=== PATIENT | female | born 1955 | race American Indian/Alaskan Native ===

== ENCOUNTER 2017-03-02 10:14 | Inpatient (IN) | payer BC ==
[2017-03-02] MEDS ORDERED: Ondansetron 4 MG/2 ML SDV IVPUSH ONE (10:35)
[2017-03-02] MEDS ORDERED: Sodium Chloride 0.9% 10 ML Syringe FLUSH PRN (10:36)
[2017-03-02] MEDS ORDERED: Sodium Chloride 0.9% 1,000 ML IV SCH (10:45)
--- NOTE | 2017-03-02 11:10 | EDM.PDOC ---
ED HPI GENERAL MEDICAL PROBLEM - General Chief Complaint: Back Pain or Injury Stated Complaint: [facility] Time Seen by Provider: 03/02/17 10:18 Source of Information: Reports: Patient, RN Notes Reviewed - History of Present Illness INITIAL COMMENTS - FREE TEXT/NARRATIVE: 61-year-old lady comes in with generalized weakness, dizziness, upper mid and lower back discomfort. She has been having a lot of difficulty with back discomfort for about a month or more. the pain comes and goes. She states yesterday she was extremely weak, dizzy, very difficult to stand or walk. Symptoms continued today and therefore presents by ambulance at this time. She is not aware of any recent fall or injury. She has drank alcohol heavily in the past but has not been drinking any time recently. She continues to smoke. Has not been coughing any more than usual. No fever or chills. No unusual bladder symptoms. At times the pain will radiate down into her legs but not having radicular pain at this time. No major abdominal or pelvic discomfort at this time. 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 [No Known Home Meds] 03/02/17 [History] Past Medical History HEENT History: Reports: Impaired Vision Musculoskeletal History: Reports: Neck Pain, Chronic Psychiatric History: Reports: Addiction Social & Family History - Tobacco Use Smoking Status *Q: Unknown Ever Smoked Years of Tobacco use: 30 - Alcohol Use Days Per Week of Alcohol Use: 1 Number of Drinks Per Day: 6 Total Drinks Per Week: 6 - Recreational Drug Use Recreational Drug Use: No ED ROS GENERAL - Review of Systems Review Of Systems: See Below Constitutional: Denies: Fever, Chills, Diaphoresis HEENT: Denies: Sinus Problem, Throat Pain Respiratory: Reports: Shortness of Breath, Wheezing (Exertional chronic), Cough (, mild). Denies: Sputum ( occasional, not worse than usual ), Hemoptysis Cardiovascular: Reports: Chest Pain (Occasional anterior chest tightness, not worse than usual), Dyspnea on Exertion, Lightheadedness (Yesterday and today), Palpitations (Mild) GI/Abdominal: Denies: Abdominal Pain, Diarrhea, Nausea, Vomiting : Reports: No Symptoms Musculoskeletal: Reports: Neck Pain (Chronic), Back Pain (Upper mid and lower back, chronic), Muscle Pain (Generalized achiness) Skin: Reports: Bruising (Scattered). Denies: Rash Neurological: Reports: Dizziness, Difficulty Walking (Generalized yesterday and today), Weakness. Denies: Numbness, Tingling ED EXAM, DIZZINESS - Physical Exam Exam: See Below General Appearance: Alert, Mild Distress Eye Exam: Bilateral Eye: PERRL Nose: Normal Inspection Throat/Mouth: Normal Inspection, Normal Oropharynx, Other (Oral mucosa very dry) Head Exam: Atraumatic. No: Facial Swelling Neck: Normal Inspection, Supple, Other (Mild bilateral soft tissue tenderness, no abnormal masses swelling) Respiratory/Chest: Wheezing (Mild bilateral). No: Rhonchi Cardiovascular: Tachycardia GI/Abdominal: Soft, Tender (Very mild upper mid abdominal tenderness). No: Guarding, Rebound Neurological: Alert, No Motor/Sensory Deficits, Oriented x 3 Back Exam: No: CVA Tenderness (L), CVA Tenderness (R) Extremities: Normal Inspection. No: Pedal Edema, Leg Pain Skin Exam: Warm, Dry, Normal Color EKG INTERPRETATION EKG Date: 03/02/17 Rate (Beats/Min): 138 P-Wave: Present QRS: Normal ST-T: Depressed (Anterior inferior and lateral lead depression) Course - Vital Signs Last Recorded V/S: Last Vital Signs Temp 98.2 F 03/02/17 10:16 Pulse 136 H 03/02/17 10:16 Resp 18 03/02/17 10:16 BP 97/81 03/02/17 10:16 Pulse Ox 97 03/02/17 10:16 - Orders/Labs/Meds Orders: Active Orders 24 hr Category Date Time Status Admission Status [Patient Status] [ADT] Routine ADT 03/02/17 13:15 Active EKG 12 Lead [EKG Documentation Completion] [RC] STAT Care 03/02/17 10:35 Active EKG 12 Lead [EKG Documentation Completion] [RC] STAT Care 03/02/17 11:13 Active Peripheral IV Care [RC] . DIRECTED Care 03/02/17 10:36 Active Potassium Chloride [KCl 10 MEQ in Water 100 ML] 10 meq Med 03/02/17 11:27 Active Premix Bag 1 bag IV ASDIRECTED Potassium Chloride [KCl 10 MEQ in Water 100 ML] 10 meq Med 03/02/17 13:17 Active Premix Bag 1 bag IV ASDIRECTED Sodium Chloride 0.9% [Normal Saline] 1,000 ml Med 03/02/17 11:52 Active IV NOW Sodium Chloride 0.9% [Normal Saline] 1,000 ml Med 03/02/17 10:45 Active IV ONETIME Sodium Chloride 0.9% [Saline Flush] Med 03/02/17 10:36 Active 10 ml FLUSH ASDIRECTED PRN Peripheral IV Insertion Adult [OM.PC] Stat Oth 03/02/17 10:35 Ordered Medication Orders Sodium Chloride (Normal Saline) 1,000 mls @ 999 mls/hr IV ONETIME RAAD Last Admin: 03/02/17 10:43 Dose: 999 mls/hr Potassium Chloride 10 meq/ (Premix) 100 mls @ 50 mls/hr IV ASDIRECTED ONE Stop: 03/02/17 13:26 Last Admin: 03/02/17 11:32 Dose: 50 mls/hr Sodium Chloride (Normal Saline) 1,000 mls @ 150 mls/hr IV NOW STA Stop: 03/02/17 18:31 Last Admin: 03/02/17 11:53 Dose: 150 mls/hr Potassium Chloride 10 meq/ (Premix) 100 mls @ 50 mls/hr IV ASDIRECTED ONE Stop: 03/02/17 15:16 Sodium Chloride (Saline Flush) 10 ml FLUSH ASDIRECTED PRN PRN Reason: Keep Vein Open Last Admin: 03/02/17 10:44 Dose: 10 ml Labs: Laboratory Tests 03/02/17 03/02/17 03/02/17 Range/Units 10:38 10:38 11:09 WBC 13.28 H (3.98-10.04) K/mm3 RBC 4.22 (3.98-5.22) M/mm3 Hgb 14.5 (11.2-15.7) gm/L Hct 41.6 (34.1-44.9) % MCV 98.6 H (79.4-94.8) fl MCH 34.4 H (25.6-32.2) pg MCHC 34.9 (32.2-35.5) g/dl RDW Std Deviation 54.5 H (36.4-46.3) fL Plt Count 313 (182-369) K/mm3 MPV 10.3 (9.4-12.3) fl Neut % (Auto) 86.0 H (34.0-71.1) % Lymph % (Auto) 8.7 L (19.3-51.7) % Harmon % (Auto) 4.8 (4.7-12.5) % Eos % (Auto) 0.1 L (0.7-5.8) Baso % (Auto) 0.2 (0.1-1.2) % Neut # (Auto) 11.43 H (1.56-6.13) K/mm3 Lymph # (Auto) 1.15 L (1.18-3.74) K/mm3 Harmon # (Auto) 0.64 H (0.24-0.36) K/mm3 Eos # (Auto) 0.01 L (0.04-0.36) K/mm3 Baso # (Auto) 0.02 (0.01-0.08) K/mm3 Manual Slide Review Abnormal smear Sodium 143 (136-145) mEq/L Potassium 1.3 L* (3.5-5.1) mEq/L Chloride 109 H (98-107) mEq/L Carbon Dioxide 22 (21-32) mEq/L Anion Gap 13.3 (5-15) BUN 12 (7-18) mg/dL Creatinine 1.1 H (0.55-1.02) mg/dL Est Cr Clr Drug Dosing 47.55 mL/min Estimated GFR (MDRD) 51 (>60) mL/min BUN/Creatinine Ratio 10.9 L (14-18) Glucose 175 H (74-106) mg/dL Calcium 7.8 L (8.5-10.1) mg/dL Total Bilirubin 1.4 H (0.2-1.0) mg/dL AST 58 H (15-37) U/L ALT 29 (14-59) U/L Alkaline Phosphatase 189 H (46-116) U/L Troponin I 0.141 H* (0.00-0.056) ng/mL C-Reactive Protein 1.4 H* (<1.0) mg/dL Total Protein 6.5 (6.4-8.2) g/dl Albumin 2.5 L (3.4-5.0) g/dl Globulin 4.0 gm/dL Albumin/Globulin Ratio 0.6 L (1-2) TSH 3rd Generation 7.263 H (0.358-3.74) uIU/mL Urine Color Yellow (Yellow) Urine Appearance Slt cloudy H (Clear) Urine pH 7.0 (5.0-8.0) Ur Specific [place] 1.020 (1.005-1.030) Urine Protein 2+ H (Negative) Urine Glucose (UA) Negative (Negative) Urine Ketones Negative (Negative) Urine Occult Blood 2+ H (Negative) Urine Nitrite Negative (Negative) Urine Bilirubin 1+ H (Negative) Urine Urobilinogen 0.2 (0.2-1.0) Ur Leukocyte Esterase Negative (Negative) Urine RBC 5-10 H (0-5) /hpf Urine WBC 0-5 (0-5) /hpf Ur Epithelial Cells 0-5 (0-5) /hpf Urine Bacteria Few (FEW) /hpf Urine Mucus Few (FEW) /hpf Meds: Medications Generic Name Dose Route Start Last Admin Trade Name Freq PRN Reason Stop Dose Admin Sodium Chloride 1,000 mls @ 999 mls/hr 03/02/17 10:45 03/02/17 10:43 Normal Saline IV 999 mls/hr ONETIME RAAD Administration Potassium Chloride 10 meq/ 100 mls @ 50 mls/hr 03/02/17 11:27 03/02/17 11:32 Premix IV 03/02/17 13:26 50 mls/hr ASDIRECTED ONE Administration Sodium Chloride 1,000 mls @ 150 mls/hr 03/02/17 11:52 03/02/17 11:53 Normal Saline IV 03/02/17 18:31 150 mls/hr NOW STA Administration Potassium Chloride 10 meq/ 100 mls @ 50 mls/hr 03/02/17 13:17 Premix IV 03/02/17 15:16 ASDIRECTED ONE Sodium Chloride 10 ml 03/02/17 10:36 03/02/17 10:44 Saline Flush FLUSH 10 ml ASDIRECTED PRN Administration Keep Vein Open Discontinued Medications Generic Name Dose Route Start Last Admin Trade Name Freq PRN Reason Stop Dose Admin Hydromorphone HCl 0.5 mg 03/02/17 13:17 Dilaudid IVPUSH 03/02/17 13:18 ONETIME ONE Sodium Chloride Confirm 03/02/17 11:53 Normal Saline Administered 03/02/17 11:54 Dose 1,000 mls @ as directed .ROUTE .STK-MED ONE Ondansetron HCl 4 mg 03/02/17 10:35 03/02/17 10:43 Zofran IVPUSH 03/02/17 10:36 4 mg ONETIME ONE Administration Potassium Chloride 40 meq 03/02/17 11:27 03/02/17 11:36 Klor-Con M20 PO 03/02/17 11:28 40 meq ONETIME ONE Administration - Re-Assessments/Exams Free Text/Narrative Re-Assessment/Exam: 03/02/17 11:28 Lab was just called. Her potassium is resulting at 1.3. However her the blood draw was from her IV site so we are going to have lab redraw that. Her EKG shows changes compatible with hypokalemia and therefore we are going to give 40 mEq by mouth now and also 10 mEq IV now. Interest her heart rate has slowed from 140s to 150s on arrival down to 89. Repeat EKG also has been ordered. Repeat EKG much improved. She still does have some ST depression but not near as much. Rate is at 59. We are continuing to infuse IV potassium slowly. The plan is that patient will be admitted MedSurg telemetry. Departure - Departure Time of Disposition: 13:12 Disposition: Admitted As Inpatient 68 Condition: Serious Clinical Impression: Hypokalemia, Generalized weakness, Difficulty walking - Discharge Information Referrals: PCP,None [Primary Care Provider] - Forms: ED Department Discharge ED Communication - Discussed Case With (1) Discussed Case With (1): Admitting Provider (Dr Null) - My Orders Last 24 Hours: My Active Orders 03/02/17 10:35 EKG 12 Lead [EKG Documentation Completion] [RC] STAT Peripheral IV Insertion Adult [OM.PC] Stat 03/02/17 10:36 Peripheral IV Care [RC] . DIRECTED Sodium Chloride 0.9% [Saline Flush] 10 ml FLUSH ASDIRECTED PRN 03/02/17 10:45 Sodium Chloride 0.9% [Normal Saline] 1,000 ml IV ONETIME 03/02/17 11:13 EKG 12 Lead [EKG Documentation Completion] [RC] STAT 03/02/17 11:27 Potassium Chloride [KCl 10 MEQ in Water 100 ML] 10 meq Premix Bag 1 bag IV ASDIRECTED 03/02/17 11:52 Sodium Chloride 0.9% [Normal Saline] 1,000 ml IV NOW 03/02/17 13:15 Admission Status [Patient Status] [ADT] Routine 03/02/17 13:17 Potassium Chloride [KCl 10 MEQ in Water 100 ML] 10 meq Premix Bag 1 bag IV ASDIRECTED - Assessment/Plan Last 24 Hours: My Active Orders 03/02/17 10:35 EKG 12 Lead [EKG Documentation Completion] [RC] STAT Peripheral IV Insertion Adult [OM.PC] Stat 03/02/17 10:36 Peripheral IV Care [RC] . DIRECTED Sodium Chloride 0.9% [Saline Flush] 10 ml FLUSH ASDIRECTED PRN 03/02/17 10:45 Sodium Chloride 0.9% [Normal Saline] 1,000 ml IV ONETIME 03/02/17 11:13 EKG 12 Lead [EKG Documentation Completion] [RC] STAT 03/02/17 11:27 Potassium Chloride [KCl 10 MEQ in Water 100 ML] 10 meq Premix Bag 1 bag IV ASDIRECTED 03/02/17 11:52 Sodium Chloride 0.9% [Normal Saline] 1,000 ml IV NOW 03/02/17 13:15 Admission Status [Patient Status] [ADT] Routine 03/02/17 13:17 Potassium Chloride [KCl 10 MEQ in Water 100 ML] 10 meq Premix Bag 1 bag IV ASDIRECTED
--- NOTE | 2017-03-02 11:10 | CR ---
Chest: Portable view of the chest was obtained. Comparison: Previous chest x-ray of 05/18/14. Heart size and mediastinum are within normal limits for portable technique. Lungs are clear. Bony structures are grossly intact. Impression: 1. Nothing acute is identified on portable chest x-ray. Diagnostic code #1
[2017-03-02] MEDS ORDERED: Potassium Chloride 10 MEQ in Premix Bag 1 BAG IV ONE ×2 (11:27→13:17)
[2017-03-02] MEDS ORDERED: Potassium Chloride 20 MEQ Tab.ER PO ONE (11:27)
[2017-03-02] MEDS ORDERED: Sodium Chloride 0.9% 1,000 ML IV STA (11:52)
[2017-03-02] MEDS ORDERED: Sodium Chloride 0.9% 1,000 ML ONE (11:53)
[2017-03-02] MEDS ORDERED: HYDROmorphone 0.5 MG/0.5 ML Syringe IVPUSH ONE (13:17)
[2017-03-02] MEDS ORDERED: Acetaminophen 325 MG Tab PO ONE (14:40)
[2017-03-02] MEDS ORDERED: Sodium Chloride 0.9% with KCl 1,000 ML IV ONE (15:45)
--- NOTE | 2017-03-02 16:09 | PCM.HP ---
H&P History of Present Illness - General Date of Service: 03/02/17 Admit Problem/Dx: Admission Diagnosis/Problem Admission Diagnosis/Problem Hypokalemia Source of Information: Patient, Provider History Limitations: Reports: No Limitations - History of Present Illness Initial Comments - Free Text/Narative: 61 year old female who complained of back discomfort on presentation to the ED, is being admitted with profoundly low potassium, 1.6. A repeat potassium will be obtained, the potassium was drawn from the IV site. A UDS/EAC will also be checked; she reports no medication use. She reported trying to lose weight until the spring, and mentions that she has had a loss of over 60 pounds. At this time she reported a poor appetite and muscle weakness. Apparently she had back pain in the ED and received Dilaudid 0.5 mg IV once. She reported early satiety and states that she prefers drink her meals especially Ensure. Onset of Symptoms: Reports: Unknown/Unsure Duration of Symptoms: Reports: Week(s):, Getting Worse Location: Reports: Generalized Severity: Moderate Improves with: Reports: Medication Worsens with: Reports: Movement Associated Symptoms: Reports: Loss of Appetite, Weakness Neck Pain Score (Numeric/FACES): 8 Back Pain Score (Numeric/FACES): 8 - Related Data Allergies/Adverse Reactions: Allergies Allergy/AdvReac Type Severity Reaction Status Date / Time carisoprodol [From Soma] Allergy Cannot Verified 02/07/14 09:08 Remember Home Medications: Home Meds . 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) Other OB/BYN History: tumor on uterus Musculoskeletal History: Reports: Back Pain, Chronic, Neck Pain, Chronic Psychiatric History: Reports: Addiction, Depression Oncologic (Cancer) History: 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 (See Below) Other Oncologic History: precancerous uterine tumour removed with hysterectomy - Infectious Disease History Infectious Disease History: Reports: Chicken Pox - Past Surgical History HEENT Surgical History: 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 (See Below) Other HEENT Surgeries/Procedures: rhinoplasty Respiratory Surgical History: Reports: None Female Surgical History: Reports: Hysterectomy Other Female Surgeries/Procedures: partial hysterectomy Musculoskeletal Surgical History: Reports: None Oncologic Surgical History: 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 (See Below) Other Oncologic Surgeries/Procedures: hysterectomy Social & Family History - Family History Family Medical History: Noncontributory Other HEENT Family History: pt. adopted and unsure of family medical history. states her children do not have medical concerns. - Tobacco Use Smoking Status *Q: Current Every Day Smoker Years of Tobacco use: 42 Packs/Tins Daily: 0.5 Second Hand Smoke Exposure: Yes - Caffeine Use Caffeine Use: Reports: Coffee, Soda, Tea - Alcohol Use Days Per Week of Alcohol Use: 1 Number of Drinks Per Day: 6 Total Drinks Per Week: 6 - Recreational Drug Use Recreational Drug Use: No H&P Review of Systems - Review of Systems: Review Of Systems: See Below General: Reports: Weakness, Fatigue, Decreased Appetite, Weight Loss HEENT: Reports: No Symptoms Pulmonary: Reports: No Symptoms Cardiovascular: Reports: Lightheadedness. Denies: No Symptoms Gastrointestinal: Reports: No Symptoms Genitourinary: Reports: No Symptoms Musculoskeletal: Reports: No Symptoms Skin: Reports: No Symptoms Psychiatric: Reports: No Symptoms Neurological: Reports: No Symptoms Hematologic/Lymphatic: Reports: No Symptoms Immunologic: Reports: No Symptoms Exam - Exam Exam: See Below - Vital Signs Vital Signs: Last Vital Signs Temp 36.4 C 03/02/17 15:29 Pulse 87 03/02/17 15:29 Resp 12 03/02/17 15:31 BP 115/92 H 03/02/17 15:31 Pulse Ox 97 03/02/17 15:29 Weight: 57.969 kg - Exam Quality Assessment: DVT Prophylaxis General: Alert, Oriented, Cooperative, Other (dishelved) HEENT: EACs Clear, EOMI, Nares Patent, Normal Nasal Septum, Posterior Pharynx Clear, Pupils Equal, Pupils Reactive, TMs Clear Neck: Supple, Trachea Midline Lungs: Normal Respiratory Effort Cardiovascular: Regular Rate, Tachycardia GI/Abdominal Exam: Normal Bowel Sounds, Soft, Non-Tender, No Organomegaly, No Distention (Female) Exam: Deferred Rectal (Female) Exam: Deferred Back Exam: Normal Inspection Extremities: Normal Inspection Skin: Warm Neurological: Cranial Nerves Intact Neuro Extensive - Mental Status: Alert, Oriented x3 Neuro Extensive - Motor, Sensory, Reflexes: CN II-XII Intact Psychiatric: Alert - Patient Data Result Diagrams: 03/02/17 10:38 03/02/17 10:38 *Q Meaningful Use (ADM) - VTE *Q VTE Criteria *Q: - Stroke *Q Stroke Criteria *Q: - AMI *Q AMI Criteria *Q: - Problem List (1) Difficulty walking SNOMED Code(s): 774209894 ICD Code: R26.2 - DIFFICULTY IN WALKING, NOT ELSEWHERE CLASSIFIED Status: Acute Current Visit: Yes (2) Generalized weakness SNOMED Code(s): 69350231 ICD Code: R53.1 - WEAKNESS Status: Acute Current Visit: Yes (3) Hypokalemia SNOMED Code(s): 54807522 ICD Code: E87.6 - HYPOKALEMIA Status: Acute Current Visit: Yes Problem List Initiated/Reviewed/Updated: Yes Orders Last 24hrs: Active Orders 24 hr Category Date Time Status Nicotine [Habitrol] Med 03/02/17 15:45 Active 21 mg TRDERM DAILY Remove Patch Med 03/03/17 09:00 Active 1 ea TRDERM DAILY Sodium Chloride 0.9% with KCl [Normal Saline with 40 Med 03/02/17 15:45 Active mEq KCl] 1,000 ml IV ONETIME Code Status [Resuscitation Status] Routine Resus Stat 03/02/17 14:43 Ordered Medication Orders Sodium Chloride (Normal Saline) 1,000 mls @ 150 mls/hr IV NOW STA Stop: 03/02/17 18:31 Last Admin: 03/02/17 11:53 Dose: 150 mls/hr Potassium Chloride/Sodium Chloride (Normal Saline With 40 Meq Kcl) 1,000 mls @ 100 mls/hr IV ONETIME ONE Stop: 03/03/17 01:44 Miscellaneous Information (Remove Patch) 1 ea TRDERM DAILY RAAD Nicotine (Habitrol) 21 mg TRDERM DAILY RAAD Sodium Chloride (Saline Flush) 10 ml FLUSH ASDIRECTED PRN PRN Reason: Keep Vein Open Last Admin: 03/02/17 10:44 Dose: 10 ml Assessment/Plan Comment:: Impression: Hypokalemia, unspecified Query hypomagnesemia Hypothyroidism Hyperglycemia Elevated WBCs, no infectious site Query CKD, likely dehydration Hypocalcemia Elevated Tn I, can not exclude ACS type I Plan: IV/oral K MS tele Serial ECG/Tns Repeat K, Ca; replace as needed; check Mg Uk, UCr; UDS Start Synthroid Query ACS 2D echo, etc as needed SW/PT/OT DVT/GI prophylaxis
[2017-03-02] MEDS ORDERED: diphenhydrAMINE 50 MG/ML SDV IVPUSH ONE (16:12)
[2017-03-02] MEDS ORDERED: Ibuprofen 600 MG Tab PO PRN (16:16)
[2017-03-02] MEDS: Nicotine 21 MG/24 Hr Patch TRDERM SCH (16:29)
[2017-03-02] MEDS: chlordiazePOXIDE 25 MG Cap PO SCH ×2 (19:53→23:53)
[2017-03-02] MEDS: Potassium Chloride 10 MEQ in Premix Bag 1 BAG IV SCH ×3 (19:54→22:10)
[2017-03-02] MEDS ORDERED: Magnesium Sulfate/Water 2 GM in Premix Bag 1 BAG IV ONE (20:00)
[2017-03-02] MEDS: Potassium Chloride 20 MEQ Tab.ER PO SCH (20:04)
[2017-03-02] MEDS: LORazepam 2 MG/ML MDV IVPUSH PRN (20:05)
[2017-03-03] MEDS ORDERED: Levothyroxine 50 MCG Tab PO SCH (06:00)
[2017-03-03] MEDS: Potassium Chloride 20 MEQ Tab.ER PO SCH ×3 (09:19→22:17)
[2017-03-03] MEDS: Enoxaparin 40 MG/0.4 ML Syringe SUBCUT SCH (09:19)
[2017-03-03] MEDS: Nicotine 21 MG/24 Hr Patch TRDERM SCH (09:19)
[2017-03-03] MEDS: chlordiazePOXIDE 25 MG Cap PO SCH ×2 (09:20→22:17)
[2017-03-03] MEDS ORDERED: Potassium Chloride 20 MEQ Tab.ER PO ONE (10:00)
--- NOTE | 2017-03-03 13:16 | PCM.PN ---
- General Info Date of Service: 03/03/17 Functional Status: Reports: Tolerating Diet (clear liquids), Ambulating, Urinating - Review of Systems General: Reports: Weakness HEENT: Reports: No Symptoms Pulmonary: Reports: No Symptoms Cardiovascular: Reports: No Symptoms Gastrointestinal: Reports: No Symptoms Genitourinary: Reports: No Symptoms Musculoskeletal: Reports: No Symptoms Skin: Reports: No Symptoms Neurological: Reports: No Symptoms Psychiatric: Reports: No Symptoms - Patient Data Vitals - Most Recent: Last Vital Signs Temp 36.6 C 03/03/17 12:21 Pulse 80 03/03/17 12:21 Resp 12 03/03/17 12:21 BP 102/86 03/03/17 12:21 Pulse Ox 99 03/03/17 12:21 Weight - Most Recent: 60.146 kg I&O - Last 24 Hours: Intake & Output 03/02/17 03/03/17 03/03/17 22:59 06:59 14:59 Intake Total 640 600 Output Total 525 Balance 640 75 Lab Results Last 24 Hours: Laboratory Results - last 24 hr 03/02/17 03/03/17 03/03/17 Range/Units 18:12 05:45 05:45 WBC 9.24 (3.98-10.04) K/mm3 RBC 3.23 L (3.98-5.22) M/mm3 Hgb 11.0 L (11.2-15.7) gm/L Hct 32.5 L (34.1-44.9) % MCV 100.6 H (79.4-94.8) fl MCH 34.1 H (25.6-32.2) pg MCHC 33.8 (32.2-35.5) g/dl RDW Std Deviation 54.5 H (36.4-46.3) fL Plt Count 271 (182-369) K/mm3 MPV 10.6 (9.4-12.3) fl Neut % (Auto) 68.7 (34.0-71.1) % Lymph % (Auto) 22.1 (19.3-51.7) % [place] % (Auto) 6.4 (4.7-12.5) % Eos % (Auto) 2.4 (0.7-5.8) Baso % (Auto) 0.3 (0.1-1.2) % Neut # (Auto) 6.35 H (1.56-6.13) K/mm3 Lymph # (Auto) 2.04 (1.18-3.74) K/mm3 [place] # (Auto) 0.59 H (0.24-0.36) K/mm3 Eos # (Auto) 0.22 (0.04-0.36) K/mm3 Baso # (Auto) 0.03 (0.01-0.08) K/mm3 Sodium 141 144 (136-145) mEq/L Potassium 1.5 L* 1.8 L* (3.5-5.1) mEq/L Chloride 106 111 H (98-107) mEq/L Carbon Dioxide 21 19 L (21-32) mEq/L Anion Gap 15.5 H 15.8 H (5-15) BUN 13 13 (7-18) mg/dL Creatinine 1.4 H 1.1 H (0.55-1.02) mg/dL Est Cr Clr Drug Dosing 37.36 47.55 mL/min Estimated GFR (MDRD) 38 51 (>60) mL/min BUN/Creatinine Ratio 9.3 L 11.8 L (14-18) Glucose 173 H 121 H (74-106) mg/dL Hemoglobin A1c (4.50-6.20) % Calcium 7.6 L 7.3 L (8.5-10.1) mg/dL Magnesium 1.5 L 2.3 (1.8-2.4) mg/dl Troponin I 0.125 H* (0.00-0.056) ng/mL C-Reactive Protein 1.5 H* (<1.0) mg/dL 03/03/17 03/03/17 03/03/17 Range/Units 05:45 08:35 08:35 WBC 9.24 (3.98-10.04) K/mm3 RBC 3.28 L (3.98-5.22) M/mm3 Hgb 11.3 (11.2-15.7) gm/L Hct 32.9 L (34.1-44.9) % MCV 100.3 H (79.4-94.8) fl MCH 34.5 H (25.6-32.2) pg MCHC 34.3 (32.2-35.5) g/dl RDW Std Deviation 55.4 H (36.4-46.3) fL Plt Count 277 (182-369) K/mm3 MPV 10.2 (9.4-12.3) fl Neut % (Auto) 76.9 H (34.0-71.1) % Lymph % (Auto) 16.0 L (19.3-51.7) % [place] % (Auto) 5.0 (4.7-12.5) % Eos % (Auto) 1.6 (0.7-5.8) Baso % (Auto) 0.4 (0.1-1.2) % Neut # (Auto) 7.10 H (1.56-6.13) K/mm3 Lymph # (Auto) 1.48 (1.18-3.74) K/mm3 [place] # (Auto) 0.46 H (0.24-0.36) K/mm3 Eos # (Auto) 0.15 (0.04-0.36) K/mm3 Baso # (Auto) 0.04 (0.01-0.08) K/mm3 Sodium 144 (136-145) mEq/L Potassium 2.0 L* (3.5-5.1) mEq/L Chloride 109 H (98-107) mEq/L Carbon Dioxide 20 L (21-32) mEq/L Anion Gap 17.0 H (5-15) BUN 13 (7-18) mg/dL Creatinine 1.1 H (0.55-1.02) mg/dL Est Cr Clr Drug Dosing 47.55 mL/min Estimated GFR (MDRD) 51 (>60) mL/min BUN/Creatinine Ratio 11.8 L (14-18) Glucose 147 H (74-106) mg/dL Hemoglobin A1c 6.60 H (4.50-6.20) % Calcium 7.4 L (8.5-10.1) mg/dL Magnesium (1.8-2.4) mg/dl Troponin I (0.00-0.056) ng/mL C-Reactive Protein (<1.0) mg/dL Med Orders - Current: Current Medications Acetaminophen (Tylenol Solution) 650 mg PO Q8H PRN PRN Reason: Pain (moderate 4-6) Chlordiazepoxide HCl (Librium) 25 mg PO BID RAAD Last Admin: 03/03/17 09:20 Dose: 25 mg Enoxaparin Sodium (Lovenox) 40 mg SUBCUT DAILY [facility] Last Admin: 03/03/17 09:19 Dose: 40 mg Levothyroxine Sodium (Levothyroxine) 75 mcg PO ACBREAKFAST [facility] Lorazepam (Ativan) 0 mg IVPUSH Q4HR PRN; Protocol PRN Reason: Withdrawal Symptoms Last Admin: 03/02/17 20:05 Dose: 1 mg Miscellaneous Information (Remove Patch) 1 ea TRDERM DAILY [facility] Last Admin: 03/03/17 09:25 Dose: 1 ea Nicotine (Habitrol) 21 mg TRDERM DAILY [facility] Last Admin: 03/03/17 09:19 Dose: 21 mg Potassium Chloride (Klor-Con M20) 60 meq PO TID [facility] Sodium Chloride (Saline Flush) 10 ml FLUSH ASDIRECTED PRN PRN Reason: Keep Vein Open Last Admin: 03/02/17 10:44 Dose: 10 ml Temazepam (Restoril) 7.5 mg PO BEDTIME PRN PRN Reason: Insomnia Discontinued Medications Acetaminophen (Tylenol) 650 mg PO NOW ONE Stop: 03/02/17 14:41 Last Admin: 03/02/17 14:53 Dose: 650 mg Diphenhydramine HCl (Benadryl) 50 mg IVPUSH ONETIME ONE Stop: 03/02/17 16:13 Last Admin: 03/02/17 16:31 Dose: 50 mg Hydromorphone HCl (Dilaudid) 0.5 mg IVPUSH ONETIME ONE Stop: 03/02/17 13:18 Last Admin: 03/02/17 13:25 Dose: 0.5 mg Sodium Chloride (Normal Saline) 1,000 mls @ 999 mls/hr IV ONETIME RAAD Last Admin: 03/02/17 10:43 Dose: 999 mls/hr Potassium Chloride 10 meq/ (Premix) 100 mls @ 50 mls/hr IV ASDIRECTED ONE Stop: 03/02/17 13:26 Last Admin: 03/02/17 11:32 Dose: 50 mls/hr Sodium Chloride (Normal Saline) Confirm Administered Dose 1,000 mls @ as directed .ROUTE .STK-MED ONE Stop: 03/02/17 11:54 Last Admin: 03/02/17 15:20 Dose: Not Given Sodium Chloride (Normal Saline) 1,000 mls @ 150 mls/hr IV NOW STA Stop: 03/02/17 18:31 Last Admin: 03/02/17 11:53 Dose: 150 mls/hr Potassium Chloride 10 meq/ (Premix) 100 mls @ 50 mls/hr IV ASDIRECTED ONE Stop: 03/02/17 15:16 Last Admin: 03/02/17 13:25 Dose: 50 mls/hr Potassium Chloride/Sodium Chloride (Normal Saline With 40 Meq Kcl) 1,000 mls @ 100 mls/hr IV ONETIME ONE Stop: 03/03/17 01:44 Last Admin: 03/02/17 16:10 Dose: 100 mls/hr Magnesium Sulfate 2 gm/ Premix 50 mls @ 25 mls/hr IV ONETIME ONE Stop: 03/02/17 21:59 Last Admin: 03/02/17 20:01 Dose: 25 mls/hr Potassium Chloride 10 meq/ (Premix) 100 mls @ 100 mls/hr IV Q1H [facility]AD Stop: 03/02/17 21:59 Last Admin: 03/02/17 22:10 Dose: 100 mls/hr Ibuprofen (Motrin) 600 mg PO Q6H PRN PRN Reason: Pain (moderate 4-6) Last Admin: 03/02/17 16:30 Dose: 600 mg Levothyroxine Sodium (Synthroid) 50 mcg PO ACBREAKFAST [facility] Last Admin: 03/03/17 06:08 Dose: 50 mcg Ondansetron HCl (Zofran) 4 mg IVPUSH ONETIME ONE Stop: 03/02/17 10:36 Last Admin: 03/02/17 10:43 Dose: 4 mg Potassium Chloride (Klor-Con M20) 40 meq PO ONETIME ONE Stop: 03/02/17 11:28 Last Admin: 03/02/17 11:36 Dose: 40 meq Potassium Chloride (Klor-Con M20) 40 meq PO TID [facility] Last Admin: 03/03/17 09:19 Dose: 40 meq Potassium Chloride (Klor-Con M20) 20 meq PO ONETIME ONE Stop: 03/03/17 10:01 Last Admin: 03/03/17 12:16 Dose: 20 meq - Exam Quality Assessment: Supplemental Oxygen, DVT Prophylaxis General: Alert, Oriented, Cooperative, No Acute Distress HEENT: Pupils Equal, Pupils Reactive, EOMI, Mucous Membr. Moist/[place], Other ( poor dentition) Neck: Supple, Trachea Midline Lungs: Normal Respiratory Effort Cardiovascular: Regular Rate GI/Abdominal Exam: Normal Bowel Sounds, Soft, Non-Tender, No Organomegaly, Distended (Female) Exam: Deferred Back Exam: Normal Inspection Extremities: Normal Inspection Skin: Warm Neurological: No New Focal Deficit Psy/Mental Status: Alert, Anxious - Problem List & Annotations (1) Difficulty walking SNOMED Code(s): 192818986 Code(s): R26.2 - DIFFICULTY IN WALKING, NOT ELSEWHERE CLASSIFIED Status: Acute Current Visit: Yes (2) Generalized weakness SNOMED Code(s): 91707392 Code(s): R53.1 - WEAKNESS Status: Acute Current Visit: Yes (3) Hypokalemia SNOMED Code(s): 54066795 Code(s): E87.6 - HYPOKALEMIA Status: Acute Current Visit: Yes (4) Positive urine drug screen SNOMED Code(s): 698439241, 180116471 Code(s): R82.5 - ELEVATED URINE LEVELS OF DRUG/MEDS/BIOL SUBST Status: Acute Current Visit: Yes - Problem List Review Problem List Initiated/Reviewed/Updated: Yes - My Orders Last 24 Hours: My Active Orders 03/02/17 14:43 Code Status [Resuscitation Status] Routine 03/02/17 15:45 Nicotine [Habitrol] 21 mg TRDERM DAILY 03/02/17 16:17 Acetaminophen [Tylenol Solution] 650 mg PO Q8H PRN 03/02/17 16:25 Activity as Tolerated [RC] QSHIFT Vital Signs [RC] 09,15,21,03 03/02/17 16:26 Consult to Television Repairman [CONS] Routine 03/02/17 16:27 Consult to Occupational Therapy [OT Evaluation and Treatment] [CONS] Routine Consult to Physical Therapy [PT Evaluation and Treatment] [CONS] Routine 03/02/17 16:30 Temazepam [Restoril] 7.5 mg PO BEDTIME PRN 03/02/17 17:20 BUPRENORPHINE, CONFIRM Routine 03/02/17 17:22 Antiembolic Devices [RC] 09,21 JENNIFER Hose [Antiembolic Hose] [OM.PC] Routine 03/02/17 18:41 Consult for Substance Abuse [CONS] Routine 03/02/17 18:52 CIWAA Assessment [RC] Q4HR 03/02/17 19:00 chlordiazePOXIDE [Librium] 25 mg PO BID [facility] Therapy [OM.PC] Routine 03/02/17 19:02 LORazepam [Ativan] See Protocol IVPUSH Q4HR PRN 03/03/17 05:45 BASIC METABOLIC PANEL,BMP [CHEM] DAILY ETHANOL BLOOD MEDICAL [CHEM] Routine MAGNESIUM [CHEM] DAILY 03/03/17 09:00 Enoxaparin [Lovenox] 40 mg SUBCUT DAILY Remove Patch 1 ea TRDERM DAILY 03/03/17 15:00 Potassium Chloride [Klor-Con M20] 60 meq PO TID 03/03/17 18:00 BASIC METABOLIC PANEL,BMP [CHEM] Routine 03/03/17 Lunch Full Liquid Diet [DIET] 03/04/17 05:00 BASIC METABOLIC PANEL,BMP [CHEM] DAILY CBC WITH AUTO DIFF [HEME] DAILY MAGNESIUM [CHEM] DAILY 03/05/17 05:00 BASIC METABOLIC PANEL,BMP [CHEM] DAILY CBC WITH AUTO DIFF [HEME] DAILY MAGNESIUM [CHEM] DAILY 03/06/17 05:00 BASIC METABOLIC PANEL,BMP [CHEM] DAILY CBC WITH AUTO DIFF [HEME] DAILY MAGNESIUM [CHEM] DAILY - Plan Plan:: Impression: Hypokalemia, unspecified Query hypomagnesemia Hypothyroidism-profound Hyperglycemia Elevated WBCs, no infectious site Query CKD, likely dehydration Hypocalcemia Elevated Tn I, can not exclude ACS type I Plan: IV/oral K MS tele Serial ECG/Tns Repeat K, Ca; replace as needed; check Mg Uk, UCr; UDS Start Synthroid Query ACS Continue electrolyte replacement SW/PT/OT DVT/GI prophylaxis
[2017-03-03] MEDS ORDERED: Pneumococcal Polyvalent-23 Vaccine 0.5 ML SDV IM ONE (14:00)
[2017-03-03] MEDS ORDERED: Diphtheria,Pertussis(Acell),Tetanus Vaccine 0.5 ML SDV IM ONE (14:00)
[2017-03-03] MEDS: Acetaminophen Susp 325 MG/10.15 ML UD Cup PO PRN ×2 (14:51→22:19)
[2017-03-03] MEDS: LORazepam 2 MG/ML MDV IVPUSH PRN (14:53)
[2017-03-03] MEDS: Potassium Chloride 10 MEQ in Premix Bag 1 BAG IV SCH ×3 (18:33→22:17)
[2017-03-03] MEDS: Sodium Chloride 0.9% 1,000 ML IV SCH (18:52)
[2017-03-03] MEDS: Temazepam 7.5 MG Cap PO PRN (22:17)
[2017-03-04] MEDS: LORazepam 2 MG/ML MDV IVPUSH PRN ×2 (01:21→13:17)
[2017-03-04] MEDS: Potassium Chloride 10 MEQ in Premix Bag 1 BAG IV SCH (01:23)
[2017-03-04] MEDS: Levothyroxine 75 MCG Tab PO SCH (06:27)
[2017-03-04] MEDS: Acetaminophen Susp 325 MG/10.15 ML UD Cup PO PRN (08:13)
[2017-03-04] MEDS: Enoxaparin 40 MG/0.4 ML Syringe SUBCUT SCH (08:13)
[2017-03-04] MEDS: Nicotine 21 MG/24 Hr Patch TRDERM SCH (08:14)
[2017-03-04] MEDS: Potassium Chloride 20 MEQ Tab.ER PO SCH ×4 (08:14→20:41)
[2017-03-04] MEDS: chlordiazePOXIDE 25 MG Cap PO SCH ×2 (08:15→20:41)
[2017-03-04] MEDS ORDERED: Magnesium Sulfate/Water 2 GM in Premix Bag 1 BAG IV ONE (09:11)
[2017-03-04] MEDS: Sodium Chloride 0.9% 1,000 ML IV SCH ×3 (10:53→23:35)
--- NOTE | 2017-03-04 12:58 | PCM.PN ---
- General Info Date of Service: 03/04/17 Functional Status: Reports: Tolerating Diet (wants more than clear liquids; complains of early satiety) - Review of Systems General: Reports: Weakness HEENT: Reports: No Symptoms Pulmonary: Reports: No Symptoms Cardiovascular: Reports: No Symptoms Gastrointestinal: Reports: No Symptoms Genitourinary: Reports: No Symptoms Musculoskeletal: Reports: No Symptoms Skin: Reports: No Symptoms Neurological: Reports: No Symptoms Psychiatric: Reports: No Symptoms - Patient Data Vitals - Most Recent: Last Vital Signs Temp 36.3 C 03/04/17 08:22 Pulse 93 03/04/17 08:09 Resp 16 03/04/17 08:09 BP 95/61 03/04/17 08:07 Pulse Ox 99 03/04/17 08:09 Weight - Most Recent: 61.961 kg I&O - Last 24 Hours: Intake & Output 03/03/17 03/04/17 03/04/17 22:59 06:59 14:59 Intake Total 880 800 25 Output Total 750 500 Balance 130 300 25 Lab Results Last 24 Hours: Laboratory Results - last 24 hr 03/03/17 03/03/17 03/04/17 Range/Units 05:45 18:10 05:50 WBC 6.14 (3.98-10.04) K/mm3 RBC 3.03 L (3.98-5.22) M/mm3 Hgb 10.3 L (11.2-15.7) gm/L Hct 30.6 L (34.1-44.9) % MCV 101.0 H (79.4-94.8) fl MCH 34.0 H (25.6-32.2) pg MCHC 33.7 (32.2-35.5) g/dl RDW Std Deviation 56.6 H (36.4-46.3) fL Plt Count 259 (182-369) K/mm3 MPV 10.4 (9.4-12.3) fl Neut % (Auto) 63.7 (34.0-71.1) % Lymph % (Auto) 27.5 (19.3-51.7) % [place] % (Auto) 5.7 (4.7-12.5) % Eos % (Auto) 2.1 (0.7-5.8) Baso % (Auto) 0.5 (0.1-1.2) % Neut # (Auto) 3.91 (1.56-6.13) K/mm3 Lymph # (Auto) 1.69 (1.18-3.74) K/mm3 [place] # (Auto) 0.35 (0.24-0.36) K/mm3 Eos # (Auto) 0.13 (0.04-0.36) K/mm3 Baso # (Auto) 0.03 (0.01-0.08) K/mm3 Manual Slide Review Abnormal smear Sodium 144 142 (136-145) mEq/L Potassium 1.8 L* 2.1 L* (3.5-5.1) mEq/L Chloride 111 H 110 H (98-107) mEq/L Carbon Dioxide 19 L 20 L (21-32) mEq/L Anion Gap 15.8 H 14.1 (5-15) BUN 13 11 (7-18) mg/dL Creatinine 1.1 H 1.2 H (0.55-1.02) mg/dL Est Cr Clr Drug Dosing 47.55 43.59 mL/min Estimated GFR (MDRD) 51 46 (>60) mL/min BUN/Creatinine Ratio 11.8 L 9.2 L (14-18) Glucose 121 H 152 H (74-106) mg/dL Calcium 7.3 L 7.6 L (8.5-10.1) mg/dL Magnesium 2.3 (1.8-2.4) mg/dl Troponin I 0.047 (0.00-0.056) ng/mL Ethyl Alcohol 0.00 (0.00) gm% 03/04/17 Range/Units 05:50 WBC (3.98-10.04) K/mm3 RBC (3.98-5.22) M/mm3 Hgb (11.2-15.7) gm/L Hct (34.1-44.9) % MCV (79.4-94.8) fl MCH (25.6-32.2) pg MCHC (32.2-35.5) g/dl RDW Std Deviation (36.4-46.3) fL Plt Count (182-369) K/mm3 MPV (9.4-12.3) fl Neut % (Auto) (34.0-71.1) % Lymph % (Auto) (19.3-51.7) % [place] % (Auto) (4.7-12.5) % Eos % (Auto) (0.7-5.8) Baso % (Auto) (0.1-1.2) % Neut # (Auto) (1.56-6.13) K/mm3 Lymph # (Auto) (1.18-3.74) K/mm3 [place] # (Auto) (0.24-0.36) K/mm3 Eos # (Auto) (0.04-0.36) K/mm3 Baso # (Auto) (0.01-0.08) K/mm3 Manual Slide Review Sodium 142 (136-145) mEq/L Potassium 3.0 L (3.5-5.1) mEq/L Chloride 113 H (98-107) mEq/L Carbon Dioxide 19 L (21-32) mEq/L Anion Gap 13.0 (5-15) BUN 9 (7-18) mg/dL Creatinine 1.0 (0.55-1.02) mg/dL Est Cr Clr Drug Dosing 52.31 mL/min Estimated GFR (MDRD) 57 (>60) mL/min BUN/Creatinine Ratio 9.0 L (14-18) Glucose 104 (74-106) mg/dL Calcium 7.4 L (8.5-10.1) mg/dL Magnesium 1.9 (1.8-2.4) mg/dl Troponin I (0.00-0.056) ng/mL Ethyl Alcohol (0.00) gm% Med Orders - Current: Current Medications Acetaminophen (Tylenol Solution) 650 mg PO Q8H PRN PRN Reason: Pain (moderate 4-6) Last Admin: 03/04/17 08:13 Dose: 650 mg Chlordiazepoxide HCl (Librium) 25 mg PO BID [facility] Last Admin: 03/04/17 08:15 Dose: 25 mg Enoxaparin Sodium (Lovenox) 40 mg SUBCUT DAILY [facility] Last Admin: 03/04/17 08:13 Dose: 40 mg Sodium Chloride (Normal Saline) 1,000 mls @ 75 mls/hr IV ASDIRECTED [facility] Last Admin: 03/04/17 10:53 Dose: 75 mls/hr Levothyroxine Sodium (Levothyroxine) 75 mcg PO ACBREAKFAST [facility] Last Admin: 03/04/17 06:27 Dose: 75 mcg Lorazepam (Ativan) 0 mg IVPUSH Q4HR PRN; Protocol PRN Reason: Withdrawal Symptoms Last Admin: 03/04/17 01:21 Dose: 1 mg Miscellaneous Information (Remove Patch) 1 ea TRDERM DAILY [facility] Last Admin: 03/04/17 08:15 Dose: 1 ea Nicotine (Habitrol) 21 mg TRDERM DAILY [facility] Last Admin: 03/04/17 08:14 Dose: 21 mg Potassium Chloride (Klor-Con M20) 60 meq PO QID [facility] Sodium Chloride (Saline Flush) 10 ml FLUSH ASDIRECTED PRN PRN Reason: Keep Vein Open Last Admin: 03/02/17 10:44 Dose: 10 ml Temazepam (Restoril) 7.5 mg PO BEDTIME PRN PRN Reason: Insomnia Last Admin: 03/03/17 22:17 Dose: 7.5 mg Discontinued Medications Acetaminophen (Tylenol) 650 mg PO NOW ONE Stop: 03/02/17 14:41 Last Admin: 03/02/17 14:53 Dose: 650 mg Diphenhydramine HCl (Benadryl) 50 mg IVPUSH ONETIME ONE Stop: 03/02/17 16:13 Last Admin: 03/02/17 16:31 Dose: 50 mg Diphtheria/Tetanus/Acell Pertussis (Adacel) 0.5 ml IM .ONCE ONE Stop: 03/03/17 14:01 Hydromorphone HCl (Dilaudid) 0.5 mg IVPUSH ONETIME ONE Stop: 03/02/17 13:18 Last Admin: 03/02/17 13:25 Dose: 0.5 mg Sodium Chloride (Normal Saline) 1,000 mls @ 999 mls/hr IV ONETIME [facility] Last Admin: 03/02/17 10:43 Dose: 999 mls/hr Potassium Chloride 10 meq/ (Premix) 100 mls @ 50 mls/hr IV ASDIRECTED ONE Stop: 03/02/17 13:26 Last Admin: 03/02/17 11:32 Dose: 50 mls/hr Sodium Chloride (Normal Saline) Confirm Administered Dose 1,000 mls @ as directed .ROUTE .STK-MED ONE Stop: 03/02/17 11:54 Last Admin: 03/02/17 15:20 Dose: Not Given Sodium Chloride (Normal Saline) 1,000 mls @ 150 mls/hr IV NOW STA Stop: 03/02/17 18:31 Last Admin: 03/02/17 11:53 Dose: 150 mls/hr Potassium Chloride 10 meq/ (Premix) 100 mls @ 50 mls/hr IV ASDIRECTED ONE Stop: 03/02/17 15:16 Last Admin: 03/02/17 13:25 Dose: 50 mls/hr Potassium Chloride/Sodium Chloride (Normal Saline With 40 Meq Kcl) 1,000 mls @ 100 mls/hr IV ONETIME ONE Stop: 03/03/17 01:44 Last Admin: 03/02/17 16:10 Dose: 100 mls/hr Magnesium Sulfate 2 gm/ Premix 50 mls @ 25 mls/hr IV ONETIME ONE Stop: 03/02/17 21:59 Last Admin: 03/02/17 20:01 Dose: 25 mls/hr Potassium Chloride 10 meq/ (Premix) 100 mls @ 100 mls/hr IV Q1H [facility] Stop: 03/02/17 21:59 Last Admin: 03/02/17 22:10 Dose: 100 mls/hr Potassium Chloride 10 meq/ (Premix) 100 mls @ 100 mls/hr IV Q1H [facility] Stop: 03/03/17 22:14 Last Admin: 03/04/17 01:23 Dose: 100 mls/hr Magnesium Sulfate 2 gm/ Premix 50 mls @ 25 mls/hr IV ONETIME ONE Stop: 03/04/17 11:10 Last Admin: 03/04/17 10:54 Dose: 25 mls/hr Ibuprofen (Motrin) 600 mg PO Q6H PRN PRN Reason: Pain (moderate 4-6) Last Admin: 03/02/17 16:30 Dose: 600 mg Levothyroxine Sodium (Synthroid) 50 mcg PO ACBREAKFAST [facility] Last Admin: 03/03/17 06:08 Dose: 50 mcg Ondansetron HCl (Zofran) 4 mg IVPUSH ONETIME ONE Stop: 03/02/17 10:36 Last Admin: 03/02/17 10:43 Dose: 4 mg Pneumococcal Polyvalent Vaccine (Pneumovax 23) 0.5 ml IM .ONCE ONE Stop: 03/03/17 14:01 Potassium Chloride (Klor-Con M20) 40 meq PO ONETIME ONE Stop: 03/02/17 11:28 Last Admin: 03/02/17 11:36 Dose: 40 meq Potassium Chloride (Klor-Con M20) 40 meq PO TID [facility] Last Admin: 03/03/17 09:19 Dose: 40 meq Potassium Chloride (Klor-Con M20) 60 meq PO TID [facility] Last Admin: 03/04/17 08:14 Dose: 60 meq Potassium Chloride (Klor-Con M20) 20 meq PO ONETIME ONE Stop: 03/03/17 10:01 Last Admin: 03/03/17 12:16 Dose: 20 meq - Exam Quality Assessment: DVT Prophylaxis General: Alert, Oriented, No Acute Distress HEENT: Pupils Equal, Pupils Reactive, EOMI, Mucous Membr. Moist/[place], Other Neck: Supple, Trachea Midline, No JVD Lungs: Normal Respiratory Effort Cardiovascular: Regular Rate, Regular Rhythm GI/Abdominal Exam: Normal Bowel Sounds, Soft, Non-Tender, No Organomegaly, Distended (Female) Exam: Deferred Back Exam: Normal Inspection Extremities: Normal Inspection Skin: Warm Neurological: No New Focal Deficit Psy/Mental Status: Alert - Problem List & Annotations (1) Difficulty walking SNOMED Code(s): 072144443 Code(s): R26.2 - DIFFICULTY IN WALKING, NOT ELSEWHERE CLASSIFIED Status: Acute Current Visit: Yes (2) Generalized weakness SNOMED Code(s): 81346256 Code(s): R53.1 - WEAKNESS Status: Acute Current Visit: Yes (3) Hypokalemia SNOMED Code(s): 10197247 Code(s): E87.6 - HYPOKALEMIA Status: Acute Current Visit: Yes (4) Positive urine drug screen SNOMED Code(s): 149795146, 398234712 Code(s): R82.5 - ELEVATED URINE LEVELS OF DRUG/MEDS/BIOL SUBST Status: Acute Current Visit: Yes - Problem List Review Problem List Initiated/Reviewed/Updated: Yes - My Orders Last 24 Hours: My Active Orders 03/03/17 13:34 Vaccines to be Administered [RC] PER UNIT ROUTINE 03/03/17 18:45 Sodium Chloride 0.9% [Normal Saline] 1,000 ml IV ASDIRECTED 03/04/17 13:00 Potassium Chloride [Klor-Con M20] 60 meq PO QID 03/05/17 05:00 BASIC METABOLIC PANEL,BMP [CHEM] DAILY CBC WITH AUTO DIFF [HEME] DAILY GLYCOSYLATED HEMOGLOBIN,HGBA1C [CHEM] Routine LIPID PANEL [CHEM] Routine MAGNESIUM [CHEM] DAILY 03/06/17 05:00 BASIC METABOLIC PANEL,BMP [CHEM] DAILY CBC WITH AUTO DIFF [HEME] DAILY MAGNESIUM [CHEM] DAILY - Plan Plan:: Impression: Hypokalemia, unspecified Query hypomagnesemia Hypothyroidism-profound Hyperglycemia Elevated WBCs, no infectious site Query CKD, likely dehydration Hypocalcemia Elevated Tn I, can not exclude ACS type I Plan: IV/oral K MS tele Serial ECG/Tns Repeat K, Ca; replace as needed; check Mg Uk, UCr; UDS Start Synthroid Query ACS Continue electrolyte replacement SW/PT/OT DVT/GI prophylaxis
[2017-03-05] MEDS: Levothyroxine 75 MCG Tab PO SCH (06:22)
[2017-03-05] MEDS ORDERED: Ibuprofen 600 MG Tab PO PRN (09:41)
[2017-03-05] MEDS: Nicotine 21 MG/24 Hr Patch TRDERM SCH (09:46)
[2017-03-05] MEDS: chlordiazePOXIDE 25 MG Cap PO SCH ×2 (09:48→20:11)
[2017-03-05] MEDS: Potassium Chloride 20 MEQ Tab.ER PO SCH (09:48)
[2017-03-05] MEDS: Enoxaparin 40 MG/0.4 ML Syringe SUBCUT SCH (09:49)
--- NOTE | 2017-03-05 11:57 | PCM.PN ---
- General Info Date of Service: 03/05/17 Subjective Update: States that she has been labeled a drug addict; believes that her complaints are being ignored. Is a new diabetic, requires thyroid replacement therapy; will see Faye today. Functional Status: Reports: Tolerating Diet (eating outside food) - Review of Systems General: Reports: Weakness (improved) HEENT: Reports: No Symptoms Pulmonary: Reports: No Symptoms Cardiovascular: Reports: No Symptoms Gastrointestinal: Reports: No Symptoms Genitourinary: Reports: No Symptoms Musculoskeletal: Reports: No Symptoms Skin: Reports: No Symptoms Neurological: Reports: No Symptoms Psychiatric: Reports: No Symptoms - Patient Data Vitals - Most Recent: Last Vital Signs Temp 36.7 C 03/05/17 07:58 Pulse 94 03/05/17 07:58 Resp 14 03/05/17 07:58 BP 105/63 03/05/17 07:58 Pulse Ox 100 03/05/17 07:58 Weight - Most Recent: 63.866 kg I&O - Last 24 Hours: Intake & Output 03/04/17 03/05/17 03/05/17 22:59 06:59 14:59 Intake Total 1666 1373 210 Output Total 500 650 Balance 1166 723 210 Lab Results Last 24 Hours: Laboratory Results - last 24 hr 03/05/17 03/05/17 03/05/17 Range/Units 06:10 06:10 06:10 WBC 5.15 (3.98-10.04) K/mm3 RBC 2.94 L (3.98-5.22) M/mm3 Hgb 10.0 L (11.2-15.7) gm/L Hct 30.2 L (34.1-44.9) % MCV 102.7 H (79.4-94.8) fl MCH 34.0 H (25.6-32.2) pg MCHC 33.1 (32.2-35.5) g/dl RDW Std Deviation 59.7 H (36.4-46.3) fL Plt Count 261 (182-369) K/mm3 MPV 10.0 (9.4-12.3) fl Neut % (Auto) 58.4 (34.0-71.1) % Lymph % (Auto) 30.7 (19.3-51.7) % Ada % (Auto) 7.8 (4.7-12.5) % Eos % (Auto) 2.5 (0.7-5.8) Baso % (Auto) 0.4 (0.1-1.2) % Neut # (Auto) 3.01 (1.56-6.13) K/mm3 Lymph # (Auto) 1.58 (1.18-3.74) K/mm3 Ada # (Auto) 0.40 H (0.24-0.36) K/mm3 Eos # (Auto) 0.13 (0.04-0.36) K/mm3 Baso # (Auto) 0.02 (0.01-0.08) K/mm3 Sodium 142 (136-145) mEq/L Potassium 4.6 (3.5-5.1) mEq/L Chloride 117 H (98-107) mEq/L Carbon Dioxide 16 L (21-32) mEq/L Anion Gap 13.6 (5-15) BUN 7 (7-18) mg/dL Creatinine 0.8 (0.55-1.02) mg/dL Est Cr Clr Drug Dosing 65.38 mL/min Estimated GFR (MDRD) > 60 (>60) mL/min BUN/Creatinine Ratio 8.8 L (14-18) Glucose 117 H (74-106) mg/dL Hemoglobin A1c 6.40 H (4.50-6.20) % Calcium 7.2 L (8.5-10.1) mg/dL Magnesium 1.8 (1.8-2.4) mg/dl Triglycerides 118 (<150) mg/dL Cholesterol 112 (<200) mg/dL LDL Cholesterol Direct 71 (<100) mg/dL HDL Cholesterol 18.0 L (40-59) mg/dL Med Orders - Current: Current Medications Acetaminophen (Tylenol Solution) 650 mg PO Q8H PRN PRN Reason: Pain (moderate 4-6) Last Admin: 03/04/17 08:13 Dose: 650 mg Chlordiazepoxide HCl (Librium) 25 mg PO BID [facility] Last Admin: 03/05/17 09:48 Dose: 25 mg Enoxaparin Sodium (Lovenox) 40 mg SUBCUT DAILY [facility] Last Admin: 03/05/17 09:49 Dose: 40 mg Magnesium Sulfate 2 gm/ Premix 50 mls @ 25 mls/hr IV ONETIME ONE Stop: 03/05/17 13:59 Ibuprofen (Motrin) 600 mg PO TID PRN PRN Reason: Pain Last Admin: 03/05/17 09:51 Dose: 600 mg Levothyroxine Sodium (Levothyroxine) 75 mcg PO ACBREAKFAST [facility] Last Admin: 03/05/17 06:22 Dose: 75 mcg Lorazepam (Ativan) 0 mg IVPUSH Q4HR PRN; Protocol PRN Reason: Withdrawal Symptoms Last Admin: 03/04/17 13:17 Dose: 2 mg Miscellaneous Information (Remove Patch) 1 ea TRDERM DAILY [facility] Last Admin: 03/04/17 08:15 Dose: 1 ea Nicotine (Habitrol) 21 mg TRDERM DAILY [facility] Last Admin: 03/05/17 09:46 Dose: 21 mg Sodium Chloride (Saline Flush) 10 ml FLUSH ASDIRECTED PRN PRN Reason: Keep Vein Open Last Admin: 03/02/17 10:44 Dose: 10 ml Temazepam (Restoril) 7.5 mg PO BEDTIME PRN PRN Reason: Insomnia Last Admin: 03/03/17 22:17 Dose: 7.5 mg Discontinued Medications Acetaminophen (Tylenol) 650 mg PO NOW ONE Stop: 03/02/17 14:41 Last Admin: 03/02/17 14:53 Dose: 650 mg Diphenhydramine HCl (Benadryl) 50 mg IVPUSH ONETIME ONE Stop: 03/02/17 16:13 Last Admin: 03/02/17 16:31 Dose: 50 mg Diphtheria/Tetanus/Acell Pertussis (Adacel) 0.5 ml IM .ONCE ONE Stop: 03/03/17 14:01 Hydromorphone HCl (Dilaudid) 0.5 mg IVPUSH ONETIME ONE Stop: 03/02/17 13:18 Last Admin: 03/02/17 13:25 Dose: 0.5 mg Sodium Chloride (Normal Saline) 1,000 mls @ 999 mls/hr IV ONETIME RAAD Last Admin: 03/02/17 10:43 Dose: 999 mls/hr Potassium Chloride 10 meq/ (Premix) 100 mls @ 50 mls/hr IV ASDIRECTED ONE Stop: 03/02/17 13:26 Last Admin: 03/02/17 11:32 Dose: 50 mls/hr Sodium Chloride (Normal Saline) Confirm Administered Dose 1,000 mls @ as directed .ROUTE .STK-MED ONE Stop: 03/02/17 11:54 Last Admin: 03/02/17 15:20 Dose: Not Given Sodium Chloride (Normal Saline) 1,000 mls @ 150 mls/hr IV NOW STA Stop: 03/02/17 18:31 Last Admin: 03/02/17 11:53 Dose: 150 mls/hr Potassium Chloride 10 meq/ (Premix) 100 mls @ 50 mls/hr IV ASDIRECTED ONE Stop: 03/02/17 15:16 Last Admin: 03/02/17 13:25 Dose: 50 mls/hr Potassium Chloride/Sodium Chloride (Normal Saline With 40 Meq Kcl) 1,000 mls @ 100 mls/hr IV ONETIME ONE Stop: 03/03/17 01:44 Last Admin: 03/02/17 16:10 Dose: 100 mls/hr Magnesium Sulfate 2 gm/ Premix 50 mls @ 25 mls/hr IV ONETIME ONE Stop: 03/02/17 21:59 Last Admin: 03/02/17 20:01 Dose: 25 mls/hr Potassium Chloride 10 meq/ (Premix) 100 mls @ 100 mls/hr IV Q1H RAAD Stop: 03/02/17 21:59 Last Admin: 03/02/17 22:10 Dose: 100 mls/hr Potassium Chloride 10 meq/ (Premix) 100 mls @ 100 mls/hr IV Q1H RAAD Stop: 03/03/17 22:14 Last Admin: 03/04/17 01:23 Dose: 100 mls/hr Sodium Chloride (Normal Saline) 1,000 mls @ 75 mls/hr IV ASDIRECTED [facility] Last Admin: 03/04/17 10:53 Dose: 75 mls/hr Magnesium Sulfate 2 gm/ Premix 50 mls @ 25 mls/hr IV ONETIME ONE Stop: 03/04/17 11:10 Last Admin: 03/04/17 10:54 Dose: 25 mls/hr Sodium Chloride (Normal Saline) 1,000 mls @ 75 mls/hr IV ASDIRECTED [facility] Last Admin: 03/04/17 23:35 Dose: 75 mls/hr Ibuprofen (Motrin) 600 mg PO Q6H PRN PRN Reason: Pain (moderate 4-6) Last Admin: 03/02/17 16:30 Dose: 600 mg Levothyroxine Sodium (Synthroid) 50 mcg PO ACBREAKFAST [facility] Last Admin: 03/03/17 06:08 Dose: 50 mcg Ondansetron HCl (Zofran) 4 mg IVPUSH ONETIME ONE Stop: 03/02/17 10:36 Last Admin: 03/02/17 10:43 Dose: 4 mg Pneumococcal Polyvalent Vaccine (Pneumovax 23) 0.5 ml IM .ONCE ONE Stop: 03/03/17 14:01 Potassium Chloride (Klor-Con M20) 40 meq PO ONETIME ONE Stop: 03/02/17 11:28 Last Admin: 03/02/17 11:36 Dose: 40 meq Potassium Chloride (Klor-Con M20) 40 meq PO TID [facility] Last Admin: 03/03/17 09:19 Dose: 40 meq Potassium Chloride (Klor-Con M20) 60 meq PO TID [facility] Last Admin: 03/04/17 08:14 Dose: 60 meq Potassium Chloride (Klor-Con M20) 20 meq PO ONETIME ONE Stop: 03/03/17 10:01 Last Admin: 03/03/17 12:16 Dose: 20 meq Potassium Chloride (Klor-Con M20) 60 meq PO QID [facility] Last Admin: 03/05/17 09:48 Dose: 60 meq - Exam Quality Assessment: Supplemental Oxygen, DVT Prophylaxis General: Alert, Oriented, Cooperative HEENT: Pupils Equal, Pupils Reactive, EOMI Neck: Supple, Trachea Midline Lungs: Normal Respiratory Effort Cardiovascular: Regular Rate GI/Abdominal Exam: Normal Bowel Sounds, Soft, Non-Tender, No Organomegaly, No Distention (Female) Exam: Deferred Back Exam: Normal Inspection Extremities: Normal Inspection Skin: Warm Neurological: No New Focal Deficit, Normal Gait, Normal Speech Psy/Mental Status: Alert, Anxious, Depressed - Problem List & Annotations (1) Difficulty walking SNOMED Code(s): 523051818 Code(s): R26.2 - DIFFICULTY IN WALKING, NOT ELSEWHERE CLASSIFIED Status: Acute Current Visit: Yes (2) Generalized weakness SNOMED Code(s): 93393543 Code(s): R53.1 - WEAKNESS Status: Acute Current Visit: Yes (3) Hypokalemia SNOMED Code(s): 15402184 Code(s): E87.6 - HYPOKALEMIA Status: Acute Current Visit: Yes (4) Positive urine drug screen SNOMED Code(s): 519167538, 343743554 Code(s): R82.5 - ELEVATED URINE LEVELS OF DRUG/MEDS/BIOL SUBST Status: Acute Current Visit: Yes - Problem List Review Problem List Initiated/Reviewed/Updated: Yes - My Orders Last 24 Hours: My Active Orders 03/04/17 13:18 Consult to Physician [CONS] Routine 03/04/17 13:19 Notify Provider Consults [RC] ASDIRECTED 03/04/17 Dinner Soft Diet [DIET] 03/05/17 11:51 Accu Check [Blood Glucose Check, Bedside] [RC] QIDACANDBED 03/05/17 11:53 Magnesium Sulfate/Water [Magnesium Sulfate 2 GM in Water 50 ML] 2 gm Premix Bag 1 bag IV ONETIME 03/06/17 05:00 BASIC METABOLIC PANEL,BMP [CHEM] DAILY CBC WITH AUTO DIFF [HEME] DAILY MAGNESIUM [CHEM] DAILY - Plan Plan:: Impression: Hypokalemia, unspecified Query hypomagnesemia Hypothyroidism-profound Hyperglycemia, new DM type 2 Elevated WBCs, no infectious site Query CKD, likely dehydration Hypocalcemia Elevated Tn I, can not exclude ACS type I Plan: Check ionized Ca IV/oral K-->stopped Repeat K, Ca; replace as needed; check Mg Uk, UCr Start Synthroid Query ACS Continue electrolyte replacement SW/PT/OT DVT/GI prophylaxis
[2017-03-05] MEDS ORDERED: Magnesium Sulfate/Water 2 GM in Premix Bag 1 BAG IV ONE (12:00)
[2017-03-05] MEDS ORDERED: traMADol 50 MG Tab PO ONE (15:13)
[2017-03-05] MEDS ORDERED: Benzocaine/Cetylpyridinium/Menthol Lozenge MUCMEM PRN (15:17)
--- NOTE | 2017-03-05 17:45 | CONS ---
CONSULTING PHYSICIAN: Ck Aly MD DATE OF CONSULTATION: 03/05/2017 This is a 60-minute inpatient clinical event. IDENTIFICATION: The patient is a 61-year-old female, who is admitted to the inpatient medical unit at [facility] in [place], [place], on 03/02/2017. She is seen for psychiatric evaluation. CHIEF COMPLAINT: "We went boating and next day I could not move." HISTORY OF PRESENT ILLNESS: The patient is a 61-year-old female reports that she had been doing quite well and "could not be happier" lately and over the weekend [place] had [place] in [facility]. She states "I went to bed in the cabin that night and next morning, I just could not move, my legs were so weak." The patient states that her helped her to the car after they were shore and they drove back to their home in [place], [place], and she tried to rest more, but the next day "I still could not move. It was the same thing." She was brought to the hospital emergency room for evaluation and subsequently admitted with potassium abnormalities. At the present time, the patient denies that she is depressed again noting "I have been really happy" lately as she and her of 42 years are approaching fpc with their [employer] business and they are building a new house and they have been vacationing together. She also states that she "sleeps like a baby" in terms of her sleep pattern. She notes that she has been a little anxious because of the new home that is being built, but otherwise denies any excessive anxiety and besides she states "if I was depressed or anxious I would know where to get help, I am not against psychiatrists." She denies any illicit substance use or excessive alcohol use complicating her clinical picture. She denies that she is suicidal or homicidal. She denies any psychotic, delusional, or paranoid symptoms. MEDICATIONS: At the time of presentation none. Prior to admission since being on the unit. 1. Librium b.i.d. p.r.n. 2. Ativan per [facility] protocol. ALLERGIES: The patient is allergic to Soma. PAST MEDICAL HISTORY: Significant for potassium abnormalities. REVIEW OF SYSTEMS: Aside from endocrine, all other major organ systems are negative at this point in time for acute difficulties or complications. FAMILY PSYCHIATRIC AND CD HISTORY: The patient states this is unknown as she was adopted at . PAST PSYCHIATRIC AND CD HISTORY: The patient reports one psychiatric hospitalization in her early 20s, also chemical dependency treatment in early 20s. She reports 1 suicide attempt at 14 years of age "to get attention." Denies any self-injurious behavior history, a half pack per day smoker for the past 42 years. Again, she is denying any illicit substance use or excessive alcohol use complicating the clinical picture, presently or in the recent or even remote past. SOCIAL HISTORY: The patient was born in [place], [place]; raised in [place], [place] She was adopted at . She is the second of 5 siblings, have 3 brothers and 1 sister. The patient's adoptive parents when the patient was 8 years of age. She stayed with her father, who was a cattle lumber buyer. The patient's highest level of education is 11th grade. She at about [age] years of age. She is x1 for 42 years. She has 3 children from that union. 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 She lives in [place] with her . Denies any prior service or current legal difficulties. She is Jainism in terms of her casimiro formation. She enjoys boating and yard work. MENTAL STATUS EXAM: The patient is a 61-year-old female, in no apparent distress. Speech is of regular rate and rhythm. The patient is cognitively oriented. Psychomotor activities within normal limits. There are no abnormal motor movements or tics observed. Gait and station are not observed. The patient is bed bound during the consult. There is no behavioral or stated evidence of acute suicidal or homicidal ideation. No acute psychotic, delusional, or paranoid symptoms. Thought processes are organized. There are no acute manic symptoms or loose associations evident. Judgment and insight appear unimpaired at this point in time. Motivation for help is good. Vital signs are stable at the time of presentation. IMPRESSION: [place] I: 1. Depression, not otherwise specifies, F32.9. 2. Anxiety disorder, not otherwise specifies, F41.9. [place] II: None. [place] III: Potassium abnormalities. [place] IV: Severe-physical. [place] V: 65. PLAN: 1. Continue current treatment plan as ordered by patient's inpatient primary medical treatment team. 2. It does not appear that the patient needs psychiatric medications at this point in time. She does not appear to be an acute danger to herself or others, so no psychiatric medications will be recommended at this juncture. 3. We will follow up with the patient and going forward she remains on the unit on an as needed basis. 4. We will follow up with the patient or sooner if there are any complications in the interim from a psychiatric standpoint. 5. Crisis plan is in place. DUANE /[id number]
[2017-03-05] MEDS: Temazepam 7.5 MG Cap PO PRN (20:11)
[2017-03-05] MEDS ORDERED: Calcium Carbonate 500 MG Tab.Chew PO ONE (21:10)
[2017-03-06] MEDS ORDERED: Aluminum Hydroxide/Magnesium Hydroxide/Simethicone Susp 30 ML Cup PO PRN (01:13)
[2017-03-06] MEDS: Levothyroxine 75 MCG Tab PO SCH (06:16)
[2017-03-06 08:37] VITALS: BP 126/89
[2017-03-06] MEDS: Nicotine 21 MG/24 Hr Patch TRDERM SCH (09:19)
[2017-03-06] MEDS: chlordiazePOXIDE 25 MG Cap PO SCH (09:20)
[2017-03-06] MEDS: Enoxaparin 40 MG/0.4 ML Syringe SUBCUT SCH (09:20)
--- NOTE | 2017-03-06 09:39 | US ---
Abdominal ultrasound: Multiple real-time images of the abdomen were obtained. Technologist's note: Technically difficult scan Comparison: Previous abdominal ultrasound of 04/24/11. Liver is diffusely echogenic presumably due to fatty infiltration. Gallbladder wall is mildly thickened which is similar to previous exam. No shadowing gallstones are seen. No biliary duct dilatation is seen. Spleen size is normal. Kidneys show no hydronephrosis or mass. Right kidney measures 10.3 cm in length. Left kidney measures 10.1 cm in length. Pancreas is obscured from bowel gas. Inferior vena cava is also not well seen. Aorta is seen proximally and distally. No aneurysm is seen. Impression: 1. Echogenic liver which is an interval change from prior exam compatible with fatty infiltration. 2. Mildly prominent gallbladder wall which is stable from previous exam. No shadowing gallstones or gallbladder wall thickening is seen. 3. No additional abnormality is seen. Note is made that study is slightly limited as described above. Diagnostic code #3
[2017-03-06] MEDS ORDERED: Potassium Chloride 10% 20 MEQ/15 ML Soln 30 ML UD Cup PO ONE (10:15)
[2017-03-06] MEDS ORDERED: Magnesium Sulfate/Water 4 GM in Premix Bag 1 BAG IV ONE (10:15)
[2017-03-06] MEDS ORDERED: Sodium Chloride 0.9% 250 ML ONE (11:08)
[2017-03-06] MEDS ORDERED: Sodium Chloride 0.9% 250 ML IV SCH (11:30)
--- NOTE | 2017-03-06 13:24 | PCM.DCSUM1 ---
<Lydia Hummel - Last Filed: 03/06/17 13:24> Discharge Summary - Hospital Course Free Text/Narrative:: 61 year old female who complained of back discomfort on presentation to the ED, is being admitted with profoundly low potassium, 1.6. A repeat potassium will be obtained, the potassium was drawn from the IV site. A UDS/EAC will also be checked; she reports no medication use. She reported trying to lose weight until the spring, and mentions that she has had a loss of over 60 pounds. At this time she reported a poor appetite and muscle weakness. Apparently she had back pain in the ED and received Dilaudid 0.5 mg IV once. She reported early satiety and states that she prefers drink her meals especially Ensure. Hospitalist service is consulted for admission for severe hypokalemia. Course of hospital stay: potassium was supplemented along with magnesium with stabilization to normal levels. UDS was positive for suboxone and opiate. Pasha LOPEZ was consulted but patient refused to speak to her. Dr. Aly, Psychiatrist was consulted also. Trading Manager worked with her on potassium rich foods, appetite slowly improved, she no longer had complaints of early satiety, was eating and tolerating meals. She was demanding pain medications during most of her stay for back pain and various other pains that seemed to be migratory. She seemed to be malingering, and would change information depending on the listener or the audience. She had loose stools x 1-2 days with negative c-diff , negative H.pylori, negative. A1C was elevated at 6.4. CDE was consulted, she will be started on metformin 500mg BID with follow up with PCP and CDE for newly dx type 2 DM. TSH was also elevated, a new finding. She is started on levothyroxine. She is discharged home today with potassium and magnesium supplementation, follow up with PCP within 3-5 days with BMP and mag at that time. Also recommend follow up with CDE, recheck A1C and TSH in 3 months. - Discharge Data Discharge Date: 03/06/17 (admit date 03/02/17) Discharge Disposition: Home, Self-Care 01 Condition: Good - Discharge Diagnosis/Problem(s) (1) Hypokalemia SNOMED Code(s): 92196430 ICD Code: E87.6 - HYPOKALEMIA Status: Acute Priority: High (2) Hypomagnesemia SNOMED Code(s): 668725389 ICD Code: E83.42 - HYPOMAGNESEMIA Status: Acute Priority: High (3) Generalized weakness SNOMED Code(s): 02988304 ICD Code: R53.1 - WEAKNESS Status: Acute Priority: High (4) Hypothyroidism SNOMED Code(s): 73432679 ICD Code: E03.9 - HYPOTHYROIDISM, UNSPECIFIED Status: Acute Priority: High (5) Type 2 diabetes mellitus SNOMED Code(s): 23390041 ICD Code: E11.9 - TYPE 2 DIABETES MELLITUS WITHOUT COMPLICATIONS Status: Acute Priority: High Qualifiers: Diabetes mellitus complication status: without complication 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: without buttermilk drier operator use Qualified Code(s): E11.9 - Type 2 diabetes mellitus without complications (6) Positive urine drug screen SNOMED Code(s): 702979142, 233281901 ICD Code: R82.5 - ELEVATED URINE LEVELS OF DRUG/MEDS/BIOL SUBST Status: Acute - Patient Summary/Data Operative Procedure(s) Performed: None Complications: None Consults: Consultations 03/02/17 16:26 Consult to Environmental Protection Economist [CONS] Routine 03/02/17 16:27 Consult to Occupational Therapy [OT Evaluation and Treatment] [CONS] Routine Consult to Physical Therapy [PT Evaluation and Treatment] [CONS] Routine 03/02/17 18:41 Consult for Substance Abuse [CONS] Routine 03/03/17 08:31 Consult to Trading Manager [CONS] Routine 03/04/17 13:18 Consult to Physician [CONS] Routine Labs Pending at D/C: None Recommended Follow-up Testing/Procedures: Follow up with PCP, Dr. Cartwright within 3-5 days of discharge with labs prior - potassium and magnesium Follow up with Diabetic Education Rx written for glucometer- recommend to check sugars twice per day and as needed - record and take record with to follow up with diabetic ed and to all follow up DrSamreen martínez Recommend recheck of TSH for thyroid disease and A1C for Diabetes in 3 months Planned Operative Procedure(s) after DC: None Hospital Course: As above - Patient Instructions Diet: Diabetic Diet Activity: As Tolerated (Exercise 150 minutes per week-- will help your blood sugars) Showering/Bathing: May Shower Notify Provider of: Fever, Increased Pain, Nausea and/or Vomiting - Discharge Plan Prescriptions/Med Rec: Levothyroxine 75 mcg PO ACBREAKFAST #30 tablet Magnesium Oxide 400 mg PO BID #60 tablet Nicotine [Habitrol] 21 mg TRDERM DAILY #30 patch Potassium Chloride 20 meq PO DAILY #30 tablet.er metFORMIN [Glucophage] 500 mg PO BIDMEALS #60 tablet Home Medications: Home Meds Levothyroxine 75 mcg PO ACBREAKFAST #30 tablet 03/06/17 [Rx] Magnesium Oxide 400 mg PO BID #60 tablet 03/06/17 [Rx] Nicotine [Habitrol] 21 mg TRDERM DAILY #30 patch 03/06/17 [Rx] Potassium Chloride 20 meq PO DAILY #30 tablet.er 03/06/17 [Rx] metFORMIN [Glucophage] 500 mg PO BIDMEALS #60 tablet 03/06/17 [Rx] Patient Handouts: Smoking Cessation, Tips for Success, [place], Type 2 Diabetes Mellitus, Adult, Smoking Hazards, Hypomagnesemia, Hypokalemia, Hypothyroidism, Potassium Content of Foods Forms: ED Department Discharge Referrals: Otoniel Dodd MD [Physician] - - Discharge Summary/Plan Comment DC Time >30 min.: Yes (40 min) - General Info Date of Service: 03/06/17 Admission Dx/Problem (Free Text: Admission Diagnosis/Problem Admission Diagnosis/Problem Hypokalemia Functional Status: Reports: Pain Controlled, Tolerating Diet, Ambulating, Urinating, New Symptoms - Review of Systems General: Reports: Weakness HEENT: Reports: No Symptoms Pulmonary: Reports: No Symptoms Cardiovascular: Reports: No Symptoms Gastrointestinal: Reports: No Symptoms Genitourinary: Reports: No Symptoms Musculoskeletal: Reports: Back Pain (chronic) Skin: Reports: No Symptoms Neurological: Reports: No Symptoms Psychiatric: Reports: No Symptoms - Patient Data Vitals - Most Recent: Last Vital Signs Temp 97.9 F 03/06/17 08:33 Pulse 81 03/06/17 08:33 Resp 16 03/06/17 08:33 BP 126/89 03/06/17 08:33 Pulse Ox 99 03/06/17 08:33 Weight - Most Recent: 63.911 kg I&O - Last 24 hours: Intake & Output 03/05/17 03/06/17 03/06/17 22:59 06:59 14:59 Intake Total 669 300 Output Total 750 1000 Balance -81 -700 Lab Results - Last 24 hrs: Laboratory Results - last 24 hr 03/05/17 03/05/17 03/05/17 Range/Units 17:04 18:23 20:16 WBC (3.98-10.04) K/mm3 RBC (3.98-5.22) M/mm3 Hgb (11.2-15.7) gm/L Hct (34.1-44.9) % MCV (79.4-94.8) fl MCH (25.6-32.2) pg MCHC (32.2-35.5) g/dl RDW Std Deviation (36.4-46.3) fL Plt Count (182-369) K/mm3 MPV (9.4-12.3) fl Neut % (Auto) (34.0-71.1) % Lymph % (Auto) (19.3-51.7) % [place] % (Auto) (4.7-12.5) % Eos % (Auto) (0.7-5.8) Baso % (Auto) (0.1-1.2) % Neut # (Auto) (1.56-6.13) K/mm3 Lymph # (Auto) (1.18-3.74) K/mm3 [place] # (Auto) (0.24-0.36) K/mm3 Eos # (Auto) (0.04-0.36) K/mm3 Baso # (Auto) (0.01-0.08) K/mm3 Sodium (136-145) mEq/L Potassium (3.5-5.1) mEq/L Chloride (98-107) mEq/L Carbon Dioxide (21-32) mEq/L Anion Gap (5-15) BUN (7-18) mg/dL Creatinine (0.55-1.02) mg/dL Est Cr Clr Drug Dosing mL/min Estimated GFR (MDRD) (>60) mL/min BUN/Creatinine Ratio (14-18) Glucose (74-106) mg/dL POC Glucose 122 H 143 H (70-105) mg/dL Calcium (8.5-10.1) mg/dL Magnesium (1.8-2.4) mg/dl C-Reactive Protein (<1.0) mg/dL C.difficile 027-NAP1-B1 Presumptive negative C. difficile Tox (PCR) Negative 03/06/17 03/06/17 03/06/17 Range/Units 05:36 05:36 06:17 WBC 7.48 (3.98-10.04) K/mm3 RBC 3.27 L (3.98-5.22) M/mm3 Hgb 11.2 (11.2-15.7) gm/L Hct 33.9 L (34.1-44.9) % MCV 103.7 H (79.4-94.8) fl MCH 34.3 H (25.6-32.2) pg MCHC 33.0 (32.2-35.5) g/dl RDW Std Deviation 62.7 H (36.4-46.3) fL Plt Count 265 (182-369) K/mm3 MPV 10.0 (9.4-12.3) fl Neut % (Auto) 72.8 H (34.0-71.1) % Lymph % (Auto) 18.2 L (19.3-51.7) % [place] % (Auto) 7.1 (4.7-12.5) % Eos % (Auto) 1.3 (0.7-5.8) Baso % (Auto) 0.3 (0.1-1.2) % Neut # (Auto) 5.45 (1.56-6.13) K/mm3 Lymph # (Auto) 1.36 (1.18-3.74) K/mm3 [place] # (Auto) 0.53 H (0.24-0.36) K/mm3 Eos # (Auto) 0.10 (0.04-0.36) K/mm3 Baso # (Auto) 0.02 (0.01-0.08) K/mm3 Sodium 144 (136-145) mEq/L Potassium 4.1 (3.5-5.1) mEq/L Chloride 115 H (98-107) mEq/L Carbon Dioxide 18 L (21-32) mEq/L Anion Gap 15.1 H (5-15) BUN 7 (7-18) mg/dL Creatinine 1.0 (0.55-1.02) mg/dL Est Cr Clr Drug Dosing 52.31 mL/min Estimated GFR (MDRD) 57 (>60) mL/min BUN/Creatinine Ratio 7.0 L (14-18) Glucose 130 H (74-106) mg/dL POC Glucose 131 H (70-105) mg/dL Calcium 8.8 (8.5-10.1) mg/dL Magnesium 2.0 (1.8-2.4) mg/dl C-Reactive Protein 1.9 H* (<1.0) mg/dL C.difficile 027-NAP1-B1 C. difficile Tox (PCR) 03/06/17 Range/Units 10:40 WBC (3.98-10.04) K/mm3 RBC (3.98-5.22) M/mm3 Hgb (11.2-15.7) gm/L Hct (34.1-44.9) % MCV (79.4-94.8) fl MCH (25.6-32.2) pg MCHC (32.2-35.5) g/dl RDW Std Deviation (36.4-46.3) fL Plt Count (182-369) K/mm3 MPV (9.4-12.3) fl Neut % (Auto) (34.0-71.1) % Lymph % (Auto) (19.3-51.7) % [place] % (Auto) (4.7-12.5) % Eos % (Auto) (0.7-5.8) Baso % (Auto) (0.1-1.2) % Neut # (Auto) (1.56-6.13) K/mm3 Lymph # (Auto) (1.18-3.74) K/mm3 [place] # (Auto) (0.24-0.36) K/mm3 Eos # (Auto) (0.04-0.36) K/mm3 Baso # (Auto) (0.01-0.08) K/mm3 Sodium (136-145) mEq/L Potassium (3.5-5.1) mEq/L Chloride (98-107) mEq/L Carbon Dioxide (21-32) mEq/L Anion Gap (5-15) BUN (7-18) mg/dL Creatinine (0.55-1.02) mg/dL Est Cr Clr Drug Dosing mL/min Estimated GFR (MDRD) (>60) mL/min BUN/Creatinine Ratio (14-18) Glucose (74-106) mg/dL POC Glucose 150 H (70-105) mg/dL Calcium (8.5-10.1) mg/dL Magnesium (1.8-2.4) mg/dl C-Reactive Protein (<1.0) mg/dL C.difficile 027-NAP1-B1 C. difficile Tox (PCR) [place] Results - Last 24 hrs: Microbiology 03/05/17 18:23 Stool for WBCs - Final Stool / Feces Helicobacter pylori Antigen - Final NEGATIVE H. PYLORI AG Med Orders - Current: Current Medications Acetaminophen (Tylenol Solution) 650 mg PO Q8H PRN PRN Reason: Pain (moderate 4-6) Last Admin: 03/04/17 08:13 Dose: 650 mg Al Hydroxide/Mg Hydroxide (Mag-Al Plus) 30 ml PO Q4H PRN PRN Reason: Heartburn Last Admin: 03/06/17 01:26 Dose: 30 ml Benzocaine/Menthol (Cepacol Sore Throat) 1 lozenge MUCMEM Q2H PRN PRN Reason: Sore Throat Last Admin: 03/05/17 15:26 Dose: 1 lozenge Chlordiazepoxide HCl (Librium) 25 mg PO BID [facility] Last Admin: 03/06/17 09:20 Dose: 25 mg Enoxaparin Sodium (Lovenox) 40 mg SUBCUT DAILY [facility] Last Admin: 03/06/17 09:20 Dose: 40 mg Sodium Chloride (Normal Saline) 250 mls @ 100 mls/hr IV ASDIRECTED [facility] Last Admin: 03/06/17 11:24 Dose: 100 mls/hr Ibuprofen (Motrin) 600 mg PO TID PRN PRN Reason: Pain Last Admin: 03/05/17 09:51 Dose: 600 mg Levothyroxine Sodium (Levothyroxine) 75 mcg PO ACBREAKFAST [facility] Last Admin: 03/06/17 06:16 Dose: 75 mcg Lorazepam (Ativan) 0 mg IVPUSH Q4HR PRN; Protocol PRN Reason: Withdrawal Symptoms Last Admin: 03/04/17 13:17 Dose: 2 mg Miscellaneous Information (Remove Patch) 1 ea TRDERM DAILY [facility] Last Admin: 03/06/17 09:20 Dose: 1 ea Nicotine (Habitrol) 21 mg TRDERM DAILY [facility] Last Admin: 03/06/17 09:19 Dose: 21 mg Sodium Chloride (Saline Flush) 10 ml FLUSH ASDIRECTED PRN PRN Reason: Keep Vein Open Last Admin: 03/02/17 10:44 Dose: 10 ml Temazepam (Restoril) 7.5 mg PO BEDTIME PRN PRN Reason: Insomnia Last Admin: 03/05/17 20:11 Dose: 7.5 mg Discontinued Medications Acetaminophen (Tylenol) 650 mg PO NOW ONE Stop: 03/02/17 14:41 Last Admin: 03/02/17 14:53 Dose: 650 mg Calcium Carbonate/Glycine (Tums) 1,000 mg PO ONETIME ONE Stop: 03/05/17 21:11 Last Admin: 03/05/17 21:25 Dose: 1,000 mg Diphenhydramine HCl (Benadryl) 50 mg IVPUSH ONETIME ONE Stop: 03/02/17 16:13 Last Admin: 03/02/17 16:31 Dose: 50 mg Diphtheria/Tetanus/Acell Pertussis (Adacel) 0.5 ml IM .ONCE ONE Stop: 03/03/17 14:01 Hydromorphone HCl (Dilaudid) 0.5 mg IVPUSH ONETIME ONE Stop: 03/02/17 13:18 Last Admin: 03/02/17 13:25 Dose: 0.5 mg Sodium Chloride (Normal Saline) 1,000 mls @ 999 mls/hr IV ONETIME RAAD Last Admin: 03/02/17 10:43 Dose: 999 mls/hr Potassium Chloride 10 meq/ (Premix) 100 mls @ 50 mls/hr IV ASDIRECTED ONE Stop: 03/02/17 13:26 Last Admin: 03/02/17 11:32 Dose: 50 mls/hr Sodium Chloride (Normal Saline) Confirm Administered Dose 1,000 mls @ as directed .ROUTE .STK-MED ONE Stop: 03/02/17 11:54 Last Admin: 03/02/17 15:20 Dose: Not Given Sodium Chloride (Normal Saline) 1,000 mls @ 150 mls/hr IV NOW STA Stop: 03/02/17 18:31 Last Admin: 03/02/17 11:53 Dose: 150 mls/hr Potassium Chloride 10 meq/ (Premix) 100 mls @ 50 mls/hr IV ASDIRECTED ONE Stop: 03/02/17 15:16 Last Admin: 03/02/17 13:25 Dose: 50 mls/hr Potassium Chloride/Sodium Chloride (Normal Saline With 40 Meq Kcl) 1,000 mls @ 100 mls/hr IV ONETIME ONE Stop: 03/03/17 01:44 Last Admin: 03/02/17 16:10 Dose: 100 mls/hr Magnesium Sulfate 2 gm/ Premix 50 mls @ 25 mls/hr IV ONETIME ONE Stop: 03/02/17 21:59 Last Admin: 03/02/17 20:01 Dose: 25 mls/hr Potassium Chloride 10 meq/ (Premix) 100 mls @ 100 mls/hr IV Q1H RAAD Stop: 03/02/17 21:59 Last Admin: 03/02/17 22:10 Dose: 100 mls/hr Potassium Chloride 10 meq/ (Premix) 100 mls @ 100 mls/hr IV Q1H RAAD Stop: 03/03/17 22:14 Last Admin: 03/04/17 01:23 Dose: 100 mls/hr Sodium Chloride (Normal Saline) 1,000 mls @ 75 mls/hr IV ASDIRECTED [facility] Last Admin: 03/04/17 10:53 Dose: 75 mls/hr Magnesium Sulfate 2 gm/ Premix 50 mls @ 25 mls/hr IV ONETIME ONE Stop: 03/04/17 11:10 Last Admin: 03/04/17 10:54 Dose: 25 mls/hr Sodium Chloride (Normal Saline) 1,000 mls @ 75 mls/hr IV ASDIRECTED [facility] Last Admin: 03/04/17 23:35 Dose: 75 mls/hr Magnesium Sulfate 2 gm/ Premix 50 mls @ 25 mls/hr IV ONETIME ONE Stop: 03/05/17 13:59 Last Admin: 03/05/17 12:36 Dose: 25 mls/hr Magnesium Sulfate 4 gm/ Premix 100 mls @ 50 mls/hr IV ONETIME ONE Stop: 03/06/17 12:14 Last Admin: 03/06/17 10:33 Dose: 50 mls/hr Sodium Chloride (Normal Saline) Confirm Administered Dose 250 mls @ as directed .ROUTE .STK-MED ONE Stop: 03/06/17 11:09 Ibuprofen (Motrin) 600 mg PO Q6H PRN PRN Reason: Pain (moderate 4-6) Last Admin: 03/02/17 16:30 Dose: 600 mg Levothyroxine Sodium (Synthroid) 50 mcg PO ACBREAKFAST [facility] Last Admin: 03/03/17 06:08 Dose: 50 mcg Ondansetron HCl (Zofran) 4 mg IVPUSH ONETIME ONE Stop: 03/02/17 10:36 Last Admin: 03/02/17 10:43 Dose: 4 mg Pneumococcal Polyvalent Vaccine (Pneumovax 23) 0.5 ml IM .ONCE ONE Stop: 03/03/17 14:01 Potassium Chloride (Klor-Con M20) 40 meq PO ONETIME ONE Stop: 03/02/17 11:28 Last Admin: 03/02/17 11:36 Dose: 40 meq Potassium Chloride (Klor-Con M20) 40 meq PO TID [facility] Last Admin: 03/03/17 09:19 Dose: 40 meq Potassium Chloride (Klor-Con M20) 60 meq PO TID [facility] Last Admin: 03/04/17 08:14 Dose: 60 meq Potassium Chloride (Klor-Con M20) 20 meq PO ONETIME ONE Stop: 03/03/17 10:01 Last Admin: 03/03/17 12:16 Dose: 20 meq Potassium Chloride (Klor-Con M20) 60 meq PO QID [facility] Last Admin: 03/05/17 09:48 Dose: 60 meq Potassium Chloride (Potassium Chloride) 40 meq PO ONETIME ONE Stop: 03/06/17 10:16 Last Admin: 03/06/17 10:33 Dose: 40 meq Tramadol HCl (Ultram) 50 mg PO ONETIME ONE Stop: 03/05/17 15:14 Last Admin: 03/05/17 15:26 Dose: 50 mg - Exam Quality Assessment: Reports: DVT Prophylaxis General: Reports: Alert, Oriented, Cooperative, No Acute Distress HEENT: Reports: Pupils Equal, Pupils Reactive, EOMI, Mucous Membr. Moist/[place] Neck: Reports: Supple Lungs: Reports: Clear to Auscultation, Normal Respiratory Effort, Decreased Breath Sounds (bases) Cardiovascular: Reports: Regular Rate, Regular Rhythm (Female) Exam: Deferred Rectal (Female) Exam: Deferred Extremities: Normal Inspection Neurological: Reports: No New Focal Deficit Psy/Mental Status: Reports: Alert, Normal Affect, Normal Mood *Q Meaningful Use (DIS) - VTE *Q VTE Criteria *Q: - Stroke *Q Stroke Criteria *Q: - AMI *Q AMI Criteria *Q: <Katina Null Parish - Last Filed: 03/06/17 19:23> Discharge Summary - Hospital Course Free Text/Narrative:: Agree with above - Discharge Diagnosis/Problem(s) (1) Difficulty walking SNOMED Code(s): 055167243 ICD Code: R26.2 - DIFFICULTY IN WALKING, NOT ELSEWHERE CLASSIFIED Status: Acute (2) Generalized weakness SNOMED Code(s): 56829816 ICD Code: R53.1 - WEAKNESS Status: Acute Priority: High (3) Hypokalemia SNOMED Code(s): 19161199 ICD Code: E87.6 - HYPOKALEMIA Status: Acute Priority: High (4) Positive urine drug screen SNOMED Code(s): 019886500, 800071492 ICD Code: R82.5 - ELEVATED URINE LEVELS OF DRUG/MEDS/BIOL SUBST Status: Acute - Patient Summary/Data Consults: Consultations 03/02/17 16:26 Consult to Environmental Protection Economist [CONS] Routine 03/02/17 16:27 Consult to Occupational Therapy [OT Evaluation and Treatment] [CONS] Routine Consult to Physical Therapy [PT Evaluation and Treatment] [CONS] Routine 03/02/17 18:41 Consult for Substance Abuse [CONS] Routine 03/03/17 08:31 Consult to Trading Manager [CONS] Routine 03/04/17 13:18 Consult to Physician [CONS] Routine - Patient Data Vitals - Most Recent: Last Vital Signs Temp 36.6 C 03/06/17 08:33 Pulse 81 03/06/17 08:33 Resp 16 03/06/17 08:33 BP 126/89 03/06/17 08:33 Pulse Ox 99 03/06/17 08:33 I&O - Last 24 hours: Intake & Output 03/06/17 03/06/17 03/06/17 06:59 14:59 22:59 Intake Total 300 850 Output Total 1000 950 Balance -700 -100 Lab Results - Last 24 hrs: Laboratory Results - last 24 hr 03/05/17 03/05/17 03/06/17 Range/Units 18:23 20:16 05:36 WBC 7.48 (3.98-10.04) K/mm3 RBC 3.27 L (3.98-5.22) M/mm3 Hgb 11.2 (11.2-15.7) gm/L Hct 33.9 L (34.1-44.9) % MCV 103.7 H (79.4-94.8) fl MCH 34.3 H (25.6-32.2) pg MCHC 33.0 (32.2-35.5) g/dl RDW Std Deviation 62.7 H (36.4-46.3) fL Plt Count 265 (182-369) K/mm3 MPV 10.0 (9.4-12.3) fl Neut % (Auto) 72.8 H (34.0-71.1) % Lymph % (Auto) 18.2 L (19.3-51.7) % [place] % (Auto) 7.1 (4.7-12.5) % Eos % (Auto) 1.3 (0.7-5.8) Baso % (Auto) 0.3 (0.1-1.2) % Neut # (Auto) 5.45 (1.56-6.13) K/mm3 Lymph # (Auto) 1.36 (1.18-3.74) K/mm3 [place] # (Auto) 0.53 H (0.24-0.36) K/mm3 Eos # (Auto) 0.10 (0.04-0.36) K/mm3 Baso # (Auto) 0.02 (0.01-0.08) K/mm3 Sodium (136-145) mEq/L Potassium (3.5-5.1) mEq/L Chloride (98-107) mEq/L Carbon Dioxide (21-32) mEq/L Anion Gap (5-15) BUN (7-18) mg/dL Creatinine (0.55-1.02) mg/dL Est Cr Clr Drug Dosing mL/min Estimated GFR (MDRD) (>60) mL/min BUN/Creatinine Ratio (14-18) Glucose (74-106) mg/dL POC Glucose 143 H (70-105) mg/dL Calcium (8.5-10.1) mg/dL Magnesium (1.8-2.4) mg/dl C-Reactive Protein (<1.0) mg/dL C.difficile 027-NAP1-B1 Presumptive negative C. difficile Tox (PCR) Negative 03/06/17 03/06/17 03/06/17 Range/Units 05:36 06:17 10:40 WBC (3.98-10.04) K/mm3 RBC (3.98-5.22) M/mm3 Hgb (11.2-15.7) gm/L Hct (34.1-44.9) % MCV (79.4-94.8) fl MCH (25.6-32.2) pg MCHC (32.2-35.5) g/dl RDW Std Deviation (36.4-46.3) fL Plt Count (182-369) K/mm3 MPV (9.4-12.3) fl Neut % (Auto) (34.0-71.1) % Lymph % (Auto) (19.3-51.7) % [place] % (Auto) (4.7-12.5) % Eos % (Auto) (0.7-5.8) Baso % (Auto) (0.1-1.2) % Neut # (Auto) (1.56-6.13) K/mm3 Lymph # (Auto) (1.18-3.74) K/mm3 [place] # (Auto) (0.24-0.36) K/mm3 Eos # (Auto) (0.04-0.36) K/mm3 Baso # (Auto) (0.01-0.08) K/mm3 Sodium 144 (136-145) mEq/L Potassium 4.1 (3.5-5.1) mEq/L Chloride 115 H (98-107) mEq/L Carbon Dioxide 18 L (21-32) mEq/L Anion Gap 15.1 H (5-15) BUN 7 (7-18) mg/dL Creatinine 1.0 (0.55-1.02) mg/dL Est Cr Clr Drug Dosing 52.31 mL/min Estimated GFR (MDRD) 57 (>60) mL/min BUN/Creatinine Ratio 7.0 L (14-18) Glucose 130 H (74-106) mg/dL POC Glucose 131 H 150 H (70-105) mg/dL Calcium 8.8 (8.5-10.1) mg/dL Magnesium 2.0 (1.8-2.4) mg/dl C-Reactive Protein 1.9 H* (<1.0) mg/dL C.difficile 027-NAP1-B1 C. difficile Tox (PCR) [place] Results - Last 24 hrs: Microbiology 03/05/17 18:23 - Final Stool / Feces NEGATIVE FOR SHIGA TOXIN 1 - Final NEGATIVE FOR SHIGA TOXIN 2 03/05/17 18:23 Stool for WBCs - Final Stool / Feces Helicobacter pylori Antigen - Final NEGATIVE H. PYLORI AG Med Orders - Current: Current Medications Discontinued Medications Acetaminophen (Tylenol) 650 mg PO NOW ONE Stop: 03/02/17 14:41 Last Admin: 03/02/17 14:53 Dose: 650 mg Acetaminophen (Tylenol Solution) 650 mg PO Q8H PRN PRN Reason: Pain (moderate 4-6) Last Admin: 03/04/17 08:13 Dose: 650 mg Al Hydroxide/Mg Hydroxide (Mag-Al Plus) 30 ml PO Q4H PRN PRN Reason: Heartburn Last Admin: 03/06/17 01:26 Dose: 30 ml Benzocaine/Menthol (Cepacol Sore Throat) 1 lozenge MUCMEM Q2H PRN PRN Reason: Sore Throat Last Admin: 03/05/17 15:26 Dose: 1 lozenge Calcium Carbonate/Glycine (Tums) 1,000 mg PO ONETIME ONE Stop: 03/05/17 21:11 Last Admin: 03/05/17 21:25 Dose: 1,000 mg Chlordiazepoxide HCl (Librium) 25 mg PO BID [facility] Last Admin: 03/06/17 09:20 Dose: 25 mg Diphenhydramine HCl (Benadryl) 50 mg IVPUSH ONETIME ONE Stop: 03/02/17 16:13 Last Admin: 03/02/17 16:31 Dose: 50 mg Diphtheria/Tetanus/Acell Pertussis (Adacel) 0.5 ml IM .ONCE ONE Stop: 03/06/17 14:01 Last Admin: 03/06/17 13:50 Dose: 0.5 ml Enoxaparin Sodium (Lovenox) 40 mg SUBCUT DAILY [facility] Last Admin: 03/06/17 09:20 Dose: 40 mg Hydromorphone HCl (Dilaudid) 0.5 mg IVPUSH ONETIME ONE Stop: 03/02/17 13:18 Last Admin: 03/02/17 13:25 Dose: 0.5 mg Sodium Chloride (Normal Saline) 1,000 mls @ 999 mls/hr IV ONETIME RAAD Last Admin: 03/02/17 10:43 Dose: 999 mls/hr Potassium Chloride 10 meq/ (Premix) 100 mls @ 50 mls/hr IV ASDIRECTED ONE Stop: 03/02/17 13:26 Last Admin: 03/02/17 11:32 Dose: 50 mls/hr Sodium Chloride (Normal Saline) Confirm Administered Dose 1,000 mls @ as directed .ROUTE .STK-MED ONE Stop: 03/02/17 11:54 Last Admin: 03/02/17 15:20 Dose: Not Given Sodium Chloride (Normal Saline) 1,000 mls @ 150 mls/hr IV NOW STA Stop: 03/02/17 18:31 Last Admin: 03/02/17 11:53 Dose: 150 mls/hr Potassium Chloride 10 meq/ (Premix) 100 mls @ 50 mls/hr IV ASDIRECTED ONE Stop: 03/02/17 15:16 Last Admin: 03/02/17 13:25 Dose: 50 mls/hr Potassium Chloride/Sodium Chloride (Normal Saline With 40 Meq Kcl) 1,000 mls @ 100 mls/hr IV ONETIME ONE Stop: 03/03/17 01:44 Last Admin: 03/02/17 16:10 Dose: 100 mls/hr Magnesium Sulfate 2 gm/ Premix 50 mls @ 25 mls/hr IV ONETIME ONE Stop: 03/02/17 21:59 Last Admin: 03/02/17 20:01 Dose: 25 mls/hr Potassium Chloride 10 meq/ (Premix) 100 mls @ 100 mls/hr IV Q1H RAAD Stop: 03/02/17 21:59 Last Admin: 03/02/17 22:10 Dose: 100 mls/hr Potassium Chloride 10 meq/ (Premix) 100 mls @ 100 mls/hr IV Q1H RAAD Stop: 03/03/17 22:14 Last Admin: 03/04/17 01:23 Dose: 100 mls/hr Sodium Chloride (Normal Saline) 1,000 mls @ 75 mls/hr IV ASDIRECTED RAAD Last Admin: 03/04/17 10:53 Dose: 75 mls/hr Magnesium Sulfate 2 gm/ Premix 50 mls @ 25 mls/hr IV ONETIME ONE Stop: 03/04/17 11:10 Last Admin: 03/04/17 10:54 Dose: 25 mls/hr Sodium Chloride (Normal Saline) 1,000 mls @ 75 mls/hr IV ASDIRECTED [facility] Last Admin: 03/04/17 23:35 Dose: 75 mls/hr Magnesium Sulfate 2 gm/ Premix 50 mls @ 25 mls/hr IV ONETIME ONE Stop: 03/05/17 13:59 Last Admin: 03/05/17 12:36 Dose: 25 mls/hr Magnesium Sulfate 4 gm/ Premix 100 mls @ 50 mls/hr IV ONETIME ONE Stop: 03/06/17 12:14 Last Admin: 03/06/17 10:33 Dose: 50 mls/hr Sodium Chloride (Normal Saline) Confirm Administered Dose 250 mls @ as directed .ROUTE .STK-MED ONE Stop: 03/06/17 11:09 Last Admin: 03/06/17 14:20 Dose: Not Given Sodium Chloride (Normal Saline) 250 mls @ 100 mls/hr IV ASDIRECTED [facility] Last Admin: 03/06/17 11:24 Dose: 100 mls/hr Ibuprofen (Motrin) 600 mg PO Q6H PRN PRN Reason: Pain (moderate 4-6) Last Admin: 03/02/17 16:30 Dose: 600 mg Ibuprofen (Motrin) 600 mg PO TID PRN PRN Reason: Pain Last Admin: 03/05/17 09:51 Dose: 600 mg Levothyroxine Sodium (Synthroid) 50 mcg PO ACBREAKFAST RAAD Last Admin: 03/03/17 06:08 Dose: 50 mcg Levothyroxine Sodium (Levothyroxine) 75 mcg PO ACBREAKFAST RAAD Last Admin: 03/06/17 06:16 Dose: 75 mcg Lorazepam (Ativan) 0 mg IVPUSH Q4HR PRN; Protocol PRN Reason: Withdrawal Symptoms Last Admin: 03/04/17 13:17 Dose: 2 mg Miscellaneous Information (Remove Patch) 1 ea TRDERM DAILY [facility] Last Admin: 03/06/17 09:20 Dose: 1 ea Nicotine (Habitrol) 21 mg TRDERM DAILY [facility] Last Admin: 03/06/17 09:19 Dose: 21 mg Ondansetron HCl (Zofran) 4 mg IVPUSH ONETIME ONE Stop: 03/02/17 10:36 Last Admin: 03/02/17 10:43 Dose: 4 mg Pneumococcal Polyvalent Vaccine (Pneumovax 23) 0.5 ml IM .ONCE ONE Stop: 03/06/17 14:01 Last Admin: 03/06/17 13:52 Dose: 0.5 ml Potassium Chloride (Klor-Con M20) 40 meq PO ONETIME ONE Stop: 03/02/17 11:28 Last Admin: 03/02/17 11:36 Dose: 40 meq Potassium Chloride (Klor-Con M20) 40 meq PO TID [facility] Last Admin: 03/03/17 09:19 Dose: 40 meq Potassium Chloride (Klor-Con M20) 60 meq PO TID [facility] Last Admin: 03/04/17 08:14 Dose: 60 meq Potassium Chloride (Klor-Con M20) 20 meq PO ONETIME ONE Stop: 03/03/17 10:01 Last Admin: 03/03/17 12:16 Dose: 20 meq Potassium Chloride (Klor-Con M20) 60 meq PO QID [facility] Last Admin: 03/05/17 09:48 Dose: 60 meq Potassium Chloride (Potassium Chloride) 40 meq PO ONETIME ONE Stop: 03/06/17 10:16 Last Admin: 03/06/17 10:33 Dose: 40 meq Sodium Chloride (Saline Flush) 10 ml FLUSH ASDIRECTED PRN PRN Reason: Keep Vein Open Last Admin: 03/02/17 10:44 Dose: 10 ml Temazepam (Restoril) 7.5 mg PO BEDTIME PRN PRN Reason: Insomnia Last Admin: 03/05/17 20:11 Dose: 7.5 mg Tramadol HCl (Ultram) 50 mg PO ONETIME ONE Stop: 03/05/17 15:14 Last Admin: 03/05/17 15:26 Dose: 50 mg *Q Meaningful Use (DIS) - VTE *Q VTE Criteria *Q: - Stroke *Q Stroke Criteria *Q: - AMI *Q AMI Criteria *Q:
[2017-03-06] MEDS ORDERED: Pneumococcal Polyvalent-23 Vaccine 0.5 ML SDV IM ONE (14:00)
[2017-03-06] MEDS ORDERED: Diphtheria,Pertussis(Acell),Tetanus Vaccine 0.5 ML SDV IM ONE (14:00)
[2017-03-06] MEDS ORDERED: Pneumococcal 13-Valent Conjugate Vaccine 0.5 ML Syringe IM ONE (14:00)
== END 2017-03-06 14:00 | disposition home or self-care (01) | DRG 425 ==
LOC: JD.ED 10:14 → JD.MS 13:15
PROVIDERS: ADMIT Internal Medicine Cardiovascular Disease; ATTEND Internal Medicine Cardiovascular Disease
DX: E87.6 Hypokalemia (principal); R53.1 Weakness; R26.2 Difficulty in walking, not elsewhere classified; Z88.8 Allergy status to other drugs, medicaments and biological substances; Z87.891 Personal history of nicotine dependence; G89.29 Other chronic pain; E03.9 Hypothyroidism, unspecified; E11.9 Type 2 diabetes mellitus without complications; E83.51 Hypocalcemia; F32.9 Major depressive disorder, single episode, unspecified; F41.9 Anxiety disorder, unspecified; D72.829 Elevated white blood cell count, unspecified; R82.5 Elevated urine levels of drugs, medicaments and biological substances; E83.42 Hypomagnesemia; M54.9 Dorsalgia, unspecified
CPT/HCPCS: 36415; 71010; 71010-26; 76700; 76700-26; 80048; 80053; 80061; 80306; 81001; 82330; 82570; 82962; 83036; 83735; 84133; 84443; 84484; 85025; 86140; 87046; 87177; 87209; 87328; 87329; 87338; 87427; 87493; 89055; 90715; 90732; 93005; 96361; 96365; 96366; 96375; 97110-GO; 97110-GP; 97112-GP; 97116-GP; 97162-GP; 97166-GO; 97535-GO; 99284; 99285-25; A9270-GY; G0480; J1170; J1200; J1650; J2060; J2405; J3475; J3480; J7040; J7050

== ENCOUNTER 2017-04-04 07:47 | Inpatient (IN) | payer BC ==
--- NOTE | 2017-04-04 08:00 | EDM.PDOC ---
ED HPI GENERAL MEDICAL PROBLEM - General Chief Complaint: Drug or Alcohol Abuse Stated Complaint: [facility] Time Seen by Provider: 04/04/17 07:52 - History of Present Illness INITIAL COMMENTS - FREE TEXT/NARRATIVE: 61-year-old female brought in by EMS with altered mental status suspected alcohol withdrawal problems. The patient was somewhat delusional this morning apparently she was found on her front porch wearing her underwear yelling at someone riding a horse that really wasn't there. Patient has a distant history of significant drug and alcohol abuse however she did get cleaned up but recently has been using some alcohol. At this time the patient is cooperative, however, cannot answer questions reasonably well. She does not appear to be in any pain. 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 (See Below) Other OB/BYN History: tumor on uterus Musculoskeletal History: Reports: Back Pain, Chronic, Neck Pain, Chronic Psychiatric History: Reports: Addiction, Depression Oncologic (Cancer) History: 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 (See Below) Other Oncologic History: precancerous uterine tumour removed with hysterectomy - Infectious Disease History Infectious Disease History: Reports: Chicken Pox - Past Surgical History HEENT Surgical History: 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 (See Below) Other HEENT Surgeries/Procedures: rhinoplasty Respiratory Surgical History: Reports: None Female Surgical History: Reports: Hysterectomy Other Female Surgeries/Procedures: partial hysterectomy Musculoskeletal Surgical History: Reports: None Oncologic Surgical History: 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 (See Below) Other Oncologic Surgeries/Procedures: hysterectomy Social & Family History - Family History Family Medical History: Noncontributory Other HEENT Family History: pt. adopted and unsure of family medical history. states her children do not have medical concerns. - Tobacco Use Smoking Status *Q: Current Every Day Smoker Years of Tobacco use: 42 Packs/Tins Daily: 0.5 Second Hand Smoke Exposure: Yes - Caffeine Use Caffeine Use: Reports: Coffee, Soda, Tea - Alcohol Use Days Per Week of Alcohol Use: 1 Number of Drinks Per Day: 6 Total Drinks Per Week: 6 - Recreational Drug Use Recreational Drug Use: No ED ROS GENERAL - Review of Systems Review Of Systems: Unable To Obtain ED EXAM, GENERAL - Physical Exam Exam: See Below Exam Limited By: Altered Mental Status General Appearance: Alert, No Apparent Distress Eye Exam: Bilateral Eye: Normal Inspection, PERRL Ears: Normal External Exam, Normal Canal, Hearing Grossly Normal, Normal TMs Nose: Normal Inspection, Normal Mucosa, No Blood Throat/Mouth: Normal Inspection, Normal Oropharynx, Normal Voice, No Airway Compromise Head: Atraumatic, Normocephalic Neck: Normal Inspection, Supple, Non-Tender, Full Range of Motion. No: Lymphadenopathy (L), Lymphadenopathy (R) Respiratory/Chest: No Respiratory Distress, Lungs Clear, Normal Breath Sounds Cardiovascular: Regular Rate, Rhythm, No Edema, No Murmur GI/Abdominal: Normal Bowel Sounds, Soft, Non-Tender Back Exam: Normal Inspection. No: CVA Tenderness (L), CVA Tenderness (R) Extremities: Normal Inspection, No Pedal Edema Neurological: Disoriented. No: Unresponsive Psychiatric: No: Anxious Course - Vital Signs Last Recorded V/S: Last Vital Signs Temp 36.9 C 04/04/17 16:54 Pulse 89 04/04/17 16:54 Resp 20 04/04/17 16:54 BP 92/53 L 04/04/17 16:39 Pulse Ox 96 04/04/17 16:54 - Orders/Labs/Meds Orders: Active Orders 24 hr Category Date Time Status Antiembolic Devices [RC] QSHIFT Care 04/04/17 09:42 Active Height and Weight [RC] 04 Care 04/04/17 09:40 Active Oxygen Therapy [RC] PRN Care 04/04/17 09:40 Active RT Aerosol Therapy [RC] ASDIRECTED Care 04/04/17 09:42 Active Up With Assistance [RC] QSHIFT Care 04/04/17 09:40 Active Up ad Alejandrina [RC] QSKSFT Care 04/04/17 09:40 Active VTE/DVT Education [RC] 09,21 Care 04/04/17 09:40 Active Vital Signs [RC] Q4HR Care 04/04/17 09:40 Active Consult to Case Management [CONS] Routine Cons 04/04/17 09:43 Active Consult to Apparel Manager [CONS] Routine Cons 04/04/17 09:43 Active Consult to Spiritual Care [CONS] Routine Cons 04/04/17 09:43 Active OT Evaluation and Treatment [CONS] Routine Cons 04/04/17 09:43 Active PT Evaluation and Treatment [CONS] Routine Cons 04/04/17 09:43 Active Regular Diet [DIET] Diet 04/04/17 Breakfast Active Chest 1V Frontal [CR] Stat Exams 04/04/17 08:02 Taken C-REACTIVE PROTEIN [CHEM] AM Lab 04/05/17 05:11 Ordered C-REACTIVE PROTEIN [CHEM] AM Lab 04/06/17 05:11 Ordered C-REACTIVE PROTEIN [CHEM] AM Lab 04/07/17 05:11 Ordered CBC WITH AUTO DIFF [HEME] AM Lab 04/05/17 05:11 Ordered CBC WITH AUTO DIFF [HEME] AM Lab 04/06/17 05:11 Ordered CBC WITH AUTO DIFF [HEME] AM Lab 04/07/17 05:11 Ordered COMPREHENSIVE METABOLIC PN,CMP [CHEM] AM Lab 04/05/17 05:11 Ordered COMPREHENSIVE METABOLIC PN,CMP [CHEM] AM Lab 04/06/17 05:11 Ordered COMPREHENSIVE METABOLIC PN,CMP [CHEM] AM Lab 04/07/17 05:11 Ordered CULTURE BLOOD [BC] Stat Lab 04/04/17 09:54 Received CULTURE BLOOD [BC] Stat Lab 04/04/17 10:06 Received MAGNESIUM [CHEM] AM Lab 04/05/17 05:11 Ordered MAGNESIUM [CHEM] AM Lab 04/06/17 05:11 Ordered MAGNESIUM [CHEM] AM Lab 04/07/17 05:11 Ordered Acetaminophen [Tylenol] Med 04/04/17 09:40 Active 650 mg PO Q4H PRN Acetaminophen/HYDROcodone [Bigler 325-5 MG] Med 04/04/17 09:40 Active 1 tab PO Q4H PRN Albuterol/Ipratropium [DuoNeb 3.0-0.5 MG/3 ML] Med 04/04/17 09:40 Active 3 ml NEB Q4H PRN Bisacodyl [Dulcolax] Med 04/04/17 09:40 Active 5 mg PO DAILY PRN Dextrose 5%-Lact Ringers w/KCl [D5 LR with 20 mEq KCl] Med 04/04/17 08:00 Active 1,000 ml IV ASDIRECTED Docusate Sodium [Colace] Med 04/04/17 09:40 Active 100 mg PO BID PRN Docusate Sodium/Sennosides [Senna Plus] Med 04/04/17 09:40 Active 1 tab PO BID PRN HYDROmorphone [Dilaudid] Med 04/04/17 09:40 Active 0.25 mg IVPUSH Q2H PRN LORazepam [Ativan] Med 04/04/17 09:40 Active 1 mg IV Q6H PRN LORazepam [Ativan] Med 04/04/17 09:47 Active 2 mg IVPUSH Q4H PRN Levothyroxine Med 04/05/17 06:00 Active 75 mcg PO ACBREAKFAST Magnesium Rep Pharmacy to Dose [Pharmacy to Dose - Med 04/04/17 10:00 Active Magnesium Replacement] 1 dose .XX ASDIRECTED Metoprolol Tartrate [Lopressor] Med 04/04/17 09:47 Active 5 mg IVPUSH Q4H PRN Nicotine [Habitrol] Med 04/05/17 09:00 Active 21 mg TRDERM DAILY Ondansetron [Zofran] Med 04/04/17 09:40 Active 4 mg IV Q6H PRN Polyethylene Glycol 3350 [MiraLAX] Med 04/04/17 09:40 Active 17 gm PO DAILY PRN Potassium Rep Pharmacy to Dose [Pharmacy to Dose - Med 04/04/17 10:00 Active Potassium Replacement] 1 dose .XX ASDIRECTED Promethazine [Phenergan] 12.5 mg Med 04/04/17 09:40 Active Sodium Chloride 0.9% [Normal Saline] 50 ml IV Q6H Remove Patch Med 04/05/17 09:00 Active 1 ea TRDERM DAILY Temazepam [Restoril] Med 04/04/17 09:40 Active 15 mg PO BEDTIME PRN hydrALAZINE [Apresoline] Med 04/04/17 09:47 Active 20 mg IVPUSH Q4H PRN metFORMIN [Glucophage] Med 04/04/17 17:00 Active 500 mg PO BIDMEALS Blood Culture x2 Reflex Set [OM.PC] Stat Oth 04/04/17 09:32 Ordered Sequential Compression Device [OM.PC] Per Unit Routine Oth 04/04/17 09:41 Ordered Resuscitation Status Routine Resus Stat 04/04/17 09:40 Ordered Medication Orders Acetaminophen (Tylenol) 650 mg PO Q4H PRN PRN Reason: Pain (Mild 1-3)/fever Hydrocodone Bitart/Acetaminophen (Bigler 325-5 Mg) 1 tab PO Q4H PRN PRN Reason: Pain (moderate 4-6) Albuterol/Ipratropium (Duoneb 3.0-0.5 Mg/3 Ml) 3 ml NEB Q4H PRN PRN Reason: Shortness Of Breath/wheezing Bisacodyl (Dulcolax) 5 mg PO DAILY PRN PRN Reason: Constipation Docusate Sodium (Colace) 100 mg PO BID PRN PRN Reason: Constipation Hydralazine HCl (Apresoline) 20 mg IVPUSH Q4H PRN PRN Reason: Hypertension Hydromorphone HCl (Dilaudid) 0.25 mg IVPUSH Q2H PRN PRN Reason: Pain (severe 7-10) Potassium Cl/Dextrose/Lact Ringer's (D5 Lr With 20 Meq Kcl) 1,000 mls @ 125 mls /hr IV ASDIRECTED [facility] Last Admin: 04/04/17 19:04 Dose: 125 mls/hr Infusion: 04/04/17 16:16 Dose: 125 mls/hr Admin: 04/04/17 08:16 Dose: 125 mls/hr Promethazine HCl 12.5 mg/ (Sodium Chloride) 50.5 mls @ 100 mls/hr IV Q6H PRN PRN Reason: Nausea/Vomiting Levothyroxine Sodium (Levothyroxine) 75 mcg PO ACBREAKFAST [facility] Lorazepam (Ativan) 1 mg IV Q6H PRN PRN Reason: Anxiety Last Admin: 04/04/17 13:22 Dose: 1 mg Lorazepam (Ativan) 2 mg IVPUSH Q4H PRN PRN Reason: Seizures Magnesium Sulfate (Pharmacy To Dose - Magnesium Replacement) 1 dose .XX ASDIRECTED [facility] Metformin HCl (Glucophage) 500 mg PO BIDMEALS [facility] Last Admin: 04/04/17 17:48 Dose: Not Given Metoprolol Tartrate (Lopressor) 5 mg IVPUSH Q4H PRN PRN Reason: Tachycardia Miscellaneous Information (Remove Patch) 1 ea TRDERM DAILY [facility] Nicotine (Habitrol) 21 mg TRDERM DAILY [facility] Ondansetron HCl (Zofran) 4 mg IV Q6H PRN PRN Reason: Nausea/Vomiting Polyethylene Glycol (Miralax) 17 gm PO DAILY PRN PRN Reason: Constipation Potassium Chloride (Pharmacy To Dose - Potassium Replacement) 1 dose .XX ASDIRECTED [facility] Senna/Docusate Sodium (Senna Plus) 1 tab PO BID PRN PRN Reason: Constipation Temazepam (Restoril) 15 mg PO BEDTIME PRN PRN Reason: Sleep Labs: Laboratory Tests 04/04/17 04/04/17 04/04/17 Range/Units 07:58 08:15 08:23 WBC (3.98-10.04) K/mm3 RBC (3.98-5.22) M/mm3 Hgb (11.2-15.7) gm/L Hct (34.1-44.9) % MCV (79.4-94.8) fl MCH (25.6-32.2) pg MCHC (32.2-35.5) g/dl RDW Std Deviation (36.4-46.3) fL Plt Count (182-369) K/mm3 MPV (9.4-12.3) fl Neutrophils % (Manual) (40-60) % Band Neutrophils % (0-10) % Lymphocytes % (Manual) (20-40) % Atypical Lymphs % % Monocytes % (Manual) (2-10) % Eosinophils % (Manual) (0.7-5.8) % Basophils % (Manual) (0.1-1.2) Platelet Estimate Polychromasia Hypochromasia Anisocytosis Macrocytosis RBC Morph Comment PT (8.0-13.0) SECONDS INR APTT (22-36) SECONDS Puncture Site Rt radial ABG pH 7.19 L* (7.35-7.45) ABG pCO2 24.7 L (35.0-45.0) mmHg ABG pO2 72.0 L (80.0-100.0) mmHg ABG HCO3 8.9 L (22.0-26.0) meq/L ABG O2 Saturation 90.6 L (96.0-97.0) % ABG Base Excess -17.9 L (-2-2.0) Diogo Test Positive O2 Delivery Device Room air FiO2 0.00 L (21.00-100.00) % Sodium 135 L (136-145) mEq/L Potassium 3.3 L (3.5-5.1) mEq/L Chloride 96 L (98-107) mEq/L Carbon Dioxide 11 L (21-32) mEq/L Anion Gap 31.3 H (5-15) BUN 21 H (7-18) mg/dL Creatinine 1.6 H (0.55-1.02) mg/dL Est Cr Clr Drug Dosing 29.82 mL/min Estimated GFR (MDRD) 33 (>60) mL/min BUN/Creatinine Ratio 13.1 L (14-18) Glucose 64 L (74-106) mg/dL POC Glucose 63 L (70-105) mg/dL Hemoglobin A1c (4.50-6.20) % Lactic Acid (0.4-2.0) mmol/L Calcium 9.0 (8.5-10.1) mg/dL Total Bilirubin 2.0 H (0.2-1.0) mg/dL AST 138 H (15-37) U/L ALT 55 (14-59) U/L Alkaline Phosphatase 262 H (46-116) U/L Troponin I < 0.017 (0.00-0.056) ng/mL C-Reactive Protein (<1.0) mg/dL Total Protein 7.2 (6.4-8.2) g/dl Albumin 2.9 L (3.4-5.0) g/dl Globulin 4.3 gm/dL Albumin/Globulin Ratio 0.7 L (1-2) Free T4 (0.76-1.46) ng/dL TSH 3rd Generation (0.358-3.74) uIU/mL Urine Color (Yellow) Urine Appearance (Clear) Urine pH (5.0-8.0) Ur Specific [place] (1.005-1.030) Urine Protein (Negative) Urine Glucose (UA) (Negative) Urine Ketones (Negative) Urine Occult Blood (Negative) Urine Nitrite (Negative) Urine Bilirubin (Negative) Urine Urobilinogen (0.2-1.0) Ur Leukocyte Esterase (Negative) Urine RBC (0-5) /hpf Urine WBC (0-5) /hpf Ur Epithelial Cells (0-5) /hpf Urine Bacteria (FEW) /hpf Urine Mucus (FEW) /hpf Salicylates (2.8-20) mg/dL Urine Opiates Screen (NEGATIVE) Ur Buprenorphine Scrn (NEGATIVE) Ur Oxycodone Screen (NEGATIVE) Urine Methadone Screen (NEGATIVE) Ur Propoxyphene Screen (NEGATIVE) Acetaminophen (10-30) ug/mL Ur Barbiturates Screen (NEGATIVE) Ur Tricyclics Screen (NEGATIVE) Ur Phencyclidine Scrn (NEGATIVE) Ur Amphetamine Screen (NEGATIVE) U Methamphetamines Scrn (NEGATIVE) U Benzodiazepines Scrn (NEGATIVE) U Cocaine Metab Screen (NEGATIVE) U Marijuana (THC) Screen (NEGATIVE) Ethyl Alcohol 0.00 (0.00) gm% Ketones (0.0-0.3) mM 04/04/17 04/04/17 04/04/17 Range/Units 08:23 08:23 08:23 WBC 16.03 H (3.98-10.04) K/mm3 RBC 2.68 L (3.98-5.22) M/mm3 Hgb 9.5 L (11.2-15.7) gm/L Hct 28.9 L (34.1-44.9) % MCV 107.8 H (79.4-94.8) fl MCH 35.4 H (25.6-32.2) pg MCHC 32.9 (32.2-35.5) g/dl RDW Std Deviation 66.5 H (36.4-46.3) fL Plt Count 171 L (182-369) K/mm3 MPV 9.7 (9.4-12.3) fl Neutrophils % (Manual) 80 H (40-60) % Band Neutrophils % 0 (0-10) % Lymphocytes % (Manual) 10 L (20-40) % Atypical Lymphs % 0 % Monocytes % (Manual) 10 (2-10) % Eosinophils % (Manual) 0 L (0.7-5.8) % Basophils % (Manual) 0 L (0.1-1.2) Platelet Estimate Adequate Polychromasia 1+ slight Hypochromasia 2+ moderate Anisocytosis 1+ slight Macrocytosis 1+ slight RBC Morph Comment Abnormal PT 12.8 (8.0-13.0) SECONDS INR 1.16 APTT 31 (22-36) SECONDS Puncture Site ABG pH (7.35-7.45) ABG pCO2 (35.0-45.0) mmHg ABG pO2 (80.0-100.0) mmHg ABG HCO3 (22.0-26.0) meq/L ABG O2 Saturation (96.0-97.0) % ABG Base Excess (-2-2.0) Diogo Test O2 Delivery Device FiO2 (21.00-100.00) % Sodium (136-145) mEq/L Potassium (3.5-5.1) mEq/L Chloride (98-107) mEq/L Carbon Dioxide (21-32) mEq/L Anion Gap (5-15) BUN (7-18) mg/dL Creatinine (0.55-1.02) mg/dL Est Cr Clr Drug Dosing mL/min Estimated GFR (MDRD) (>60) mL/min BUN/Creatinine Ratio (14-18) Glucose (74-106) mg/dL POC Glucose (70-105) mg/dL Hemoglobin A1c (4.50-6.20) % Lactic Acid 0.6 (0.4-2.0) mmol/L Calcium (8.5-10.1) mg/dL Total Bilirubin (0.2-1.0) mg/dL AST (15-37) U/L ALT (14-59) U/L Alkaline Phosphatase (46-116) U/L Troponin I (0.00-0.056) ng/mL C-Reactive Protein (<1.0) mg/dL Total Protein (6.4-8.2) g/dl Albumin (3.4-5.0) g/dl Globulin gm/dL Albumin/Globulin Ratio (1-2) Free T4 (0.76-1.46) ng/dL TSH 3rd Generation (0.358-3.74) uIU/mL Urine Color (Yellow) Urine Appearance (Clear) Urine pH (5.0-8.0) Ur Specific [place] (1.005-1.030) Urine Protein (Negative) Urine Glucose (UA) (Negative) Urine Ketones (Negative) Urine Occult Blood (Negative) Urine Nitrite (Negative) Urine Bilirubin (Negative) Urine Urobilinogen (0.2-1.0) Ur Leukocyte Esterase (Negative) Urine RBC (0-5) /hpf Urine WBC (0-5) /hpf Ur Epithelial Cells (0-5) /hpf Urine Bacteria (FEW) /hpf Urine Mucus (FEW) /hpf Salicylates (2.8-20) mg/dL Urine Opiates Screen (NEGATIVE) Ur Buprenorphine Scrn (NEGATIVE) Ur Oxycodone Screen (NEGATIVE) Urine Methadone Screen (NEGATIVE) Ur Propoxyphene Screen (NEGATIVE) Acetaminophen (10-30) ug/mL Ur Barbiturates Screen (NEGATIVE) Ur Tricyclics Screen (NEGATIVE) Ur Phencyclidine Scrn (NEGATIVE) Ur Amphetamine Screen (NEGATIVE) U Methamphetamines Scrn (NEGATIVE) U Benzodiazepines Scrn (NEGATIVE) U Cocaine Metab Screen (NEGATIVE) U Marijuana (THC) Screen (NEGATIVE) Ethyl Alcohol (0.00) gm% Ketones (0.0-0.3) mM 04/04/17 04/04/17 04/04/17 Range/Units 08:23 08:23 08:23 WBC (3.98-10.04) K/mm3 RBC (3.98-5.22) M/mm3 Hgb (11.2-15.7) gm/L Hct (34.1-44.9) % MCV (79.4-94.8) fl MCH (25.6-32.2) pg MCHC (32.2-35.5) g/dl RDW Std Deviation (36.4-46.3) fL Plt Count (182-369) K/mm3 MPV (9.4-12.3) fl Neutrophils % (Manual) (40-60) % Band Neutrophils % (0-10) % Lymphocytes % (Manual) (20-40) % Atypical Lymphs % % Monocytes % (Manual) (2-10) % Eosinophils % (Manual) (0.7-5.8) % Basophils % (Manual) (0.1-1.2) Platelet Estimate Polychromasia Hypochromasia Anisocytosis Macrocytosis RBC Morph Comment PT (8.0-13.0) SECONDS INR APTT (22-36) SECONDS Puncture Site ABG pH (7.35-7.45) ABG pCO2 (35.0-45.0) mmHg ABG pO2 (80.0-100.0) mmHg ABG HCO3 (22.0-26.0) meq/L ABG O2 Saturation (96.0-97.0) % ABG Base Excess (-2-2.0) Diogo Test O2 Delivery Device FiO2 (21.00-100.00) % Sodium (136-145) mEq/L Potassium (3.5-5.1) mEq/L Chloride (98-107) mEq/L Carbon Dioxide (21-32) mEq/L Anion Gap (5-15) BUN (7-18) mg/dL Creatinine (0.55-1.02) mg/dL Est Cr Clr Drug Dosing mL/min Estimated GFR (MDRD) (>60) mL/min BUN/Creatinine Ratio (14-18) Glucose (74-106) mg/dL POC Glucose (70-105) mg/dL Hemoglobin A1c (4.50-6.20) % Lactic Acid (0.4-2.0) mmol/L Calcium (8.5-10.1) mg/dL Total Bilirubin (0.2-1.0) mg/dL AST (15-37) U/L ALT (14-59) U/L Alkaline Phosphatase (46-116) U/L Troponin I (0.00-0.056) ng/mL C-Reactive Protein (<1.0) mg/dL Total Protein (6.4-8.2) g/dl Albumin (3.4-5.0) g/dl Globulin gm/dL Albumin/Globulin Ratio (1-2) Free T4 (0.76-1.46) ng/dL TSH 3rd Generation (0.358-3.74) uIU/mL Urine Color (Yellow) Urine Appearance (Clear) Urine pH (5.0-8.0) Ur Specific [place] (1.005-1.030) Urine Protein (Negative) Urine Glucose (UA) (Negative) Urine Ketones (Negative) Urine Occult Blood (Negative) Urine Nitrite (Negative) Urine Bilirubin (Negative) Urine Urobilinogen (0.2-1.0) Ur Leukocyte Esterase (Negative) Urine RBC (0-5) /hpf Urine WBC (0-5) /hpf Ur Epithelial Cells (0-5) /hpf Urine Bacteria (FEW) /hpf Urine Mucus (FEW) /hpf Salicylates 7.0 (2.8-20) mg/dL Urine Opiates Screen (NEGATIVE) Ur Buprenorphine Scrn (NEGATIVE) Ur Oxycodone Screen (NEGATIVE) Urine Methadone Screen (NEGATIVE) Ur Propoxyphene Screen (NEGATIVE) Acetaminophen 0 L (10-30) ug/mL Ur Barbiturates Screen (NEGATIVE) Ur Tricyclics Screen (NEGATIVE) Ur Phencyclidine Scrn (NEGATIVE) Ur Amphetamine Screen (NEGATIVE) U Methamphetamines Scrn (NEGATIVE) U Benzodiazepines Scrn (NEGATIVE) U Cocaine Metab Screen (NEGATIVE) U Marijuana (THC) Screen (NEGATIVE) Ethyl Alcohol (0.00) gm% Ketones 12.07 (0.0-0.3) mM 04/04/17 04/04/17 04/04/17 Range/Units 08:23 08:23 08:25 WBC (3.98-10.04) K/mm3 RBC (3.98-5.22) M/mm3 Hgb (11.2-15.7) gm/L Hct (34.1-44.9) % MCV (79.4-94.8) fl MCH (25.6-32.2) pg MCHC (32.2-35.5) g/dl RDW Std Deviation (36.4-46.3) fL Plt Count (182-369) K/mm3 MPV (9.4-12.3) fl Neutrophils % (Manual) (40-60) % Band Neutrophils % (0-10) % Lymphocytes % (Manual) (20-40) % Atypical Lymphs % % Monocytes % (Manual) (2-10) % Eosinophils % (Manual) (0.7-5.8) % Basophils % (Manual) (0.1-1.2) Platelet Estimate Polychromasia Hypochromasia Anisocytosis Macrocytosis RBC Morph Comment PT (8.0-13.0) SECONDS INR APTT (22-36) SECONDS Puncture Site ABG pH (7.35-7.45) ABG pCO2 (35.0-45.0) mmHg ABG pO2 (80.0-100.0) mmHg ABG HCO3 (22.0-26.0) meq/L ABG O2 Saturation (96.0-97.0) % ABG Base Excess (-2-2.0) Diogo Test O2 Delivery Device FiO2 (21.00-100.00) % Sodium (136-145) mEq/L Potassium (3.5-5.1) mEq/L Chloride (98-107) mEq/L Carbon Dioxide (21-32) mEq/L Anion Gap (5-15) BUN (7-18) mg/dL Creatinine (0.55-1.02) mg/dL Est Cr Clr Drug Dosing mL/min Estimated GFR (MDRD) (>60) mL/min BUN/Creatinine Ratio (14-18) Glucose (74-106) mg/dL POC Glucose (70-105) mg/dL Hemoglobin A1c 6.40 H (4.50-6.20) % Lactic Acid (0.4-2.0) mmol/L Calcium (8.5-10.1) mg/dL Total Bilirubin (0.2-1.0) mg/dL AST (15-37) U/L ALT (14-59) U/L Alkaline Phosphatase (46-116) U/L Troponin I (0.00-0.056) ng/mL C-Reactive Protein 13.3 H* (<1.0) mg/dL Total Protein (6.4-8.2) g/dl Albumin (3.4-5.0) g/dl Globulin gm/dL Albumin/Globulin Ratio (1-2) Free T4 1.39 (0.76-1.46) ng/dL TSH 3rd Generation 3.600 (0.358-3.74) uIU/mL Urine Color Yellow (Yellow) Urine Appearance Clear (Clear) Urine pH 6.0 (5.0-8.0) Ur Specific [place] 1.020 (1.005-1.030) Urine Protein 2+ H (Negative) Urine Glucose (UA) Negative (Negative) Urine Ketones 3+ H (Negative) Urine Occult Blood 1+ H (Negative) Urine Nitrite Negative (Negative) Urine Bilirubin 3+ H (Negative) Urine Urobilinogen 1.0 (0.2-1.0) Ur Leukocyte Esterase Negative (Negative) Urine RBC 0-5 (0-5) /hpf Urine WBC 0-5 (0-5) /hpf Ur Epithelial Cells 0-5 (0-5) /hpf Urine Bacteria Few (FEW) /hpf Urine Mucus Not seen (FEW) /hpf Salicylates (2.8-20) mg/dL Urine Opiates Screen (NEGATIVE) Ur Buprenorphine Scrn (NEGATIVE) Ur Oxycodone Screen (NEGATIVE) Urine Methadone Screen (NEGATIVE) Ur Propoxyphene Screen (NEGATIVE) Acetaminophen (10-30) ug/mL Ur Barbiturates Screen (NEGATIVE) Ur Tricyclics Screen (NEGATIVE) Ur Phencyclidine Scrn (NEGATIVE) Ur Amphetamine Screen (NEGATIVE) U Methamphetamines Scrn (NEGATIVE) U Benzodiazepines Scrn (NEGATIVE) U Cocaine Metab Screen (NEGATIVE) U Marijuana (THC) Screen (NEGATIVE) Ethyl Alcohol (0.00) gm% Ketones (0.0-0.3) mM 04/04/17 Range/Units 08:25 WBC (3.98-10.04) K/mm3 RBC (3.98-5.22) M/mm3 Hgb (11.2-15.7) gm/L Hct (34.1-44.9) % MCV (79.4-94.8) fl MCH (25.6-32.2) pg MCHC (32.2-35.5) g/dl RDW Std Deviation (36.4-46.3) fL Plt Count (182-369) K/mm3 MPV (9.4-12.3) fl Neutrophils % (Manual) (40-60) % Band Neutrophils % (0-10) % Lymphocytes % (Manual) (20-40) % Atypical Lymphs % % Monocytes % (Manual) (2-10) % Eosinophils % (Manual) (0.7-5.8) % Basophils % (Manual) (0.1-1.2) Platelet Estimate Polychromasia Hypochromasia Anisocytosis Macrocytosis RBC Morph Comment PT (8.0-13.0) SECONDS INR APTT (22-36) SECONDS Puncture Site ABG pH (7.35-7.45) ABG pCO2 (35.0-45.0) mmHg ABG pO2 (80.0-100.0) mmHg ABG HCO3 (22.0-26.0) meq/L ABG O2 Saturation (96.0-97.0) % ABG Base Excess (-2-2.0) Diogo Test O2 Delivery Device FiO2 (21.00-100.00) % Sodium (136-145) mEq/L Potassium (3.5-5.1) mEq/L Chloride (98-107) mEq/L Carbon Dioxide (21-32) mEq/L Anion Gap (5-15) BUN (7-18) mg/dL Creatinine (0.55-1.02) mg/dL Est Cr Clr Drug Dosing mL/min Estimated GFR (MDRD) (>60) mL/min BUN/Creatinine Ratio (14-18) Glucose (74-106) mg/dL POC Glucose (70-105) mg/dL Hemoglobin A1c (4.50-6.20) % Lactic Acid (0.4-2.0) mmol/L Calcium (8.5-10.1) mg/dL Total Bilirubin (0.2-1.0) mg/dL AST (15-37) U/L ALT (14-59) U/L Alkaline Phosphatase (46-116) U/L Troponin I (0.00-0.056) ng/mL C-Reactive Protein (<1.0) mg/dL Total Protein (6.4-8.2) g/dl Albumin (3.4-5.0) g/dl Globulin gm/dL Albumin/Globulin Ratio (1-2) Free T4 (0.76-1.46) ng/dL TSH 3rd Generation (0.358-3.74) uIU/mL Urine Color (Yellow) Urine Appearance (Clear) Urine pH (5.0-8.0) Ur Specific [place] (1.005-1.030) Urine Protein (Negative) Urine Glucose (UA) (Negative) Urine Ketones (Negative) Urine Occult Blood (Negative) Urine Nitrite (Negative) Urine Bilirubin (Negative) Urine Urobilinogen (0.2-1.0) Ur Leukocyte Esterase (Negative) Urine RBC (0-5) /hpf Urine WBC (0-5) /hpf Ur Epithelial Cells (0-5) /hpf Urine Bacteria (FEW) /hpf Urine Mucus (FEW) /hpf Salicylates (2.8-20) mg/dL Urine Opiates Screen Negative (NEGATIVE) Ur Buprenorphine Scrn Presumptive positive H (NEGATIVE) Ur Oxycodone Screen Negative (NEGATIVE) Urine Methadone Screen Negative (NEGATIVE) Ur Propoxyphene Screen Negative (NEGATIVE) Acetaminophen (10-30) ug/mL Ur Barbiturates Screen Negative (NEGATIVE) Ur Tricyclics Screen Negative (NEGATIVE) Ur Phencyclidine Scrn Negative (NEGATIVE) Ur Amphetamine Screen Negative (NEGATIVE) U Methamphetamines Scrn Negative (NEGATIVE) U Benzodiazepines Scrn Presumptive positive H (NEGATIVE) U Cocaine Metab Screen Negative (NEGATIVE) U Marijuana (THC) Screen Negative (NEGATIVE) Ethyl Alcohol (0.00) gm% Ketones (0.0-0.3) mM Meds: Medications Generic Name Dose Route Start Last Admin Trade Name Freq PRN Reason Stop Dose Admin Acetaminophen 650 mg 04/04/17 09:40 Tylenol PO Q4H PRN Pain (Mild 1-3)/fever Hydrocodone Bitart/Acetaminophen 1 tab 04/04/17 09:40 [place] 325-5 Mg PO Q4H PRN Pain (moderate 4-6) Albuterol/Ipratropium 3 ml 04/04/17 09:40 Duoneb 3.0-0.5 Mg/3 Ml NEB Q4H PRN Shortness Of Breath/wheezing Bisacodyl 5 mg 04/04/17 09:40 Dulcolax PO DAILY PRN Constipation Docusate Sodium 100 mg 04/04/17 09:40 Colace PO BID PRN Constipation Hydralazine HCl 20 mg 04/04/17 09:47 Apresoline IVPUSH Q4H PRN Hypertension Hydromorphone HCl 0.25 mg 04/04/17 09:40 Dilaudid IVPUSH Q2H PRN Pain (severe 7-10) Potassium Cl/Dextrose/Lact Ringer's 1,000 mls @ 125 mls/hr 04/04/17 08:00 19:04 D5 Lr With 20 Meq Kcl IV 125 mls/hr ASDIRECTED RAAD Administration Promethazine HCl 12.5 mg/ 50.5 mls @ 100 mls/hr 04/04/17 09:40 Sodium Chloride IV Q6H PRN Nausea/Vomiting Levothyroxine Sodium 75 mcg 04/05/17 06:00 Levothyroxine PO ACBREAKFAST RAAD Lorazepam 1 mg 04/04/17 09:40 04/04/17 13:22 Ativan IV 1 mg Q6H PRN Administration Anxiety Lorazepam 2 mg 04/04/17 09:47 Ativan IVPUSH Q4H PRN Seizures Magnesium Sulfate 1 dose 04/04/17 10:00 Pharmacy To Dose - Magnesium Replacement .XX ASDIRECTED RAAD Metformin HCl 500 mg 04/04/17 17:00 04/04/17 17:48 Glucophage PO Not Given BIDMEALS [facility] Metoprolol Tartrate 5 mg 04/04/17 09:47 Lopressor IVPUSH Q4H PRN Tachycardia Miscellaneous Information 1 ea 04/05/17 09:00 Remove Patch TRDERM DAILY [facility] Nicotine 21 mg 04/05/17 09:00 Habitrol TRDERM DAILY [facility] Ondansetron HCl 4 mg 04/04/17 09:40 Zofran IV Q6H PRN Nausea/Vomiting Polyethylene Glycol 17 gm 04/04/17 09:40 Miralax PO DAILY PRN Constipation Potassium Chloride 1 dose 04/04/17 10:00 Pharmacy To Dose - Potassium Replacement .XX ASDIRECTED [facility] Senna/Docusate Sodium 1 tab 04/04/17 09:40 Senna Plus PO BID PRN Constipation Temazepam 15 mg 04/04/17 09:40 Restoril PO BEDTIME PRN Sleep Discontinued Medications Generic Name Dose Route Start Last Admin Trade Name Freq PRN Reason Stop Dose Admin Diphenhydramine HCl Confirm 04/04/17 12:37 04/04/17 13:37 Benadryl Administered 04/04/17 12:38 Not Given Dose 50 mg .ROUTE .STK-MED ONE Diphenhydramine HCl 50 mg 04/04/17 12:37 04/04/17 12:37 Benadryl IVPUSH 04/04/17 12:38 50 mg ONETIME ONE Administration Diphenhydramine HCl 50 mg 04/04/17 13:49 04/04/17 14:14 Benadryl IVPUSH 04/04/17 13:50 Not Given ONETIME ONE Haloperidol Lactate 3 mg 04/04/17 14:00 04/04/17 14:05 Haldol IVPUSH 04/04/17 14:01 3 mg ONETIME ONE Administration Haloperidol Lactate Confirm 04/04/17 14:01 04/04/17 14:12 Haldol Administered 04/04/17 14:02 Not Given Dose 5 mg .ROUTE .STK-MED ONE Haloperidol Lactate 2 mg 04/04/17 14:09 04/04/17 14:13 Haldol IVPUSH 04/04/17 14:10 2 mg ONETIME ONE Administration Sodium Chloride 1,000 mls @ 999 mls/hr 04/04/17 09:48 04/04/17 11:29 Normal Saline IV 04/04/17 10:48 999 mls/hr ONETIME ONE Administration Magnesium Sulfate 2 gm/ Premix 50 mls @ 25 mls/hr 04/04/17 15:53 04/04/17 16: 26 IV 04/04/17 17:52 25 mls/hr ONETIME ONE Administration Sodium Chloride 500 mls @ 999 mls/hr 04/04/17 17:19 04/04/17 17:28 Normal Saline IV 04/04/17 17:49 999 mls/hr .BOLUS ONE Administration Sodium Chloride Confirm 04/04/17 17:19 04/04/17 17:27 Normal Saline Administered 04/04/17 17:20 Not Given Dose 1,000 mls @ as directed .ROUTE .STK-MED ONE Sodium Chloride 500 mls @ 999 mls/hr 04/04/17 18:17 04/04/17 18:21 Normal Saline IV 04/04/17 18:47 999 mls/hr .BOLUS ONE Administration Lorazepam 1 mg 04/04/17 12:11 04/04/17 12:17 Ativan IVPUSH 04/04/17 12:12 1 mg ONETIME ONE Administration Lorazepam 2 mg 04/04/17 13:48 04/04/17 13:55 Ativan IVPUSH 04/04/17 13:49 2 mg ONETIME ONE Administration Potassium Chloride 20 meq 04/04/17 11:00 04/04/17 13:41 Klor-Con M20 PO 04/04/17 14:01 Not Given Q3H RAAD Quetiapine Fumarate 25 mg 04/04/17 12:10 04/04/17 12:18 Seroquel PO 04/04/17 12:11 25 mg ONETIME ONE Administration - Re-Assessments/Exams Free Text/Narrative Re-Assessment/Exam: 04/04/17 08:14 Patient presents emergency room delirious it is unknown the duration of this. Reviewing old records the patient was admitted here within the last month with severe hypokalemia. Patient's blood sugars a little on the low side at 63. She' ll be started on D5 LR with 20 of K 125 mL an hour labs head CT including toxicology pending 04/04/17 09:43 Because this patient's delirium is not well understood head CT shows no acute changes she has an old orbital fracture on the left side noted that a mild sinus tachycardia rate 102significant electrolyte abnormality however ketones are quite elevated blood gases concerning with the pH is 7.19 PCO2 of 24.7 bicarbonate 0.9 chest x-ray no acute changes case reviewed with Dr. Hobbs, our hospitalist who will accept the patient for admission Departure - Departure Time of Disposition: 09:41 Disposition: Admitted As Inpatient 68 Clinical Impression: Delirium, History of ETOH abuse, Ketosis, History of diabetes mellitus - Discharge Information - My Orders Last 24 Hours: My Active Orders 04/04/17 08:00 Dextrose 5%-Lact Ringers w/KCl [D5 LR with 20 mEq KCl] 1,000 ml IV ASDIRECTED 04/04/17 08:02 Chest 1V Frontal [CR] Stat 04/04/17 09:32 Blood Culture x2 Reflex Set [OM.PC] Stat 04/04/17 09:54 CULTURE BLOOD [BC] Stat 04/04/17 10:06 CULTURE BLOOD [BC] Stat 04/05/17 09:00 Remove Patch 1 ea TRDERM DAILY - Assessment/Plan Last 24 Hours: My Active Orders 04/04/17 08:00 Dextrose 5%-Lact Ringers w/KCl [D5 LR with 20 mEq KCl] 1,000 ml IV ASDIRECTED 04/04/17 08:02 Chest 1V Frontal [CR] Stat 04/04/17 09:32 Blood Culture x2 Reflex Set [OM.PC] Stat 04/04/17 09:54 CULTURE BLOOD [BC] Stat 04/04/17 10:06 CULTURE BLOOD [BC] Stat 04/05/17 09:00 Remove Patch 1 ea TRDERM DAILY
[2017-04-04] MEDS: Dextrose 5%-Lact Ringers w/KCl 1,000 ML IV SCH ×2 (08:16→19:04)
--- NOTE | 2017-04-04 08:51 | CT ---
Head CT Technique: Multiple axial sections through the brain were obtained. Intravenous contrast was not utilized. Comparison: Previous head CT exam of 03/06/10. Findings: Ventricles along with basal cisterns and sulci over the convexities are within normal limits for the patient's age. No abnormal parenchymal densities are identified. No evidence of intracranial hemorrhage. No midline shift or mass effect is seen. Bone window settings were reviewed which shows a defect within the medial left orbital wall containing orbital fat which is compatible with a small and old fracture. This is stable from previous exam. No acute calvarial abnormality is seen. Impression: 1. Old left orbital fracture as described above. 2. No acute intracranial abnormality is identified. No significant change is seen from prior head CT exam. Diagnostic code #2
[2017-04-04] MEDS ORDERED: Temazepam 15 MG Cap PO PRN (09:40)
[2017-04-04] MEDS ORDERED: Ondansetron 4 MG/2 ML SDV IV PRN (09:40)
[2017-04-04] MEDS ORDERED: Promethazine 12.5 MG in Sodium Chloride 0.9% 50 ML IV PRN (09:40)
[2017-04-04] MEDS ORDERED: Polyethylene Glycol 3350 Powder 17 GM Packet PO PRN (09:40)
[2017-04-04] MEDS ORDERED: Bisacodyl 5 MG Tab PO PRN (09:40)
[2017-04-04] MEDS ORDERED: HYDROmorphone 1 MG/ML Syringe IVPUSH PRN (09:40)
[2017-04-04] MEDS ORDERED: Docusate Sodium 100 MG Cap PO PRN (09:40)
[2017-04-04] MEDS ORDERED: LORazepam 2 MG/ML MDV IVPUSH PRN (09:47)
[2017-04-04] MEDS ORDERED: hydrALAZINE 20 MG/ML SDV IVPUSH PRN (09:47)
[2017-04-04] MEDS ORDERED: Metoprolol Tartrate 5 MG/5 ML SDV IVPUSH PRN (09:47)
[2017-04-04] MEDS ORDERED: Sodium Chloride 0.9% 1,000 ML IV ONE (09:48)
--- NOTE | 2017-04-04 10:13 | PCM.HP ---
H&P History of Present Illness - General Date of Service: 04/04/17 Admit Problem/Dx: AMS Source of Information: Patient, Old Records, Provider, RN Notes Reviewed History Limitations: Reports: Altered Mental Status - History of Present Illness Initial Comments - Free Text/Narative: This is a 61 year old white female with past medical history of impaired vision , asthma, chronic neck and back pain, depression, and substance abuse who presents to the emergency department with altered mental status and suspected alcohol withdrawal symptoms. Patient is delusional and unable to provide pertinent information. She carries a history of drug and alcohol abuse in the past. She is somewhat cooperative but again unable to provide meaningful answers to most questions. She is all over with her thoughts. She however is not in any acute distress but appears to be starting to get restless. Her initial workup in the emergency department shows a CBC remarkable for WBC of 16.03, RBC of 2.68, hemoglobin of 9.5, hematocrit 28.9, MCV of 107.8, MCH of 35.4, platelet of 171, neutrophils of 80% and without bands, and lymphocytes of 10%. her chemistries remarkable for sodium of 135, potassium of 3.3, chloride of 96, carbon dioxide of 11, anion gap of 31.3, BUN of 21 creatinine of 1.6, glucose of 64, hemoglobin A1c of 6.4, total bilirubin up to AST of 138, alkaline phosphatase of 262, CRP of 13.3, and albumin of 2.9. Troponin 1 is negative. UA is not suggestive of urinary tract infection. UDS is positive for buprenorphine and benzodiazepine. Blood alcohol level is 0 but ketones is 12.07. Her x-ray shows no acute abnormal findings. Head CT scan shows no acute intra-cranial abnormality is identified. Old left orbital fracture is noted. Patient is being admitted for altered mental status due to acute psychosis. She is full code. - Related Data Allergies/Adverse Reactions: Allergies Allergy/AdvReac Type Severity Reaction Status Date / Time carisoprodol [From [facility]oma] Allergy Cannot Verified 04/04/17 07:49 Remember Home Medications: Home Meds Levothyroxine 75 mcg PO ACBREAKFAST #30 tablet 03/06/17 [Rx] Magnesium Oxide 400 mg PO BID #60 tablet 03/06/17 [Rx] Nicotine [Habitrol] 21 mg TRDERM DAILY #30 patch 03/06/17 [Rx] Potassium Chloride 20 meq PO DAILY #30 tablet.er 03/06/17 [Rx] metFORMIN [Glucophage] 500 mg PO BIDMEALS #60 tablet 03/06/17 [Rx] Past Medical History HEENT History: Reports: Impaired Vision Respiratory History: Reports: Asthma 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: 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 (See Below) Other OB/BYN History: tumor on uterus Musculoskeletal History: Reports: Back Pain, Chronic, Neck Pain, Chronic Psychiatric History: Reports: Addiction, Depression Oncologic (Cancer) History: 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 (See Below) Other Oncologic History: precancerous uterine tumour removed with hysterectomy - Infectious Disease History Infectious Disease History: Reports: Chicken Pox - Past Surgical History HEENT Surgical History: 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 (See Below) Other HEENT Surgeries/Procedures: rhinoplasty Respiratory Surgical History: Reports: None Female Surgical History: Reports: Hysterectomy Other Female Surgeries/Procedures: partial hysterectomy Musculoskeletal Surgical History: Reports: None Oncologic Surgical History: 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 (See Below) Other Oncologic Surgeries/Procedures: hysterectomy Social & Family History - Family History Family Medical History: Noncontributory Other HEENT Family History: pt. adopted and unsure of family medical history. states her children do not have medical concerns. - Tobacco Use Smoking Status *Q: Current Every Day Smoker Years of Tobacco use: 42 Packs/Tins Daily: 0.5 Second Hand Smoke Exposure: Yes - Caffeine Use Caffeine Use: Reports: Coffee, Soda, Tea - Alcohol Use Days Per Week of Alcohol Use: 1 Number of Drinks Per Day: 6 Total Drinks Per Week: 6 - Recreational Drug Use Recreational Drug Use: No H&P Review of Systems - Review of Systems: Review Of Systems: Unable To Obtain Review of Systems Comment:: She has no complaints except for joint pain, back and shoulder pain. When asked why she came to ED, she states "I got bad breath-halitosis". Exam - Exam Exam: See Below - Vital Signs Vital Signs: Last Vital Signs Temp 37.5 C 04/04/17 07:49 Pulse 106 H 04/04/17 07:49 Resp 20 04/04/17 07:49 BP 103/79 04/04/17 07:49 Pulse Ox 96 04/04/17 07:49 Weight: 49.895 kg - Exam General: Alert, Cooperative (somewhat cooperative). No: Oriented, Mild Distress HEENT: Conjunctiva Clear, Mucosa Moist & [place], Nares Patent, Normal Nasal Septum , Posterior Pharynx Clear, Pupils Equal, Pupils Reactive. No: EOMI Neck: Supple, Trachea Midline Lungs: Clear to Auscultation, Normal Respiratory Effort Cardiovascular: Regular Rate, Regular Rhythm GI/Abdominal Exam: Normal Bowel Sounds, Non-Tender, No Organomegaly, No Distention, No Abnormal Bruit, No Mass (Female) Exam: Deferred Rectal (Female) Exam: Deferred Back Exam: Normal Inspection, Decreased Range of Motion Extremities: Normal Inspection, Normal Range of Motion, Non-Tender, No Pedal Edema, Normal Capillary Refill Peripheral Pulses: 2+: Posterior Tibial (L), Posterior Tibial (R), Dorsalis Pedis (L), Dorsalis Pedis (R) Skin: Warm, Dry, Intact, [place], Ecchymosis Neuro Extensive - Mental Status: No: Oriented x3, Normal Cognition, Memory Intact Neuro Extensive - Motor, Sensory, Reflexes: CN II-XII Intact (unable to perform) , Abnormal Gait Psychiatric: Alert, Agitated, Hallucinations. No: Normal Mood, Suicidal Ideation, Homicidal Ideation - Patient Data Result Diagrams: 04/04/17 14:55 04/04/17 14:55 *Q Meaningful Use (ADM) - VTE *Q VTE Criteria *Q: - Stroke *Q Stroke Criteria *Q: - AMI *Q AMI Criteria *Q: Problem List Initiated/Reviewed/Updated: Yes Orders Last 24hrs: Medication Orders Acetaminophen (Tylenol) 650 mg PO Q4H PRN PRN Reason: Pain (Mild 1-3)/fever Hydrocodone Bitart/Acetaminophen ([place] 325-5 Mg) 1 tab PO Q4H PRN PRN Reason: Pain (moderate 4-6) Albuterol/Ipratropium (Duoneb 3.0-0.5 Mg/3 Ml) 3 ml NEB Q4H PRN PRN Reason: Shortness Of Breath/wheezing Bisacodyl (Dulcolax) 5 mg PO DAILY PRN PRN Reason: Constipation Docusate Sodium (Colace) 100 mg PO BID PRN PRN Reason: Constipation Hydralazine HCl (Apresoline) 20 mg IVPUSH Q4H PRN PRN Reason: Hypertension Hydromorphone HCl (Dilaudid) 0.25 mg IVPUSH Q2H PRN PRN Reason: Pain (severe 7-10) Potassium Cl/Dextrose/Lact Ringer's (D5 Lr With 20 Meq Kcl) 1,000 mls @ 125 mls /hr IV ASDIRECTED [facility] Last Admin: 04/04/17 08:16 Dose: 125 mls/hr Promethazine HCl 12.5 mg/ (Sodium Chloride) 50.5 mls @ 100 mls/hr IV Q6H PRN PRN Reason: Nausea/Vomiting Sodium Chloride (Normal Saline) 1,000 mls @ 999 mls/hr IV ONETIME ONE Stop: 04/04/17 10:48 Levothyroxine Sodium (Levothyroxine) 75 mcg PO ACBREAKFAST [facility] Lorazepam (Ativan) 1 mg IV Q6H PRN PRN Reason: Anxiety Lorazepam (Ativan) 2 mg IVPUSH Q4H PRN PRN Reason: Seizures Magnesium Sulfate (Pharmacy To Dose - Magnesium Replacement) 1 dose .XX ASDIRECTED [facility] Metformin HCl (Glucophage) 500 mg PO BIDMEALS [facility] Metoprolol Tartrate (Lopressor) 5 mg IVPUSH Q4H PRN PRN Reason: Tachycardia Miscellaneous Information (Remove Patch) 1 ea TRDERM DAILY [facility] Nicotine (Habitrol) 21 mg TRDERM DAILY [facility] Ondansetron HCl (Zofran) 4 mg IV Q6H PRN PRN Reason: Nausea/Vomiting Polyethylene Glycol (Miralax) 17 gm PO DAILY PRN PRN Reason: Constipation Potassium Chloride (Pharmacy To Dose - Potassium Replacement) 1 dose .XX ASDIRECTED [facility] Senna/Docusate Sodium (Senna Plus) 1 tab PO BID PRN PRN Reason: Constipation Temazepam (Restoril) 15 mg PO BEDTIME PRN PRN Reason: Sleep Assessment/Plan Comment:: Assessment/Plan: Acute: Acute Psychosis - Delusional in etiology - She is seeing things and persons inside her room - She is also tangential, all over on her thoughts - CT scan shows: no acute intracranial abnormality is identified. Old left orbital fracture - Seroquel 25 mg po x 1 if not relieve Haldol - Psych consult Leukocytosis - WBC is 16.03 K and CRP is 13.3 - UA is negative for UTI - CXR shows no acute abnormal findings - Unclear where the source is but will consider empiric IV Antibiotic - IV Levaquin 500 mg Daily pharmacy to dose Mild Hypokalemia - 3.3 - Curently receiving IV Supplement - Pharmacy to replete and monitor on next level Renal Insufficiency - BUN 21/Cr 1.6 - GFR is 33, baseline is >60 - Likely 2/2 poor intake - She is currently hydrating - Will monitor output Mild Thrombocytopenia - Platelet of 171, platelet levels in the past were normal - She has multiple bruises - She is not on anti-platelet or anti-coags - She drinks ETOH but occasionally according to her - DDx: TTP - Monitor levels Mild Anemia - Hgb 9.5 - Baseline is 10-11 - Likely from poor nutritional status - Will monitor Substance Abuse - Acute on Chronic - UDS Pos: for Benzo (she did not get anything in ED) and Buprenorphine (we don't carry it here) Chronic: Impaired Vision/Cataract Asthma Back/Neck Pain Substance Abuse Depression Plan: Admit to Med-Surg 1:1 care patient is psychotic at this point Routine AM Labs Resume Home Meds Repeat labs this afternoon DVT PPx: SCDs PT/OT consult SW/CM for d/c planning Consult Psych Code status: 1
[2017-04-04] MEDS: Potassium Chloride 20 MEQ Tab.ER PO SCH ×2 (11:34→13:41)
[2017-04-04] MEDS ORDERED: QUEtiapine 25 MG Tab PO ONE (12:10)
[2017-04-04] MEDS ORDERED: LORazepam 2 MG/ML MDV IVPUSH ONE ×2 (12:11→13:48)
[2017-04-04] MEDS ORDERED: diphenhydrAMINE 50 MG/ML SDV IVPUSH ONE ×2 (12:37→13:49)
[2017-04-04] MEDS ORDERED: diphenhydrAMINE 50 MG/ML SDV ONE (12:37)
[2017-04-04] MEDS: LORazepam 2 MG/ML MDV IV PRN (13:22)
[2017-04-04] MEDS ORDERED: Haloperidol Lactate 5 MG/ML SDV IVPUSH ONE ×2 (14:00→14:09)
[2017-04-04] MEDS ORDERED: Haloperidol Lactate 5 MG/ML SDV ONE (14:01)
--- NOTE | 2017-04-04 14:22 | PCM.SN ---
- Free Text/Narrative Note: Patient is severely restless and agitated and could not stay still. She had gotten so far a total of 3 mg of IV Ativan, 50 mg IV Benadryl and 25 mg of oral Seroquel. Will try Haldol IV if she does not calm down, we may need to intubate and move her to ICU if no response.
[2017-04-04] MEDS ORDERED: Magnesium Sulfate/Water 2 GM in Premix Bag 1 BAG IV ONE (15:53)
[2017-04-04] MEDS ORDERED: Sodium Chloride 0.9% 500 ML IV ONE ×2 (17:19→18:17)
[2017-04-04] MEDS ORDERED: Sodium Chloride 0.9% 1,000 ML ONE (17:19)
[2017-04-04] MEDS: metFORMIN 500 MG Tab PO SCH (17:48)
[2017-04-05] MEDS: Dextrose 5%-Lact Ringers w/KCl 1,000 ML IV SCH ×3 (03:22→21:39)
[2017-04-05] MEDS: Albuterol/Ipratropium 3.0-0.5 MG/3 ML Neb Soln NEB PRN (04:43)
[2017-04-05] MEDS: Levothyroxine 75 MCG Tab PO SCH (06:33)
[2017-04-05] MEDS: metFORMIN 500 MG Tab PO SCH ×2 (06:34→17:08)
--- NOTE | 2017-04-05 07:17 | PCM.PN ---
- General Info Date of Service: 04/05/17 Admission Dx/Problem (Free Text): AMS Subjective Update: Follow up Functional Status: Reports: Pain Controlled, Tolerating Diet, Ambulating, Urinating. Denies: New Symptoms - Review of Systems General: Denies: Fever, Weakness, Fatigue, Malaise HEENT: Reports: No Symptoms Pulmonary: Denies: Shortness of Breath Cardiovascular: Denies: Chest Pain Gastrointestinal: Denies: Abdominal Pain, Nausea, Vomiting Genitourinary: Reports: No Symptoms Musculoskeletal: Reports: No Symptoms Skin: Reports: Bruising. Denies: Cyanosis, Jaundice, Pruritis, Rash Neurological: Reports: Confusion. Denies: Dizziness, Numbness, Difficulty Walking, Weakness, Gait Disturbance Psychiatric: Reports: Hallucinations. Denies: Depression, Anxiety Systems Review Comment:: She had an uneventful overnight. She slept really good. She has no new complaints. She is still somewhat delusional. Her BP dropped yesterday to borderline low noted at 92/53 mmH but has now improved with mild volume resuscitation. She has no new complaints. - Patient Data Vitals - Most Recent: Last Vital Signs Temp 36.7 C 04/05/17 04:29 Pulse 96 04/05/17 04:29 Resp 20 04/05/17 04:29 BP 109/83 04/05/17 04:29 Pulse Ox 93 L 04/05/17 04:43 Weight - Most Recent: 60.917 kg I&O - Last 24 Hours: Intake & Output 04/04/17 04/05/17 04/05/17 22:59 06:59 14:59 Intake Total 1604 1450 Output Total 800 Balance 1604 650 Lab Results Last 24 Hours: Laboratory Results - last 24 hr 04/04/17 04/04/17 04/04/17 Range/Units 14:55 14:55 17:47 WBC 10.45 H (3.98-10.04) K/mm3 RBC 2.30 L (3.98-5.22) M/mm3 Hgb 8.1 L (11.2-15.7) gm/L Hct 24.6 L (34.1-44.9) % MCV 107.0 H (79.4-94.8) fl MCH 35.2 H (25.6-32.2) pg MCHC 32.9 (32.2-35.5) g/dl RDW Std Deviation 66.3 H (36.4-46.3) fL Plt Count 160 L (182-369) K/mm3 MPV 9.6 (9.4-12.3) fl Neut % (Auto) 66.8 (34.0-71.1) % Lymph % (Auto) 20.6 (19.3-51.7) % [place] % (Auto) 12.0 (4.7-12.5) % Eos % (Auto) 0.4 L (0.7-5.8) Baso % (Auto) 0.1 (0.1-1.2) % Neut # (Auto) 6.99 H (1.56-6.13) K/mm3 Lymph # (Auto) 2.15 (1.18-3.74) K/mm3 Gibson # (Auto) 1.25 H (0.24-0.36) K/mm3 Eos # (Auto) 0.04 (0.04-0.36) K/mm3 Baso # (Auto) 0.01 (0.01-0.08) K/mm3 Manual Slide Review Abnormal smear Sodium 136 (136-145) mEq/L Potassium 3.1 L (3.5-5.1) mEq/L Chloride 101 (98-107) mEq/L Carbon Dioxide 14 L (21-32) mEq/L Anion Gap 24.1 H (5-15) BUN 20 H (7-18) mg/dL Creatinine 1.5 H (0.55-1.02) mg/dL Est Cr Clr Drug Dosing 31.81 mL/min Estimated GFR (MDRD) 36 (>60) mL/min BUN/Creatinine Ratio 13.3 L (14-18) Glucose 58 L (74-106) mg/dL POC Glucose 75 (70-105) mg/dL Calcium 8.0 L (8.5-10.1) mg/dL Magnesium 1.4 L (1.8-2.4) mg/dl 04/05/17 Range/Units 05:59 WBC 7.27 (3.98-10.04) K/mm3 RBC 2.32 L (3.98-5.22) M/mm3 Hgb 8.3 L (11.2-15.7) gm/L Hct 24.9 L (34.1-44.9) % MCV 107.3 H (79.4-94.8) fl MCH 35.8 H (25.6-32.2) pg MCHC 33.3 (32.2-35.5) g/dl RDW Std Deviation 68.3 H (36.4-46.3) fL Plt Count 176 L (182-369) K/mm3 MPV 9.5 (9.4-12.3) fl Neut % (Auto) 69.2 (34.0-71.1) % Lymph % (Auto) 16.8 L (19.3-51.7) % Gibson % (Auto) 12.4 (4.7-12.5) % Eos % (Auto) 1.2 (0.7-5.8) Baso % (Auto) 0.1 (0.1-1.2) % Neut # (Auto) 5.03 (1.56-6.13) K/mm3 Lymph # (Auto) 1.22 (1.18-3.74) K/mm3 Gibson # (Auto) 0.90 H (0.24-0.36) K/mm3 Eos # (Auto) 0.09 (0.04-0.36) K/mm3 Baso # (Auto) 0.01 (0.01-0.08) K/mm3 Manual Slide Review Sodium (136-145) mEq/L Potassium (3.5-5.1) mEq/L Chloride (98-107) mEq/L Carbon Dioxide (21-32) mEq/L Anion Gap (5-15) BUN (7-18) mg/dL Creatinine (0.55-1.02) mg/dL Est Cr Clr Drug Dosing mL/min Estimated GFR (MDRD) (>60) mL/min BUN/Creatinine Ratio (14-18) Glucose (74-106) mg/dL POC Glucose (70-105) mg/dL Calcium (8.5-10.1) mg/dL Magnesium (1.8-2.4) mg/dl Med Orders - Current: Current Medications Acetaminophen (Tylenol) 650 mg PO Q4H PRN PRN Reason: Pain (Mild 1-3)/fever Hydrocodone Bitart/Acetaminophen ([place] 325-5 Mg) 1 tab PO Q4H PRN PRN Reason: Pain (moderate 4-6) Albuterol/Ipratropium (Duoneb 3.0-0.5 Mg/3 Ml) 3 ml NEB Q4H PRN PRN Reason: Shortness Of Breath/wheezing Last Admin: 04/05/17 04:43 Dose: 3 ml Bisacodyl (Dulcolax) 5 mg PO DAILY PRN PRN Reason: Constipation Docusate Sodium (Colace) 100 mg PO BID PRN PRN Reason: Constipation Hydralazine HCl (Apresoline) 20 mg IVPUSH Q4H PRN PRN Reason: Hypertension Hydromorphone HCl (Dilaudid) 0.25 mg IVPUSH Q2H PRN PRN Reason: Pain (severe 7-10) Potassium Cl/Dextrose/Lact Ringer's (D5 Lr With 20 Meq Kcl) 1,000 mls @ 125 mls /hr IV ASDIRECTED [facility] Last Admin: 04/05/17 03:22 Dose: 125 mls/hr Promethazine HCl 12.5 mg/ (Sodium Chloride) 50.5 mls @ 100 mls/hr IV Q6H PRN PRN Reason: Nausea/Vomiting Levothyroxine Sodium (Levothyroxine) 75 mcg PO ACBREAKFAST [facility] Last Admin: 04/05/17 06:33 Dose: 75 mcg Lorazepam (Ativan) 1 mg IV Q6H PRN PRN Reason: Anxiety Last Admin: 04/04/17 13:22 Dose: 1 mg Lorazepam (Ativan) 2 mg IVPUSH Q4H PRN PRN Reason: Seizures Magnesium Sulfate (Pharmacy To Dose - Magnesium Replacement) 1 dose .XX ASDIRECTED [facility] Metformin HCl (Glucophage) 500 mg PO BIDMEALS [facility] Last Admin: 04/05/17 06:34 Dose: 500 mg Metoprolol Tartrate (Lopressor) 5 mg IVPUSH Q4H PRN PRN Reason: Tachycardia Miscellaneous Information (Remove Patch) 1 ea TRDERM DAILY [facility] Nicotine (Habitrol) 21 mg TRDERM DAILY [facility] Ondansetron HCl (Zofran) 4 mg IV Q6H PRN PRN Reason: Nausea/Vomiting Polyethylene Glycol (Miralax) 17 gm PO DAILY PRN PRN Reason: Constipation Potassium Chloride (Pharmacy To Dose - Potassium Replacement) 1 dose .XX ASDIRECTED RA[facility] Senna/Docusate Sodium (Senna Plus) 1 tab PO BID PRN PRN Reason: Constipation Temazepam (Restoril) 15 mg PO BEDTIME PRN PRN Reason: Sleep Discontinued Medications Diphenhydramine HCl (Benadryl) Confirm Administered Dose 50 mg .ROUTE .STK-MED ONE Stop: 04/04/17 12:38 Last Admin: 04/04/17 13:37 Dose: Not Given Diphenhydramine HCl (Benadryl) 50 mg IVPUSH ONETIME ONE Stop: 04/04/17 12:38 Last Admin: 04/04/17 12:37 Dose: 50 mg Diphenhydramine HCl (Benadryl) 50 mg IVPUSH ONETIME ONE Stop: 04/04/17 13:50 Last Admin: 04/04/17 14:14 Dose: Not Given Haloperidol Lactate (Haldol) 3 mg IVPUSH ONETIME ONE Stop: 04/04/17 14:01 Last Admin: 04/04/17 14:05 Dose: 3 mg Haloperidol Lactate (Haldol) Confirm Administered Dose 5 mg .ROUTE .STK-MED ONE Stop: 04/04/17 14:02 Last Admin: 04/04/17 14:12 Dose: Not Given Haloperidol Lactate (Haldol) 2 mg IVPUSH ONETIME ONE Stop: 04/04/17 14:10 Last Admin: 04/04/17 14:13 Dose: 2 mg Sodium Chloride (Normal Saline) 1,000 mls @ 999 mls/hr IV ONETIME ONE Stop: 04/04/17 10:48 Last Admin: 04/04/17 11:29 Dose: 999 mls/hr Magnesium Sulfate 2 gm/ Premix 50 mls @ 25 mls/hr IV ONETIME ONE Stop: 04/04/17 17:52 Last Admin: 04/04/17 16:26 Dose: 25 mls/hr Sodium Chloride (Normal Saline) 500 mls @ 999 mls/hr IV .BOLUS ONE Stop: 04/04/17 17:49 Last Admin: 04/04/17 17:28 Dose: 999 mls/hr Sodium Chloride (Normal Saline) Confirm Administered Dose 1,000 mls @ as directed .ROUTE .STK-MED ONE Stop: 04/04/17 17:20 Last Admin: 04/04/17 17:27 Dose: Not Given Sodium Chloride (Normal Saline) 500 mls @ 999 mls/hr IV .BOLUS ONE Stop: 04/04/17 18:47 Last Admin: 04/04/17 18:21 Dose: 999 mls/hr Lorazepam (Ativan) 1 mg IVPUSH ONETIME ONE Stop: 04/04/17 12:12 Last Admin: 04/04/17 12:17 Dose: 1 mg Lorazepam (Ativan) 2 mg IVPUSH ONETIME ONE Stop: 04/04/17 13:49 Last Admin: 04/04/17 13:55 Dose: 2 mg Potassium Chloride (Klor-Con M20) 20 meq PO Q3H RAAD Stop: 04/04/17 14:01 Last Admin: 04/04/17 13:41 Dose: Not Given Quetiapine Fumarate (Seroquel) 25 mg PO ONETIME ONE Stop: 04/04/17 12:11 Last Admin: 04/04/17 12:18 Dose: 25 mg - Exam General: Alert, Cooperative HEENT: Pupils Equal, Pupils Reactive, Mucous Membr. Moist/[place] Neck: Supple, Trachea Midline, No JVD Lungs: Normal Respiratory Effort, Decreased Breath Sounds Cardiovascular: Regular Rate, Regular Rhythm GI/Abdominal Exam: Normal Bowel Sounds, Soft, Non-Tender, No Organomegaly, No Distention, No Abnormal Bruit (Female) Exam: Deferred Back Exam: Normal Inspection, Decreased Range of Motion Extremities: Normal Inspection, Normal Range of Motion, Non-Tender, No Pedal Edema, Normal Capillary Refill Peripheral Pulses: 2+: Dorsalis Pedis (L), Dorsalis Pedis (R) Skin: Warm, Dry, Intact, Ecchymosis Neurological: No New Focal Deficit Psy/Mental Status: Alert, Normal Affect, Normal Mood, Other (delusional). No: Depressed, Agitated, Suicidal Ideation, Homicidal Ideation, Withdrawal Symptoms - Problem List Review Problem List Initiated/Reviewed/Updated: Yes - My Orders Last 24 Hours: My Active Orders 04/05/17 05:59 CPK [CREATINE KINASE,CK] [CHEM] AM - Plan Plan:: Assessment/Plan: Acute: Acute Psychosis - Delusional in etiology - She is seeing things and persons inside her room - She is also tangential, all over on her thoughts - CT scan shows: no acute intracranial abnormality is identified. Old left orbital fracture - Seroquel 25 mg po x 1 if not relieve Haldol - Awaiting Psych input, hopefully today Mild Hypokalemia - 3.3 --> 3.1 - 2/2 Inadequate intake - Curently receiving IV Supplement - Pharmacy to replete and monitor on next level Renal Insufficiency, Improved - BUN 21/Cr 1.6---> now BUN 14/Cr 1.3 - GFR is 33, baseline is >60 - Likely 2/2 poor intake - Continue IVF and monitor output Mild Thrombocytopenia - Platelet of 171---> 176, platelet levels in the past were normal - She has multiple bruises - She is not on anti-platelet or anti-coags - She drinks ETOH but occasionally according to her - DDx: TTP - Continue to monitor levels Mild Anemia - Hgb 9.5--> 8.3 (likely hemodilutional) - Baseline is 10-11 - Likely from poor nutritional status - Will monitor Substance Abuse - Acute on Chronic - UDS Pos: for Benzo (she did not get anything in ED) and Buprenorphine (we don't carry it here) Resolved: Leukocytosis - WBC is 16.03 K and CRP is 13.3 - UA is negative for UTI - CXR shows no acute abnormal findings - Unclear where the source is but will consider empiric IV Antibiotic - IV Levaquin 500 mg Daily pharmacy to dose Chronic: Impaired Vision/Cataract Asthma Back/Neck Pain Substance Abuse Depression Plan: She is clinically stable Continue 1:1 care patient is still delusional Routine AM Labs DVT PPx: SCDs PT/OT consult SW/CM for d/c planning Awaiting Psych input Code status: 1
--- NOTE | 2017-04-05 08:56 | CR ---
Chest: Frontal view of the chest was obtained. Comparison: Previous chest x-ray of 03/02/17. Heart size and mediastinum are within normal limits. Lungs are clear. Bony structures are grossly intact. Impression: 1. Nothing acute is identified on frontal chest x-ray. Diagnostic code #1
[2017-04-05] MEDS: Nicotine 21 MG/24 Hr Patch TRDERM SCH (09:15)
[2017-04-05] MEDS: Potassium Chloride 20 MEQ Tab.ER PO SCH ×2 (09:16→12:22)
[2017-04-05] MEDS ORDERED: Magnesium Sulfate/Water 2 GM in Premix Bag 1 BAG IV ONE (09:30)
[2017-04-05] MEDS ORDERED: Levofloxacin/Dextrose 5%-Water 500 MG in Premix Bag 1 BAG IV SCH (10:00)
[2017-04-05] MEDS ORDERED: LORazepam 1 MG Tab PO PRN (12:36)
[2017-04-05] MEDS ORDERED: LORazepam 2 MG/ML MDV IVPUSH PRN ×3 (12:39→13:44)
[2017-04-05] MEDS: Acetaminophen 325 MG Tab PO PRN (12:43)
[2017-04-05] MEDS: Thiamine 100 MG Tab PO SCH ×2 (12:43→21:35)
[2017-04-05] MEDS: FLUoxetine 20 MG Cap PO SCH (12:44)
[2017-04-05] MEDS ORDERED: chlordiazePOXIDE 25 MG Cap PO PRN (13:45)
[2017-04-05] MEDS ORDERED: cloNIDine 0.1 MG Tab PO PRN (13:45)
[2017-04-05] MEDS: Famotidine 20 MG Tab PO SCH ×2 (15:30→21:36)
[2017-04-05] MEDS: Acetaminophen/HYDROcodone 325-5 MG Tab PO PRN ×2 (17:06→21:45)
[2017-04-05] MEDS: QUEtiapine 25 MG Tab PO SCH (21:35)
[2017-04-05] MEDS: Folic Acid 1 MG Tab PO SCH (21:36)
[2017-04-06] MEDS: Levothyroxine 75 MCG Tab PO SCH (05:29)
[2017-04-06] MEDS: Dextrose 5%-Lact Ringers w/KCl 1,000 ML IV SCH (05:29)
[2017-04-06] MEDS: Acetaminophen/HYDROcodone 325-5 MG Tab PO PRN ×4 (05:38→20:51)
--- NOTE | 2017-04-06 07:30 | PCM.PN ---
- General Info Date of Service: 04/06/17 Admission Dx/Problem (Free Text): AMS Slept well, denies confusion or anxiety. States no hallucinations "yet" this morning and "I hope I don't have anymore of those, that was scary". Appetite is poor but is going to order breakfast. No other new concerns this morning. Functional Status: Reports: Pain Controlled, Tolerating Diet, Ambulating, Urinating - Review of Systems General: Reports: No Symptoms. Denies: Fever HEENT: Reports: No Symptoms Pulmonary: Reports: No Symptoms Cardiovascular: Reports: No Symptoms Gastrointestinal: Reports: No Symptoms Genitourinary: Reports: No Symptoms Musculoskeletal: Reports: No Symptoms Skin: Reports: No Symptoms Neurological: Reports: No Symptoms. Denies: Confusion Psychiatric: Reports: Mood Lability, Anxiety. Denies: Confusion, Agitation, Hallucinations - Patient Data Vitals - Most Recent: Last Vital Signs Temp 98.2 F 04/05/17 23:41 Pulse 87 04/05/17 23:41 Resp 14 04/05/17 23:41 BP 105/74 04/06/17 02:53 Pulse Ox 100 04/05/17 23:41 Weight - Most Recent: 140 lb 4.8 oz I&O - Last 24 Hours: Intake & Output 04/05/17 04/06/17 04/06/17 22:59 06:59 14:59 Intake Total 2482 1250 Output Total 600 350 Balance 1882 900 Lab Results Last 24 Hours: Laboratory Results - last 24 hr 04/05/17 04/05/17 Range/Units 05:59 05:59 Manual Slide Review Abnormal smear Sodium 140 (136-145) mEq/L Potassium 3.1 L (3.5-5.1) mEq/L Chloride 109 H (98-107) mEq/L Carbon Dioxide 19 L (21-32) mEq/L Anion Gap 15.1 H (5-15) BUN 14 (7-18) mg/dL Creatinine 1.3 H (0.55-1.02) mg/dL Est Cr Clr Drug Dosing 40.24 mL/min Estimated GFR (MDRD) 42 (>60) mL/min BUN/Creatinine Ratio 10.8 L (14-18) Glucose 126 H (74-106) mg/dL Calcium 8.0 L (8.5-10.1) mg/dL Magnesium 1.8 (1.8-2.4) mg/dl Total Bilirubin 1.1 H (0.2-1.0) mg/dL AST 108 H (15-37) U/L ALT 42 (14-59) U/L Alkaline Phosphatase 203 H (46-116) U/L Creatine Kinase 75 (26-192) U/L C-Reactive Protein 11.0 H* (<1.0) mg/dL Total Protein 5.8 L (6.4-8.2) g/dl Albumin 2.2 L (3.4-5.0) g/dl Globulin 3.6 gm/dL Albumin/Globulin Ratio 0.6 L (1-2) Med Orders - Current: Current Medications Acetaminophen (Tylenol) 650 mg PO Q4H PRN PRN Reason: Pain (Mild 1-3)/fever Last Admin: 04/05/17 12:43 Dose: 650 mg Hydrocodone Bitart/Acetaminophen ([place] 325-5 Mg) 1 tab PO Q4H PRN PRN Reason: Pain (moderate 4-6) Last Admin: 04/06/17 05:38 Dose: 1 tab Albuterol/Ipratropium (Duoneb 3.0-0.5 Mg/3 Ml) 3 ml NEB Q4H PRN PRN Reason: Shortness Of Breath/wheezing Last Admin: 04/05/17 04:43 Dose: 3 ml Bisacodyl (Dulcolax) 5 mg PO DAILY PRN PRN Reason: Constipation Chlordiazepoxide HCl (Librium) 25 mg PO Q8H PRN PRN Reason: Withdrawal Symptoms Clonidine HCl (Catapres) 0.1 mg PO Q4H PRN PRN Reason: Agitation Docusate Sodium (Colace) 100 mg PO BID PRN PRN Reason: Constipation Famotidine (Pepcid) 20 mg PO BID [facility] Last Admin: 04/05/17 21:36 Dose: 20 mg Fluoxetine HCl (Prozac) 20 mg PO DAILY [facility] Last Admin: 04/05/17 12:44 Dose: 20 mg Folic Acid (Folic Acid) 1 mg PO BEDTIME [facility] Last Admin: 04/05/17 21:36 Dose: 1 mg Hydralazine HCl (Apresoline) 20 mg IVPUSH Q4H PRN PRN Reason: Hypertension Hydromorphone HCl (Dilaudid) 0.25 mg IVPUSH Q2H PRN PRN Reason: Pain (severe 7-10) Potassium Cl/Dextrose/Lact Ringer's (D5 Lr With 20 Meq Kcl) 1,000 mls @ 125 mls /hr IV ASDIRECTED [facility] Last Admin: 04/06/17 05:29 Dose: 125 mls/hr Promethazine HCl 12.5 mg/ (Sodium Chloride) 50.5 mls @ 100 mls/hr IV Q6H PRN PRN Reason: Nausea/Vomiting Levofloxacin/Dextrose 250 mg/ (Premix) 50 mls @ 50 mls/hr IV Q24H [facility] Levothyroxine Sodium (Levothyroxine) 75 mcg PO ACBREAKFAST [facility] Last Admin: 04/06/17 05:29 Dose: 75 mcg Lorazepam (Ativan) 1 mg IV Q6H PRN PRN Reason: Anxiety Last Admin: 04/04/17 13:22 Dose: 1 mg Lorazepam (Ativan) 1 - 2 mg PO ASDIRECTED PRN; Protocol PRN Reason: ciwaa protocal Lorazepam (Ativan) 0 - 3 mg IVPUSH ASDIRECTED PRN; Protocol PRN Reason: ciwaa protocoal Lorazepam (Ativan) 2 mg IVPUSH Q4H PRN PRN Reason: Seizures Lorazepam (Ativan) 0 mg IVPUSH Q4H PRN; Protocol PRN Reason: Withdrawal Symptoms Magnesium Sulfate (Pharmacy To Dose - Magnesium Replacement) 1 dose .XX ASDIRECTED [facility] Metformin HCl (Glucophage) 500 mg PO BIDMEALS [facility] Last Admin: 04/05/17 17:08 Dose: 500 mg Metoprolol Tartrate (Lopressor) 5 mg IVPUSH Q4H PRN PRN Reason: Tachycardia Miscellaneous Information (Remove Patch) 1 ea TRDERM DAILY [facility] Last Admin: 04/05/17 10:07 Dose: Not Given Nicotine (Habitrol) 21 mg TRDERM DAILY [facility] Last Admin: 04/05/17 09:15 Dose: 21 mg Ondansetron HCl (Zofran) 4 mg IV Q6H PRN PRN Reason: Nausea/Vomiting Polyethylene Glycol (Miralax) 17 gm PO DAILY PRN PRN Reason: Constipation Potassium Chloride (Pharmacy To Dose - Potassium Replacement) 1 dose .XX ASDIRECTED [facility] Quetiapine Fumarate (Seroquel) 50 mg PO BEDTIME [facility] Last Admin: 04/05/17 21:35 Dose: 50 mg Senna/Docusate Sodium (Senna Plus) 1 tab PO BID PRN PRN Reason: Constipation Temazepam (Restoril) 15 mg PO BEDTIME PRN PRN Reason: Sleep Thiamine HCl (Vitamin B-1) 100 mg PO BEDTIME [facility] Last Admin: 04/05/17 21:35 Dose: 100 mg Discontinued Medications Diphenhydramine HCl (Benadryl) Confirm Administered Dose 50 mg .ROUTE .STK-MED ONE Stop: 04/04/17 12:38 Last Admin: 04/04/17 13:37 Dose: Not Given Diphenhydramine HCl (Benadryl) 50 mg IVPUSH ONETIME ONE Stop: 04/04/17 12:38 Last Admin: 04/04/17 12:37 Dose: 50 mg Diphenhydramine HCl (Benadryl) 50 mg IVPUSH ONETIME ONE Stop: 04/04/17 13:50 Last Admin: 04/04/17 14:14 Dose: Not Given Haloperidol Lactate (Haldol) 3 mg IVPUSH ONETIME ONE Stop: 04/04/17 14:01 Last Admin: 04/04/17 14:05 Dose: 3 mg Haloperidol Lactate (Haldol) Confirm Administered Dose 5 mg .ROUTE .STK-MED ONE Stop: 04/04/17 14:02 Last Admin: 04/04/17 14:12 Dose: Not Given Haloperidol Lactate (Haldol) 2 mg IVPUSH ONETIME ONE Stop: 04/04/17 14:10 Last Admin: 04/04/17 14:13 Dose: 2 mg Sodium Chloride (Normal Saline) 1,000 mls @ 999 mls/hr IV ONETIME ONE Stop: 04/04/17 10:48 Last Admin: 04/04/17 11:29 Dose: 999 mls/hr Magnesium Sulfate 2 gm/ Premix 50 mls @ 25 mls/hr IV ONETIME ONE Stop: 04/04/17 17:52 Last Admin: 04/04/17 16:26 Dose: 25 mls/hr Sodium Chloride (Normal Saline) 500 mls @ 999 mls/hr IV .BOLUS ONE Stop: 04/04/17 17:49 Last Admin: 04/04/17 17:28 Dose: 999 mls/hr Sodium Chloride (Normal Saline) Confirm Administered Dose 1,000 mls @ as directed .ROUTE .STK-MED ONE Stop: 04/04/17 17:20 Last Admin: 04/04/17 17:27 Dose: Not Given Sodium Chloride (Normal Saline) 500 mls @ 999 mls/hr IV .BOLUS ONE Stop: 04/04/17 18:47 Last Admin: 04/04/17 18:21 Dose: 999 mls/hr Magnesium Sulfate 2 gm/ Premix 50 mls @ 25 mls/hr IV ONETIME ONE Stop: 04/05/17 11:29 Last Admin: 04/05/17 09:21 Dose: 25 mls/hr Levofloxacin/Dextrose 500 mg/ (Premix) 100 mls @ 100 mls/hr IV Q24H [facility] Last Admin: 04/05/17 09:16 Dose: 100 mls/hr Lorazepam (Ativan) 2 mg IVPUSH Q4H PRN PRN Reason: Seizures Lorazepam (Ativan) 1 mg IVPUSH ONETIME ONE Stop: 04/04/17 12:12 Last Admin: 04/04/17 12:17 Dose: 1 mg Lorazepam (Ativan) 2 mg IVPUSH ONETIME ONE Stop: 04/04/17 13:49 Last Admin: 04/04/17 13:55 Dose: 2 mg Potassium Chloride (Klor-Con M20) 20 meq PO Q3H [facility] Stop: 04/04/17 14:01 Last Admin: 04/04/17 13:41 Dose: Not Given Potassium Chloride (Klor-Con M20) 20 meq PO Q3H [facility] Stop: 04/05/17 12:01 Last Admin: 04/05/17 12:22 Dose: 20 meq Quetiapine Fumarate (Seroquel) 25 mg PO ONETIME ONE Stop: 04/04/17 12:11 Last Admin: 04/04/17 12:18 Dose: 25 mg - Exam Quality Assessment: DVT Prophylaxis General: Alert, Cooperative, No Acute Distress HEENT: Pupils Equal, Pupils Reactive, Mucous Membr. Moist/[place] Neck: Supple Lungs: Normal Respiratory Effort, Decreased Breath Sounds (bases), Wheezing ( end expiration, scattered) Cardiovascular: Regular Rate, Regular Rhythm GI/Abdominal Exam: Normal Bowel Sounds, Soft, Non-Tender (Female) Exam: Deferred Extremities: Normal Inspection, No Pedal Edema Peripheral Pulses: 1+: Dorsalis Pedis (L), Dorsalis Pedis (R) Neurological: No New Focal Deficit Psy/Mental Status: Alert, Labile Mood - Problem List & Annotations (1) Delirium SNOMED Code(s): 3987995 Code(s): R41.0 - DISORIENTATION, UNSPECIFIED Status: Acute Priority: High Current Visit: Yes (2) Hypokalemia SNOMED Code(s): 03633639 Code(s): E87.6 - HYPOKALEMIA Status: Acute Priority: High Current Visit : Yes (3) Hypomagnesemia SNOMED Code(s): 677443740 Code(s): E83.42 - HYPOMAGNESEMIA Status: Acute Priority: High Current Visit: Yes (4) Generalized weakness SNOMED Code(s): 34450061 Code(s): R53.1 - WEAKNESS Status: Acute Priority: High Current Visit: Yes (5) Positive urine drug screen SNOMED Code(s): 437985380, 045771320 Code(s): R82.5 - ELEVATED URINE LEVELS OF DRUG/MEDS/BIOL SUBST Status: Acute Priority: High Current Visit: Yes (6) Type 2 diabetes mellitus SNOMED Code(s): 08715834 Code(s): E11.9 - TYPE 2 DIABETES MELLITUS WITHOUT COMPLICATIONS Status: Chronic Priority: High Current Visit: Yes Qualifiers: Diabetes mellitus complication status: without complication Diabetes mellitus intermediate insulin use: without ferry terminal agent use Qualified Code(s): E11.9 - Type 2 diabetes mellitus without complications (7) Hypothyroidism SNOMED Code(s): 65167704 Code(s): E03.9 - HYPOTHYROIDISM, UNSPECIFIED Status: Chronic Priority: Medium Current Visit: No (8) History of ETOH abuse SNOMED Code(s): 228511827 Code(s): Z87.898 - PERSONAL HISTORY OF OTHER SPECIFIED CONDITIONS Status: Chronic Priority: High Current Visit: Yes - Problem List Review Problem List Initiated/Reviewed/Updated: Yes - Plan Plan:: Assessment/Plan: Acute: Acute Psychosis--improved to resolved this morning - Delusional in etiology - She is seeing things and persons inside her room - She is also tangential, all over on her thoughts - CT scan shows: no acute intracranial abnormality is identified. Old left orbital fracture - Medication adjustments per Dr. Aly, Psychiatrist; see orders Mild Hypokalemia - 3.3 --> 3.1 - 2/2 Inadequate intake - Curently receiving IV Supplement - Pharmacy to replete and monitor on next level Renal Insufficiency, Improved - Likely 2/2 poor intake - Continue IVF and monitor output Mild Thrombocytopenia - Platelet of 171---> 176, platelet levels in the past were normal - She has multiple bruises - She is not on anti-platelet or anti-coags - She drinks ETOH but occasionally according to her - DDx: TTP - Continue to monitor levels Mild Anemia - Hgb 9.5--> 8.3---8.9 (likely hemodilutional) - Baseline is 10-11 - Likely from poor nutritional status - Will monitor Substance Abuse - Acute on Chronic - UDS Pos: for Benzo (she did not get anything in ED) and Buprenorphine (we don't carry it here); will do confirmatory testing - SW to visit with her re: substance abuse and Pasha Fonseca LAC consult Resolved: Leukocytosis - WBC is 16.03 K and CRP is 13.3 - UA is negative for UTI - CXR shows no acute abnormal findings - Unclear where the source is but will consider empiric IV Antibiotic - IV Levaquin 500 mg Daily pharmacy to dose Chronic: Impaired Vision/Cataract Asthma Back/Neck Pain- chronic pain Substance Abuse history Depression Plan: She is clinically stable Routine AM Labs DVT/GI prophylax PT/OT consult SW/CM for d/c planning--Psych and LAC consult She was supposed to have follow up with Dr. Cartwright from last hospital stay today , will have CM reschedule this f/up appt. Code status: 1
[2017-04-06] MEDS: metFORMIN 500 MG Tab PO SCH ×2 (07:33→17:24)
[2017-04-06] MEDS ORDERED: HYDROmorphone 0.5 MG/0.5 ML Syringe IVPUSH PRN (07:35)
[2017-04-06] MEDS: Nicotine 21 MG/24 Hr Patch TRDERM SCH (08:46)
[2017-04-06] MEDS: FLUoxetine 20 MG Cap PO SCH (08:47)
[2017-04-06] MEDS: Famotidine 20 MG Tab PO SCH ×2 (08:47→20:51)
[2017-04-06] MEDS ORDERED: Levofloxacin/Dextrose 5%-Water 250 MG in Premix Bag 1 BAG IV SCH (09:00)
[2017-04-06] MEDS: Magnesium Oxide 400 MG Tab PO ONE ×2 (09:51→12:47)
--- NOTE | 2017-04-06 11:45 | CONS ---
CONSULTING PHYSICIAN: Ck Aly MD DATE OF CONSULTATION: 04/05/2017 This is a 60-minute inpatient clinical event. IDENTIFICATION: The patient is a 61-year-old female, who is admitted to the Inpatient Medical Unit at [facility] on 04/04/2017. She is seen for psychiatric consultation. CHIEF COMPLAINT: "Nothing really healed up." HISTORY OF PRESENT ILLNESS: The patient is a 61-year-old female, who was admitted to the Inpatient Medical Unit at [facility] on 04/04/2017 with changes of behavior and possible psychosis. The patient was also admitted back at the end of February under similar circumstances. BAL was zero. The patient was opioid positive and was benzodiazepine positive, but staff notes that she was given benzodiazepines in the emergency room during the admission process. The patient is denying that she is suicidal or homicidal at this point in time. She does report some auditory and visual hallucinations. She states that she is depressed and anxious. States she has been sleeping poorly, but notes at home "I sleep better." She states that she has been drinking heavily, but "only a couple of times during the week," but also goes on to note "I smoked a little pot." She is alert and oriented x2, but not to the month. She states that she has been "drinking cinnamon whiskey" at home and states part of the reason is "I guess I am kind of down" secondary to some marital difficulties that are evidently occurring. She is open to trying something that help with her mood at this point in time as well as looking at resources to help with her drinking and illicit substance use as opposed to her last visit, when she was not feeling that she needed access to these resources. MEDICATIONS: At the time of presentation, potassium supplementation, magnesium supplementation, Glucophage, Synthroid, Ativan per CIWA protocol, and metformin. ALLERGIES: Soma. PAST MEDICAL HISTORY: 1. Asthma. 2. Status post rhinoplasty. 3. Hypokalemia. 4. Hypothyroidism. 5. Possible type 2 diabetes. 6. History of back issues. REVIEW OF SYSTEMS: Aside from pulmonary, musculoskeletal, and endocrine all other major organ systems are negative at this point in time for acute difficulties or complications. FAMILY PSYCHIATRIC AND CD HISTORY: Unknown as the patient was adopted at . PAST PSYCHIATRIC AND CD HISTORY: The patient reports one psychiatric hospitalization when she was in her 20s. She reports one chemical dependency treatment also when she was in her 20s. She reports one suicide attempt at 14 years of age. She is a half pack per day smoker for the past 42 years. She denies any history of self-injurious behaviors. She does not report any previous psychiatric medication history. SOCIAL HISTORY: The patient is born in [place], [place]; raised in [place], [place]. She is the second of 5 siblings, having 3 brothers and 1 sister. She was adopted at . Her adoptive parents when the patient was 8 years of age. She stayed with her father after the divorce. Father was a cattle buyers' agent. The patient's highest level of education is 11th grade. The patient has been x1 for 42 years. Her owns a [employer] shop. 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 She has 3 boys from that marriage. She lives in [place] with her . She denies any prior service. She denies any legal difficulties and was raised [place]. She enjoys boating and yard work. MENTAL STATUS EXAM: The patient is a 61-year-old tearful white female in no apparent distress. Speech is of regular rate and rhythm. The patient is cognitively oriented x2 to person and place, but not to month. Mood is depressed and anxious. Affect is cooperative overall for the purposes of the inpatient psychiatric consultation. There is no behavioral or stated evidence of acute suicidal or homicidal ideation, but the patient is reporting some auditory and visual hallucinations, non-command type auditory hallucinations. Thought processes are significant for racing thoughts and ruminations, however, there is no acute manic symptoms or loose associations evident. Judgment and insight appear somewhat impaired in severity of her possible alcohol and illicit substance use. The motivation for help appears good at the moment. VITAL SIGNS: 94/65, 97, 24, and 98.6 degrees. IMPRESSION: Johnston I: 1. Alcohol dependence, F10.20. 2. Marijuana abuse versus dependence. 3. Psychosis, not otherwise specified, F29. 4. Depression, not otherwise specified, F32.9. 5. Anxiety disorder, not otherwise specified, F41.9. 6. Rule out major depressive disorder. 7. Rule out bipolar affective disease. Johnston II: None. Johnston III: 1. History of asthma. 2. History of hypokalemia. 3. History of hypothyroidism. 4. Status post rhinoplasty. 5. Possible type 2 diabetes. PLAN: 1. Obtain chemical dependency consult to further assess the patient's possible chemical dependency issues for alcohol, marijuana, and present possible treatment resources to the patient going forward. 2. Begin Prozac 20 mg q.a.m. for mood. 3. Begin trial of Seroquel 50 mg at bedtime for clarity of thought and elimination of psychotic symptoms as well as for sleep initiation and maintenance anxiety reduction. 4. Thiamine supplementation. 5. Folic acid supplementation. 6. Ativan per CIWA protocol. 7. Sobriety. 8. AA rep to visit the patient while she is on the unit. 9. Pastoral guidance. 10.Recommend that patient followup with outpatient Psychiatry when medically stabilized. 11.Other medications and treatment planning as prescribed and outlined by the patient's primary medical treatment team. 12.We will continue to follow up with the patient on as needed basis while she remains on the Inpatient Medical Unit at [facility]. 13.We will follow up with the patient sooner if any complications in the interim. 14.Crisis plan is in place. DUANE /[id number]
[2017-04-06] MEDS: LORazepam 2 MG/ML MDV IV PRN ×2 (15:10→21:45)
[2017-04-06] MEDS: Folic Acid 1 MG Tab PO SCH (20:51)
[2017-04-06] MEDS: QUEtiapine 25 MG Tab PO SCH (20:51)
[2017-04-06] MEDS: Thiamine 100 MG Tab PO SCH (20:51)
[2017-04-07] MEDS: Acetaminophen/HYDROcodone 325-5 MG Tab PO PRN (05:45)
[2017-04-07] MEDS: Levothyroxine 75 MCG Tab PO SCH (05:45)
[2017-04-07] MEDS: metFORMIN 500 MG Tab PO SCH ×2 (05:45→06:04)
[2017-04-07] MEDS: Albuterol/Ipratropium 3.0-0.5 MG/3 ML Neb Soln NEB PRN ×2 (05:57→10:39)
[2017-04-07] MEDS: Nicotine 21 MG/24 Hr Patch TRDERM SCH (08:26)
[2017-04-07] MEDS: Famotidine 20 MG Tab PO SCH (08:29)
[2017-04-07] MEDS: FLUoxetine 20 MG Cap PO SCH (08:29)
[2017-04-07] MEDS ORDERED: Magnesium Sulfate/Water 2 GM in Premix Bag 1 BAG IV ONE (08:30)
[2017-04-07 08:31] VITALS: BP 120/90
--- NOTE | 2017-04-07 10:00 | PCM.PN ---
- General Info Date of Service: 04/07/17 Admission Dx/Problem (Free Text): AMS Slept well, denies confusion or anxiety. States no hallucinations "yet" this morning and "I hope I don't have anymore of those, that was scary". Appetite is poor but is going to order breakfast. No other new concerns this morning. Subjective Update: Follow up Functional Status: Reports: Pain Controlled, Tolerating Diet, Ambulating, Urinating, New Symptoms (Anxious) - Patient Data Vitals - Most Recent: Last Vital Signs Temp 36.7 C 04/07/17 07:24 Pulse 101 H 04/07/17 07:24 Resp 14 04/07/17 07:24 BP 120/90 04/07/17 07:24 Pulse Ox 93 L 04/07/17 07:24 Weight - Most Recent: 63.911 kg I&O - Last 24 Hours: Intake & Output 04/06/17 04/07/17 04/07/17 22:59 06:59 14:59 Intake Total 1505 600 Output Total 800 1400 Balance 705 -800 Lab Results Last 24 Hours: Laboratory Results - last 24 hr 04/07/17 04/07/17 Range/Units 05:55 05:55 WBC 4.66 (3.98-10.04) K/mm3 RBC 2.67 L (3.98-5.22) M/mm3 Hgb 9.4 L (11.2-15.7) gm/L Hct 29.0 L (34.1-44.9) % MCV 108.6 H (79.4-94.8) fl MCH 35.2 H (25.6-32.2) pg MCHC 32.4 (32.2-35.5) g/dl RDW Std Deviation 72.1 H (36.4-46.3) fL Plt Count 256 (182-369) K/mm3 MPV 9.6 (9.4-12.3) fl Neut % (Auto) 49.0 (34.0-71.1) % Lymph % (Auto) 32.6 (19.3-51.7) % Bracken % (Auto) 15.2 H (4.7-12.5) % Eos % (Auto) 1.9 (0.7-5.8) Baso % (Auto) 0.4 (0.1-1.2) % Neut # (Auto) 2.28 (1.56-6.13) K/mm3 Lymph # (Auto) 1.52 (1.18-3.74) K/mm3 Bracken # (Auto) 0.71 H (0.24-0.36) K/mm3 Eos # (Auto) 0.09 (0.04-0.36) K/mm3 Baso # (Auto) 0.02 (0.01-0.08) K/mm3 Manual Slide Review Abnormal smear Sodium 139 (136-145) mEq/L Potassium 3.8 (3.5-5.1) mEq/L Chloride 109 H (98-107) mEq/L Carbon Dioxide 23 (21-32) mEq/L Anion Gap 10.8 (5-15) BUN 5 L (7-18) mg/dL Creatinine 1.0 (0.55-1.02) mg/dL Est Cr Clr Drug Dosing 52.31 mL/min Estimated GFR (MDRD) 57 (>60) mL/min BUN/Creatinine Ratio 5.0 L (14-18) Glucose 104 (74-106) mg/dL Calcium 8.6 (8.5-10.1) mg/dL Magnesium 1.5 L (1.8-2.4) mg/dl Total Bilirubin 0.8 (0.2-1.0) mg/dL AST 156 H (15-37) U/L ALT 67 H (14-59) U/L Alkaline Phosphatase 230 H (46-116) U/L C-Reactive Protein 3.5 H* (<1.0) mg/dL Total Protein 6.2 L (6.4-8.2) g/dl Albumin 2.3 L (3.4-5.0) g/dl Globulin 3.9 gm/dL Albumin/Globulin Ratio 0.6 L (1-2) Med Orders - Current: Current Medications Acetaminophen (Tylenol) 650 mg PO Q4H PRN PRN Reason: Pain (Mild 1-3)/fever Last Admin: 04/05/17 12:43 Dose: 650 mg Hydrocodone Bitart/Acetaminophen ([place] 325-5 Mg) 1 tab PO Q4H PRN PRN Reason: Pain (moderate 4-6) Last Admin: 04/07/17 05:45 Dose: 1 tab Albuterol/Ipratropium (Duoneb 3.0-0.5 Mg/3 Ml) 3 ml NEB Q4H PRN PRN Reason: Shortness Of Breath/wheezing Last Admin: 04/07/17 05:57 Dose: 3 ml Bisacodyl (Dulcolax) 5 mg PO DAILY PRN PRN Reason: Constipation Chlordiazepoxide HCl (Librium) 25 mg PO Q8H PRN PRN Reason: Withdrawal Symptoms Clonidine HCl (Catapres) 0.1 mg PO Q4H PRN PRN Reason: Agitation Docusate Sodium (Colace) 100 mg PO BID PRN PRN Reason: Constipation Famotidine (Pepcid) 20 mg PO BID [facility] Last Admin: 04/07/17 08:29 Dose: 20 mg Fluoxetine HCl (Prozac) 20 mg PO DAILY [facility] Last Admin: 04/07/17 08:29 Dose: 20 mg Folic Acid (Folic Acid) 1 mg PO BEDTIME [facility] Last Admin: 04/06/17 20:51 Dose: 1 mg Hydralazine HCl (Apresoline) 20 mg IVPUSH Q4H PRN PRN Reason: Hypertension Promethazine HCl 12.5 mg/ (Sodium Chloride) 50.5 mls @ 100 mls/hr IV Q6H PRN PRN Reason: Nausea/Vomiting Magnesium Sulfate 2 gm/ Premix 50 mls @ 25 mls/hr IV ONETIME ONE Stop: 04/07/17 10:29 Last Admin: 04/07/17 08:30 Dose: 25 mls/hr Levothyroxine Sodium (Levothyroxine) 75 mcg PO ACBREAKFAST [facility] Last Admin: 04/07/17 05:45 Dose: 75 mcg Lorazepam (Ativan) 1 mg IV Q6H PRN PRN Reason: Anxiety Last Admin: 04/06/17 21:45 Dose: 1 mg Lorazepam (Ativan) 1 - 2 mg PO ASDIRECTED PRN; Protocol PRN Reason: ciwaa protocal Lorazepam (Ativan) 0 - 3 mg IVPUSH ASDIRECTED PRN; Protocol PRN Reason: ciwaa protocoal Lorazepam (Ativan) 0 mg IVPUSH Q4H PRN; Protocol PRN Reason: Withdrawal Symptoms Magnesium Sulfate (Pharmacy To Dose - Magnesium Replacement) 1 dose .XX ASDIRECTED [facility] Metformin HCl (Glucophage) 500 mg PO BIDMEALS [facility] Last Admin: 04/07/17 06:04 Dose: Not Given Metoprolol Tartrate (Lopressor) 5 mg IVPUSH Q4H PRN PRN Reason: Tachycardia Miscellaneous Information (Remove Patch) 0 ea TRDERM DAILY [facility] Last Admin: 04/06/17 08:47 Dose: 1 ea Nicotine (Habitrol) 21 mg TRDERM DAILY [facility] Last Admin: 04/07/17 08:26 Dose: 21 mg Ondansetron HCl (Zofran) 4 mg IV Q6H PRN PRN Reason: Nausea/Vomiting Polyethylene Glycol (Miralax) 17 gm PO DAILY PRN PRN Reason: Constipation Potassium Chloride (Pharmacy To Dose - Potassium Replacement) 1 dose .XX ASDIRECTED [facility] Quetiapine Fumarate (Seroquel) 50 mg PO BEDTIME [facility] Last Admin: 04/06/17 20:51 Dose: 50 mg Senna/Docusate Sodium (Senna Plus) 1 tab PO BID PRN PRN Reason: Constipation Temazepam (Restoril) 15 mg PO BEDTIME PRN PRN Reason: Sleep Thiamine HCl (Vitamin B-1) 100 mg PO BEDTIME [facility] Last Admin: 04/06/17 20:51 Dose: 100 mg Discontinued Medications Diphenhydramine HCl (Benadryl) Confirm Administered Dose 50 mg .ROUTE .STK-MED ONE Stop: 04/04/17 12:38 Last Admin: 04/04/17 13:37 Dose: Not Given Diphenhydramine HCl (Benadryl) 50 mg IVPUSH ONETIME ONE Stop: 04/04/17 12:38 Last Admin: 04/04/17 12:37 Dose: 50 mg Diphenhydramine HCl (Benadryl) 50 mg IVPUSH ONETIME ONE Stop: 04/04/17 13:50 Last Admin: 04/04/17 14:14 Dose: Not Given Haloperidol Lactate (Haldol) 3 mg IVPUSH ONETIME ONE Stop: 04/04/17 14:01 Last Admin: 04/04/17 14:05 Dose: 3 mg Haloperidol Lactate (Haldol) Confirm Administered Dose 5 mg .ROUTE .STK-MED ONE Stop: 04/04/17 14:02 Last Admin: 04/04/17 14:12 Dose: Not Given Haloperidol Lactate (Haldol) 2 mg IVPUSH ONETIME ONE Stop: 04/04/17 14:10 Last Admin: 04/04/17 14:13 Dose: 2 mg Hydromorphone HCl (Dilaudid) 0.25 mg IVPUSH Q2H PRN PRN Reason: Pain (severe 7-10) Hydromorphone HCl (Dilaudid) 0.25 mg IVPUSH Q2H PRN PRN Reason: Pain (severe 7-10) Potassium Cl/Dextrose/Lact Ringer's (D5 Lr With 20 Meq Kcl) 1,000 mls @ 125 mls /hr IV ASDIRECTED [facility] Last Admin: 04/06/17 05:29 Dose: 125 mls/hr Sodium Chloride (Normal Saline) 1,000 mls @ 999 mls/hr IV ONETIME ONE Stop: 04/04/17 10:48 Last Admin: 04/04/17 11:29 Dose: 999 mls/hr Magnesium Sulfate 2 gm/ Premix 50 mls @ 25 mls/hr IV ONETIME ONE Stop: 04/04/17 17:52 Last Admin: 04/04/17 16:26 Dose: 25 mls/hr Sodium Chloride (Normal Saline) 500 mls @ 999 mls/hr IV .BOLUS ONE Stop: 04/04/17 17:49 Last Admin: 04/04/17 17:28 Dose: 999 mls/hr Sodium Chloride (Normal Saline) Confirm Administered Dose 1,000 mls @ as directed .ROUTE .STK-MED ONE Stop: 04/04/17 17:20 Last Admin: 04/04/17 17:27 Dose: Not Given Sodium Chloride (Normal Saline) 500 mls @ 999 mls/hr IV .BOLUS ONE Stop: 04/04/17 18:47 Last Admin: 04/04/17 18:21 Dose: 999 mls/hr Magnesium Sulfate 2 gm/ Premix 50 mls @ 25 mls/hr IV ONETIME ONE Stop: 04/05/17 11:29 Last Admin: 04/05/17 09:21 Dose: 25 mls/hr Levofloxacin/Dextrose 500 mg/ (Premix) 100 mls @ 100 mls/hr IV Q24H [facility] Last Admin: 04/05/17 09:16 Dose: 100 mls/hr Levofloxacin/Dextrose 250 mg/ (Premix) 50 mls @ 50 mls/hr IV Q24H RAAD Last Admin: 04/06/17 10:41 Dose: 50 mls/hr Lorazepam (Ativan) 2 mg IVPUSH Q4H PRN PRN Reason: Seizures Lorazepam (Ativan) 1 mg IVPUSH ONETIME ONE Stop: 04/04/17 12:12 Last Admin: 04/04/17 12:17 Dose: 1 mg Lorazepam (Ativan) 2 mg IVPUSH ONETIME ONE Stop: 04/04/17 13:49 Last Admin: 04/04/17 13:55 Dose: 2 mg Lorazepam (Ativan) 2 mg IVPUSH Q4H PRN PRN Reason: Seizures Magnesium Oxide (Magnesium Oxide) 400 mg PO WITHLUNCH ONE Stop: 04/06/17 11:01 Last Admin: 04/06/17 12:47 Dose: Not Given Miscellaneous Information (Remove Patch) 1 ea TRDERM DAILY [facility] Last Admin: 04/05/17 10:07 Dose: Not Given Potassium Chloride (Klor-Con M20) 20 meq PO Q3H RAAD Stop: 04/04/17 14:01 Last Admin: 04/04/17 13:41 Dose: Not Given Potassium Chloride (Klor-Con M20) 20 meq PO Q3H RAAD Stop: 04/05/17 12:01 Last Admin: 04/05/17 12:22 Dose: 20 meq Quetiapine Fumarate (Seroquel) 25 mg PO ONETIME ONE Stop: 04/04/17 12:11 Last Admin: 04/04/17 12:18 Dose: 25 mg - My Orders Last 24 Hours: My Active Orders 04/06/17 18:57 Patient Status [ADT] Routine 04/07/17 08:30 Magnesium Sulfate/Water [Magnesium Sulfate 2 GM in Water 50 ML] 2 gm Premix Bag 1 bag IV ONETIME 04/07/17 08:57 Antiembolic Devices [RC] PER UNIT ROUTINE Antiembolic Hose [OM.PC] Routine - Plan Plan:: Assessment/Plan: Acute: Acute Psychosis--improved to resolved this morning - Delusional in etiology - She is seeing things and persons inside her room - She is also tangential, all over on her thoughts - CT scan shows: no acute intracranial abnormality is identified. Old left orbital fracture - Medication adjustments per Dr. Aly, Psychiatrist; see orders Mild Hypokalemia - 3.3 --> 3.1 - 2/2 Inadequate intake - Curently receiving IV Supplement - Pharmacy to replete and monitor on next level Renal Insufficiency, Improved - Likely 2/2 poor intake - Continue IVF and monitor output Mild Thrombocytopenia - Platelet of 171---> 176, platelet levels in the past were normal - She has multiple bruises - She is not on anti-platelet or anti-coags - She drinks ETOH but occasionally according to her - DDx: TTP - Continue to monitor levels Mild Anemia - Hgb 9.5--> 8.3---8.9 (likely hemodilutional) - Baseline is 10-11 - Likely from poor nutritional status - Will monitor Substance Abuse - Acute on Chronic - UDS Pos: for Benzo (she did not get anything in ED) and Buprenorphine (we don't carry it here); will do confirmatory testing - SW to visit with her re: substance abuse and Pasha Fonseca LAC consult Resolved: Leukocytosis - WBC is 16.03 K and CRP is 13.3 - UA is negative for UTI - CXR shows no acute abnormal findings - Unclear where the source is but will consider empiric IV Antibiotic - IV Levaquin 500 mg Daily pharmacy to dose Chronic: Impaired Vision/Cataract Asthma Back/Neck Pain- chronic pain Substance Abuse history Depression Plan: She is clinically stable Routine AM Labs DVT/GI prophylax PT/OT consult SW/CM for d/c planning--Psych and LAC consult She was supposed to have follow up with Dr. Cartwright from last hospital stay today , will have CM reschedule this f/up appt. Code status: 1
[2017-04-07] MEDS: LORazepam 2 MG/ML MDV IV PRN (10:17)
--- NOTE | 2017-04-07 11:52 | PCM.DCSUM1 ---
Discharge Summary - Hospital Course Brief History: This is a 61 year old white female with past medical history of impaired vision, asthma, chronic neck and back pain, depression, and substance abuse who presents to the emergency department with altered mental status and suspected alcohol withdrawal symptoms. - Discharge Data Discharge Date: 04/07/17 Discharge Disposition: DC/Tfer to Inpt Rehab Fac 62 Condition: Good - Discharge Diagnosis/Problem(s) (1) Acute psychosis SNOMED Code(s): 57401592 ICD Code: F23 - BRIEF PSYCHOTIC DISORDER Status: Resolved Current Visit: Yes (2) Leukocytosis SNOMED Code(s): 498935162, 387947421 ICD Code: D72.829 - ELEVATED WHITE BLOOD CELL COUNT, UNSPECIFIED Status: Resolved Current Visit: Yes (3) Hypokalemia SNOMED Code(s): 39805931 ICD Code: E87.6 - HYPOKALEMIA Status: Resolved Current Visit: Yes (4) Thrombocytopenia concurrent with and due to alcoholism SNOMED Code(s): 60515346734165 ICD Code: D69.59 - OTHER SECONDARY THROMBOCYTOPENIA; F10.20 - ALCOHOL DEPENDENCE, UNCOMPLICATED Status: Resolved Current Visit: Yes (5) Anemia SNOMED Code(s): 935286092 ICD Code: D64.9 - ANEMIA, UNSPECIFIED Status: Chronic Current Visit: Yes Qualifiers: Anemia type: unspecified type Qualified Code(s): D64.9 - Anemia, unspecified (6) Alcohol dependence SNOMED Code(s): 30722319, 685542144 ICD Code: F10.20 - ALCOHOL DEPENDENCE, UNCOMPLICATED Status: Chronic Current Visit: Yes Qualifiers: Substance use status: alcohol-induced psychotic disorder Complication of substance-induced condition: with delusions Qualified Code(s): F10.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 (7) Marijuana abuse SNOMED Code(s): 73181339 ICD Code: F12.10 - CANNABIS ABUSE, UNCOMPLICATED Status: Chronic Current Visit: Yes (8) Depression SNOMED Code(s): 72724671 ICD Code: F32.9 - MAJOR DEPRESSIVE DISORDER, SINGLE EPISODE, UNSPECIFIED Status: Chronic Current Visit: Yes Qualifiers: Depression Type: unspecified Qualified Code(s): F32.9 - Major depressive disorder, single episode, unspecified (9) Anxiety disorder SNOMED Code(s): 895879253 ICD Code: F41.9 - ANXIETY DISORDER, UNSPECIFIED Status: Chronic Current Visit: Yes Qualifiers: Anxiety disorder type: unspecified anxiety disorder Qualified Code(s): F41.9 - Anxiety disorder, unspecified (10) Hypomagnesemia SNOMED Code(s): 211450290 ICD Code: E83.42 - HYPOMAGNESEMIA Status: Acute Priority: High Current Visit: Yes (11) Pre-diabetes SNOMED Code(s): 396086352 ICD Code: R73.03 - PREDIABETES Status: Acute Current Visit: Yes Problem Details: - A1C 6.4 (12) Hypothyroidism SNOMED Code(s): 88682690 ICD Code: E03.9 - HYPOTHYROIDISM, UNSPECIFIED Status: Chronic Current Visit: Yes Qualifiers: Hypothyroidism type: unspecified Qualified Code(s): E03.9 - Hypothyroidism , unspecified (13) Nicotine dependence SNOMED Code(s): 97723287 ICD Code: F17.200 - NICOTINE DEPENDENCE, UNSPECIFIED, UNCOMPLICATED Status : Acute Current Visit: Yes - Patient Summary/Data Operative Procedure(s) Performed: None Complications: None Consults: Consultations 04/05/17 08:31 Consult to Physician [CONS] Routine 04/05/17 12:30 Spiritual Care Follow Up [CONS] Routine 04/05/17 13:45 Consult for Substance Abuse [CONS] Routine Labs Pending at D/C: None Hospital Course: Patient was primarily admitted for AMS. She was in acute psychosis upon presentation to the floor. She was seeing children in the room and trying to pick and shovel worker things on the floor that were not there. She was also seeing chickens and goats outside her room through the glass window. Patient carried a hx/o chronic alcohol abuse/dependence and we felt this was mostly the cause of her delusional symptom. Patient was provided supportive care and appropriate psych medications until tele-psych was consulted. Patient was seen and evaluated by Dr. Aly. She was put on seroquel 50 mg po at bedtime for sleep initiation along with psychotic symptoms and prozac 20 mg po daily for mood stability. The patient improved on this regimen. Her hospital course was fairly uncomplicated. The rest of her chronic medical illness remained stable during this admission. Patient is stable and ready for discharge. She will head over to [facility] directly from here to complete on inpatient chemical dependency treatment. She was advised to follow up with her PCP after completion of her treatment or as needed. - Patient Instructions Diet: Usual Diet as Tolerated Activity: As Tolerated Driving: Do Not Drive Showering/Bathing: May Shower Notify Provider of: Fever, Increased Pain, Nausea and/or Vomiting Other/Special Instructions: - Please take all medications as directed. - Call or follow up with your family doctor if you have any questions or concerns. - If you experience mental health crisis, call 911 or go to the nearest medical facility and seek immediate care - Discharge Plan Prescriptions/Med Rec: FLUoxetine HCl [Prozac] 20 mg PO DAILY #30 capsule Ibuprofen [Motrin] 600 mg PO Q6H #30 tablet metFORMIN [Glucophage] 500 mg PO BIDMEALS #60 tablet Nicotine [Habitrol] 21 mg TRDERM DAILY #30 patch QUEtiapine [SEROquel] 50 mg PO BEDTIME #30 tab Home Medications: Home Meds Levothyroxine 75 mcg PO ACBREAKFAST #30 tablet 03/06/17 [Rx] Magnesium Oxide 400 mg PO BID #60 tablet 03/06/17 [Rx] Potassium Chloride 20 meq PO DAILY #30 tablet.er 03/06/17 [Rx] metFORMIN [Glucophage] 500 mg PO BIDMEALS #60 tablet 03/06/17 [Rx] FLUoxetine HCl [Prozac] 20 mg PO DAILY #30 capsule 04/07/17 [Rx] Ibuprofen [Motrin] 600 mg PO Q6H #30 tablet 04/07/17 [Rx] Nicotine [Habitrol] 21 mg TRDERM DAILY #30 patch 04/07/17 [Rx] QUEtiapine [SEROquel] 50 mg PO BEDTIME #30 tab 04/07/17 [Rx] metFORMIN [Glucophage] 500 mg PO BIDMEALS #60 tablet 04/07/17 [Rx] Patient Handouts: Smoking Cessation, Tips for Success, [id number], Confusion , Delirium Tremens, [id number] Referrals: Otoniel Calderon MD [Physician] - 04/14/17 8:30 am (Please follow-up with Dr. Calderon at your new appointment date of April 14 at 0830am. ) - Discharge Summary/Plan Comment DC Time >30 min.: Yes (45 mins) Discharge Summary/Plan Comment: Discharge to [facility] Info Date of Service: 04/07/17 Admission Dx/Problem (Free Text: Acute Psychosis Subjective Update: Follow Up Functional Status: Reports: Pain Controlled, Tolerating Diet, Ambulating, Urinating, New Symptoms (Anxious) - Review of Systems General: Denies: Fever, Weakness, Fatigue, Malaise, Chills HEENT: Reports: No Symptoms Pulmonary: Denies: Shortness of Breath Cardiovascular: Denies: Chest Pain Gastrointestinal: Denies: Abdominal Pain, Nausea, Vomiting Genitourinary: Reports: No Symptoms Musculoskeletal: Reports: No Symptoms Skin: Denies: Cyanosis, Mottled, Pruritis Neurological: Denies: Confusion, Headache, Seizure, Difficulty Walking, Weakness , Gait Disturbance Psychiatric: Reports: Anxiety. Denies: Depression, Mood Lability, Agitation, Cravings, Hallucinations, Suicidal Ideation, Homicidal Ideation Systems Review Comment: No overnight or acute issues. She is relatively okay. She slept reasonably well. She is anxious. When asked how is she doing, she states " I got a bunch of stuff". She catalan no other acute issues or complaints. - Patient Data Vitals - Most Recent: Last Vital Signs Temp 36.7 C 04/07/17 07:24 Pulse 101 H 04/07/17 07:24 Resp 14 04/07/17 07:24 BP 120/90 04/07/17 07:24 Pulse Ox 92 L 04/07/17 10:41 Weight - Most Recent: 63.911 kg I&O - Last 24 hours: Intake & Output 04/06/17 04/07/17 04/07/17 22:59 06:59 14:59 Intake Total 1505 600 Output Total 800 1400 Balance 705 -800 Lab Results - Last 24 hrs: Laboratory Results - last 24 hr 04/07/17 04/07/17 Range/Units 05:55 05:55 WBC 4.66 (3.98-10.04) K/mm3 RBC 2.67 L (3.98-5.22) M/mm3 Hgb 9.4 L (11.2-15.7) gm/L Hct 29.0 L (34.1-44.9) % MCV 108.6 H (79.4-94.8) fl MCH 35.2 H (25.6-32.2) pg MCHC 32.4 (32.2-35.5) g/dl RDW Std Deviation 72.1 H (36.4-46.3) fL Plt Count 256 (182-369) K/mm3 MPV 9.6 (9.4-12.3) fl Neut % (Auto) 49.0 (34.0-71.1) % Lymph % (Auto) 32.6 (19.3-51.7) % [place]yer % (Auto) 15.2 H (4.7-12.5) % Eos % (Auto) 1.9 (0.7-5.8) Baso % (Auto) 0.4 (0.1-1.2) % Neut # (Auto) 2.28 (1.56-6.13) K/mm3 Lymph # (Auto) 1.52 (1.18-3.74) K/mm3 Sawyer # (Auto) 0.71 H (0.24-0.36) K/mm3 Eos # (Auto) 0.09 (0.04-0.36) K/mm3 Baso # (Auto) 0.02 (0.01-0.08) K/mm3 Manual Slide Review Abnormal smear Sodium 139 (136-145) mEq/L Potassium 3.8 (3.5-5.1) mEq/L Chloride 109 H (98-107) mEq/L Carbon Dioxide 23 (21-32) mEq/L Anion Gap 10.8 (5-15) BUN 5 L (7-18) mg/dL Creatinine 1.0 (0.55-1.02) mg/dL Est Cr Clr Drug Dosing 52.31 mL/min Estimated GFR (MDRD) 57 (>60) mL/min BUN/Creatinine Ratio 5.0 L (14-18) Glucose 104 (74-106) mg/dL Calcium 8.6 (8.5-10.1) mg/dL Magnesium 1.5 L (1.8-2.4) mg/dl Total Bilirubin 0.8 (0.2-1.0) mg/dL AST 156 H (15-37) U/L ALT 67 H (14-59) U/L Alkaline Phosphatase 230 H (46-116) U/L C-Reactive Protein 3.5 H* (<1.0) mg/dL Total Protein 6.2 L (6.4-8.2) g/dl Albumin 2.3 L (3.4-5.0) g/dl Globulin 3.9 gm/dL Albumin/Globulin Ratio 0.6 L (1-2) Med Orders - Current: Current Medications Acetaminophen (Tylenol) 650 mg PO Q4H PRN PRN Reason: Pain (Mild 1-3)/fever Last Admin: 04/05/17 12:43 Dose: 650 mg Hydrocodone Bitart/Acetaminophen ([place] 325-5 Mg) 1 tab PO Q4H PRN PRN Reason: Pain (moderate 4-6) Last Admin: 04/07/17 05:45 Dose: 1 tab Albuterol/Ipratropium (Duoneb 3.0-0.5 Mg/3 Ml) 3 ml NEB Q4H PRN PRN Reason: Shortness Of Breath/wheezing Last Admin: 04/07/17 10:39 Dose: 3 ml Bisacodyl (Dulcolax) 5 mg PO DAILY PRN PRN Reason: Constipation Chlordiazepoxide HCl (Librium) 25 mg PO Q8H PRN PRN Reason: Withdrawal Symptoms Clonidine HCl (Catapres) 0.1 mg PO Q4H PRN PRN Reason: Agitation Docusate Sodium (Colace) 100 mg PO BID PRN PRN Reason: Constipation Famotidine (Pepcid) 20 mg PO BID [facility] Last Admin: 04/07/17 08:29 Dose: 20 mg Fluoxetine HCl (Prozac) 20 mg PO DAILY [facility] Last Admin: 04/07/17 08:29 Dose: 20 mg Folic Acid (Folic Acid) 1 mg PO BEDTIME [facility] Last Admin: 04/06/17 20:51 Dose: 1 mg Hydralazine HCl (Apresoline) 20 mg IVPUSH Q4H PRN PRN Reason: Hypertension Promethazine HCl 12.5 mg/ (Sodium Chloride) 50.5 mls @ 100 mls/hr IV Q6H PRN PRN Reason: Nausea/Vomiting Levothyroxine Sodium (Levothyroxine) 75 mcg PO ACBREAKFAST [facility] Last Admin: 04/07/17 05:45 Dose: 75 mcg Lorazepam (Ativan) 1 mg IV Q6H PRN PRN Reason: Anxiety Last Admin: 04/07/17 10:17 Dose: 1 mg Lorazepam (Ativan) 1 - 2 mg PO ASDIRECTED PRN; Protocol PRN Reason: ciwaa protocal Lorazepam (Ativan) 0 - 3 mg IVPUSH ASDIRECTED PRN; Protocol PRN Reason: ciwaa protocoal Lorazepam (Ativan) 0 mg IVPUSH Q4H PRN; Protocol PRN Reason: Withdrawal Symptoms Magnesium Sulfate (Pharmacy To Dose - Magnesium Replacement) 1 dose .XX ASDIRECTED [facility] Metformin HCl (Glucophage) 500 mg PO BIDMEALS [facility] Last Admin: 04/07/17 06:04 Dose: Not Given Metoprolol Tartrate (Lopressor) 5 mg IVPUSH Q4H PRN PRN Reason: Tachycardia Miscellaneous Information (Remove Patch) 0 ea TRDERM DAILY [facility] Last Admin: 04/06/17 08:47 Dose: 1 ea Nicotine (Habitrol) 21 mg TRDERM DAILY [facility] Last Admin: 04/07/17 08:26 Dose: 21 mg Ondansetron HCl (Zofran) 4 mg IV Q6H PRN PRN Reason: Nausea/Vomiting Polyethylene Glycol (Miralax) 17 gm PO DAILY PRN PRN Reason: Constipation Potassium Chloride (Pharmacy To Dose - Potassium Replacement) 1 dose .XX ASDIRECTED [facility] Quetiapine Fumarate (Seroquel) 50 mg PO BEDTIME [facility] Last Admin: 04/06/17 20:51 Dose: 50 mg Senna/Docusate Sodium (Senna Plus) 1 tab PO BID PRN PRN Reason: Constipation Temazepam (Restoril) 15 mg PO BEDTIME PRN PRN Reason: Sleep Thiamine HCl (Vitamin B-1) 100 mg PO BEDTIME [facility] Last Admin: 04/06/17 20:51 Dose: 100 mg Discontinued Medications Diphenhydramine HCl (Benadryl) Confirm Administered Dose 50 mg .ROUTE .STK-MED ONE Stop: 04/04/17 12:38 Last Admin: 04/04/17 13:37 Dose: Not Given Diphenhydramine HCl (Benadryl) 50 mg IVPUSH ONETIME ONE Stop: 04/04/17 12:38 Last Admin: 04/04/17 12:37 Dose: 50 mg Diphenhydramine HCl (Benadryl) 50 mg IVPUSH ONETIME ONE Stop: 04/04/17 13:50 Last Admin: 04/04/17 14:14 Dose: Not Given Haloperidol Lactate (Haldol) 3 mg IVPUSH ONETIME ONE Stop: 04/04/17 14:01 Last Admin: 04/04/17 14:05 Dose: 3 mg Haloperidol Lactate (Haldol) Confirm Administered Dose 5 mg .ROUTE .STK-MED ONE Stop: 04/04/17 14:02 Last Admin: 04/04/17 14:12 Dose: Not Given Haloperidol Lactate (Haldol) 2 mg IVPUSH ONETIME ONE Stop: 04/04/17 14:10 Last Admin: 04/04/17 14:13 Dose: 2 mg Hydromorphone HCl (Dilaudid) 0.25 mg IVPUSH Q2H PRN PRN Reason: Pain (severe 7-10) Hydromorphone HCl (Dilaudid) 0.25 mg IVPUSH Q2H PRN PRN Reason: Pain (severe 7-10) Potassium Cl/Dextrose/Lact Ringer's (D5 Lr With 20 Meq Kcl) 1,000 mls @ 125 mls /hr IV ASDIRECTED [facility] Last Admin: 04/06/17 05:29 Dose: 125 mls/hr Sodium Chloride (Normal Saline) 1,000 mls @ 999 mls/hr IV ONETIME ONE Stop: 04/04/17 10:48 Last Admin: 04/04/17 11:29 Dose: 999 mls/hr Magnesium Sulfate 2 gm/ Premix 50 mls @ 25 mls/hr IV ONETIME ONE Stop: 04/04/17 17:52 Last Admin: 04/04/17 16:26 Dose: 25 mls/hr Sodium Chloride (Normal Saline) 500 mls @ 999 mls/hr IV .BOLUS ONE Stop: 04/04/17 17:49 Last Admin: 04/04/17 17:28 Dose: 999 mls/hr Sodium Chloride (Normal Saline) Confirm Administered Dose 1,000 mls @ as directed .ROUTE .STK-MED ONE Stop: 04/04/17 17:20 Last Admin: 04/04/17 17:27 Dose: Not Given Sodium Chloride (Normal Saline) 500 mls @ 999 mls/hr IV .BOLUS ONE Stop: 04/04/17 18:47 Last Admin: 04/04/17 18:21 Dose: 999 mls/hr Magnesium Sulfate 2 gm/ Premix 50 mls @ 25 mls/hr IV ONETIME ONE Stop: 04/05/17 11:29 Last Admin: 04/05/17 09:21 Dose: 25 mls/hr Levofloxacin/Dextrose 500 mg/ (Premix) 100 mls @ 100 mls/hr IV Q24H [facility] Last Admin: 04/05/17 09:16 Dose: 100 mls/hr Levofloxacin/Dextrose 250 mg/ (Premix) 50 mls @ 50 mls/hr IV Q24H [facility] Last Admin: 04/06/17 10:41 Dose: 50 mls/hr Magnesium Sulfate 2 gm/ Premix 50 mls @ 25 mls/hr IV ONETIME ONE Stop: 04/07/17 10:29 Last Admin: 04/07/17 08:30 Dose: 25 mls/hr Lorazepam (Ativan) 2 mg IVPUSH Q4H PRN PRN Reason: Seizures Lorazepam (Ativan) 1 mg IVPUSH ONETIME ONE Stop: 04/04/17 12:12 Last Admin: 04/04/17 12:17 Dose: 1 mg Lorazepam (Ativan) 2 mg IVPUSH ONETIME ONE Stop: 04/04/17 13:49 Last Admin: 04/04/17 13:55 Dose: 2 mg Lorazepam (Ativan) 2 mg IVPUSH Q4H PRN PRN Reason: Seizures Magnesium Oxide (Magnesium Oxide) 400 mg PO WITHLUNCH ONE Stop: 04/06/17 11:01 Last Admin: 04/06/17 12:47 Dose: Not Given Miscellaneous Information (Remove Patch) 1 ea TRDERM DAILY [facility] Last Admin: 04/05/17 10:07 Dose: Not Given Potassium Chloride (Klor-Con M20) 20 meq PO Q3H RAAD Stop: 04/04/17 14:01 Last Admin: 04/04/17 13:41 Dose: Not Given Potassium Chloride (Klor-Con M20) 20 meq PO Q3H [facility] Stop: 04/05/17 12:01 Last Admin: 04/05/17 12:22 Dose: 20 meq Quetiapine Fumarate (Seroquel) 25 mg PO ONETIME ONE Stop: 04/04/17 12:11 Last Admin: 04/04/17 12:18 Dose: 25 mg - Exam General: Reports: Alert, Oriented, Cooperative, No Acute Distress HEENT: Reports: Pupils Equal, Pupils Reactive, EOMI, Mucous Membr. Moist/[place] Neck: Reports: Supple, Trachea Midline, No JVD, No Thyromegaly Lungs: Reports: Clear to Auscultation, Normal Respiratory Effort Cardiovascular: Reports: Regular Rate, Regular Rhythm GI/Abdominal Exam: Normal Bowel Sounds, Soft, Non-Tender, No Organomegaly, No Distention, No Abnormal Bruit, No Mass (Female) Exam: Deferred Rectal (Female) Exam: Deferred Back Exam: Reports: Normal Inspection, Decreased Range of Motion Extremities: Normal Inspection, Normal Range of Motion, Non-Tender, No Pedal Edema, Normal Capillary Refill Skin: Reports: Warm, Dry, Intact, Ecchymosis Wound/Incisions: Reports: Healing Well Neurological: Reports: No New Focal Deficit Psy/Mental Status: Reports: Alert, Normal Affect, Normal Mood *Q Meaningful Use (DIS) - VTE *Q VTE Criteria *Q: - Stroke *Q Stroke Criteria *Q: - AMI *Q AMI Criteria *Q:
[2017-04-07] MEDS: Acetaminophen 325 MG Tab PO PRN (12:35)
== END 2017-04-07 12:53 | DRG 775 ==
LOC: JD.ED 07:47 → UNDOADMIN 10:09 → JD.MS 10:09
PROVIDERS: ADMIT Internal Medicine; ATTEND Internal Medicine
DX: F10.250 Alcohol dependence with alcohol-induced psychotic disorder with delusions (principal); D72.829 Elevated white blood cell count, unspecified; E87.6 Hypokalemia; N28.9 Disorder of kidney and ureter, unspecified; D69.59 Other secondary thrombocytopenia; D64.9 Anemia, unspecified; H54.7 Unspecified visual loss; J45.909 Unspecified asthma, uncomplicated; G89.29 Other chronic pain; M54.9 Dorsalgia, unspecified; M54.2 Cervicalgia; F32.9 Major depressive disorder, single episode, unspecified; E03.9 Hypothyroidism, unspecified; F12.10 Cannabis abuse, uncomplicated; F41.9 Anxiety disorder, unspecified; R41.0 Disorientation, unspecified; E83.42 Hypomagnesemia; R53.1 Weakness; R82.5 Elevated urine levels of drugs, medicaments and biological substances; E11.9 Type 2 diabetes mellitus without complications; F17.200 Nicotine dependence, unspecified, uncomplicated; Z88.8 Allergy status to other drugs, medicaments and biological substances; Z79.899 Other long term (current) drug therapy; Z79.84 Long term (current) use of oral hypoglycemic drugs
CPT/HCPCS: 36415; 36600; 70450; 70450-26; 71010; 71010-26; 80048; 80053; 80306; 81001; 82009; 82550; 82803; 82962; 83036; 83605; 83735; 84439; 84443; 84484; 85025; 85610; 85730; 86140; 87040; 93005; 94640-76; 94664; 94761; 96360; 96361; 97116-GP; 97161-GP; 97165-GO; 99285; 99285-25; A9270-GY; G0480; J1200; J1630; J1956; J2060; J3475; J3480; J7040; P9612

== ENCOUNTER 2017-05-01 19:13 | Inpatient (IN) | payer BC ==
[2017-05-01] MEDS ORDERED: diphenhydrAMINE 50 MG/ML SDV IVPUSH ONE (19:56)
[2017-05-01] MEDS ORDERED: Lactated Ringers 1,000 ML IV ONE (19:56)
[2017-05-01] MEDS ORDERED: Haloperidol Lactate 5 MG/ML SDV IVPUSH ONE (19:56)
--- NOTE | 2017-05-01 20:09 | EDM.PDOC ---
ED HPI GENERAL MEDICAL PROBLEM - General Chief Complaint: Drug or Alcohol Abuse Stated Complaint: ALCOHOL ISSUES Time Seen by Provider: 05/01/17 19:45 Source of Information: Reports: Patient, Old Records History Limitations: Reports: Intoxication - History of Present Illness INITIAL COMMENTS - FREE TEXT/NARRATIVE: 61-year-old female presents for evaluation and treatment of intoxication. The patient was dropped off the ER by her . He is not present during my evaluation. She is currently intoxicated evident by slurred speech and she smells strongly of alcohol. She is a poor historian. She states she has been drinking cinnamon whiskey over the last few days. Reports that she has been drinking "a whole bunch ". She denies any hallucinations. Does not respond when asked about numbness or tingling. reports that she has been having seizures reports last seizure was one week ago. patient is complaining of pain all over and is requesting medication for pain. Most of the patient's history is obtained from previous records. She was hospitalized in February and March for alcohol withdrawal. In February she was found to have a potassium of 1.3. Review of her record from March shows that she was discharged to [facility] and the [facility]. When asked about this she is unable to tell me if she has been seeing them or not. She also received consult from Dr. Aly from the hospital in March. She was started on Seroquel. Unclear she's been taking this. It is unclear if she's been taking her medications. Patient is a type II diabetic. Generalized Pain Score (Numeric/FACES): 8 - Related Data Allergies Allergy/AdvReac Type Severity Reaction Status Date / Time carisoprodol [From Soma] Allergy Cannot Verified 04/04/17 07:49 Remember Home Meds: Home Meds Levothyroxine 75 mcg PO ACBREAKFAST #30 tablet 03/06/17 [Rx] Magnesium Oxide 400 mg PO BID #60 tablet 03/06/17 [Rx] Potassium Chloride 20 meq PO DAILY #30 tablet.er 03/06/17 [Rx] metFORMIN [Glucophage] 500 mg PO BIDMEALS #60 tablet 03/06/17 [Rx] FLUoxetine HCl [Prozac] 20 mg PO DAILY #30 capsule 04/07/17 [Rx] Ibuprofen [Motrin] 600 mg PO Q6H #30 tablet 04/07/17 [Rx] Nicotine [Habitrol] 21 mg TRDERM DAILY #30 patch 04/07/17 [Rx] QUEtiapine [SEROquel] 50 mg PO BEDTIME #30 tab 04/07/17 [Rx] metFORMIN [Glucophage] 500 mg PO BIDMEALS #60 tablet 04/07/17 [Rx] Past Medical History HEENT History: Reports: Impaired Vision Respiratory History: Reports: Asthma [employer] History: 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 (See Below) Other OB/BYN History: tumor on uterus Musculoskeletal History: Reports: Back Pain, Chronic, Neck Pain, Chronic Psychiatric History: Reports: Addiction, Depression Oncologic (Cancer) History: 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 (See Below) Other Oncologic History: precancerous uterine tumour removed with hysterectomy - Infectious Disease History Infectious Disease History: Reports: Chicken Pox - Past Surgical History HEENT Surgical History: 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 (See Below) Other HEENT Surgeries/Procedures: rhinoplasty Respiratory Surgical History: Reports: None Female Surgical History: Reports: Hysterectomy Other Female Surgeries/Procedures: partial hysterectomy Musculoskeletal Surgical History: Reports: None Oncologic Surgical History: 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 (See Below) Other Oncologic Surgeries/Procedures: hysterectomy Social & Family History - Family History Family Medical History: Noncontributory Other HEENT Family History: pt. adopted and unsure of family medical history. states her children do not have medical concerns. - Tobacco Use Smoking Status *Q: Current Every Day Smoker Years of Tobacco use: 30 Packs/Tins Daily: 1 Second Hand Smoke Exposure: Yes - Caffeine Use Caffeine Use: Reports: None Other Caffeine Use: - unknown patient poor historian - Alcohol Use Days Per Week of Alcohol Use: 1 Number of Drinks Per Day: 6 Total Drinks Per Week: 6 - Recreational Drug Use Recreational Drug Use: No ED ROS GENERAL - Review of Systems Review Of Systems: Unable To Obtain (patient is intoxicated and unable to provide a reliable history) Constitutional: 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 (reports pain "all over" ) Neurological: Reports: Seizure. Denies: Numbness (unsure), Tingling (unsure) Psychiatric: Denies: Hallucinations - Physical Exam Exam: See Below Exam Limited By: Intoxication General Appearance: Alert, No Apparent Distress, Thin Throat/Mouth: Normal Voice, No Airway Compromise Respiratory/Chest: No Respiratory Distress, Lungs Clear, Normal Breath Sounds Cardiovascular: No Murmur, Tachycardia GI/Abdominal: Soft, Non-Tender Neuro Exam (Abbreviated): Alert Skin Exam: Warm, Dry, Other (multiple scratches, abrasions and scaps to the skin ) EKG INTERPRETATION EKG Date: 05/01/17 Time: 21:05 Rhythm: NSR Rate (Beats/Min): 110 [place]: Normal P-Wave: Present QRS: Normal ST-T: Normal QT: Normal EKG Interpretation Comments: sinus tachycardia at [address]-T wave changes. No ischemia. Baseline artifact. Reviewed by myself and Dr. Parry. Course - Vital Signs Last Recorded V/S: Last Vital Signs Temp 36.4 C 05/01/17 19:23 Pulse 120 H 05/01/17 19:23 Resp 20 05/01/17 19:23 BP 113/86 05/01/17 19:23 Pulse Ox 100 05/01/17 19:23 - Orders/Labs/Meds Orders: Active Orders 24 hr Category Date Time Status Cardiac Monitoring [RC] . DIRECTED Care 05/01/17 19:56 Active EKG 12 Lead [EKG Documentation Completion] [RC] STAT Care 05/01/17 21:03 Active Peripheral IV Care [RC] . DIRECTED Care 05/01/17 20:53 Active Potassium Chloride [KCl 10 MEQ in Water 100 ML] 10 meq Med 05/01/17 21:30 Active Premix Bag 1 bag IV ASDIRECTED Sodium Chloride 0.9% [Saline Flush] Med 05/01/17 20:53 Active 10 ml FLUSH ASDIRECTED PRN Peripheral IV Insertion Adult [OM.PC] Routine Oth 05/01/17 20:53 Ordered Medication Orders Potassium Chloride 10 meq/ (Premix) 100 mls @ 100 mls/hr IV ASDIRECTED RAAD Last Admin: 05/01/17 21:23 Dose: 100 mls/hr Sodium Chloride (Saline Flush) 10 ml FLUSH ASDIRECTED PRN PRN Reason: Keep Vein Open Last Admin: 05/01/17 21:16 Dose: 10 ml Labs: Laboratory Tests 05/01/17 05/01/17 05/01/17 Range/Units 20:24 20:24 20:24 WBC 15.01 H (3.98-10.04) K/mm3 RBC 4.18 (3.98-5.22) M/mm3 Hgb 14.3 (11.2-15.7) gm/L Hct 41.7 (34.1-44.9) % MCV 99.8 H (79.4-94.8) fl MCH 34.2 H (25.6-32.2) pg MCHC 34.3 (32.2-35.5) g/dl RDW Std Deviation 52.4 H (36.4-46.3) fL Plt Count 358 (182-369) K/mm3 MPV 10.4 (9.4-12.3) fl Neutrophils % (Manual) 74 H (40-60) % Band Neutrophils % 0 (0-10) % Lymphocytes % (Manual) 21 (20-40) % Atypical Lymphs % 0 % Monocytes % (Manual) 4 (2-10) % Eosinophils % (Manual) 0 L (0.7-5.8) % Basophils % (Manual) 1 (0.1-1.2) Platelet Estimate Adequate Anisocytosis 1+ slight Macrocytosis 1+ slight Tear Drop Cells 1+ slight Ovalocytes 1+ slight RBC Morph Comment Not Reportable PT 11.2 (8.0-13.0) SECONDS INR 1.03 APTT 23 (22-36) SECONDS Puncture Site ABG pH (7.35-7.45) ABG pCO2 (35.0-45.0) mmHg ABG pO2 (80.0-100.0) mmHg ABG HCO3 (22.0-26.0) meq/L ABG O2 Saturation (96.0-97.0) % ABG Base Excess (-2-2.0) A-a Gradient mmHg FiO2 (21.00-100.00) % Sodium 144 (136-145) mEq/L Potassium 2.0 L* (3.5-5.1) mEq/L Chloride 107 (98-107) mEq/L Carbon Dioxide 15 L (21-32) mEq/L Anion Gap 24.0 H (5-15) BUN 4 L (7-18) mg/dL Creatinine 1.2 H (0.55-1.02) mg/dL Est Cr Clr Drug Dosing 36.15 mL/min Estimated GFR (MDRD) 46 (>60) mL/min BUN/Creatinine Ratio 3.3 L (14-18) Glucose 317 H (74-106) mg/dL Serum Osmolality (280-300) mosm/kg Calcium 8.6 (8.5-10.1) mg/dL Magnesium (1.8-2.4) mg/dl Total Bilirubin 0.3 (0.2-1.0) mg/dL AST 86 H (15-37) U/L ALT 68 H (14-59) U/L Alkaline Phosphatase 206 H (46-116) U/L Total Protein 7.6 (6.4-8.2) g/dl Albumin 3.1 L (3.4-5.0) g/dl Globulin 4.5 gm/dL Albumin/Globulin Ratio 0.7 L (1-2) Lipase 320 (73-393) U/L Urine Color (Yellow) Urine Appearance (Clear) Urine pH (5.0-8.0) Ur Specific Welcome (1.005-1.030) Urine Protein (Negative) Urine Glucose (UA) (Negative) Urine Ketones (Negative) Urine Occult Blood (Negative) Urine Nitrite (Negative) Urine Bilirubin (Negative) Urine Urobilinogen (0.2-1.0) Ur Leukocyte Esterase (Negative) Urine RBC (0-5) /hpf Urine WBC (0-5) /hpf Ur Epithelial Cells (0-5) /hpf Ur Squamous Epith Cells (0-5) /hpf Urine Bacteria (FEW) /hpf Hyaline Casts (0-5) /lpf Urine Mucus (FEW) /hpf Urine Opiates Screen (NEGATIVE) Ur Buprenorphine Scrn (NEGATIVE) Ur Oxycodone Screen (NEGATIVE) Urine Methadone Screen (NEGATIVE) Ur Propoxyphene Screen (NEGATIVE) Ur Barbiturates Screen (NEGATIVE) Ur Tricyclics Screen (NEGATIVE) Ur Phencyclidine Scrn (NEGATIVE) Ur Amphetamine Screen (NEGATIVE) U Methamphetamines Scrn (NEGATIVE) U Benzodiazepines Scrn (NEGATIVE) U Cocaine Metab Screen (NEGATIVE) U Marijuana (THC) Screen (NEGATIVE) Ethyl Alcohol 0.34 (0.00) gm% Ketones (0.0-0.3) mM 05/01/17 05/01/17 05/01/17 Range/Units 20:24 20:24 21:15 WBC (3.98-10.04) K/mm3 RBC (3.98-5.22) M/mm3 Hgb (11.2-15.7) gm/L Hct (34.1-44.9) % MCV (79.4-94.8) fl MCH (25.6-32.2) pg MCHC (32.2-35.5) g/dl RDW Std Deviation (36.4-46.3) fL Plt Count (182-369) K/mm3 MPV (9.4-12.3) fl Neutrophils % (Manual) (40-60) % Band Neutrophils % (0-10) % Lymphocytes % (Manual) (20-40) % Atypical Lymphs % % Monocytes % (Manual) (2-10) % Eosinophils % (Manual) (0.7-5.8) % Basophils % (Manual) (0.1-1.2) Platelet Estimate Anisocytosis Macrocytosis Tear Drop Cells Ovalocytes RBC Morph Comment PT (8.0-13.0) SECONDS INR APTT (22-36) SECONDS Puncture Site ABG pH (7.35-7.45) ABG pCO2 (35.0-45.0) mmHg ABG pO2 (80.0-100.0) mmHg ABG HCO3 (22.0-26.0) meq/L ABG O2 Saturation (96.0-97.0) % ABG Base Excess (-2-2.0) A-a Gradient mmHg FiO2 (21.00-100.00) % Sodium (136-145) mEq/L Potassium (3.5-5.1) mEq/L Chloride (98-107) mEq/L Carbon Dioxide (21-32) mEq/L Anion Gap (5-15) BUN (7-18) mg/dL Creatinine (0.55-1.02) mg/dL Est Cr Clr Drug Dosing mL/min Estimated GFR (MDRD) (>60) mL/min BUN/Creatinine Ratio (14-18) Glucose (74-106) mg/dL Serum Osmolality 396 H (280-300) mosm/kg Calcium (8.5-10.1) mg/dL Magnesium 1.7 L (1.8-2.4) mg/dl Total Bilirubin (0.2-1.0) mg/dL AST (15-37) U/L ALT (14-59) U/L Alkaline Phosphatase (46-116) U/L Total Protein (6.4-8.2) g/dl Albumin (3.4-5.0) g/dl Globulin gm/dL Albumin/Globulin Ratio (1-2) Lipase (73-393) U/L Urine Color (Yellow) Urine Appearance (Clear) Urine pH (5.0-8.0) Ur Specific [place] (1.005-1.030) Urine Protein (Negative) Urine Glucose (UA) (Negative) Urine Ketones (Negative) Urine Occult Blood (Negative) Urine Nitrite (Negative) Urine Bilirubin (Negative) Urine Urobilinogen (0.2-1.0) Ur Leukocyte Esterase (Negative) Urine RBC (0-5) /hpf Urine WBC (0-5) /hpf Ur Epithelial Cells (0-5) /hpf Ur Squamous Epith Cells (0-5) /hpf Urine Bacteria (FEW) /hpf Hyaline Casts (0-5) /lpf Urine Mucus (FEW) /hpf Urine Opiates Screen Negative (NEGATIVE) Ur Buprenorphine Scrn Negative (NEGATIVE) Ur Oxycodone Screen Negative (NEGATIVE) Urine Methadone Screen Negative (NEGATIVE) Ur Propoxyphene Screen Negative (NEGATIVE) Ur Barbiturates Screen Negative (NEGATIVE) Ur Tricyclics Screen Negative (NEGATIVE) Ur Phencyclidine Scrn Negative (NEGATIVE) Ur Amphetamine Screen Negative (NEGATIVE) U Methamphetamines Scrn Negative (NEGATIVE) U Benzodiazepines Scrn Negative (NEGATIVE) U Cocaine Metab Screen Negative (NEGATIVE) U Marijuana (THC) Screen Negative (NEGATIVE) Ethyl Alcohol (0.00) gm% Ketones 0.13 (0.0-0.3) mM 05/01/17 05/01/17 Range/Units 21:15 21:48 WBC (3.98-10.04) K/mm3 RBC (3.98-5.22) M/mm3 Hgb (11.2-15.7) gm/L Hct (34.1-44.9) % MCV (79.4-94.8) fl MCH (25.6-32.2) pg MCHC (32.2-35.5) g/dl RDW Std Deviation (36.4-46.3) fL Plt Count (182-369) K/mm3 MPV (9.4-12.3) fl Neutrophils % (Manual) (40-60) % Band Neutrophils % (0-10) % Lymphocytes % (Manual) (20-40) % Atypical Lymphs % % Monocytes % (Manual) (2-10) % Eosinophils % (Manual) (0.7-5.8) % Basophils % (Manual) (0.1-1.2) Platelet Estimate Anisocytosis Macrocytosis Tear Drop Cells Ovalocytes RBC Morph Comment PT (8.0-13.0) SECONDS INR APTT (22-36) SECONDS Puncture Site Lt brachial ABG pH 7.36 (7.35-7.45) ABG pCO2 29.0 L (35.0-45.0) mmHg ABG pO2 68.0 L (80.0-100.0) mmHg ABG HCO3 15.9 L (22.0-26.0) meq/L ABG O2 Saturation 92.7 L (96.0-97.0) % ABG Base Excess -7.9 L (-2-2.0) A-a Gradient 31 mmHg FiO2 21.00 (21.00-100.00) % Sodium (136-145) mEq/L Potassium (3.5-5.1) mEq/L Chloride (98-107) mEq/L Carbon Dioxide (21-32) mEq/L Anion Gap (5-15) BUN (7-18) mg/dL Creatinine (0.55-1.02) mg/dL Est Cr Clr Drug Dosing mL/min Estimated GFR (MDRD) (>60) mL/min BUN/Creatinine Ratio (14-18) Glucose (74-106) mg/dL Serum Osmolality (280-300) mosm/kg Calcium (8.5-10.1) mg/dL Magnesium (1.8-2.4) mg/dl Total Bilirubin (0.2-1.0) mg/dL AST (15-37) U/L ALT (14-59) U/L Alkaline Phosphatase (46-116) U/L Total Protein (6.4-8.2) g/dl Albumin (3.4-5.0) g/dl Globulin gm/dL Albumin/Globulin Ratio (1-2) Lipase (73-393) U/L Urine Color Yellow (Yellow) Urine Appearance Slt cloudy H (Clear) Urine pH 6.0 (5.0-8.0) Ur Specific [place] 1.020 (1.005-1.030) Urine Protein 2+ H (Negative) Urine Glucose (UA) Negative (Negative) Urine Ketones Negative (Negative) Urine Occult Blood 2+ H (Negative) Urine Nitrite Negative (Negative) Urine Bilirubin Negative (Negative) Urine Urobilinogen 0.2 (0.2-1.0) Ur Leukocyte Esterase Negative (Negative) Urine RBC 0-5 (0-5) /hpf Urine WBC 0-5 (0-5) /hpf Ur Epithelial Cells 0-5 (0-5) /hpf Ur Squamous Epith Cells 0-5 (0-5) /hpf Urine Bacteria Many H (FEW) /hpf Hyaline Casts 0-5 (0-5) /lpf Urine Mucus Not seen (FEW) /hpf Urine Opiates Screen (NEGATIVE) Ur Buprenorphine Scrn (NEGATIVE) Ur Oxycodone Screen (NEGATIVE) Urine Methadone Screen (NEGATIVE) Ur Propoxyphene Screen (NEGATIVE) Ur Barbiturates Screen (NEGATIVE) Ur Tricyclics Screen (NEGATIVE) Ur Phencyclidine Scrn (NEGATIVE) Ur Amphetamine Screen (NEGATIVE) U Methamphetamines Scrn (NEGATIVE) U Benzodiazepines Scrn (NEGATIVE) U Cocaine Metab Screen (NEGATIVE) U Marijuana (THC) Screen (NEGATIVE) Ethyl Alcohol (0.00) gm% Ketones (0.0-0.3) mM Meds: Medications Generic Name Dose Route Start Last Admin Trade Name Freq PRN Reason Stop Dose Admin Potassium Chloride 10 meq/ 100 mls @ 100 mls/hr 05/01/17 21:30 05/01/17 21:23 Premix IV 100 mls/hr ASDIRECTED RAAD Administration Sodium Chloride 10 ml 05/01/17 20:53 05/01/17 21:16 Saline Flush FLUSH 10 ml ASDIRECTED PRN Administration Keep Vein Open Discontinued Medications Generic Name Dose Route Start Last Admin Trade Name Freq PRN Reason Stop Dose Admin Diphenhydramine HCl 25 mg 05/01/17 19:56 05/01/17 20:14 Benadryl IVPUSH 05/01/17 19:57 25 mg ONETIME ONE Administration Haloperidol Lactate 2 mg 05/01/17 19:56 05/01/17 20:13 Haldol IVPUSH 05/01/17 19:57 2 mg ONETIME ONE Administration Lactated Ringer's 1,000 mls @ 999 mls/hr 05/01/17 19:56 05/01/17 20:13 Ringers, Lactated IV 05/01/17 20:56 999 mls/hr .BOLUS ONE Administration Potassium Chloride/Sodium Chloride 1,000 mls @ 500 mls/hr 05/01/17 21:15 Normal Saline With 20 Meq Kcl IV ASDIRECTED RAAD Sodium Chloride 1,000 mls @ 999 mls/hr 05/01/17 21:16 05/01/17 21:22 Normal Saline IV 05/01/17 22:16 999 mls/hr ONETIME ONE Administration - Re-Assessments/Exams Free Text/Narrative Re-Assessment/Exam: 05/01/17 21:36 labs have returned. Her potassium is 2.0. Ordered potassium for her and switched her from LR to NS. alcohol is 0.34. Glucose is [address] Hobbs regarding this patient. He is familiar with her as he saw her during her last admission. We will admit her to ICU for hypokalemia. I reviewed lab results with the patient. She is currently resting comfortably. No concerns. Will admit to ICU. Departure - Departure Time of Disposition: 22:36 Disposition: Admitted As Inpatient 68 Condition: Serious Clinical Impression: Hypokalemia, Hypomagnesemia, Alcohol intoxication - Discharge Information Referrals: PCP,None [Primary Care Provider] - Additional Instructions: Patient admitted to the ICU for hypokalemia. Dr. Baxter admitting. - My Orders Last 24 Hours: My Active Orders 05/01/17 19:56 Cardiac Monitoring [RC] . DIRECTED 05/01/17 20:53 Peripheral IV Care [RC] . DIRECTED Sodium Chloride 0.9% [Saline Flush] 10 ml FLUSH ASDIRECTED PRN Peripheral IV Insertion Adult [OM.PC] Routine 05/01/17 21:03 EKG 12 Lead [EKG Documentation Completion] [RC] STAT 05/01/17 21:30 Potassium Chloride [KCl 10 MEQ in Water 100 ML] 10 meq Premix Bag 1 bag IV ASDIRECTED - Assessment/Plan Last 24 Hours: My Active Orders 05/01/17 19:56 Cardiac Monitoring [RC] . DIRECTED 05/01/17 20:53 Peripheral IV Care [RC] . DIRECTED Sodium Chloride 0.9% [Saline Flush] 10 ml FLUSH ASDIRECTED PRN Peripheral IV Insertion Adult [OM.PC] Routine 05/01/17 21:03 EKG 12 Lead [EKG Documentation Completion] [RC] STAT 05/01/17 21:30 Potassium Chloride [KCl 10 MEQ in Water 100 ML] 10 meq Premix Bag 1 bag IV ASDIRECTED
[2017-05-01] MEDS ORDERED: NS + KCl 20mEq/L 1,000 ML IV SCH (21:15)
[2017-05-01] MEDS ORDERED: Sodium Chloride 0.9% 1,000 ML IV ONE (21:16)
[2017-05-01] MEDS: Sodium Chloride 0.9% 10 ML Syringe FLUSH PRN (21:16)
[2017-05-01] MEDS ORDERED: Potassium Chloride 10 MEQ in Premix Bag 1 BAG IV SCH (21:30)
[2017-05-01] MEDS ORDERED: Albuterol/Ipratropium 3.0-0.5 MG/3 ML Neb Soln NEB PRN (22:32)
[2017-05-01] MEDS ORDERED: Promethazine 12.5 MG in Sodium Chloride 0.9% 50 ML IV PRN (22:32)
[2017-05-01] MEDS ORDERED: Ondansetron 4 MG/2 ML SDV IV PRN (22:32)
[2017-05-01] MEDS ORDERED: Docusate Sodium 100 MG Cap PO PRN (22:32)
[2017-05-01] MEDS ORDERED: Bisacodyl 5 MG Tab PO PRN (22:32)
[2017-05-01] MEDS ORDERED: Polyethylene Glycol 3350 Powder 17 GM Packet PO PRN (22:32)
--- NOTE | 2017-05-01 22:32 | PCM.HP ---
H&P History of Present Illness - General Date of Service: 05/01/17 Admit Problem/Dx: Alcohol Intoxication Source of Information: Patient, Old Records, Provider, RN Notes Reviewed History Limitations: Reports: Altered Mental Status - History of Present Illness Initial Comments - Free Text/Narative: This is a 61-year-old white female with past medical history of impaired vision , asthma, chronic neck and back pain, substance abuse, and depression who presents to the emergency department for evaluation and treatment of acute intoxication. Patient has been drinking a whole bunch of cinnamon whiskey over the last few days. She denies any hallucinations but reports having seizures. Her last one was about a week ago. Patient denies being suicidal or homicidal. However she carries a chronic history of anxiety and depression. Patient is known to the hospitalist team from previous admissions. Last last admission was in March for alcohol withdrawal with hallucination. At that time patient was discharged to [facility] in [facility] for inpatient treatment. Her complete history of present illness is limited due to her intoxication. Her initial workup in emergency department shows a CBC remarkable for WBC of 15.01, and neutrophils of 74%. Her ABG shows a pH of 7.36, PCO2 of 29, PO2 of 68, HCO3 of 15.9 and O2 sat of 92.7% on 21% FiO2. Chemistry is remarkable for potassium of 2, carbon dioxide of 15, anion gap of 24, BUN of 4, creatinine of 1.2, glucose of 317, serum osmolality of 396, magnesium of 1.7, AST of 86, ALT of 68 , alkaline phosphatase of 206, and albumin 2.1. Her UA is positive for urine occult blood and urine protein 2+. UDS is negative. Her blood alcohol is 0.34 and ketone level is 0.13. .Patient is being admitted for medical management for acute alcohol intoxication. She is full code. Generalized Pain Score (Numeric/FACES): 8 Headache Pain Score (Numeric/FACES): 8 - Related Data Allergies/Adverse Reactions: Allergies Allergy/AdvReac Type Severity Reaction Status Date / Time carisoprodol [From Soma] Allergy Cannot Verified 05/02/17 12:24 Remember Home Medications: Home Meds Levothyroxine 75 mcg PO ACBREAKFAST #30 tablet 03/06/17 [Rx] Magnesium Oxide 400 mg PO BID #60 tablet 03/06/17 [Rx] Potassium Chloride 20 meq PO DAILY #30 tablet.er 03/06/17 [Rx] Ibuprofen [Motrin] 600 mg PO Q6H #30 tablet 04/07/17 [Rx] Nicotine [Habitrol] 21 mg TRDERM DAILY #30 patch 04/07/17 [Rx] metFORMIN [Glucophage] 500 mg PO BIDMEALS #60 tablet 04/07/17 [Rx] Past Medical History HEENT History: Reports: Impaired Vision Respiratory History: Reports: Asthma 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 (See Below) Other OB/BYN History: tumor on uterus Musculoskeletal History: Reports: Back Pain, Chronic, Neck Pain, Chronic Psychiatric History: Reports: Addiction, Depression Oncologic (Cancer) History: 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 (See Below) Other Oncologic History: precancerous uterine tumour removed with hysterectomy - Infectious Disease History Infectious Disease History: Reports: Chicken Pox - Past Surgical History HEENT Surgical History: 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 (See Below) Other HEENT Surgeries/Procedures: rhinoplasty Respiratory Surgical History: Reports: None Female Surgical History: Reports: Hysterectomy Other Female Surgeries/Procedures: partial hysterectomy Musculoskeletal Surgical History: Reports: None Oncologic Surgical History: 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 (See Below) Other Oncologic Surgeries/Procedures: hysterectomy Social & Family History - Family History Family Medical History: Noncontributory Other HEENT Family History: pt. adopted and unsure of family medical history. states her children do not have medical concerns. - Tobacco Use Smoking Status *Q: Current Every Day Smoker Years of Tobacco use: 30 Packs/Tins Daily: 1 Second Hand Smoke Exposure: Yes - Caffeine Use Caffeine Use: Reports: None Other Caffeine Use: - unknown patient poor historian - Alcohol Use Days Per Week of Alcohol Use: 1 Number of Drinks Per Day: 6 Total Drinks Per Week: 6 - Recreational Drug Use Recreational Drug Use: No H&P Review of Systems - Review of Systems: Review Of Systems: See Below General: Denies: Fever, Chills, Malaise, Weakness, Fatigue HEENT: Reports: No Symptoms Pulmonary: Denies: Shortness of Breath Cardiovascular: Denies: Chest Pain, Palpitations, Dyspnea on Exertion Gastrointestinal: Denies: Abdominal Pain, Nausea, Vomiting Genitourinary: Reports: No Symptoms Musculoskeletal: Reports: No Symptoms Skin: Reports: Bruising. Denies: Cyanosis, Jaundice, Pallor, Diaphoresis Psychiatric: Denies: Confusion, Depression, Mood Lability, Anxiety, Agitation, Cravings, Hallucinations, Suicidal Ideation, Homicidal Ideation, Hallucinations (Auditory) Neurological: Denies: Confusion, Dizziness, Headache, Pre-Existing Deficit, Seizure, Syncope, Difficulty Walking, Gait Disturbance Hematologic/Lymphatic: Reports: Easy Bruising Immunologic: Reports: No Symptoms Review of Systems Comment:: ROS limited due to intoxication Exam - Exam Exam: See Below - Vital Signs Vital Signs: Last Vital Signs Temp 36.4 C 05/01/17 19:23 Pulse 120 H 05/01/17 19:23 Resp 20 05/01/17 19:23 BP 113/86 05/01/17 19:23 Pulse Ox 100 05/01/17 19:23 Weight: 45.359 kg - Exam General: Lethargic HEENT: Conjunctiva Clear, Mucosa Moist & [place], Nares Patent, Normal Nasal Septum , Posterior Pharynx Clear, Pupils Equal, Pupils Reactive, Other (bruise on left face). No: EOMI, Hearing Intact Neck: Supple, Trachea Midline Lungs: Normal Respiratory Effort, Decreased Breath Sounds, Wheezing Cardiovascular: Regular Rate, Regular Rhythm GI/Abdominal Exam: Normal Bowel Sounds, Soft, Non-Tender, No Organomegaly, No Distention, No Abnormal Bruit, No Mass (Female) Exam: Deferred Rectal (Female) Exam: Deferred Back Exam: Normal Inspection, Decreased Range of Motion Extremities: Normal Inspection, Normal Range of Motion, Non-Tender, No Pedal Edema, Normal Capillary Refill Peripheral Pulses: 2+: Posterior Tibial (L), Posterior Tibial (R), Dorsalis Pedis (L), Dorsalis Pedis (R) Skin: Warm, Dry, Intact, [place], Ecchymosis Neuro Extensive - Mental Status: Slow Response to Commands Neuro Extensive - Motor, Sensory, Reflexes: CN II-XII Intact (limited due to intoxication), Abnormal Gait Psychiatric: Normal Affect, Normal Mood. No: Anxious, Depressed, Agitated, Suicidal Ideation, Homicidal Ideation, Hallucinations, Withdrawal Symptoms Physical Exam Comments:: Physical exam somewhat limited due to intoxication - Patient Data Result Diagrams: 05/02/17 07:04 05/02/17 07:04 *Q Meaningful Use (ADM) - VTE *Q VTE Criteria *Q: - Stroke *Q Stroke Criteria *Q: - AMI *Q AMI Criteria *Q: Problem List Initiated/Reviewed/Updated: Yes Orders Last 24hrs: Medication Orders Potassium Chloride 10 meq/ (Premix) 100 mls @ 100 mls/hr IV ASDIRECTED RAAD Last Admin: 05/01/17 21:23 Dose: 100 mls/hr Sodium Chloride (Normal Saline) 1,000 mls @ 999 mls/hr IV ONETIME ONE Stop: 05/01/17 22:16 Last Admin: 05/01/17 21:22 Dose: 999 mls/hr Sodium Chloride (Saline Flush) 10 ml FLUSH ASDIRECTED PRN PRN Reason: Keep Vein Open Last Admin: 05/01/17 21:16 Dose: 10 ml Assessment/Plan Comment:: Assessment/Plan: Acute: Acute ETOH Intoxication/ETOH Abuse - Carries hx/o Chronic ETOH Use and Acute Psychosis - PATRICIA is 0.34 - CIWA protocol - Ativan/Librium/Clonidine - Hydralzine and IVP BB for HR/BP control - Ativan for Abortive Seizure and Withdrawal Symptoms - Restoril for Insomnia Leukocytosis - WBC 15.01 - Likely 2/2 Stress Moderate Hypokalemia - K 2.0 - Received Supplement in ED - Subsequent level for pharmacy to monitor and replete Hypomagnesemia - Mg 1.7 - Replete with 2 gram Magnesium Sulfate IV x 1 - Subsequent level for pharmacy to monitor and replete Substance Abuse - Acute on Chronic - UDS is negative Chronic: Impaired Vision/Cataract Asthma Back/Neck Pain Substance Abuse Hx/o Drug Overdose Depression Plan: Admit to ICU 1:1 Care given her hx/o Suicide Attempt/Drug Overdose Routine AM Labs IV Hydration MVI, Folic, Acid and Thiamine Resume Home Meds PT/OT consult SW/CM for d/c planning PRN meds for Withdrawal Symptoms Aspiration/Seizure Precautions DVT PPx: SCDs Consult SA/Psych Code Status: 1
[2017-05-01] MEDS ORDERED: LORazepam 2 MG/ML MDV IVPUSH PRN (22:38)
[2017-05-01] MEDS ORDERED: Metoprolol Tartrate 5 MG/5 ML SDV IVPUSH PRN (22:38)
[2017-05-01] MEDS ORDERED: hydrALAZINE 20 MG/ML SDV IVPUSH PRN (22:38)
[2017-05-01] MEDS ORDERED: Folic Acid 50 MG/10 ML MDV SUBCUT ONE (22:41)
[2017-05-01] MEDS ORDERED: Thiamine 100 MG in Sodium Chloride 0.9% 50 ML IV ONE (22:41)
[2017-05-01] MEDS ORDERED: Potassium Chloride 20 MEQ Tab.ER PO ONE (23:08)
[2017-05-01] MEDS ORDERED: Magnesium Sulfate/Water 50 ML IV ONE (23:30)
[2017-05-01] MEDS: Potassium Chloride 10 MEQ in Premix Bag 1 BAG IV SCH (23:55)
[2017-05-01] MEDS: LORazepam 2 MG/ML MDV IVPUSH PRN (23:56)
[2017-05-02] MEDS: Potassium Chloride 10 MEQ in Premix Bag 1 BAG IV SCH ×3 (00:44→02:52)
[2017-05-02] MEDS: LORazepam 2 MG/ML MDV IVPUSH PRN ×4 (02:12→16:49)
[2017-05-02] MEDS: chlordiazePOXIDE 25 MG Cap PO PRN ×3 (04:40→20:01)
--- NOTE | 2017-05-02 07:58 | PCM.PN ---
- General Info Date of Service: 05/02/17 Admission Dx/Problem (Free Text): Alcohol Intoxication Subjective Update: Follow Up Functional Status: Reports: Pain Controlled, Ambulating, Urinating. Denies: New Symptoms - Review of Systems General: Denies: Fever, Weakness, Fatigue, Malaise, Chills HEENT: Reports: No Symptoms Pulmonary: Denies: Shortness of Breath Cardiovascular: Denies: Chest Pain Gastrointestinal: Denies: Abdominal Pain, Nausea, Vomiting Genitourinary: Reports: No Symptoms Musculoskeletal: Reports: No Symptoms Skin: Reports: Bruising. Denies: Cyanosis Neurological: Denies: Pre-Existing Deficit, Difficulty Walking, Weakness, Gait Disturbance Psychiatric: Denies: Confusion, Depression, Anxiety, Agitation, Cravings, Hallucinations Systems Review Comment:: No significant overnight or acute issues. She is not suicidal or homocidal. She has mild tremors. She also had watery diarrhea this morning. She has no new complaints. - Patient Data Vitals - Most Recent: Last Vital Signs Temp 37.4 C 05/02/17 07:48 Pulse 124 H 05/02/17 03:57 Resp 22 H 05/02/17 07:48 BP 105/74 05/02/17 07:48 Pulse Ox 97 05/02/17 07:48 Weight - Most Recent: 56.88 kg I&O - Last 24 Hours: Intake & Output 05/01/17 05/02/17 05/02/17 22:59 06:59 14:59 Intake Total 850 Output Total 500 Balance 350 Lab Results Last 24 Hours: Laboratory Results - last 24 hr 05/02/17 Range/Units 07:04 WBC 13.95 H (3.98-10.04) K/mm3 RBC 3.45 L (3.98-5.22) M/mm3 Hgb 11.8 (11.2-15.7) gm/L Hct 34.6 (34.1-44.9) % MCV 100.3 H (79.4-94.8) fl MCH 34.2 H (25.6-32.2) pg MCHC 34.1 (32.2-35.5) g/dl RDW Std Deviation 51.6 H (36.4-46.3) fL Plt Count 254 (182-369) K/mm3 MPV 10.4 (9.4-12.3) fl Neut % (Auto) 81.1 H (34.0-71.1) % Lymph % (Auto) 12.1 L (19.3-51.7) % [place] % (Auto) 5.3 (4.7-12.5) % Eos % (Auto) 1.1 (0.7-5.8) Baso % (Auto) 0.2 (0.1-1.2) % Neut # (Auto) 11.31 H (1.56-6.13) K/mm3 Lymph # (Auto) 1.69 (1.18-3.74) K/mm3 [place] # (Auto) 0.74 H (0.24-0.36) K/mm3 Eos # (Auto) 0.15 (0.04-0.36) K/mm3 Baso # (Auto) 0.03 (0.01-0.08) K/mm3 Med Orders - Current: Current Medications Albuterol/Ipratropium (Duoneb 3.0-0.5 Mg/3 Ml) 3 ml NEB Q4H PRN PRN Reason: Shortness Of Breath/wheezing Bisacodyl (Dulcolax) 5 mg PO DAILY PRN PRN Reason: Constipation Chlordiazepoxide HCl (Librium) 25 mg PO Q8H PRN PRN Reason: Withdrawal Symptoms Last Admin: 05/02/17 04:40 Dose: 25 mg Clonidine HCl (Catapres) 0.1 mg PO Q4H PRN PRN Reason: Agitation Docusate Sodium (Colace) 100 mg PO BID PRN PRN Reason: Constipation Folic Acid (Folic Acid) 1 mg PO DAILY [facility] Stop: 05/04/17 09:01 Hydralazine HCl (Apresoline) 20 mg IVPUSH Q4H PRN PRN Reason: Hypertension Hydromorphone HCl (Dilaudid) 0.25 mg IVPUSH Q2H PRN PRN Reason: Pain (severe 7-10) Promethazine HCl 12.5 mg/ (Sodium Chloride) 50.5 mls @ 100 mls/hr IV Q6H PRN PRN Reason: Nausea/Vomiting Ibuprofen (Motrin) 600 mg PO Q6H PRN PRN Reason: Pain (moderate 4-6) Lorazepam (Ativan) 2 mg IVPUSH Q4H PRN PRN Reason: Seizures Lorazepam (Ativan) 1 - 3 mg IVPUSH Q4H PRN; Protocol PRN Reason: Withdrawal Symptoms Last Admin: 05/02/17 04:40 Dose: 1 mg Magnesium Sulfate (Pharmacy To Dose - Magnesium Replacement) 1 dose .XX ASDIRECTED [facility] Metoprolol Tartrate (Lopressor) 5 mg IVPUSH Q4H PRN PRN Reason: Tachycardia Last Admin: 05/02/17 03:57 Dose: 5 mg Multivitamins (Thera) 1 each PO DAILY [facility] Ondansetron HCl (Zofran) 4 mg IV Q6H PRN PRN Reason: Nausea/Vomiting Oxycodone HCl (Oxycodone) 5 mg PO Q4H PRN PRN Reason: Pain (moderate 4-6) Pantoprazole Sodium (Protonix Iv) 40 mg IV Q12HR [facility] Polyethylene Glycol (Miralax) 17 gm PO DAILY PRN PRN Reason: Constipation Potassium Chloride (Pharmacy To Dose - Potassium Replacement) 1 dose .XX ASDIRECTED [facility] Quetiapine Fumarate (Seroquel) 50 mg PO BEDTIME [facility] Quetiapine Fumarate (Seroquel) 25 mg PO DAILY [facility] Senna/Docusate Sodium (Senna Plus) 1 tab PO BID PRN PRN Reason: Constipation Sodium Chloride (Saline Flush) 10 ml FLUSH ASDIRECTED PRN PRN Reason: Keep Vein Open Last Admin: 05/01/17 21:16 Dose: 10 ml Thiamine HCl (Vitamin B-1) 100 mg PO DAILY [facility] Discontinued Medications Diphenhydramine HCl (Benadryl) 25 mg IVPUSH ONETIME ONE Stop: 05/01/17 19:57 Last Admin: 05/01/17 20:14 Dose: 25 mg Folic Acid (Folic Acid) 1 mg SUBCUT ONETIME ONE Stop: 05/01/17 22:42 Last Admin: 05/01/17 23:56 Dose: 1 mg Haloperidol Lactate (Haldol) 2 mg IVPUSH ONETIME ONE Stop: 05/01/17 19:57 Last Admin: 05/01/17 20:13 Dose: 2 mg Lactated Ringer's (Ringers, Lactated) 1,000 mls @ 999 mls/hr IV .BOLUS ONE Stop: 05/01/17 20:56 Last Admin: 05/01/17 20:13 Dose: 999 mls/hr Potassium Chloride/Sodium Chloride (Normal Saline With 20 Meq Kcl) 1,000 mls @ 500 mls/hr IV ASDIRECTED RAAD Potassium Chloride 10 meq/ (Premix) 100 mls @ 100 mls/hr IV ASDIRECTED RAAD Last Admin: 05/01/17 21:23 Dose: 100 mls/hr Sodium Chloride (Normal Saline) 1,000 mls @ 999 mls/hr IV ONETIME ONE Stop: 05/01/17 22:16 Last Admin: 05/01/17 21:22 Dose: 999 mls/hr Thiamine HCl 100 mg/ Sodium (Chloride) 51 mls @ 100 mls/hr IV ONETIME ONE Stop: 05/01/17 23:11 Last Admin: 05/02/17 00:55 Dose: 100 mls/hr Potassium Chloride 10 meq/ (Premix) 100 mls @ 100 mls/hr IV Q1H RAAD Stop: 05/02/17 02:59 Last Admin: 05/02/17 02:52 Dose: 100 mls/hr Magnesium Sulfate (Magnesium Sulfate 2 Gm In Water 50 Ml) 50 mls @ 50 mls/hr IV ONETIME ONE Stop: 05/02/17 00:29 Last Admin: 05/01/17 23:55 Dose: 50 mls/hr Potassium Chloride (Klor-Con M20) 60 meq PO ONETIME ONE Stop: 05/01/17 23:09 Last Admin: 05/01/17 23:52 Dose: 60 meq - Exam General: Alert, Oriented, Cooperative HEENT: Pupils Equal, Pupils Reactive, EOMI, Mucous Membr. Moist/[place], Other ( bruise left side of her eye at the left islam) Neck: Supple, Trachea Midline, No JVD, No Thyromegaly Lungs: Clear to Auscultation, Normal Respiratory Effort, Rhonchi Cardiovascular: Regular Rate GI/Abdominal Exam: Normal Bowel Sounds, Soft, Non-Tender, No Organomegaly, No Distention, No Abnormal Bruit, No Mass (Female) Exam: Deferred Back Exam: Normal Inspection, Decreased Range of Motion Extremities: Normal Inspection, Normal Range of Motion, Non-Tender, Normal Capillary Refill Skin: Warm, Dry, Intact, Ecchymosis (all over) Neurological: No New Focal Deficit Psy/Mental Status: Alert, Normal Affect, Normal Mood, Other (tremors). No: Anxious, Agitated, Suicidal Ideation, Homicidal Ideation, Hallucinations - Problem List Review Problem List Initiated/Reviewed/Updated: Yes - My Orders Last 24 Hours: My Active Orders 05/01/17 22:32 Ambulate [RC] ASDIRECTED Height and Weight [RC] 04 Intake and Output [RC] 04,16 Oxygen Therapy [RC] PRN Up ad Alejandrina [RC] ASDIRECTED VTE/DVT Education [RC] PER UNIT ROUTINE Vital Signs [RC] Q4HR Albuterol/Ipratropium [DuoNeb 3.0-0.5 MG/3 ML] 3 ml NEB Q4H PRN Bisacodyl [Dulcolax] 5 mg PO DAILY PRN Docusate Sodium [Colace] 100 mg PO BID PRN Docusate Sodium/Sennosides [Senna Plus] 1 tab PO BID PRN HYDROmorphone [Dilaudid] 0.25 mg IVPUSH Q2H PRN Ibuprofen [Motrin] 600 mg PO Q6H PRN Ondansetron [Zofran] 4 mg IV Q6H PRN Polyethylene Glycol 3350 [MiraLAX] 17 gm PO DAILY PRN Promethazine [Phenergan] 12.5 mg Sodium Chloride 0.9% [Normal Saline] 50 ml IV Q6H oxyCODONE 5 mg PO Q4H PRN Sequential Compression Device [OM.PC] Per Unit Routine Resuscitation Status Routine 05/01/17 22:33 Antiembolic Devices [RC] BID 05/01/17 22:35 RT Aerosol Therapy [RC] ASDIRECTED 05/01/17 22:36 Consult to Case Management [CONS] Routine Consult to Physician [CONS] Routine Consult to Cans Vacuum Tester [CONS] Routine Consult to Spiritual Care [CONS] Routine OT Evaluation and Treatment [CONS] Routine PT Evaluation and Treatment [CONS] Routine 05/01/17 22:37 Notify Provider Consults [RC] ASDIRECTED 05/01/17 22:38 LORazepam [Ativan] 1 - 3 mg IVPUSH Q4H PRN LORazepam [Ativan] 2 mg IVPUSH Q4H PRN Metoprolol Tartrate [Lopressor] 5 mg IVPUSH Q4H PRN hydrALAZINE [Apresoline] 20 mg IVPUSH Q4H PRN 05/01/17 22:39 Consult for Substance Abuse [CONS] Routine 05/01/17 22:41 CIWAA Assessment [RC] Q1HR Notify Provider [RC] PRN chlordiazePOXIDE [Librium] 25 mg PO Q8H PRN cloNIDine [Catapres] 0.1 mg PO Q4H PRN Seizure Precautions [OM.PC] Routine 05/01/17 22:45 Magnesium Rep Pharmacy to Dose [Pharmacy to Dose - Magnesium Replacement] 1 dose .XX ASDIRECTED Potassium Rep Pharmacy to Dose [Pharmacy to Dose - Potassium Replacement] 1 dose .XX ASDIRECTED 05/01/17 Dinner Regular Diet [DIET] 05/02/17 07:04 BASIC METABOLIC PANEL,BMP [CHEM] AM MAGNESIUM [CHEM] AM 05/02/17 07:38 One To One Therapy [BH] Routine 05/02/17 09:00 Folic Acid 1 mg PO DAILY Multivitamins,Therapeutic [Thera] 1 each PO DAILY Pantoprazole [ProTONIX IV] 40 mg IV Q12HR QUEtiapine [SEROquel] 25 mg PO DAILY Thiamine [Vitamin B-1] 100 mg PO DAILY 05/02/17 21:00 QUEtiapine [SEROquel] 50 mg PO BEDTIME 05/03/17 05:11 BASIC METABOLIC PANEL,BMP [CHEM] AM CBC WITH AUTO DIFF [HEME] AM 05/04/17 05:11 BASIC METABOLIC PANEL,BMP [CHEM] AM CBC WITH AUTO DIFF [HEME] AM 05/05/17 05:11 BASIC METABOLIC PANEL,BMP [CHEM] AM CBC WITH AUTO DIFF [HEME] AM - Plan Plan:: Assessment/Plan: Acute: Acute ETOH Intoxication/ETOH Abuse - Carries hx/o Chronic ETOH Use and Acute Psychosis - PATRICIA is 0.34 - CIWA protocol - Ativan/Librium/Clonidine - Hydralzine and IVP BB for HR/BP control - Ativan for Abortive Seizure and Withdrawal Symptoms Leukocytosis, Improving - WBC 15.01 --> 13.95 - Likely 2/2 Stress Moderate Hypokalemia, Improving - K 2.0 --> 3 - Received Supplement in ED - Subsequent level for pharmacy to monitor and replete Watery Diarrhea - Will monitor Substance Abuse - Acute on Chronic - UDS is negative Resolved: Hypomagnesemia - Mg 1.7 --> 2 - Replete with 2 gram Magnesium Sulfate IV x 1 - Subsequent level for pharmacy to monitor and replete Chronic: Impaired Vision/Cataract Asthma Back/Neck Pain Substance Abuse DM2 Hx/o Drug Overdose Depression Plan: She is clinically much better Continue 1:1 Care given her hx/o Suicide Attempt/Drug Overdose Routine AM Labs Continue current treatment Continue PT/OT SW/CM for d/c planning PRN meds for Withdrawal Symptoms Aspiration/Seizure Precautions DVT PPx: SCDs Refused Pasha Fonseca consult- will have SW follow up Consult Psych Code Status: 1
[2017-05-02] MEDS: Pantoprazole 40 MG Vial IV SCH ×2 (08:53→20:00)
[2017-05-02] MEDS: Multivitamins,Therapeutic Tab PO SCH (08:53)
[2017-05-02] MEDS: QUEtiapine 25 MG Tab PO SCH ×2 (08:54→20:01)
[2017-05-02] MEDS: Folic Acid 1 MG Tab PO SCH (08:54)
[2017-05-02] MEDS: Thiamine 100 MG Tab PO SCH (08:54)
[2017-05-02] MEDS: Potassium Chloride 20 MEQ Tab.ER PO SCH ×2 (11:11→13:36)
[2017-05-02] MEDS: Sodium Chloride 0.9% 10 ML Syringe FLUSH PRN (12:00)
[2017-05-02] MEDS: Ibuprofen 600 MG Tab PO PRN ×2 (13:40→17:49)
[2017-05-02] MEDS: metFORMIN 500 MG Tab PO SCH (16:43)
[2017-05-02] MEDS: Nicotine 21 MG/24 Hr Patch TRDERM SCH (17:34)
[2017-05-02] MEDS: Magnesium Oxide 400 MG Tab PO SCH (20:01)
[2017-05-03] MEDS: LORazepam 2 MG/ML MDV IVPUSH PRN ×6 (01:47→20:11)
[2017-05-03] MEDS: Ibuprofen 600 MG Tab PO PRN ×3 (01:47→20:11)
[2017-05-03] MEDS: oxyCODONE 5 MG Tab PO PRN ×2 (01:58→12:09)
[2017-05-03] MEDS ORDERED: diphenhydrAMINE 50 MG/ML SDV IVPUSH ONE (04:52)
[2017-05-03] MEDS: chlordiazePOXIDE 25 MG Cap PO PRN ×2 (05:04→14:28)
[2017-05-03] MEDS: Levothyroxine 75 MCG Tab PO SCH (05:04)
[2017-05-03] MEDS ORDERED: Levothyroxine 75 MCG Tab PO SCH (06:00)
[2017-05-03] MEDS: metFORMIN 500 MG Tab PO SCH ×2 (06:31→16:22)
--- NOTE | 2017-05-03 07:45 | PCM.PN ---
- General Info Date of Service: 05/03/17 Admission Dx/Problem (Free Text): Alcohol Intoxication Subjective Update: Follow Up Functional Status: Reports: Pain Controlled, Tolerating Diet, Ambulating, Urinating. Denies: New Symptoms - Review of Systems General: Denies: Fever, Weakness, Fatigue, Malaise HEENT: Reports: No Symptoms Pulmonary: Denies: Shortness of Breath Cardiovascular: Denies: Chest Pain, Palpitations, Dyspnea on Exertion, Lightheadedness Gastrointestinal: Denies: Nausea Genitourinary: Denies: Dysuria Musculoskeletal: Reports: No Symptoms Skin: Reports: Bruising Neurological: Reports: Tremors, Gait Disturbance. Denies: Confusion, Dizziness , Difficulty Walking, Weakness Psychiatric: Reports: Anxiety. Denies: Confusion, Depression, Agitation, Cravings, Hallucinations, Suicidal Ideation Systems Review Comment:: Patient is now withdrawing. Her CIWA score is bet 7-8 this morning. She denies any acute issues. Her K remains low at 3.1. She is not suicidal. - Patient Data Vitals - Most Recent: Last Vital Signs Temp 37.1 C 05/03/17 04:00 Pulse 124 H 05/02/17 03:57 Resp 20 05/03/17 04:00 BP 102/77 05/03/17 04:00 Pulse Ox 94 L 05/03/17 04:00 Weight - Most Recent: 57.243 kg I&O - Last 24 Hours: Intake & Output 05/02/17 05/03/17 05/03/17 22:59 06:59 14:59 Intake Total 120 600 Output Total 200 600 Balance -80 0 Lab Results Last 24 Hours: Laboratory Results - last 24 hr 05/02/17 05/03/17 05/03/17 Range/Units 07:04 06:00 06:00 WBC 7.12 (3.98-10.04) K/mm3 RBC 3.41 L (3.98-5.22) M/mm3 Hgb 11.7 (11.2-15.7) gm/L Hct 34.6 (34.1-44.9) % MCV 101.5 H (79.4-94.8) fl MCH 34.3 H (25.6-32.2) pg MCHC 33.8 (32.2-35.5) g/dl RDW Std Deviation 51.4 H (36.4-46.3) fL Plt Count 205 (182-369) K/mm3 MPV 11.0 (9.4-12.3) fl Neut % (Auto) 66.0 (34.0-71.1) % Lymph % (Auto) 27.7 (19.3-51.7) % [place] % (Auto) 3.7 L (4.7-12.5) % Eos % (Auto) 2.2 (0.7-5.8) Baso % (Auto) 0.3 (0.1-1.2) % Neut # (Auto) 4.70 (1.56-6.13) K/mm3 Lymph # (Auto) 1.97 (1.18-3.74) K/mm3 [place] # (Auto) 0.26 (0.24-0.36) K/mm3 Eos # (Auto) 0.16 (0.04-0.36) K/mm3 Baso # (Auto) 0.02 (0.01-0.08) K/mm3 Sodium 145 144 (136-145) mEq/L Potassium 3.0 L 3.1 L (3.5-5.1) mEq/L Chloride 112 H 112 H (98-107) mEq/L Carbon Dioxide 21 21 (21-32) mEq/L Anion Gap 15.0 14.1 (5-15) BUN 5 L 11 (7-18) mg/dL Creatinine 1.1 H 1.5 H (0.55-1.02) mg/dL Est Cr Clr Drug Dosing 49.45 36.34 mL/min Estimated GFR (MDRD) 51 36 (>60) mL/min BUN/Creatinine Ratio 4.5 L 7.3 L (14-18) Glucose 137 H 92 (74-106) mg/dL Calcium 7.5 L 8.4 L (8.5-10.1) mg/dL Magnesium 2.1 (1.8-2.4) mg/dl Med Orders - Current: Current Medications Albuterol/Ipratropium (Duoneb 3.0-0.5 Mg/3 Ml) 3 ml NEB Q4H PRN PRN Reason: Shortness Of Breath/wheezing Bisacodyl (Dulcolax) 5 mg PO DAILY PRN PRN Reason: Constipation Chlordiazepoxide HCl (Librium) 25 mg PO Q8H PRN PRN Reason: Withdrawal Symptoms Last Admin: 05/03/17 05:04 Dose: 25 mg Clonidine HCl (Catapres) 0.1 mg PO Q4H PRN PRN Reason: Agitation Docusate Sodium (Colace) 100 mg PO BID PRN PRN Reason: Constipation Folic Acid (Folic Acid) 1 mg PO DAILY [facility] Stop: 05/04/17 09:01 Last Admin: 05/02/17 08:54 Dose: 1 mg Hydralazine HCl (Apresoline) 20 mg IVPUSH Q4H PRN PRN Reason: Hypertension Hydromorphone HCl (Dilaudid) 0.25 mg IVPUSH Q2H PRN PRN Reason: Pain (severe 7-10) Promethazine HCl 12.5 mg/ (Sodium Chloride) 50.5 mls @ 100 mls/hr IV Q6H PRN PRN Reason: Nausea/Vomiting Ibuprofen (Motrin) 600 mg PO Q6H PRN PRN Reason: Pain (moderate 4-6) Last Admin: 05/03/17 01:47 Dose: 600 mg Levothyroxine Sodium (Levothyroxine) 75 mcg PO ACBREAKFAST [facility] Last Admin: 05/03/17 05:04 Dose: 75 mcg Lorazepam (Ativan) 2 mg IVPUSH Q4H PRN PRN Reason: Seizures Lorazepam (Ativan) 1 - 3 mg IVPUSH Q4H PRN; Protocol PRN Reason: Withdrawal Symptoms Last Admin: 05/03/17 03:23 Dose: 2 mg Magnesium Oxide (Magnesium Oxide) 400 mg PO BID [facility] Last Admin: 05/02/17 20:01 Dose: 400 mg Magnesium Sulfate (Pharmacy To Dose - Magnesium Replacement) 1 dose .XX ASDIRECTED [facility] Metformin HCl (Glucophage) 500 mg PO BIDMEALS [facility] Last Admin: 05/03/17 06:31 Dose: 500 mg Metoprolol Tartrate (Lopressor) 5 mg IVPUSH Q4H PRN PRN Reason: Tachycardia Last Admin: 05/02/17 03:57 Dose: 5 mg Miscellaneous Information (Remove Patch) 1 ea TRDERM DAILY@1700 [facility] Last Admin: 05/02/17 17:35 Dose: Not Given Multivitamins (Thera) 1 each PO DAILY [facility] Last Admin: 05/02/17 08:53 Dose: 1 each Nicotine (Habitrol) 21 mg TRDERM DAILY@1700 [facility] Last Admin: 05/02/17 17:34 Dose: 21 mg Ondansetron HCl (Zofran) 4 mg IV Q6H PRN PRN Reason: Nausea/Vomiting Oxycodone HCl (Oxycodone) 5 mg PO Q4H PRN PRN Reason: Pain (moderate 4-6) Last Admin: 05/03/17 01:58 Dose: 5 mg Pantoprazole Sodium (Protonix Iv) 40 mg IV Q12HR [facility] Last Admin: 05/02/17 20:00 Dose: 40 mg Polyethylene Glycol (Miralax) 17 gm PO DAILY PRN PRN Reason: Constipation Potassium Chloride (Pharmacy To Dose - Potassium Replacement) 1 dose .XX ASDIRECTED [facility] Potassium Chloride (Klor-Con M20) 20 meq PO DAILY [facility] Quetiapine Fumarate (Seroquel) 50 mg PO BEDTIME [facility] Last Admin: 05/02/17 20:01 Dose: 50 mg Quetiapine Fumarate (Seroquel) 25 mg PO DAILY [facility] Last Admin: 05/02/17 08:54 Dose: 25 mg Senna/Docusate Sodium (Senna Plus) 1 tab PO BID PRN PRN Reason: Constipation Sodium Chloride (Saline Flush) 10 ml FLUSH ASDIRECTED PRN PRN Reason: Keep Vein Open Last Admin: 05/01/17 21:16 Dose: 10 ml Thiamine HCl (Vitamin B-1) 100 mg PO DAILY [facility] Last Admin: 05/02/17 08:54 Dose: 100 mg Discontinued Medications Diphenhydramine HCl (Benadryl) 25 mg IVPUSH ONETIME ONE Stop: 05/01/17 19:57 Last Admin: 05/01/17 20:14 Dose: 25 mg Diphenhydramine HCl (Benadryl) 50 mg IVPUSH ONETIME ONE Stop: 05/03/17 04:53 Last Admin: 05/03/17 05:03 Dose: 50 mg Folic Acid (Folic Acid) 1 mg SUBCUT ONETIME ONE Stop: 05/01/17 22:42 Last Admin: 05/01/17 23:56 Dose: 1 mg Haloperidol Lactate (Haldol) 2 mg IVPUSH ONETIME ONE Stop: 05/01/17 19:57 Last Admin: 05/01/17 20:13 Dose: 2 mg Lactated Ringer's (Ringers, Lactated) 1,000 mls @ 999 mls/hr IV .BOLUS ONE Stop: 05/01/17 20:56 Last Admin: 05/01/17 20:13 Dose: 999 mls/hr Potassium Chloride/Sodium Chloride (Normal Saline With 20 Meq Kcl) 1,000 mls @ 500 mls/hr IV ASDIRECTED [facility] Potassium Chloride 10 meq/ (Premix) 100 mls @ 100 mls/hr IV ASDIRECTED [facility] Last Admin: 05/01/17 21:23 Dose: 100 mls/hr Sodium Chloride (Normal Saline) 1,000 mls @ 999 mls/hr IV ONETIME ONE Stop: 05/01/17 22:16 Last Admin: 05/01/17 21:22 Dose: 999 mls/hr Thiamine HCl 100 mg/ Sodium (Chloride) 51 mls @ 100 mls/hr IV ONETIME ONE Stop: 05/01/17 23:11 Last Admin: 05/02/17 00:55 Dose: 100 mls/hr Potassium Chloride 10 meq/ (Premix) 100 mls @ 100 mls/hr IV Q1H [facility] Stop: 05/02/17 02:59 Last Admin: 05/02/17 02:52 Dose: 100 mls/hr Magnesium Sulfate (Magnesium Sulfate 2 Gm In Water 50 Ml) 50 mls @ 50 mls/hr IV ONETIME ONE Stop: 05/02/17 00:29 Last Admin: 05/01/17 23:55 Dose: 50 mls/hr Nicotine (Habitrol) 21 mg TRDERM DAILY [facility] Potassium Chloride (Klor-Con M20) 60 meq PO ONETIME ONE Stop: 05/01/17 23:09 Last Admin: 05/01/17 23:52 Dose: 60 meq Potassium Chloride (Klor-Con M20) 20 meq PO Q3H [facility] Stop: 05/02/17 13:01 Last Admin: 05/02/17 13:36 Dose: 20 meq - Exam General: Alert, Oriented (x 2 only), Cooperative, No Acute Distress HEENT: Pupils Equal, Pupils Reactive, EOMI, Mucous Membr. Moist/[place], Other ( ecchymosis on left temporal ) Neck: Supple, Trachea Midline, No JVD, No Thyromegaly Lungs: Clear to Auscultation, Normal Respiratory Effort Cardiovascular: Regular Rate, Regular Rhythm GI/Abdominal Exam: Normal Bowel Sounds, Soft, Non-Tender, No Organomegaly, No Distention, No Abnormal Bruit, No Mass (Female) Exam: Deferred Back Exam: Normal Inspection, Decreased Range of Motion Extremities: Normal Inspection, Normal Range of Motion, Non-Tender, No Pedal Edema, Normal Capillary Refill Peripheral Pulses: 2+: Dorsalis Pedis (L), Dorsalis Pedis (R) Skin: Warm, Dry, Intact, Ecchymosis Neurological: No New Focal Deficit Psy/Mental Status: Alert, Normal Affect, Anxious, Withdrawal Symptoms. No: Agitated, Suicidal Ideation, Homicidal Ideation, Hallucinations - Problem List Review Problem List Initiated/Reviewed/Updated: Yes - My Orders Last 24 Hours: My Active Orders 05/02/17 07:38 One To One Therapy [BH] Routine 05/02/17 09:00 Folic Acid 1 mg PO DAILY Multivitamins,Therapeutic [Thera] 1 each PO DAILY Pantoprazole [ProTONIX IV] 40 mg IV Q12HR QUEtiapine [SEROquel] 25 mg PO DAILY Thiamine [Vitamin B-1] 100 mg PO DAILY 05/02/17 17:00 metFORMIN [Glucophage] 500 mg PO BIDMEALS 05/02/17 17:07 Nicotine [Habitrol] 21 mg TRDERM DAILY@1700 Remove Patch 1 ea TRDERM DAILY@1700 05/02/17 21:00 Magnesium Oxide 400 mg PO BID QUEtiapine [SEROquel] 50 mg PO BEDTIME 05/03/17 06:00 Levothyroxine 75 mcg PO ACBREAKFAST 05/03/17 07:43 MG [MAGNESIUM] [CHEM] Routine 05/03/17 09:00 Potassium Chloride [Klor-Con M20] 20 meq PO DAILY 05/04/17 05:11 BASIC METABOLIC PANEL,BMP [CHEM] AM CBC WITH AUTO DIFF [HEME] AM MG [MAGNESIUM] [CHEM] AM 05/05/17 05:11 BASIC METABOLIC PANEL,BMP [CHEM] AM CBC WITH AUTO DIFF [HEME] AM MG [MAGNESIUM] [CHEM] AM 05/06/17 05:11 BMP [BASIC METABOLIC PANEL,BMP] [CHEM] AM MG [MAGNESIUM] [CHEM] AM 05/07/17 05:11 BMP [BASIC METABOLIC PANEL,BMP] [CHEM] AM - Plan Plan:: Assessment/Plan: Acute: Acute ETOH Withdrawal - Carries hx/o Chronic ETOH Use and Acute Psychosis - PATRICIA is 0.34 - CIWA protocol: CIWA score of 7-8 - Ativan/Librium/Clonidine/Seroquel - Hydralzine and IVP BB for HR/BP control - Ativan for Abortive Seizure and Withdrawal Symptoms - Psych consult - Refused SA consult with Pasha Fonseca Moderate Hypokalemia - K 2.0 --> 3.1 - Received Supplement in ED - KCl 60 mEq po x1 now and 40 mEq IV; repeat level at 1600 Substance Abuse - Acute on Chronic - UDS is negative Resolved: Leukocytosis - WBC 15.01 --> 7.12 - Likely 2/2 Stress Hypomagnesemia - Mg 1.7--> 2.0 - Replete with 2 gram Magnesium Sulfate IV x 1 - Subsequent level for pharmacy to monitor and replete Chronic: Impaired Vision/Cataract Asthma Back/Neck Pain Substance Abuse Hx/o Drug Overdose Depression Plan: She clinically much better Transfer to Med-Surg With Tele 1:1 Care given her hx/o Suicide Attempt/Drug Overdose Routine AM Labs MVI, Folic, Acid and Thiamine Continue PT/OT SW/CM for d/c planning Seizure Precautions DVT PPx: SCDs Consult Psych Code Status: 1
[2017-05-03] MEDS: Folic Acid 1 MG Tab PO SCH (08:08)
[2017-05-03] MEDS: Potassium Chloride 20 MEQ Tab.ER PO SCH (08:08)
[2017-05-03] MEDS: Multivitamins,Therapeutic Tab PO SCH (08:08)
[2017-05-03] MEDS: Thiamine 100 MG Tab PO SCH (08:08)
[2017-05-03] MEDS: Pantoprazole 40 MG Vial IV SCH ×2 (08:09→20:11)
[2017-05-03] MEDS: QUEtiapine 25 MG Tab PO SCH ×2 (08:09→20:12)
[2017-05-03] MEDS: Magnesium Oxide 400 MG Tab PO SCH ×2 (08:09→20:11)
[2017-05-03] MEDS ORDERED: Potassium Chloride 20 MEQ Tab.ER PO ONE (08:20)
[2017-05-03] MEDS: Potassium Chloride 10 MEQ in Premix Bag 1 BAG IV SCH ×2 (08:41→10:16)
[2017-05-03] MEDS: Sodium Chloride 0.9% 10 ML Syringe FLUSH PRN (08:45)
[2017-05-03] MEDS ORDERED: Nicotine 21 MG/24 Hr Patch TRDERM SCH (09:00)
[2017-05-03] MEDS: HYDROmorphone 0.5 MG/0.5 ML Syringe IVPUSH PRN (10:28)
[2017-05-03] MEDS ORDERED: Potassium Chloride 10 MEQ Tab.ER PO ONE (12:00)
[2017-05-03] MEDS: Nicotine 21 MG/24 Hr Patch TRDERM SCH (16:23)
[2017-05-03] MEDS ORDERED: Haloperidol Lactate 5 MG/ML SDV IVPUSH ONE (21:08)
[2017-05-04] MEDS: LORazepam 2 MG/ML MDV IVPUSH PRN ×8 (03:17→22:46)
[2017-05-04] MEDS: HYDROmorphone 0.5 MG/0.5 ML Syringe IVPUSH PRN (04:02)
[2017-05-04] MEDS: Levothyroxine 75 MCG Tab PO SCH (05:25)
[2017-05-04] MEDS: metFORMIN 500 MG Tab PO SCH ×2 (06:42→16:10)
[2017-05-04] MEDS: Pantoprazole 40 MG Vial IV SCH (08:01)
[2017-05-04] MEDS: Thiamine 100 MG Tab PO SCH (08:05)
[2017-05-04] MEDS: chlordiazePOXIDE 25 MG Cap PO PRN ×2 (08:05→16:10)
[2017-05-04] MEDS: Magnesium Oxide 400 MG Tab PO SCH ×2 (08:05→21:07)
[2017-05-04] MEDS: Multivitamins,Therapeutic Tab PO SCH (08:05)
[2017-05-04] MEDS: Potassium Chloride 20 MEQ Tab.ER PO SCH (08:05)
[2017-05-04] MEDS: Folic Acid 1 MG Tab PO SCH (08:05)
[2017-05-04] MEDS: QUEtiapine 25 MG Tab PO SCH ×2 (08:06→21:08)
[2017-05-04] MEDS ORDERED: Sodium Chloride 0.9% 1,000 ML IV ONE (09:49)
[2017-05-04] MEDS: cloNIDine 0.1 MG Tab PO PRN (10:15)
[2017-05-04] MEDS: oxyCODONE 5 MG Tab PO PRN (12:49)
--- NOTE | 2017-05-04 13:12 | PCM.PN ---
- General Info Date of Service: 05/04/17 Admission Dx/Problem (Free Text): Alcohol Intoxication Subjective Update: Follow Up Functional Status: Reports: Pain Controlled, Tolerating Diet, Ambulating, Urinating - Review of Systems General: Denies: Fever, Chills HEENT: Reports: No Symptoms Pulmonary: Denies: Shortness of Breath Cardiovascular: Denies: Chest Pain, Palpitations Gastrointestinal: Denies: Abdominal Pain, Nausea, Vomiting Genitourinary: Reports: No Symptoms Musculoskeletal: Reports: No Symptoms Skin: Reports: Bruising. Denies: Cyanosis, Pallor, Rash Neurological: Denies: Confusion, Seizure, Difficulty Walking, Weakness, Gait Disturbance Psychiatric: Reports: Agitation, Hallucinations. Denies: Depression, Anxiety, Suicidal Ideation Systems Review Comment:: Patient went wild overnight. She was also hallucinating-seeing thing that were not there. She responded to haldol treatment. This morning she seems dazed but not in acute distress. Her nurse told me she was mostly restless. Her CIWA is bet 12-313. Her renal function slight worsen. - Patient Data Vitals - Most Recent: Last Vital Signs Temp 36.7 C 05/04/17 03:00 Pulse 95 05/04/17 09:00 Resp 18 05/04/17 09:00 BP 132/103 H 05/04/17 10:15 Pulse Ox 96 05/04/17 09:00 Weight - Most Recent: 57.107 kg I&O - Last 24 Hours: Intake & Output 05/03/17 05/04/17 05/04/17 22:59 06:59 14:59 Intake Total 520 700 300 Output Total 100 600 200 Balance 420 100 100 Lab Results Last 24 Hours: Laboratory Results - last 24 hr 05/03/17 05/03/17 05/04/17 Range/Units 15:04 15:04 05:33 WBC 6.62 (3.98-10.04) K/mm3 RBC 3.36 L (3.98-5.22) M/mm3 Hgb 11.4 (11.2-15.7) gm/L Hct 34.7 (34.1-44.9) % MCV 103.3 H (79.4-94.8) fl MCH 33.9 H (25.6-32.2) pg MCHC 32.9 (32.2-35.5) g/dl RDW Std Deviation 53.5 H (36.4-46.3) fL Plt Count 193 (182-369) K/mm3 MPV 11.2 (9.4-12.3) fl Neut % (Auto) 71.6 H (34.0-71.1) % Lymph % (Auto) 20.8 (19.3-51.7) % [place] % (Auto) 3.6 L (4.7-12.5) % Eos % (Auto) 3.5 (0.7-5.8) Baso % (Auto) 0.5 (0.1-1.2) % Neut # (Auto) 4.74 (1.56-6.13) K/mm3 Lymph # (Auto) 1.38 (1.18-3.74) K/mm3 [place] # (Auto) 0.24 (0.24-0.36) K/mm3 Eos # (Auto) 0.23 (0.04-0.36) K/mm3 Baso # (Auto) 0.03 (0.01-0.08) K/mm3 Sodium 141 (136-145) mEq/L Potassium 4.9 4.9 (3.5-5.1) mEq/L Chloride 112 H (98-107) mEq/L Carbon Dioxide 21 (21-32) mEq/L Anion Gap 12.9 (5-15) BUN 13 (7-18) mg/dL Creatinine 1.6 H (0.55-1.02) mg/dL Est Cr Clr Drug Dosing 34.07 mL/min Estimated GFR (MDRD) 33 (>60) mL/min BUN/Creatinine Ratio 8.1 L (14-18) Glucose 108 H (74-106) mg/dL Calcium 8.8 (8.5-10.1) mg/dL Magnesium (1.8-2.4) mg/dl 05/04/17 Range/Units 05:33 WBC (3.98-10.04) K/mm3 RBC (3.98-5.22) M/mm3 Hgb (11.2-15.7) gm/L Hct (34.1-44.9) % MCV (79.4-94.8) fl MCH (25.6-32.2) pg MCHC (32.2-35.5) g/dl RDW Std Deviation (36.4-46.3) fL Plt Count (182-369) K/mm3 MPV (9.4-12.3) fl Neut % (Auto) (34.0-71.1) % Lymph % (Auto) (19.3-51.7) % [place] % (Auto) (4.7-12.5) % Eos % (Auto) (0.7-5.8) Baso % (Auto) (0.1-1.2) % Neut # (Auto) (1.56-6.13) K/mm3 Lymph # (Auto) (1.18-3.74) K/mm3 [place] # (Auto) (0.24-0.36) K/mm3 Eos # (Auto) (0.04-0.36) K/mm3 Baso # (Auto) (0.01-0.08) K/mm3 Sodium 142 (136-145) mEq/L Potassium 4.5 (3.5-5.1) mEq/L Chloride 113 H (98-107) mEq/L Carbon Dioxide 17 L (21-32) mEq/L Anion Gap 16.5 H (5-15) BUN 16 (7-18) mg/dL Creatinine 1.6 H (0.55-1.02) mg/dL Est Cr Clr Drug Dosing 34.07 mL/min Estimated GFR (MDRD) 33 (>60) mL/min BUN/Creatinine Ratio 10.0 L (14-18) Glucose 156 H (74-106) mg/dL Calcium 8.9 (8.5-10.1) mg/dL Magnesium 1.9 (1.8-2.4) mg/dl Med Orders - Current: Current Medications Albuterol/Ipratropium (Duoneb 3.0-0.5 Mg/3 Ml) 3 ml NEB Q4H PRN PRN Reason: Shortness Of Breath/wheezing Bisacodyl (Dulcolax) 5 mg PO DAILY PRN PRN Reason: Constipation Chlordiazepoxide HCl (Librium) 25 mg PO Q8H PRN PRN Reason: Withdrawal Symptoms Last Admin: 05/04/17 08:05 Dose: 25 mg Clonidine HCl (Catapres) 0.1 mg PO Q4H PRN PRN Reason: Agitation Last Admin: 05/04/17 10:15 Dose: 0.1 mg Docusate Sodium (Colace) 100 mg PO BID PRN PRN Reason: Constipation Hydralazine HCl (Apresoline) 20 mg IVPUSH Q4H PRN PRN Reason: Hypertension Hydromorphone HCl (Dilaudid) 0.25 mg IVPUSH Q2H PRN PRN Reason: Pain (severe 7-10) Last Admin: 05/04/17 04:02 Dose: 0.25 mg Promethazine HCl 12.5 mg/ (Sodium Chloride) 50.5 mls @ 100 mls/hr IV Q6H PRN PRN Reason: Nausea/Vomiting Sodium Chloride (Normal Saline) 1,000 mls @ 100 mls/hr IV ONETIME ONE Stop: 05/04/17 19:48 Last Admin: 05/04/17 10:14 Dose: 100 mls/hr Ibuprofen (Motrin) 600 mg PO Q6H PRN PRN Reason: Pain (moderate 4-6) Last Admin: 05/03/17 20:11 Dose: 600 mg Levothyroxine Sodium (Levothyroxine) 75 mcg PO ACBREAKFAST [facility] Last Admin: 05/04/17 05:25 Dose: 75 mcg Lorazepam (Ativan) 2 mg IVPUSH Q4H PRN PRN Reason: Seizures Lorazepam (Ativan) 1 - 3 mg IVPUSH Q4H PRN; Protocol PRN Reason: Withdrawal Symptoms Last Admin: 05/04/17 12:22 Dose: 2 mg Magnesium Oxide (Magnesium Oxide) 400 mg PO BID [facility] Last Admin: 05/04/17 08:05 Dose: 400 mg Magnesium Sulfate (Pharmacy To Dose - Magnesium Replacement) 1 dose .XX ASDIRECTED [facility] Metformin HCl (Glucophage) 500 mg PO BIDMEALS [facility] Last Admin: 05/04/17 06:42 Dose: 500 mg Metoprolol Tartrate (Lopressor) 5 mg IVPUSH Q4H PRN PRN Reason: Tachycardia Last Admin: 05/02/17 03:57 Dose: 5 mg Miscellaneous Information (Remove Patch) 1 ea TRDERM DAILY@1700 [facility] Last Admin: 05/03/17 16:22 Dose: 1 ea Multivitamins (Thera) 1 each PO DAILY [facility] Last Admin: 05/04/17 08:05 Dose: 1 each Nicotine (Habitrol) 21 mg TRDERM DAILY@1700 [facility] Last Admin: 05/03/17 16:23 Dose: 21 mg Ondansetron HCl (Zofran) 4 mg IV Q6H PRN PRN Reason: Nausea/Vomiting Oxycodone HCl (Oxycodone) 5 mg PO Q4H PRN PRN Reason: Pain (moderate 4-6) Last Admin: 05/04/17 12:49 Dose: 5 mg Pantoprazole Sodium (Protonix) 40 mg PO DAILY@0700 [facility] Polyethylene Glycol (Miralax) 17 gm PO DAILY PRN PRN Reason: Constipation Potassium Chloride (Pharmacy To Dose - Potassium Replacement) 1 dose .XX ASDIRECTED [facility] Potassium Chloride (Klor-Con M20) 20 meq PO DAILY [facility] Last Admin: 05/04/17 08:05 Dose: 20 meq Quetiapine Fumarate (Seroquel) 50 mg PO BEDTIME [facility] Last Admin: 05/03/17 20:12 Dose: 50 mg Quetiapine Fumarate (Seroquel) 25 mg PO DAILY [facility] Last Admin: 05/04/17 08:06 Dose: 25 mg Senna/Docusate Sodium (Senna Plus) 1 tab PO BID PRN PRN Reason: Constipation Sodium Chloride (Saline Flush) 10 ml FLUSH ASDIRECTED PRN PRN Reason: Keep Vein Open Last Admin: 05/03/17 08:45 Dose: 10 ml Thiamine HCl (Vitamin B-1) 100 mg PO DAILY [facility] Last Admin: 05/04/17 08:05 Dose: 100 mg Discontinued Medications Diphenhydramine HCl (Benadryl) 25 mg IVPUSH ONETIME ONE Stop: 05/01/17 19:57 Last Admin: 05/01/17 20:14 Dose: 25 mg Diphenhydramine HCl (Benadryl) 50 mg IVPUSH ONETIME ONE Stop: 05/03/17 04:53 Last Admin: 05/03/17 05:03 Dose: 50 mg Folic Acid (Folic Acid) 1 mg SUBCUT ONETIME ONE Stop: 05/01/17 22:42 Last Admin: 05/01/17 23:56 Dose: 1 mg Folic Acid (Folic Acid) 1 mg PO DAILY [facility] Stop: 05/04/17 09:01 Last Admin: 05/04/17 08:05 Dose: 1 mg Haloperidol Lactate (Haldol) 2 mg IVPUSH ONETIME ONE Stop: 05/01/17 19:57 Last Admin: 05/01/17 20:13 Dose: 2 mg Haloperidol Lactate (Haldol) 5 mg IVPUSH ONETIME ONE Stop: 05/03/17 21:09 Last Admin: 05/03/17 21:23 Dose: 5 mg Lactated Ringer's (Ringers, Lactated) 1,000 mls @ 999 mls/hr IV .BOLUS ONE Stop: 05/01/17 20:56 Last Admin: 05/01/17 20:13 Dose: 999 mls/hr Potassium Chloride/Sodium Chloride (Normal Saline With 20 Meq Kcl) 1,000 mls @ 500 mls/hr IV ASDIRECTED [facility] Potassium Chloride 10 meq/ (Premix) 100 mls @ 100 mls/hr IV ASDIRECTED [facility] Last Admin: 05/01/17 21:23 Dose: 100 mls/hr Sodium Chloride (Normal Saline) 1,000 mls @ 999 mls/hr IV ONETIME ONE Stop: 05/01/17 22:16 Last Admin: 05/01/17 21:22 Dose: 999 mls/hr Thiamine HCl 100 mg/ Sodium (Chloride) 51 mls @ 100 mls/hr IV ONETIME ONE Stop: 05/01/17 23:11 Last Admin: 05/02/17 00:55 Dose: 100 mls/hr Potassium Chloride 10 meq/ (Premix) 100 mls @ 100 mls/hr IV Q1H [facility] Stop: 05/02/17 02:59 Last Admin: 05/02/17 02:52 Dose: 100 mls/hr Magnesium Sulfate (Magnesium Sulfate 2 Gm In Water 50 Ml) 50 mls @ 50 mls/hr IV ONETIME ONE Stop: 05/02/17 00:29 Last Admin: 05/01/17 23:55 Dose: 50 mls/hr Potassium Chloride 10 meq/ (Premix) 100 mls @ 100 mls/hr IV Q1H [facility] Stop: 05/03/17 12:29 Last Admin: 05/03/17 10:16 Dose: Not Given Nicotine (Habitrol) 21 mg TRDERM DAILY [facility] Pantoprazole Sodium (Protonix Iv) 40 mg IV Q12HR [facility] Last Admin: 05/04/17 08:01 Dose: 40 mg Potassium Chloride (Klor-Con M20) 60 meq PO ONETIME ONE Stop: 05/01/17 23:09 Last Admin: 05/01/17 23:52 Dose: 60 meq Potassium Chloride (Klor-Con M20) 20 meq PO Q3H [facility] Stop: 05/02/17 13:01 Last Admin: 05/02/17 13:36 Dose: 20 meq Potassium Chloride (Klor-Con M20) 60 meq PO ONETIME ONE Stop: 05/03/17 08:21 Last Admin: 05/03/17 08:39 Dose: 60 meq Potassium Chloride (Klor-Con 10) 60 meq PO ONETIME ONE Stop: 05/03/17 12:01 Last Admin: 05/03/17 12:05 Dose: 60 meq - Exam Quality Assessment: Supplemental Oxygen General: No Acute Distress, Sedated HEENT: Pupils Equal, Pupils Reactive, Mucous Membr. Moist/[place] Neck: Trachea Midline, +2 Carotid Pulse wo Bruit Lungs: Clear to Auscultation, Normal Respiratory Effort Cardiovascular: Regular Rate, Regular Rhythm GI/Abdominal Exam: Normal Bowel Sounds, Soft, Non-Tender (Female) Exam: Deferred Back Exam: Normal Inspection, Decreased Range of Motion Extremities: Normal Inspection, Normal Range of Motion, Non-Tender Peripheral Pulses: 2+: Dorsalis Pedis (L), Dorsalis Pedis (R) Skin: Warm, Dry, Intact, Ecchymosis Neurological: No New Focal Deficit Psy/Mental Status: Alert, Normal Affect, Normal Mood, Withdrawal Symptoms - Problem List Review Problem List Initiated/Reviewed/Updated: Yes - My Orders Last 24 Hours: My Active Orders 05/03/17 13:51 Admission Status [Patient Status] [ADT] Routine 05/04/17 09:49 Sodium Chloride 0.9% [Normal Saline] 1,000 ml IV ONETIME 05/05/17 05:11 BASIC METABOLIC PANEL,BMP [CHEM] AM CBC WITH AUTO DIFF [HEME] AM MG [MAGNESIUM] [CHEM] AM 05/05/17 07:00 Pantoprazole [ProTONIX] 40 mg PO DAILY@0700 05/06/17 05:11 BMP [BASIC METABOLIC PANEL,BMP] [CHEM] AM MG [MAGNESIUM] [CHEM] AM 05/07/17 05:11 BMP [BASIC METABOLIC PANEL,BMP] [CHEM] AM - Plan Plan:: Assessment/Plan: Acute: Acute ETOH Withdrawal - Carries hx/o Chronic ETOH Use and Acute Psychosis - PATRICIA is 0.34 - CIWA protocol: CIWA score of 12-13 - Ativan/Librium/Clonidine/Seroquel - Hydralzine and IVP BB for HR/BP control - Ativan for Abortive Seizure and Withdrawal Symptoms - Psych consult pending - Refused SA consult with Pasha Fonseca Acute Psychosis - She is seeing thing that are not physically present - Seroquel 50 mg po BID - Dr. Aly consult Substance Abuse - Acute on Chronic - UDS is negative Depression - Re-start Prozac 20 mg po daily - This was recommended to her on her previous admission by Dr. Aly Resolved: Leukocytosis - WBC 15.01 --> 7.12 - Likely 2/2 Stress Hypomagnesemia - Mg 1.7--> 2.0 - Replete with 2 gram Magnesium Sulfate IV x 1 - Subsequent level for pharmacy to monitor and replete Moderate Hypokalemia - K 2.0 --> 3.1 --> 4.5 - Received Supplement in ED - KCl 60 mEq po x1 now and 40 mEq IV; repeat level at 1600 Chronic: Impaired Vision/Cataract Asthma Back/Neck Pain Substance Abuse Hx/o Drug Overdose Depression Plan: She clinically much better 1:1 Care given her hx/o Suicide Attempt/Drug Overdose Routine AM Labs Change Seroquel to 50 mg po BID Start Topamax 50 mg po daily NS 1L at 100 cc/hr for maintenance fluids Continue PT/OT SW/CM for d/c planning Seizure Precautions DVT PPx: SCDs Code Status: 1
[2017-05-04] MEDS ORDERED: Haloperidol Lactate 5 MG/ML SDV IVPUSH ONE (14:51)
[2017-05-04] MEDS: Nicotine 21 MG/24 Hr Patch TRDERM SCH (16:19)
[2017-05-04] MEDS ORDERED: Topiramate 25 MG Tab PO SCH (21:00)
[2017-05-04] MEDS: Topiramate 25 MG Tab PO SCH (21:08)
[2017-05-05] MEDS: chlordiazePOXIDE 25 MG Cap PO PRN (00:58)
[2017-05-05] MEDS: LORazepam 2 MG/ML MDV IVPUSH PRN ×3 (01:55→23:31)
[2017-05-05] MEDS: metFORMIN 500 MG Tab PO SCH ×2 (06:13→16:31)
[2017-05-05] MEDS: Pantoprazole 40 MG Tab.CR PO SCH (06:13)
[2017-05-05] MEDS: Levothyroxine 75 MCG Tab PO SCH (06:13)
[2017-05-05] MEDS: Ibuprofen 600 MG Tab PO PRN ×2 (07:39→15:13)
[2017-05-05] MEDS ORDERED: Magnesium Sulfate/Water 2 GM in Premix Bag 1 BAG IV ONE (08:00)
[2017-05-05] MEDS: Multivitamins,Therapeutic Tab PO SCH (08:24)
[2017-05-05] MEDS: FLUoxetine 20 MG Cap PO SCH (08:24)
[2017-05-05] MEDS: Thiamine 100 MG Tab PO SCH (08:24)
[2017-05-05] MEDS: Magnesium Oxide 400 MG Tab PO SCH ×2 (08:33→20:20)
[2017-05-05] MEDS: Potassium Chloride 20 MEQ Tab.ER PO SCH (08:34)
[2017-05-05] MEDS: QUEtiapine 25 MG Tab PO SCH (08:34)
[2017-05-05] MEDS: Topiramate 25 MG Tab PO SCH ×2 (08:35→20:20)
[2017-05-05] MEDS: oxyCODONE 5 MG Tab PO PRN ×2 (10:27→16:32)
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
--- NOTE | 2017-05-05 13:04 | PCM.SN ---
- Free Text/Narrative Note: Spoke to her a few minutes ago, patient is with it. She understood what is going on with her. She also acknowledged we do not have a lot of resources here at the other end of the psychiatric hospital. Informed patient, I want her to get better and that I would have to bring in a specialist to come and help me out. Offered Pasha Fonseca, and she agreed. I also informed her that she might have to go to [facility] the psychiatric hospital for chemical rehabilitation in case we are not successful in placing her at [facility]. She was sent there last time but she states "I feel like they threw me under the bus". Will re-consult Pasha Fonseca.
[2017-05-05] MEDS: cloNIDine 0.1 MG Tab PO PRN (15:28)
[2017-05-05] MEDS: Nicotine 21 MG/24 Hr Patch TRDERM SCH (16:31)
[2017-05-05] MEDS: Folic Acid 1 MG Tab PO SCH (16:32)
[2017-05-05] MEDS: Nicotine Polacrilex 2 MG Gum CHEW PRN (18:23)
[2017-05-05] MEDS ORDERED: QUEtiapine 100 MG Tab PO SCH (21:00)
[2017-05-06] MEDS: Levothyroxine 75 MCG Tab PO SCH (05:43)
[2017-05-06] MEDS: metFORMIN 500 MG Tab PO SCH (06:54)
[2017-05-06] MEDS: Ibuprofen 600 MG Tab PO PRN (06:54)
[2017-05-06] MEDS: Pantoprazole 40 MG Tab.CR PO SCH (06:54)
[2017-05-06] MEDS ORDERED: Magnesium Sulfate/Water 2 GM in Premix Bag 1 BAG IV ONE (09:00)
[2017-05-06] MEDS: Potassium Chloride 20 MEQ Tab.ER PO SCH (09:25)
[2017-05-06] MEDS: Magnesium Oxide 400 MG Tab PO SCH (09:25)
[2017-05-06] MEDS: Thiamine 100 MG Tab PO SCH (09:25)
[2017-05-06] MEDS: Multivitamins,Therapeutic Tab PO SCH (09:25)
[2017-05-06] MEDS: Folic Acid 1 MG Tab PO SCH (09:25)
[2017-05-06] MEDS: oxyCODONE 5 MG Tab PO PRN ×2 (09:25→14:01)
[2017-05-06] MEDS: FLUoxetine 20 MG Cap PO SCH (09:26)
[2017-05-06] MEDS: Topiramate 25 MG Tab PO SCH (09:26)
--- NOTE | 2017-05-06 13:55 | PCM.PN ---
- General Info Date of Service: 05/06/17 Admission Dx/Problem (Free Text): Alcohol Intoxication Subjective Update: Follow Up Functional Status: Reports: Pain Controlled, Tolerating Diet, Ambulating, Urinating. Denies: New Symptoms - Patient Data Vitals - Most Recent: Last Vital Signs Temp 36.8 C 05/06/17 08:29 Pulse 83 05/06/17 08:29 Resp 16 05/06/17 08:29 BP 123/95 H 05/06/17 08:29 Pulse Ox 96 05/06/17 08:29 Weight - Most Recent: 57.153 kg I&O - Last 24 Hours: Intake & Output 05/05/17 05/06/17 05/06/17 22:59 06:59 14:59 Intake Total 500 500 180 Output Total 400 800 Balance 100 -300 180 Lab Results Last 24 Hours: Laboratory Results - last 24 hr 05/06/17 Range/Units 06:31 Sodium 139 (136-145) mEq/L Potassium 4.1 (3.5-5.1) mEq/L Chloride 110 H (98-107) mEq/L Carbon Dioxide 19 L (21-32) mEq/L Anion Gap 14.1 (5-15) BUN 16 (7-18) mg/dL Creatinine 1.3 H (0.55-1.02) mg/dL Est Cr Clr Drug Dosing 41.86 mL/min Estimated GFR (MDRD) 42 (>60) mL/min BUN/Creatinine Ratio 12.3 L (14-18) Glucose 120 H (74-106) mg/dL Calcium 8.9 (8.5-10.1) mg/dL Magnesium 1.8 (1.8-2.4) mg/dl Med Orders - Current: Current Medications Albuterol/Ipratropium (Duoneb 3.0-0.5 Mg/3 Ml) 3 ml NEB Q4H PRN PRN Reason: Shortness Of Breath/wheezing Bisacodyl (Dulcolax) 5 mg PO DAILY PRN PRN Reason: Constipation Chlordiazepoxide HCl (Librium) 25 mg PO Q8H PRN PRN Reason: Withdrawal Symptoms Last Admin: 05/05/17 00:58 Dose: 25 mg Clonidine HCl (Catapres) 0.1 mg PO Q4H PRN PRN Reason: Agitation Last Admin: 05/05/17 15:28 Dose: 0.1 mg Docusate Sodium (Colace) 100 mg PO BID PRN PRN Reason: Constipation Fluoxetine HCl (Prozac) 20 mg PO DAILY [facility] Last Admin: 05/06/17 09:26 Dose: 20 mg Folic Acid (Folic Acid) 1 mg PO DAILY [facility] Last Admin: 05/06/17 09:25 Dose: 1 mg Hydralazine HCl (Apresoline) 20 mg IVPUSH Q4H PRN PRN Reason: Hypertension Hydromorphone HCl (Dilaudid) 0.25 mg IVPUSH Q2H PRN PRN Reason: Pain (severe 7-10) Last Admin: 05/04/17 04:02 Dose: 0.25 mg Promethazine HCl 12.5 mg/ (Sodium Chloride) 50.5 mls @ 100 mls/hr IV Q6H PRN PRN Reason: Nausea/Vomiting Ibuprofen (Motrin) 600 mg PO Q6H PRN PRN Reason: Pain (moderate 4-6) Last Admin: 05/06/17 06:54 Dose: 600 mg Levothyroxine Sodium (Levothyroxine) 75 mcg PO ACBREAKFAST [facility] Last Admin: 05/06/17 05:43 Dose: 75 mcg Lorazepam (Ativan) 2 mg IVPUSH Q4H PRN PRN Reason: Seizures Lorazepam (Ativan) 1 - 3 mg IVPUSH Q4H PRN; Protocol PRN Reason: Withdrawal Symptoms Last Admin: 05/05/17 23:31 Dose: 2 mg Magnesium Oxide (Magnesium Oxide) 400 mg PO BID [facility] Last Admin: 05/06/17 09:25 Dose: 400 mg Magnesium Sulfate (Pharmacy To Dose - Magnesium Replacement) 1 dose .XX ASDIRECTED [facility] Metformin HCl (Glucophage) 500 mg PO BIDMEALS [facility] Last Admin: 05/06/17 06:54 Dose: 500 mg Metoprolol Tartrate (Lopressor) 5 mg IVPUSH Q4H PRN PRN Reason: Tachycardia Last Admin: 05/02/17 03:57 Dose: 5 mg Miscellaneous Information (Remove Patch) 1 ea TRDERM DAILY@1700 [facility] Last Admin: 05/05/17 16:31 Dose: 1 ea Multivitamins (Thera) 1 each PO DAILY [facility] Last Admin: 05/06/17 09:25 Dose: 1 each Nicotine (Habitrol) 21 mg TRDERM DAILY@1700 [facility] Last Admin: 05/05/17 16:31 Dose: 21 mg Nicotine Polacrilex (Nicorelief) 4 mg CHEW Q2H PRN PRN Reason: Other Last Admin: 05/05/17 18:23 Dose: 4 mg Ondansetron HCl (Zofran) 4 mg IV Q6H PRN PRN Reason: Nausea/Vomiting Oxycodone HCl (Oxycodone) 5 mg PO Q4H PRN PRN Reason: Pain (moderate 4-6) Last Admin: 05/06/17 09:25 Dose: 5 mg Pantoprazole Sodium (Protonix) 40 mg PO DAILY@0700 [facility] Last Admin: 05/06/17 06:54 Dose: 40 mg Polyethylene Glycol (Miralax) 17 gm PO DAILY PRN PRN Reason: Constipation Potassium Chloride (Pharmacy To Dose - Potassium Replacement) 1 dose .XX ASDIRECTED [facility] Potassium Chloride (Klor-Con M20) 20 meq PO DAILY [facility] Last Admin: 05/06/17 09:25 Dose: 20 meq Quetiapine Fumarate (Seroquel) 100 mg PO BEDTIME [facility] Last Admin: 05/05/17 20:29 Dose: 100 mg Senna/Docusate Sodium (Senna Plus) 1 tab PO BID PRN PRN Reason: Constipation Sodium Chloride (Saline Flush) 10 ml FLUSH ASDIRECTED PRN PRN Reason: Keep Vein Open Last Admin: 05/03/17 08:45 Dose: 10 ml Thiamine HCl (Vitamin B-1) 100 mg PO DAILY [facility] Last Admin: 05/06/17 09:25 Dose: 100 mg Topiramate (Topamax) 50 mg PO BID [facility] Last Admin: 05/06/17 09:26 Dose: 50 mg Discontinued Medications Diphenhydramine HCl (Benadryl) 25 mg IVPUSH ONETIME ONE Stop: 05/01/17 19:57 Last Admin: 05/01/17 20:14 Dose: 25 mg Diphenhydramine HCl (Benadryl) 50 mg IVPUSH ONETIME ONE Stop: 05/03/17 04:53 Last Admin: 05/03/17 05:03 Dose: 50 mg Folic Acid (Folic Acid) 1 mg SUBCUT ONETIME ONE Stop: 05/01/17 22:42 Last Admin: 05/01/17 23:56 Dose: 1 mg Folic Acid (Folic Acid) 1 mg PO DAILY [facility] Stop: 05/04/17 09:01 Last Admin: 05/04/17 08:05 Dose: 1 mg Haloperidol Lactate (Haldol) 2 mg IVPUSH ONETIME ONE Stop: 05/01/17 19:57 Last Admin: 05/01/17 20:13 Dose: 2 mg Haloperidol Lactate (Haldol) 5 mg IVPUSH ONETIME ONE Stop: 05/03/17 21:09 Last Admin: 05/03/17 21:23 Dose: 5 mg Haloperidol Lactate (Haldol) 5 mg IVPUSH ONETIME ONE Stop: 05/04/17 14:52 Last Admin: 05/04/17 14:57 Dose: 5 mg Lactated Ringer's (Ringers, Lactated) 1,000 mls @ 999 mls/hr IV .BOLUS ONE Stop: 05/01/17 20:56 Last Admin: 05/01/17 20:13 Dose: 999 mls/hr Potassium Chloride/Sodium Chloride (Normal Saline With 20 Meq Kcl) 1,000 mls @ 500 mls/hr IV ASDIRECTED [facility] Potassium Chloride 10 meq/ (Premix) 100 mls @ 100 mls/hr IV ASDIRECTED [facility] Last Admin: 05/01/17 21:23 Dose: 100 mls/hr Sodium Chloride (Normal Saline) 1,000 mls @ 999 mls/hr IV ONETIME ONE Stop: 05/01/17 22:16 Last Admin: 05/01/17 21:22 Dose: 999 mls/hr Thiamine HCl 100 mg/ Sodium (Chloride) 51 mls @ 100 mls/hr IV ONETIME ONE Stop: 05/01/17 23:11 Last Admin: 05/02/17 00:55 Dose: 100 mls/hr Potassium Chloride 10 meq/ (Premix) 100 mls @ 100 mls/hr IV Q1H [facility] Stop: 05/02/17 02:59 Last Admin: 05/02/17 02:52 Dose: 100 mls/hr Magnesium Sulfate (Magnesium Sulfate 2 Gm In Water 50 Ml) 50 mls @ 50 mls/hr IV ONETIME ONE Stop: 05/02/17 00:29 Last Admin: 05/01/17 23:55 Dose: 50 mls/hr Potassium Chloride 10 meq/ (Premix) 100 mls @ 100 mls/hr IV Q1H [facility] Stop: 05/03/17 12:29 Last Admin: 05/03/17 10:16 Dose: Not Given Sodium Chloride (Normal Saline) 1,000 mls @ 100 mls/hr IV ONETIME ONE Stop: 05/04/17 19:48 Last Admin: 05/04/17 10:14 Dose: 100 mls/hr Magnesium Sulfate 2 gm/ Premix 50 mls @ 25 mls/hr IV ONETIME ONE Stop: 05/05/17 09:59 Last Admin: 05/05/17 08:24 Dose: 25 mls/hr Magnesium Sulfate 2 gm/ Premix 50 mls @ 25 mls/hr IV ONETIME ONE Stop: 05/06/17 10:59 Last Admin: 05/06/17 09:16 Dose: 25 mls/hr Nicotine (Habitrol) 21 mg TRDERM DAILY [facility] Pantoprazole Sodium (Protonix Iv) 40 mg IV Q12HR [facility] Last Admin: 05/04/17 08:01 Dose: 40 mg Potassium Chloride (Klor-Con M20) 60 meq PO ONETIME ONE Stop: 05/01/17 23:09 Last Admin: 05/01/17 23:52 Dose: 60 meq Potassium Chloride (Klor-Con M20) 20 meq PO Q3H [facility] Stop: 05/02/17 13:01 Last Admin: 05/02/17 13:36 Dose: 20 meq Potassium Chloride (Klor-Con M20) 60 meq PO ONETIME ONE Stop: 05/03/17 08:21 Last Admin: 05/03/17 08:39 Dose: 60 meq Potassium Chloride (Klor-Con 10) 60 meq PO ONETIME ONE Stop: 05/03/17 12:01 Last Admin: 05/03/17 12:05 Dose: 60 meq Quetiapine Fumarate (Seroquel) 50 mg PO BEDTIME [facility] Last Admin: 05/03/17 20:12 Dose: 50 mg Quetiapine Fumarate (Seroquel) 25 mg PO DAILY [facility] Last Admin: 05/04/17 08:06 Dose: 25 mg Quetiapine Fumarate (Seroquel) 50 mg PO BID [facility] Last Admin: 05/05/17 08:34 Dose: 50 mg Topiramate (Topamax) 25 mg PO BID [facility] - Problem List & Annotations (1) Alcohol abuse with alcohol-induced psychotic disorder SNOMED Code(s): 84789925, 55190724 Code(s): F10.159 - ALCOHOL ABUSE WITH ALCOHOL-INDUCED PSYCHOTIC DISORDER, UNSP Status: Resolved Current Visit: Yes Qualifiers: Complication of substance-induced condition: with hallucinations Qualified Code(s): F10.151 - Alcohol abuse with alcohol-induced psychotic disorder with hallucinations (2) Alcohol intoxication SNOMED Code(s): 82770327 Code(s): F10.929 - ALCOHOL USE, UNSPECIFIED WITH INTOXICATION, UNSPECIFIED Status: Resolved Current Visit: Yes Qualifiers: Complication of substance-induced condition: uncomplicated Qualified Code(s ): F10.920 - Alcohol use, unspecified with intoxication, uncomplicated (3) Substance abuse or dependence SNOMED Code(s): 11532382 Code(s): [id number] - Status: Chronic Current Visit: Yes (4) Depression SNOMED Code(s): 06739712 Code(s): F32.9 - MAJOR DEPRESSIVE DISORDER, SINGLE EPISODE, UNSPECIFIED Status: Chronic Current Visit: Yes Qualifiers: Depression Type: unspecified Qualified Code(s): F32.9 - Major depressive disorder, single episode, unspecified (5) Hypomagnesemia SNOMED Code(s): 471202894 Code(s): E83.42 - HYPOMAGNESEMIA Status: Resolved Current Visit: Yes (6) Hypokalemia due to inadequate potassium intake SNOMED Code(s): 78591679 Code(s): E87.6 - HYPOKALEMIA Status: Resolved Current Visit: Yes - My Orders Last 24 Hours: My Active Orders 05/05/17 16:59 Nicotine Polacrilex [Nicorelief] 4 mg CHEW Q2H PRN 05/07/17 05:11 BMP [BASIC METABOLIC PANEL,BMP] [CHEM] AM - Assessment Assessment:: Assessment/Plan: Acute: Acute ETOH Withdrawal, Improved - Carries hx/o Chronic ETOH Use and Acute Psychosis - PATRICIA is 0.34 - CIWA protocol: CIWA score of 7-8 - Ativan/Librium/Clonidine/Seroquel - Hydralzine and IVP BB for HR/BP control - Ativan for Abortive Seizure and Withdrawal Symptoms - Psych consult: will be done today - SAC with Pasha Fonseca per patient's request Acute Psychosis, Improved - She is seeing thing that are not physically present - Seroquel 50 mg po BID - Dr. Aly consulted Depression - Re-start Prozac 20 mg po daily - This was recommended to her on her previous admission by Dr. Aly Resolved: Leukocytosis - WBC 15.01 --> 7.12 - Likely 2/2 Stress Hypomagnesemia - Mg 1.7--> 2.0 - Replete with 2 gram Magnesium Sulfate IV x 1 - Subsequent level for pharmacy to monitor and replete Moderate Hypokalemia - K 2.0 --> 3.1 --> 4.5 - Received Supplement in ED - KCl 60 mEq po x1 now and 40 mEq IV Substance Abuse - UDS is negative Chronic: Impaired Vision/Cataract Asthma Back/Neck Pain Substance Abuse Hx/o Drug Overdose Depression - Plan Plan:: Plan: She is clinically better 1:1 Care given her hx/o Suicide Attempt/Drug Overdose Routine AM Labs SW/CM for d/c planning Seizure Precautions DVT PPx: SCDs Code Status: 1 LOS > 96 hrs pending possible inpatient rehab placement. She requested SA consultation
--- NOTE | 2017-05-06 13:56 | PCM.DCSUM1 ---
Discharge Summary - Hospital Course Brief History: This is a 61-year-old white female with past medical history of impaired vision, asthma, chronic neck and back pain, substance abuse, and depression who presents to the emergency department for evaluation and treatment of acute intoxication. She was admitted for alcohol detoxification. - Discharge Data Discharge Date: 05/06/17 Discharge Disposition: DC/Tfer to Other 70 Condition: Good - Discharge Diagnosis/Problem(s) (1) Alcohol abuse with alcohol-induced psychotic disorder SNOMED Code(s): 58723764, 12985655 ICD Code: F10.159 - ALCOHOL ABUSE WITH ALCOHOL-INDUCED PSYCHOTIC DISORDER, UNSP Status: Resolved Current Visit: Yes Qualifiers: Complication of substance-induced condition: with hallucinations Qualified Code(s): F10.151 - Alcohol abuse with alcohol-induced psychotic disorder with hallucinations (2) Alcohol intoxication SNOMED Code(s): 28498629 ICD Code: F10.929 - ALCOHOL USE, UNSPECIFIED WITH INTOXICATION, UNSPECIFIED Status: Resolved Current Visit: Yes Qualifiers: Complication of substance-induced condition: uncomplicated Qualified Code(s ): F10.920 - Alcohol use, unspecified with intoxication, uncomplicated (3) Substance abuse or dependence SNOMED Code(s): 55432322 ICD Code: [id number] - Status: Chronic Current Visit: Yes (4) Depression SNOMED Code(s): 04320723 ICD Code: F32.9 - MAJOR DEPRESSIVE DISORDER, SINGLE EPISODE, UNSPECIFIED Status: Chronic Current Visit: Yes Qualifiers: Depression Type: unspecified Qualified Code(s): F32.9 - Major depressive disorder, single episode, unspecified (5) Hypomagnesemia SNOMED Code(s): 837015467 ICD Code: E83.42 - HYPOMAGNESEMIA Status: Resolved Current Visit: Yes (6) Hypokalemia due to inadequate potassium intake SNOMED Code(s): 45940078 ICD Code: E87.6 - HYPOKALEMIA Status: Resolved Current Visit: Yes - Patient Summary/Data Operative Procedure(s) Performed: None Complications: None Consults: Consultations 05/01/17 22:36 Consult to Case Management [CONS] Routine Consult to Physician [CONS] Routine Consult to Immigration Paralegal [CONS] Routine Consult to Spiritual Care [CONS] Routine 05/01/17 22:39 Consult for Substance Abuse [CONS] Routine Labs Pending at D/C: None Recommended Follow-up Testing/Procedures: None Hospital Course: Patient was primarily admitted for alcohol detoxification. She presented here acutely intoxicated. She carried a past medical history of depression, substance abuse, alcohol abuse with withdrawal symptoms. She was initially treated here not too long ago. She was discharged to [facility] in [facility]. Unfortunately, she never made it to the facility. Patient wanted help and expressed willingness to go for chemical dependency even if she had to go as far as [place] or [place]. She received appropriate treatment until her withdrawals improved. Dr. Aly was consulted for further evaluation and her medications were adjusted immediately afterwards. We also consulted [facility] for chemical dependency evaluation but patient refused her initially. Unfortunately, [facility] was not available after the patient requested for re-evaluation. Her hospital course was uncomplicated. Overall she has done well. All electrolyte abnormalities have resolved. She has been medically stable. She will be transferred to [place] for inpatient treatment under the services of Dr. Nicolas, Attending Psychiatrist. Patient will leave as soon as ground transportations arrives. - Patient Instructions Diet: Usual Diet as Tolerated Activity: As Tolerated Driving: Do Not Drive Showering/Bathing: May Shower Notify Provider of: Fever, Increased Pain, Nausea and/or Vomiting - Discharge Plan Prescriptions/Med Rec: FLUoxetine [PROzac] 20 mg PO DAILY #30 cap Nicotine Polacrilex [Nicotine Gum] 4 mg BC Q4H #20 gum QUEtiapine [SEROquel] 100 mg PO BEDTIME #30 tablet Topiramate [Topamax] 50 mg PO BID #30 tablet Home Medications: Home Meds Levothyroxine 75 mcg PO ACBREAKFAST #30 tablet 03/06/17 [Rx] Magnesium Oxide 400 mg PO BID #60 tablet 03/06/17 [Rx] Potassium Chloride 20 meq PO DAILY #30 tablet.er 03/06/17 [Rx] Ibuprofen [Motrin] 600 mg PO Q6H #30 tablet 04/07/17 [Rx] Nicotine [Habitrol] 21 mg TRDERM DAILY #30 patch 04/07/17 [Rx] metFORMIN [Glucophage] 500 mg PO BIDMEALS #60 tablet 04/07/17 [Rx] FLUoxetine [PROzac] 20 mg PO DAILY #30 cap 05/06/17 [Rx] Nicotine Polacrilex [Nicotine Gum] 4 mg BC Q4H #20 gum 05/06/17 [Rx] QUEtiapine [SEROquel] 100 mg PO BEDTIME #30 tablet 05/06/17 [Rx] Topiramate [Topamax] 50 mg PO BID #30 tablet 05/06/17 [Rx] Patient Handouts: Addiction and the Family, Alcohol Use Disorder, Alcohol Abuse and Nutrition, Stress and Stress Management, Alcohol Withdrawal, Easy-to- Read - Discharge Summary/Plan Comment DC Time >30 min.: Yes (45 mins) Discharge Summary/Plan Comment: Transfer to inpatient chemical rehabilitation - General Info Date of Service: 05/06/17 Admission Dx/Problem (Free Text: Alcohol Intoxication Subjective Update: Follow Up - Patient Data Vitals - Most Recent: Last Vital Signs Temp 36.8 C 05/06/17 08:29 Pulse 83 05/06/17 08:29 Resp 16 05/06/17 08:29 BP 123/95 H 05/06/17 08:29 Pulse Ox 96 05/06/17 08:29 Weight - Most Recent: 57.153 kg I&O - Last 24 hours: Intake & Output 05/05/17 05/06/17 05/06/17 22:59 06:59 14:59 Intake Total 500 500 180 Output Total 400 800 Balance 100 -300 180 Lab Results - Last 24 hrs: Laboratory Results - last 24 hr 05/06/17 Range/Units 06:31 Sodium 139 (136-145) mEq/L Potassium 4.1 (3.5-5.1) mEq/L Chloride 110 H (98-107) mEq/L Carbon Dioxide 19 L (21-32) mEq/L Anion Gap 14.1 (5-15) BUN 16 (7-18) mg/dL Creatinine 1.3 H (0.55-1.02) mg/dL Est Cr Clr Drug Dosing 41.86 mL/min Estimated GFR (MDRD) 42 (>60) mL/min BUN/Creatinine Ratio 12.3 L (14-18) Glucose 120 H (74-106) mg/dL Calcium 8.9 (8.5-10.1) mg/dL Magnesium 1.8 (1.8-2.4) mg/dl Med Orders - Current: Current Medications Albuterol/Ipratropium (Duoneb 3.0-0.5 Mg/3 Ml) 3 ml NEB Q4H PRN PRN Reason: Shortness Of Breath/wheezing Bisacodyl (Dulcolax) 5 mg PO DAILY PRN PRN Reason: Constipation Chlordiazepoxide HCl (Librium) 25 mg PO Q8H PRN PRN Reason: Withdrawal Symptoms Last Admin: 05/05/17 00:58 Dose: 25 mg Clonidine HCl (Catapres) 0.1 mg PO Q4H PRN PRN Reason: Agitation Last Admin: 05/05/17 15:28 Dose: 0.1 mg Docusate Sodium (Colace) 100 mg PO BID PRN PRN Reason: Constipation Fluoxetine HCl (Prozac) 20 mg PO DAILY [facility] Last Admin: 05/06/17 09:26 Dose: 20 mg Folic Acid (Folic Acid) 1 mg PO DAILY [facility] Last Admin: 05/06/17 09:25 Dose: 1 mg Hydralazine HCl (Apresoline) 20 mg IVPUSH Q4H PRN PRN Reason: Hypertension Hydromorphone HCl (Dilaudid) 0.25 mg IVPUSH Q2H PRN PRN Reason: Pain (severe 7-10) Last Admin: 05/04/17 04:02 Dose: 0.25 mg Promethazine HCl 12.5 mg/ (Sodium Chloride) 50.5 mls @ 100 mls/hr IV Q6H PRN PRN Reason: Nausea/Vomiting Ibuprofen (Motrin) 600 mg PO Q6H PRN PRN Reason: Pain (moderate 4-6) Last Admin: 05/06/17 06:54 Dose: 600 mg Levothyroxine Sodium (Levothyroxine) 75 mcg PO ACBREAKFAST [facility] Last Admin: 05/06/17 05:43 Dose: 75 mcg Lorazepam (Ativan) 2 mg IVPUSH Q4H PRN PRN Reason: Seizures Lorazepam (Ativan) 1 - 3 mg IVPUSH Q4H PRN; Protocol PRN Reason: Withdrawal Symptoms Last Admin: 05/05/17 23:31 Dose: 2 mg Magnesium Oxide (Magnesium Oxide) 400 mg PO BID [facility] Last Admin: 05/06/17 09:25 Dose: 400 mg Magnesium Sulfate (Pharmacy To Dose - Magnesium Replacement) 1 dose .XX ASDIRECTED [facility] Metformin HCl (Glucophage) 500 mg PO BIDMEALS [facility] Last Admin: 05/06/17 06:54 Dose: 500 mg Metoprolol Tartrate (Lopressor) 5 mg IVPUSH Q4H PRN PRN Reason: Tachycardia Last Admin: 05/02/17 03:57 Dose: 5 mg Miscellaneous Information (Remove Patch) 1 ea TRDERM DAILY@1700 [facility] Last Admin: 05/05/17 16:31 Dose: 1 ea Multivitamins (Thera) 1 each PO DAILY [facility] Last Admin: 05/06/17 09:25 Dose: 1 each Nicotine (Habitrol) 21 mg TRDERM DAILY@1700 [facility] Last Admin: 05/05/17 16:31 Dose: 21 mg Nicotine Polacrilex (Nicorelief) 4 mg CHEW Q2H PRN PRN Reason: Other Last Admin: 05/05/17 18:23 Dose: 4 mg Ondansetron HCl (Zofran) 4 mg IV Q6H PRN PRN Reason: Nausea/Vomiting Oxycodone HCl (Oxycodone) 5 mg PO Q4H PRN PRN Reason: Pain (moderate 4-6) Last Admin: 05/06/17 09:25 Dose: 5 mg Pantoprazole Sodium (Protonix) 40 mg PO DAILY@0700 [facility] Last Admin: 05/06/17 06:54 Dose: 40 mg Polyethylene Glycol (Miralax) 17 gm PO DAILY PRN PRN Reason: Constipation Potassium Chloride (Pharmacy To Dose - Potassium Replacement) 1 dose .XX ASDIRECTED [facility] Potassium Chloride (Klor-Con M20) 20 meq PO DAILY [facility] Last Admin: 05/06/17 09:25 Dose: 20 meq Quetiapine Fumarate (Seroquel) 100 mg PO BEDTIME [facility] Last Admin: 05/05/17 20:29 Dose: 100 mg Senna/Docusate Sodium (Senna Plus) 1 tab PO BID PRN PRN Reason: Constipation Sodium Chloride (Saline Flush) 10 ml FLUSH ASDIRECTED PRN PRN Reason: Keep Vein Open Last Admin: 05/03/17 08:45 Dose: 10 ml Thiamine HCl (Vitamin B-1) 100 mg PO DAILY [facility] Last Admin: 05/06/17 09:25 Dose: 100 mg Topiramate (Topamax) 50 mg PO BID [facility] Last Admin: 05/06/17 09:26 Dose: 50 mg Discontinued Medications Diphenhydramine HCl (Benadryl) 25 mg IVPUSH ONETIME ONE Stop: 05/01/17 19:57 Last Admin: 05/01/17 20:14 Dose: 25 mg Diphenhydramine HCl (Benadryl) 50 mg IVPUSH ONETIME ONE Stop: 05/03/17 04:53 Last Admin: 05/03/17 05:03 Dose: 50 mg Folic Acid (Folic Acid) 1 mg SUBCUT ONETIME ONE Stop: 05/01/17 22:42 Last Admin: 05/01/17 23:56 Dose: 1 mg Folic Acid (Folic Acid) 1 mg PO DAILY [facility] Stop: 05/04/17 09:01 Last Admin: 05/04/17 08:05 Dose: 1 mg Haloperidol Lactate (Haldol) 2 mg IVPUSH ONETIME ONE Stop: 05/01/17 19:57 Last Admin: 05/01/17 20:13 Dose: 2 mg Haloperidol Lactate (Haldol) 5 mg IVPUSH ONETIME ONE Stop: 05/03/17 21:09 Last Admin: 05/03/17 21:23 Dose: 5 mg Haloperidol Lactate (Haldol) 5 mg IVPUSH ONETIME ONE Stop: 05/04/17 14:52 Last Admin: 05/04/17 14:57 Dose: 5 mg Lactated Ringer's (Ringers, Lactated) 1,000 mls @ 999 mls/hr IV .BOLUS ONE Stop: 05/01/17 20:56 Last Admin: 05/01/17 20:13 Dose: 999 mls/hr Potassium Chloride/Sodium Chloride (Normal Saline With 20 Meq Kcl) 1,000 mls @ 500 mls/hr IV ASDIRECTED [facility] Potassium Chloride 10 meq/ (Premix) 100 mls @ 100 mls/hr IV ASDIRECTED [facility] Last Admin: 05/01/17 21:23 Dose: 100 mls/hr Sodium Chloride (Normal Saline) 1,000 mls @ 999 mls/hr IV ONETIME ONE Stop: 05/01/17 22:16 Last Admin: 05/01/17 21:22 Dose: 999 mls/hr Thiamine HCl 100 mg/ Sodium (Chloride) 51 mls @ 100 mls/hr IV ONETIME ONE Stop: 05/01/17 23:11 Last Admin: 05/02/17 00:55 Dose: 100 mls/hr Potassium Chloride 10 meq/ (Premix) 100 mls @ 100 mls/hr IV Q1H [facility] Stop: 05/02/17 02:59 Last Admin: 05/02/17 02:52 Dose: 100 mls/hr Magnesium Sulfate (Magnesium Sulfate 2 Gm In Water 50 Ml) 50 mls @ 50 mls/hr IV ONETIME ONE Stop: 05/02/17 00:29 Last Admin: 05/01/17 23:55 Dose: 50 mls/hr Potassium Chloride 10 meq/ (Premix) 100 mls @ 100 mls/hr IV Q1H [facility] Stop: 05/03/17 12:29 Last Admin: 05/03/17 10:16 Dose: Not Given Sodium Chloride (Normal Saline) 1,000 mls @ 100 mls/hr IV ONETIME ONE Stop: 05/04/17 19:48 Last Admin: 05/04/17 10:14 Dose: 100 mls/hr Magnesium Sulfate 2 gm/ Premix 50 mls @ 25 mls/hr IV ONETIME ONE Stop: 05/05/17 09:59 Last Admin: 05/05/17 08:24 Dose: 25 mls/hr Magnesium Sulfate 2 gm/ Premix 50 mls @ 25 mls/hr IV ONETIME ONE Stop: 05/06/17 10:59 Last Admin: 05/06/17 09:16 Dose: 25 mls/hr Nicotine (Habitrol) 21 mg TRDERM DAILY [facility] Pantoprazole Sodium (Protonix Iv) 40 mg IV Q12HR [facility] Last Admin: 05/04/17 08:01 Dose: 40 mg Potassium Chloride (Klor-Con M20) 60 meq PO ONETIME ONE Stop: 05/01/17 23:09 Last Admin: 05/01/17 23:52 Dose: 60 meq Potassium Chloride (Klor-Con M20) 20 meq PO Q3H [facility] Stop: 05/02/17 13:01 Last Admin: 05/02/17 13:36 Dose: 20 meq Potassium Chloride (Klor-Con M20) 60 meq PO ONETIME ONE Stop: 05/03/17 08:21 Last Admin: 05/03/17 08:39 Dose: 60 meq Potassium Chloride (Klor-Con 10) 60 meq PO ONETIME ONE Stop: 05/03/17 12:01 Last Admin: 05/03/17 12:05 Dose: 60 meq Quetiapine Fumarate (Seroquel) 50 mg PO BEDTIME [facility] Last Admin: 05/03/17 20:12 Dose: 50 mg Quetiapine Fumarate (Seroquel) 25 mg PO DAILY [facility] Last Admin: 05/04/17 08:06 Dose: 25 mg Quetiapine Fumarate (Seroquel) 50 mg PO BID [facility] Last Admin: 05/05/17 08:34 Dose: 50 mg Topiramate (Topamax) 25 mg PO BID [facility] *Q Meaningful Use (DIS) - VTE *Q VTE Criteria *Q: - Stroke *Q Stroke Criteria *Q: - AMI *Q AMI Criteria *Q:
[2017-05-06] MEDS: Nicotine Polacrilex 2 MG Gum CHEW PRN (14:01)
[2017-05-06 15:44] VITALS: BP 102/87
[2017-05-06] MEDS: Nicotine 21 MG/24 Hr Patch TRDERM SCH (16:00)
== END 2017-05-06 16:54 | DRG 775 ==
LOC: JD.ED 19:13 → JD.ICU 21:49 → UNDOADMIN 21:49 → JD.MS 05-06 06:10
PROVIDERS: ADMIT Internal Medicine; ATTEND Internal Medicine
DX: F10.239 Alcohol dependence with withdrawal, unspecified (principal); F10.229 Alcohol dependence with intoxication, unspecified; Y90.1 Blood alcohol level of 20-39 mg/100 ml; E87.6 Hypokalemia; E83.42 Hypomagnesemia; R19.7 Diarrhea, unspecified; H54.7 Unspecified visual loss; J45.909 Unspecified asthma, uncomplicated; G89.29 Other chronic pain; M54.2 Cervicalgia; F32.3 Major depressive disorder, single episode, severe with psychotic features; F41.9 Anxiety disorder, unspecified; F23 Brief psychotic disorder; F17.210 Nicotine dependence, cigarettes, uncomplicated; D72.829 Elevated white blood cell count, unspecified; H26.9 Unspecified cataract; E03.9 Hypothyroidism, unspecified; E11.9 Type 2 diabetes mellitus without complications; Z79.84 Long term (current) use of oral hypoglycemic drugs; Z88.8 Allergy status to other drugs, medicaments and biological substances; Z79.899 Other long term (current) drug therapy
CPT/HCPCS: 36415; 36600; 80048; 80053; 80306; 81001; 82009; 82803; 83690; 83735; 83930; 84132; 85025; 85610; 85730; 93005; 96361; 96365; 96375; 97162-GP; 99284; 99285-25; A9270-GY; C9113; G0480; J1170; J1200; J1630; J2060; J3411; J3475; J3480; J3490; J7040; J7050; J7120; P9612

== ENCOUNTER 2017-12-31 14:19 | Inpatient (IN) | payer BC ==
[2017-12-31] MEDS ORDERED: Dextrose 5%-0.9% NaCl 1,000 ML ONE (14:31)
--- NOTE | 2017-12-31 14:32 | EDM.PDOC ---
ED HPI GENERAL MEDICAL PROBLEM <TamaranicolgelapanchoShantell Bruce - Last Filed: 01/01/18 00:35> - General Source of Information: Reports: EMS History Limitations: Reports: Altered Mental Status ( arrives unresponsive. ) - History of Present Illness Onset: Today Onset Date: 12/31/17 (Unknown what time seizure may have occurred as information is being re-'s's received from third and fourth parties.) Duration: Other (Unknown.) Context: 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 (This story is suggestive that the patient suffered a grand mal convulsion home here in [place]. Paramedics were summoned and the patient was found lying on a garage floor.) Associated Symptoms: 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 (Patient is totally obtunded at the time of assessment. She was requiring oxygen for support. She did receive 2 mg of Ativan by paramedics due to combative behavior presumed to be postictal.) Generalized Pain Score (Numeric/FACES): 6 Back Pain Score (Numeric/FACES): 1 <Clinton Chambers - Last Filed: 01/03/18 07:28> - General Chief Complaint: Neuro Symptoms/Deficits Stated Complaint: [facility] Time Seen by Provider: 12/31/17 14:20 - History of Present Illness INITIAL COMMENTS - FREE TEXT/NARRATIVE: 62-year-old female brought to the ED per ambulance. The history provided by EMS is that she was found unresponsive after having a seizure . She was found in a garage --on a concrete floor. The EMS personelle are highly suspicious she was dragged out of the house and placed on the garage floor as they have picked her up from the garage floor in the past. It is his as if there are things going on in the home that the surgery specialist does not want anybody to see. Jemima is a known alcoholic and has had alcohol withdrawal seizures in the past. Is unclear whether she is on many medication for this. She arrives totally unresponsive. Apparently she was alert at the time of the paramedics found her but confused disoriented and somewhat combat of compatible with postictal state. They started an IV and gave her 2 mg of Ativan which quieted her down. She presents totally obtunded at the time of assessment. Unable to answer any questions. There are no outward signs of head trauma. Apparently her last drink was last evening according to significant other at the home. It is unclear whether any other street drugs or being utilized. She has been seen through the ED in the past with low serum potassiums and alcohol withdrawal seizures. (Clinton Chambers) - Related Data Allergies Allergy/AdvReac Type Severity Reaction Status Date / Time carisoprodol [From Soma] Allergy Cannot Verified 01/02/18 18:51 Remember Home Meds: Home Meds Levothyroxine 75 mcg PO ACBREAKFAST #30 tablet 03/06/17 [Rx] Magnesium Oxide 400 mg PO BID #60 tablet 03/06/17 [Rx] Ibuprofen [Motrin] 600 mg PO Q6H #30 tablet 04/07/17 [Rx] metFORMIN [Glucophage] 500 mg PO BIDMEALS #60 tablet 04/07/17 [Rx] Celecoxib 100 mg PO BID 01/01/18 [History] Gabapentin [Neurontin] 300 mg PO TID 01/01/18 [History] PARoxetine [Paxil] 20 mg PO BEDTIME 01/01/18 [History] lamoTRIgine [Lamotrigine] 150 mg PO BID 01/01/18 [History] Past Medical History HEENT History: Reports: Impaired Vision Respiratory History: Reports: Asthma 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 (See Below) Other OB/BYN History: tumor on uterus Musculoskeletal History: Reports: Back Pain, Chronic, Neck Pain, Chronic Psychiatric History: Reports: Addiction, Depression Oncologic (Cancer) History: 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 (See Below) Other Oncologic History: precancerous uterine tumour removed with hysterectomy - Infectious Disease History Infectious Disease History: Reports: Chicken Pox - Past Surgical History HEENT Surgical History: 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 (See Below) Other HEENT Surgeries/Procedures: rhinoplasty Respiratory Surgical History: Reports: None Female Surgical History: Reports: Hysterectomy Other Female Surgeries/Procedures: partial hysterectomy Musculoskeletal Surgical History: Reports: None Oncologic Surgical History: 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 (See Below) Other Oncologic Surgeries/Procedures: hysterectomy <Clinton Chambers - Last Filed: 01/03/18 07:28> Social & Family History - Family History Family Medical History: Noncontributory Other HEENT Family History: pt. adopted and unsure of family medical history. states her children do not have medical concerns. - Caffeine Use Caffeine Use: Reports: None Other Caffeine Use: - unknown patient poor historian - Living Situation & Occupation Occupation: Unemployed <Clinton Chambers - Last Filed: 01/03/18 07:28> ED ROS GENERAL - Review of Systems Review Of Systems: Unable To Obtain (Patient is totally obtunded and nonverbal at this time.) <Clinton Chambers - Last Filed: 01/03/18 07:28> - Physical Exam Exam: See Below Exam Limited By: Altered Mental Status (Unresponsive) General Appearance: Obtunded (Unresponsive) Eye Exam: Bilateral Eye: Normal Inspection, Other (No obvious gaze palsy.) Throat/Mouth: Other (Oropharynx is inflamed. There is a small bite erika to the anterior tip of her right tongue.) Head Exam: Atraumatic, Normocephalic, Other (No outward signs of head or facial trauma identified.) Neck: Supple, Non-Tender, Full Range of Motion Respiratory/Chest: No Accessory Muscle Use, Decreased Breath Sounds (Patient is taking very shallow respirations with breath sounds diminished to the lower 50% of lung rao.), Wheezing (Occasional scattered expiratory wheezes.), Other ( O2 sats are). No: Lungs Clear, Normal Breath Sounds Cardiovascular: Regular Rate, Rhythm (Resting tachycardia of 1 16/m.), No Murmur , No Rub, Tachycardia GI/Abdominal: Normal Bowel Sounds, Soft, Non-Tender, No Organomegaly Neuro Exam (Abbreviated): Unresponsive DTR: 0: Bicep (R), Bicep (L), Tricep (R), Tricep (L), Patella (R), Patella (L), Achilles (R), Achilles (L) Back Exam: Normal Inspection Extremities: Normal Inspection, Normal Range of Motion, Non-Tender, No Pedal Edema, Normal Capillary Refill Skin Exam: Warm, Dry, Intact, Normal Color, No Rash <Clinton Chambers - Last Filed: 01/03/18 07:28> Course <Shantell Ruiz - Last Filed: 01/01/18 00:35> <Clinton Chambers - Last Filed: 01/03/18 07:28> - Vital Signs Last Recorded V/S: Last Vital Signs Temp 36.2 C 01/03/18 04:00 Pulse 84 01/03/18 04:00 Resp 15 01/03/18 04:00 BP 127/94 H 01/03/18 04:00 Pulse Ox 95 01/03/18 04:00 - Orders/Labs/Meds Orders: Medication Orders Albuterol/Ipratropium (Duoneb 3.0-0.5 Mg/3 Ml) 3 ml NEB Q4H PRN PRN Reason: Shortness Of Breath/wheezing Last Admin: 01/01/18 08:24 Dose: 3 ml Albuterol/Ipratropium (Duoneb 3.0-0.5 Mg/3 Ml) 3 ml NEB BIDRT [facility] Last Admin: 01/03/18 05:23 Dose: 3 ml Admin: 01/02/18 20:27 Dose: 3 ml Admin: 01/02/18 05:51 Dose: 3 ml Admin: 01/01/18 21:13 Dose: 3 ml Bisacodyl (Dulcolax) 5 mg PO DAILY PRN PRN Reason: Constipation Celecoxib (Celebrex) 100 mg PO BID [facility] Last Admin: 01/02/18 20:13 Dose: 100 mg Admin: 01/02/18 08:17 Dose: 100 mg Admin: 01/01/18 20:17 Dose: 100 mg Clonidine HCl (Catapres) 0.1 mg PO Q4H PRN PRN Reason: Agitation Docusate Sodium (Colace) 100 mg PO BID PRN PRN Reason: Constipation Folic Acid (Folic Acid) 1 mg PO DAILY [facility] Stop: 01/03/18 09:01 Last Admin: 01/02/18 08:17 Dose: 1 mg Admin: 01/01/18 08:18 Dose: 1 mg Gabapentin (Neurontin) 300 mg PO TID [facility] Last Admin: 01/02/18 20:14 Dose: 300 mg Admin: 01/02/18 16:57 Dose: 300 mg Admin: 01/02/18 08:18 Dose: 300 mg Admin: 01/01/18 20:17 Dose: 300 mg Haloperidol Lactate (Haldol) 4 mg IM Q4H PRN PRN Reason: Agitation/Psychosis Hydralazine HCl (Apresoline) 20 mg IVPUSH Q4H PRN PRN Reason: Hypertension Last Admin: 01/02/18 04:41 Dose: 20 mg Admin: 01/01/18 12:10 Dose: 20 mg Promethazine HCl 12.5 mg/ (Sodium Chloride) 50.5 mls @ 100 mls/hr IV Q6H PRN PRN Reason: Nausea/Vomiting Ibuprofen (Motrin) 600 mg PO Q6H PRN PRN Reason: Pain (moderate 4-6) Last Admin: 01/03/18 02:36 Dose: 600 mg Admin: 01/02/18 20:13 Dose: 600 mg Admin: 01/02/18 12:05 Dose: 600 mg Admin: 01/02/18 04:02 Dose: 600 mg Admin: 01/01/18 01:44 Dose: 600 mg Lamotrigine (Lamotrigine) 175 mg PO BID [facility] Last Admin: 01/02/18 20:13 Dose: 175 mg Levothyroxine Sodium (Levothyroxine) 75 mcg PO ACBREAKFAST [facility] Last Admin: 01/03/18 05:26 Dose: 75 mcg Admin: 01/02/18 05:47 Dose: 75 mcg Admin: 01/01/18 06:31 Dose: 75 mcg Lorazepam (Ativan) 2 mg IVPUSH Q4H PRN PRN Reason: Seizures Lorazepam (Ativan) 0 mg IVPUSH Q4H PRN; Protocol PRN Reason: Withdrawal Symptoms Last Admin: 01/01/18 04:53 Dose: 2 mg Metformin HCl (Glucophage) 500 mg PO BIDMEALS [facility] Last Admin: 01/02/18 16:57 Dose: 500 mg Admin: 01/02/18 06:15 Dose: 500 mg Admin: 01/01/18 16:35 Dose: 500 mg Admin: 01/01/18 06:32 Dose: 500 mg Methylprednisolone Sodium Succinate (Solu-Medrol) 60 mg IVPUSH Q8H [facility] Last Admin: 01/03/18 04:36 Dose: 60 mg Admin: 01/02/18 20:10 Dose: 60 mg Admin: 01/02/18 12:05 Dose: 60 mg Admin: 01/02/18 04:01 Dose: 60 mg Admin: 01/01/18 20:10 Dose: 60 mg Admin: 01/01/18 12:00 Dose: 60 mg Metoprolol Tartrate (Lopressor) 5 mg IVPUSH Q4H PRN PRN Reason: Tachycardia Last Admin: 01/02/18 08:18 Dose: 5 mg Mirtazapine (Remeron) 15 mg PO BEDTIME [facility] Last Admin: 01/02/18 20:13 Dose: 15 mg Miscellaneous Information (Remove Patch) 1 ea TRDERM Q24H [facility] Last Admin: 01/02/18 21:20 Dose: 1 ea Admin: 01/02/18 04:41 Dose: 1 ea Miscellaneous Information (Remove Patch) 1 ea TRDERM Q72H [facility] Nicotine (Habitrol) 21 mg TRDERM DAILY PRN PRN Reason: Nicotine Ondansetron HCl (Zofran) 4 mg IV Q6H PRN PRN Reason: Nausea/Vomiting Pantoprazole Sodium (Protonix Iv) 40 mg IV Q12HR [facility] Last Admin: 01/02/18 20:13 Dose: 40 mg Admin: 01/02/18 08:18 Dose: 40 mg Admin: 01/01/18 20:09 Dose: 40 mg Admin: 01/01/18 08:12 Dose: 40 mg Polyethylene Glycol (Miralax) 17 gm PO DAILY PRN PRN Reason: Constipation Senna/Docusate Sodium (Senna Plus) 1 tab PO BID PRN PRN Reason: Constipation Thiamine HCl (Vitamin B-1) 100 mg PO DAILY [facility] Last Admin: 01/02/18 08:17 Dose: 100 mg Venlafaxine HCl (Effexor Xr) 37.5 mg PO DAILY [facility] Labs: Laboratory Tests 12/31/17 12/31/17 12/31/17 Range/Units 14:28 14:30 14:30 WBC (3.98-10.04) K/mm3 RBC (3.98-5.22) M/mm3 Hgb (11.2-15.7) gm/L Hct (34.1-44.9) % MCV (79.4-94.8) fl MCH (25.6-32.2) pg MCHC (32.2-35.5) g/dl RDW Std Deviation (36.4-46.3) fL Plt Count (182-369) K/mm3 MPV (9.4-12.3) fl Neutrophils % (Manual) (40-60) % Band Neutrophils % (0-10) % Lymphocytes % (Manual) (20-40) % Atypical Lymphs % % Monocytes % (Manual) (2-10) % Eosinophils % (Manual) (0.7-5.8) % Basophils % (Manual) (0.1-1.2) Platelet Estimate Plt Morphology Comment RBC Morph Comment PT (9.5-12.1) SECONDS INR D-Dimer, Quantitative (0.19-0.50) mg/L Sodium (136-145) mEq/L Potassium (3.5-5.1) mEq/L Chloride (98-107) mEq/L Carbon Dioxide (21-32) mEq/L Anion Gap (5-15) BUN (7-18) mg/dL Creatinine (0.55-1.02) mg/dL Est Cr Clr Drug Dosing mL/min Estimated GFR (MDRD) (>60) mL/min BUN/Creatinine Ratio (14-18) Glucose (74-106) mg/dL POC Glucose 195 H (70-105) mg/dL Serum Osmolality (280-300) mosm/kg Calcium (8.5-10.1) mg/dL Magnesium (1.8-2.4) mg/dl Total Bilirubin (0.2-1.0) mg/dL AST (15-37) U/L ALT (14-59) U/L Alkaline Phosphatase (46-116) U/L C-Reactive Protein (<1.0) mg/dL Total Protein (6.4-8.2) g/dl Albumin (3.4-5.0) g/dl Globulin gm/dL Albumin/Globulin Ratio (1-2) Lipase (73-393) U/L Urine Color Yellow (Yellow) Urine Appearance Clear (Clear) Urine pH 6.5 (5.0-8.0) Ur Specific [place] 1.015 (1.005-1.030) Urine Protein 1+ H (Negative) Urine Glucose (UA) Negative (Negative) Urine Ketones Negative (Negative) Urine Occult Blood Negative (Negative) Urine Nitrite Negative (Negative) Urine Bilirubin Negative (Negative) Urine Urobilinogen 0.2 (0.2-1.0) Ur Leukocyte Esterase Negative (Negative) Urine RBC Not seen (0-5) /hpf Urine WBC Not seen (0-5) /hpf Ur Epithelial Cells 0-5 (0-5) /hpf Urine Bacteria Not seen (FEW) /hpf Urine Mucus Not seen (FEW) /hpf Urine Opiates Screen Negative (NEGATIVE) Ur Buprenorphine Scrn Negative (NEGATIVE) Ur Oxycodone Screen Negative (NEGATIVE) Urine Methadone Screen Negative (NEGATIVE) Ur Propoxyphene Screen Negative (NEGATIVE) Ur Barbiturates Screen Negative (NEGATIVE) Ur Tricyclics Screen Negative (NEGATIVE) Ur Phencyclidine Scrn Negative (NEGATIVE) Ur Amphetamine Screen Negative (NEGATIVE) U Methamphetamines Scrn Negative (NEGATIVE) U Benzodiazepines Scrn Negative (NEGATIVE) U Cocaine Metab Screen Negative (NEGATIVE) U Marijuana (THC) Screen Negative (NEGATIVE) Ethyl Alcohol (0.00) gm% Ketones (0.0-0.3) mM Hep Bs Antigen (NONREACTIVE) Hepatitis C Antibody (NEGATIVE) HIV-1 Ab Rapid Screen (NEGATIVE) 12/31/17 12/31/17 12/31/17 Range/Units 14:48 14:48 14:48 WBC 8.41 (3.98-10.04) K/mm3 RBC 4.80 (3.98-5.22) M/mm3 Hgb 14.9 (11.2-15.7) gm/L Hct 44.3 (34.1-44.9) % MCV 92.3 (79.4-94.8) fl MCH 31.0 (25.6-32.2) pg MCHC 33.6 (32.2-35.5) g/dl RDW Std Deviation 43.0 (36.4-46.3) fL Plt Count 276 (182-369) K/mm3 MPV 9.6 (9.4-12.3) fl Neutrophils % (Manual) 61 H (40-60) % Band Neutrophils % 0 (0-10) % Lymphocytes % (Manual) 38 (20-40) % Atypical Lymphs % 0 % Monocytes % (Manual) 1 L (2-10) % Eosinophils % (Manual) 0 L (0.7-5.8) % Basophils % (Manual) 0 L (0.1-1.2) Platelet Estimate Adequate Plt Morphology Comment Normal RBC Morph Comment Normal PT 12.0 (9.5-12.1) SECONDS INR 1.10 D-Dimer, Quantitative (0.19-0.50) mg/L Sodium 140 (136-145) mEq/L Potassium 3.4 L (3.5-5.1) mEq/L Chloride 104 (98-107) mEq/L Carbon Dioxide 24 (21-32) mEq/L Anion Gap 15.4 H (5-15) BUN 17 (7-18) mg/dL Creatinine 0.9 (0.55-1.02) mg/dL Est Cr Clr Drug Dosing 62.23 mL/min Estimated GFR (MDRD) > 60 (>60) mL/min BUN/Creatinine Ratio 18.9 H (14-18) Glucose 178 H (74-106) mg/dL POC Glucose (70-105) mg/dL Serum Osmolality 342 H (280-300) mosm/kg Calcium 8.5 (8.5-10.1) mg/dL Magnesium 1.3 L (1.8-2.4) mg/dl Total Bilirubin 0.2 (0.2-1.0) mg/dL AST 41 H (15-37) U/L ALT 49 (14-59) U/L Alkaline Phosphatase 139 H (46-116) U/L C-Reactive Protein < 0.2 (<1.0) mg/dL Total Protein 7.9 (6.4-8.2) g/dl Albumin 4.0 (3.4-5.0) g/dl Globulin 3.9 gm/dL Albumin/Globulin Ratio 1.0 (1-2) Lipase 159 (73-393) U/L Urine Color (Yellow) Urine Appearance (Clear) Urine pH (5.0-8.0) Ur Specific [place] (1.005-1.030) Urine Protein (Negative) Urine Glucose (UA) (Negative) Urine Ketones (Negative) Urine Occult Blood (Negative) Urine Nitrite (Negative) Urine Bilirubin (Negative) Urine Urobilinogen (0.2-1.0) Ur Leukocyte Esterase (Negative) Urine RBC (0-5) /hpf Urine WBC (0-5) /hpf Ur Epithelial Cells (0-5) /hpf Urine Bacteria (FEW) /hpf Urine Mucus (FEW) /hpf Urine Opiates Screen (NEGATIVE) Ur Buprenorphine Scrn (NEGATIVE) Ur Oxycodone Screen (NEGATIVE) Urine Methadone Screen (NEGATIVE) Ur Propoxyphene Screen (NEGATIVE) Ur Barbiturates Screen (NEGATIVE) Ur Tricyclics Screen (NEGATIVE) Ur Phencyclidine Scrn (NEGATIVE) Ur Amphetamine Screen (NEGATIVE) U Methamphetamines Scrn (NEGATIVE) U Benzodiazepines Scrn (NEGATIVE) U Cocaine Metab Screen (NEGATIVE) U Marijuana (THC) Screen (NEGATIVE) Ethyl Alcohol 0.14 (0.00) gm% Ketones (0.0-0.3) mM Hep Bs Antigen (NONREACTIVE) Hepatitis C Antibody (NEGATIVE) HIV-1 Ab Rapid Screen (NEGATIVE) 12/31/17 12/31/17 12/31/17 Range/Units 14:48 14:48 14:48 WBC (3.98-10.04) K/mm3 RBC (3.98-5.22) M/mm3 Hgb (11.2-15.7) gm/L Hct (34.1-44.9) % MCV (79.4-94.8) fl MCH (25.6-32.2) pg MCHC (32.2-35.5) g/dl RDW Std Deviation (36.4-46.3) fL Plt Count (182-369) K/mm3 MPV (9.4-12.3) fl Neutrophils % (Manual) (40-60) % Band Neutrophils % (0-10) % Lymphocytes % (Manual) (20-40) % Atypical Lymphs % % Monocytes % (Manual) (2-10) % Eosinophils % (Manual) (0.7-5.8) % Basophils % (Manual) (0.1-1.2) Platelet Estimate Plt Morphology Comment RBC Morph Comment PT (9.5-12.1) SECONDS INR D-Dimer, Quantitative 0.55 H (0.19-0.50) mg/L Sodium (136-145) mEq/L Potassium (3.5-5.1) mEq/L Chloride (98-107) mEq/L Carbon Dioxide (21-32) mEq/L Anion Gap (5-15) BUN (7-18) mg/dL Creatinine (0.55-1.02) mg/dL Est Cr Clr Drug Dosing mL/min Estimated GFR (MDRD) (>60) mL/min BUN/Creatinine Ratio (14-18) Glucose (74-106) mg/dL POC Glucose (70-105) mg/dL Serum Osmolality (280-300) mosm/kg Calcium (8.5-10.1) mg/dL Magnesium (1.8-2.4) mg/dl Total Bilirubin (0.2-1.0) mg/dL AST (15-37) U/L ALT (14-59) U/L Alkaline Phosphatase (46-116) U/L C-Reactive Protein (<1.0) mg/dL Total Protein (6.4-8.2) g/dl Albumin (3.4-5.0) g/dl Globulin gm/dL Albumin/Globulin Ratio (1-2) Lipase (73-393) U/L Urine Color (Yellow) Urine Appearance (Clear) Urine pH (5.0-8.0) Ur Specific [place] (1.005-1.030) Urine Protein (Negative) Urine Glucose (UA) (Negative) Urine Ketones (Negative) Urine Occult Blood (Negative) Urine Nitrite (Negative) Urine Bilirubin (Negative) Urine Urobilinogen (0.2-1.0) Ur Leukocyte Esterase (Negative) Urine RBC (0-5) /hpf Urine WBC (0-5) /hpf Ur Epithelial Cells (0-5) /hpf Urine Bacteria (FEW) /hpf Urine Mucus (FEW) /hpf Urine Opiates Screen (NEGATIVE) Ur Buprenorphine Scrn (NEGATIVE) Ur Oxycodone Screen (NEGATIVE) Urine Methadone Screen (NEGATIVE) Ur Propoxyphene Screen (NEGATIVE) Ur Barbiturates Screen (NEGATIVE) Ur Tricyclics Screen (NEGATIVE) Ur Phencyclidine Scrn (NEGATIVE) Ur Amphetamine Screen (NEGATIVE) U Methamphetamines Scrn (NEGATIVE) U Benzodiazepines Scrn (NEGATIVE) U Cocaine Metab Screen (NEGATIVE) U Marijuana (THC) Screen (NEGATIVE) Ethyl Alcohol (0.00) gm% Ketones 0.16 (0.0-0.3) mM Hep Bs Antigen (NONREACTIVE) Hepatitis C Antibody Positive H (NEGATIVE) HIV-1 Ab Rapid Screen (NEGATIVE) 12/31/17 12/31/17 12/31/17 Range/Units 14:48 14:48 22:09 WBC (3.98-10.04) K/mm3 RBC (3.98-5.22) M/mm3 Hgb (11.2-15.7) gm/L Hct (34.1-44.9) % MCV (79.4-94.8) fl MCH (25.6-32.2) pg MCHC (32.2-35.5) g/dl RDW Std Deviation (36.4-46.3) fL Plt Count (182-369) K/mm3 MPV (9.4-12.3) fl Neutrophils % (Manual) (40-60) % Band Neutrophils % (0-10) % Lymphocytes % (Manual) (20-40) % Atypical Lymphs % % Monocytes % (Manual) (2-10) % Eosinophils % (Manual) (0.7-5.8) % Basophils % (Manual) (0.1-1.2) Platelet Estimate Plt Morphology Comment RBC Morph Comment PT (9.5-12.1) SECONDS INR D-Dimer, Quantitative (0.19-0.50) mg/L Sodium (136-145) mEq/L Potassium (3.5-5.1) mEq/L Chloride (98-107) mEq/L Carbon Dioxide (21-32) mEq/L Anion Gap (5-15) BUN (7-18) mg/dL Creatinine (0.55-1.02) mg/dL Est Cr Clr Drug Dosing mL/min Estimated GFR (MDRD) (>60) mL/min BUN/Creatinine Ratio (14-18) Glucose (74-106) mg/dL POC Glucose 144 H (70-105) mg/dL Serum Osmolality (280-300) mosm/kg Calcium (8.5-10.1) mg/dL Magnesium (1.8-2.4) mg/dl Total Bilirubin (0.2-1.0) mg/dL AST (15-37) U/L ALT (14-59) U/L Alkaline Phosphatase (46-116) U/L C-Reactive Protein (<1.0) mg/dL Total Protein (6.4-8.2) g/dl Albumin (3.4-5.0) g/dl Globulin gm/dL Albumin/Globulin Ratio (1-2) Lipase (73-393) U/L Urine Color (Yellow) Urine Appearance (Clear) Urine pH (5.0-8.0) Ur Specific [place] (1.005-1.030) Urine Protein (Negative) Urine Glucose (UA) (Negative) Urine Ketones (Negative) Urine Occult Blood (Negative) Urine Nitrite (Negative) Urine Bilirubin (Negative) Urine Urobilinogen (0.2-1.0) Ur Leukocyte Esterase (Negative) Urine RBC (0-5) /hpf Urine WBC (0-5) /hpf Ur Epithelial Cells (0-5) /hpf Urine Bacteria (FEW) /hpf Urine Mucus (FEW) /hpf Urine Opiates Screen (NEGATIVE) Ur Buprenorphine Scrn (NEGATIVE) Ur Oxycodone Screen (NEGATIVE) Urine Methadone Screen (NEGATIVE) Ur Propoxyphene Screen (NEGATIVE) Ur Barbiturates Screen (NEGATIVE) Ur Tricyclics Screen (NEGATIVE) Ur Phencyclidine Scrn (NEGATIVE) Ur Amphetamine Screen (NEGATIVE) U Methamphetamines Scrn (NEGATIVE) U Benzodiazepines Scrn (NEGATIVE) U Cocaine Metab Screen (NEGATIVE) U Marijuana (THC) Screen (NEGATIVE) Ethyl Alcohol (0.00) gm% Ketones (0.0-0.3) mM Hep Bs Antigen Nonreactive (NONREACTIVE) Hepatitis C Antibody (NEGATIVE) HIV-1 Ab Rapid Screen Negative (NEGATIVE) Meds: Medications Generic Name Dose Route Start Last Admin Trade Name Freq PRN Reason Stop Dose Admin Albuterol/Ipratropium 3 ml 01/01/18 00:54 01/01/18 08:24 Duoneb 3.0-0.5 Mg/3 Ml NEB 3 ml Q4H PRN Administration Shortness Of Breath/wheezing Albuterol/Ipratropium 3 ml 01/01/18 21:00 01/03/18 05:23 Duoneb 3.0-0.5 Mg/3 Ml NEB 3 ml BIDRT [facility] Administration Bisacodyl 5 mg 01/01/18 00:54 Dulcolax PO DAILY PRN Constipation Celecoxib 100 mg 01/01/18 21:00 01/02/18 20:13 Celebrex PO 100 mg BID [facility] Administration Clonidine HCl 0.1 mg 01/01/18 01:03 Catapres PO Q4H PRN Agitation Docusate Sodium 100 mg 01/01/18 00:54 Colace PO BID PRN Constipation Folic Acid 1 mg 01/01/18 09:00 01/02/18 08:17 Folic Acid PO 01/03/18 09:01 1 mg DAILY [facility] Administration Gabapentin 300 mg 01/01/18 21:00 01/02/18 20:14 Neurontin PO 300 mg TID [facility] Administration Haloperidol Lactate 4 mg 01/01/18 01:25 Haldol IM Q4H PRN Agitation/Psychosis Hydralazine HCl 20 mg 01/01/18 00:53 01/02/18 04:41 Apresoline IVPUSH 20 mg Q4H PRN Administration Hypertension Promethazine HCl 12.5 mg/ 50.5 mls @ 100 mls/hr 01/01/18 00:54 Sodium Chloride IV Q6H PRN Nausea/Vomiting Ibuprofen 600 mg 01/01/18 00:54 01/03/18 02:36 Motrin PO 600 mg Q6H PRN Administration Pain (moderate 4-6) Lamotrigine 175 mg 01/02/18 21:00 01/02/18 20:13 Lamotrigine PO 175 mg BID [facility] Administration Levothyroxine Sodium 75 mcg 01/01/18 06:00 01/03/18 05:26 Levothyroxine PO 75 mcg ACBREAKFAST [facility] Administration Lorazepam 2 mg 01/01/18 00:53 Ativan IVPUSH Q4H PRN Seizures Lorazepam 0 mg 01/01/18 00:53 01/01/18 04:53 Ativan IVPUSH 2 mg Q4H PRN Administration Withdrawal Symptoms Protocol Metformin HCl 500 mg 01/01/18 07:00 01/02/18 16:57 Glucophage PO 500 mg BIDMEALS [facility] Administration Methylprednisolone Sodium Succinate 60 mg 01/01/18 12:00 01/03/18 04:36 Solu-Medrol IVPUSH 60 mg Q8H [facility] Administration Metoprolol Tartrate 5 mg 01/01/18 00:53 01/02/18 08:18 Lopressor IVPUSH 5 mg Q4H PRN Administration Tachycardia Mirtazapine 15 mg 01/02/18 21:00 01/02/18 20:13 Remeron PO 15 mg BEDTIME [facility] Administration Miscellaneous Information 1 ea 01/01/18 21:00 01/02/18 21:20 Remove Patch TRDERM 1 ea Q24H RAAD Administration Miscellaneous Information 1 ea 01/03/18 21:00 Remove Patch TRDERM Q72H RAAD Nicotine 21 mg 01/01/18 01:03 Habitrol TRDERM DAILY PRN Nicotine Ondansetron HCl 4 mg 01/01/18 00:54 Zofran IV Q6H PRN Nausea/Vomiting Pantoprazole Sodium 40 mg 01/01/18 09:00 01/02/18 20:13 Protonix Iv IV 40 mg Q12HR RAAD Administration Polyethylene Glycol 17 gm 01/01/18 00:54 Miralax PO DAILY PRN Constipation Senna/Docusate Sodium 1 tab 01/01/18 00:54 Senna Plus PO BID PRN Constipation Thiamine HCl 100 mg 01/02/18 09:00 01/02/18 08:17 Vitamin B-1 PO 100 mg DAILY RAAD Administration Venlafaxine HCl 37.5 mg 01/03/18 09:00 Effexor Xr PO DAILY RAAD Discontinued Medications Generic Name Dose Route Start Last Admin Trade Name Freq PRN Reason Stop Dose Admin Fluoxetine HCl 20 mg 01/01/18 09:00 01/02/18 08:17 Prozac PO 20 mg DAILY RAAD Administration Haloperidol Lactate 2 mg 01/01/18 01:03 Haldol IM Q4H PRN Agitation/Psychosis Hydromorphone HCl 0.25 mg 01/01/18 00:54 Dilaudid IVPUSH Q2H PRN Pain (severe 7-10) Sodium Chloride 1,000 mls @ 500 mls/hr 12/31/17 14:45 12/31/17 14:35 Normal Saline IV 500 mls/hr ASDIRECTED RAAD Administration Levetiracetam 500 mg/ Sodium 105 mls @ 400 mls/hr 12/31/17 14:34 12/31/17 15: 11 Chloride IV 12/31/17 14:48 400 mls/hr ONETIME ONE Administration Dextrose/Sodium Chloride Confirm 12/31/17 14:31 12/31/17 14:36 Dextrose 5%-Normal Saline Administered 12/31/17 14:32 Not Given Dose 1,000 mls @ as directed .ROUTE .STK-MED ONE Lactated Ringer's 1,000 mls @ 200 mls/hr 12/31/17 16:45 12/31/17 16:43 Ringers, Lactated IV 200 mls/hr ASDIRECTED RAAD Administration Magnesium Sulfate 2 gm/ Premix 50 mls @ 25 mls/hr 12/31/17 16:34 12/31/17 16: 44 IV 12/31/17 18:33 25 mls/hr ONETIME ONE Administration Lactated Ringer's 1,000 mls @ 150 mls/hr 12/31/17 22:15 12/31/17 22:20 Ringers, Lactated IV 150 mls/hr ASDIRECTED RAAD Administration Magnesium Sulfate 50 mls @ 25 mls/hr 01/01/18 01:30 01/01/18 03:56 Magnesium Sulfate 2 Gm In Water 50 Ml IV 01/01/18 05:29 25 mls/hr Q2H RAAD Administration Thiamine HCl 200 mg/ Sodium 52 mls @ 100 mls/hr 01/01/18 01:03 01/01/18 01:55 Chloride IV 01/01/18 01:33 100 mls/hr ONETIME ONE Administration Magnesium Sulfate 2 gm/ Premix 50 mls @ 25 mls/hr 01/02/18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
[2017-12-31] MEDS ORDERED: levETIRAcetam 500 MG in Sodium Chloride 0.9% 100 ML IV ONE (14:34)
[2017-12-31] MEDS ORDERED: Sodium Chloride 0.9% 1,000 ML IV SCH (14:45)
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
[2017-12-31] MEDS ORDERED: Magnesium Sulfate/Water 2 GM in Premix Bag 1 BAG IV ONE (16:34)
[2017-12-31] MEDS ORDERED: Lactated Ringers 1,000 ML IV SCH ×2 (16:45→22:15)
[2017-12-31] MEDS ORDERED: Ondansetron 4 MG/2 ML SDV IVPUSH ONE ×2 (18:51→22:27)
[2018-01-01] MEDS ORDERED: LORazepam 2 MG/ML SDV IVPUSH PRN ×2 (00:53)
[2018-01-01] MEDS ORDERED: Bisacodyl 5 MG Tab PO PRN (00:54)
[2018-01-01] MEDS ORDERED: Polyethylene Glycol 3350 Powder 17 GM Packet PO PRN (00:54)
[2018-01-01] MEDS ORDERED: HYDROmorphone 0.5 MG/0.5 ML SYRINGE IVPUSH PRN (00:54)
[2018-01-01] MEDS ORDERED: Ondansetron 4 MG/2 ML SDV IV PRN (00:54)
[2018-01-01] MEDS ORDERED: Promethazine 12.5 MG in Sodium Chloride 0.9% 50 ML IV PRN (00:54)
[2018-01-01] MEDS ORDERED: Albuterol/Ipratropium 3.0-0.5 MG/3 ML Neb Soln NEB PRN (00:54)
[2018-01-01] MEDS ORDERED: Docusate Sodium 100 MG Cap PO PRN (00:54)
[2018-01-01] MEDS ORDERED: Multivitamins,Therapeutic Tab PO ONE (01:03)
[2018-01-01] MEDS ORDERED: cloNIDine 0.1 MG Tab PO PRN (01:03)
[2018-01-01] MEDS ORDERED: Nicotine 21 MG/24 Hr Patch TRDERM PRN (01:03)
[2018-01-01] MEDS ORDERED: Haloperidol Lactate 5 MG/ML SDV IM PRN ×2 (01:03→01:25)
--- NOTE | 2018-01-01 01:10 | PCM.HP ---
H&P History of Present Illness - General Date of Service: 01/01/18 Admit Problem/Dx: Admission Diagnosis/Problem Admission Diagnosis/Problem Altered mental status Source of Information: Patient, Old Records, Provider, RN Notes Reviewed History Limitations: Reports: Altered Mental Status, Intoxication - History of Present Illness Initial Comments - Free Text/Narative: This is a 62 yo white female with past medical hx/o Impaired Vision, Asthma, Chronic Neck and Back Pain, Substance Abuse, Depression and Chronic ETOH Use Disorder who comes in for evaluation of seizure like activity ("grand mal convulsion") at home. She was found lying on the garage floor by EMS, alert but confused. However on presentation to ED, she was completely out (obtunded) although she received 2 mg IV of Ativan due to combative behavior. Her last known ETOH drink was last evening. Patient is known to ED and the hospitalist team. She has been here numerous times in past for similar complaints (ETOH related). Her initial work up in ED shows a CBC remarkable for Neutrophils of 61%. Her coagulation study is slightly abnormal for D-dimer level of 0.55. Her chemistry is significant for K of 3.4, AG of 15.4 Glucose of 178, Serum Osmolality of 342, Mg of 1.3, AST of 41 and Alkaline Phosphatase of 139. Her UA is negative for UTI. Her UDS is negative. PATRICIA level is 0.14. She is pos for Hep C on screening. Patient is being admitted for ETOH related Seizure and Detoxification. She is full code. - Related Data Allergies/Adverse Reactions: Allergies Allergy/AdvReac Type Severity Reaction Status Date / Time carisoprodol [From Soma] Allergy Cannot Verified 05/02/17 12:24 Remember Home Medications: Home Meds Levothyroxine 75 mcg PO ACBREAKFAST #30 tablet 03/06/17 [Rx] Magnesium Oxide 400 mg PO BID #60 tablet 03/06/17 [Rx] Potassium Chloride 20 meq PO DAILY #30 tablet.er 03/06/17 [Rx] Ibuprofen [Motrin] 600 mg PO Q6H #30 tablet 04/07/17 [Rx] Nicotine [Habitrol] 21 mg TRDERM DAILY #30 patch 04/07/17 [Rx] metFORMIN [Glucophage] 500 mg PO BIDMEALS #60 tablet 04/07/17 [Rx] FLUoxetine [PROzac] 20 mg PO DAILY #30 cap 05/06/17 [Rx] Nicotine Polacrilex [Nicotine Gum] 4 mg BC Q4H #20 gum 05/06/17 [Rx] QUEtiapine [SEROquel] 100 mg PO BEDTIME #30 tablet 05/06/17 [Rx] Topiramate [Topamax] 50 mg PO BID #30 tablet 05/06/17 [Rx] levETIRAcetam [Keppra 500 MG/5 ML Soln] 500 mg PO BID #60 cup 12/31/17 [Rx] Past Medical History HEENT History: Reports: Impaired Vision Respiratory History: Reports: Asthma 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: 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 (See Below) Other OB/BYN History: tumor on uterus Musculoskeletal History: Reports: Back Pain, Chronic, Neck Pain, Chronic Psychiatric History: Reports: Addiction, Depression Oncologic (Cancer) History: 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 (See Below) Other Oncologic History: precancerous uterine tumour removed with hysterectomy - Infectious Disease History Infectious Disease History: Reports: Chicken Pox - Past Surgical History HEENT Surgical History: 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 (See Below) Other HEENT Surgeries/Procedures: rhinoplasty Respiratory Surgical History: Reports: None Female Surgical History: Reports: Hysterectomy Other Female Surgeries/Procedures: partial hysterectomy Musculoskeletal Surgical History: Reports: None Oncologic Surgical History: 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 (See Below) Other Oncologic Surgeries/Procedures: hysterectomy Social & Family History - Family History Family Medical History: Noncontributory Other HEENT Family History: pt. adopted and unsure of family medical history. states her children do not have medical concerns. - Tobacco Use Smoking Status *Q: Current Status Unknown - Caffeine Use Caffeine Use: Reports: None Other Caffeine Use: - unknown patient poor historian - Living Situation & Occupation Occupation: Unemployed H&P Review of Systems - Review of Systems: Review Of Systems: Unable To Obtain (Patient is obtunded and Intoxicated) Exam - Exam Exam: See Below - Vital Signs Vital Signs: Last Vital Signs Temp 36.1 C 12/31/17 14:30 Pulse 116 H 12/31/17 14:30 Resp 19 12/31/17 14:30 BP 133/93 H 12/31/17 14:30 Pulse Ox 94 L 12/31/17 14:30 Weight: 81.647 kg - Exam General: Obtunded HEENT: Pupils Equal, Pupils Reactive Neck: Trachea Midline Lungs: Normal Respiratory Effort, Decreased Breath Sounds Cardiovascular: Regular Rate, Regular Rhythm GI/Abdominal Exam: Normal Bowel Sounds, Soft, Non-Tender, No Organomegaly, No Distention, No Abnormal Bruit (Female) Exam: Deferred Rectal (Female) Exam: Deferred Back Exam: Normal Inspection Extremities: Normal Inspection, No Pedal Edema Peripheral Pulses: 3+: Posterior Tibial (L), Posterior Tibial (R), Dorsalis Pedis (L), Dorsalis Pedis (R) Skin: Warm, Dry, Intact Neuro Extensive - Mental Status: Other (Unable to perform, she is obtunded) Neuro Extensive - Motor, Sensory, Reflexes: Other (Unable to perform, she is obtunded) Psychiatric: Other Physical Exam Comments:: Physical exam is very limited due to AMS. She is intoxicated plus she received anti-convulsive agents and benzodiazepine. - Patient Data Lab Results Last 24 hrs: Laboratory Results - last 24 hr 12/31/17 12/31/17 12/31/17 Range/Units 14:28 14:30 14:30 WBC (3.98-10.04) K/mm3 RBC (3.98-5.22) M/mm3 Hgb (11.2-15.7) gm/L Hct (34.1-44.9) % MCV (79.4-94.8) fl MCH (25.6-32.2) pg MCHC (32.2-35.5) g/dl RDW Std Deviation (36.4-46.3) fL Plt Count (182-369) K/mm3 MPV (9.4-12.3) fl Neutrophils % (Manual) (40-60) % Band Neutrophils % (0-10) % Lymphocytes % (Manual) (20-40) % Atypical Lymphs % % Monocytes % (Manual) (2-10) % Eosinophils % (Manual) (0.7-5.8) % Basophils % (Manual) (0.1-1.2) Platelet Estimate Plt Morphology Comment RBC Morph Comment PT (9.5-12.1) SECONDS INR D-Dimer, Quantitative (0.19-0.50) mg/L Sodium (136-145) mEq/L Potassium (3.5-5.1) mEq/L Chloride (98-107) mEq/L Carbon Dioxide (21-32) mEq/L Anion Gap (5-15) BUN (7-18) mg/dL Creatinine (0.55-1.02) mg/dL Est Cr Clr Drug Dosing mL/min Estimated GFR (MDRD) (>60) mL/min BUN/Creatinine Ratio (14-18) Glucose (74-106) mg/dL POC Glucose 195 H (70-105) mg/dL Serum Osmolality (280-300) mosm/kg Calcium (8.5-10.1) mg/dL Magnesium (1.8-2.4) mg/dl Total Bilirubin (0.2-1.0) mg/dL AST (15-37) U/L ALT (14-59) U/L Alkaline Phosphatase (46-116) U/L C-Reactive Protein (<1.0) mg/dL Total Protein (6.4-8.2) g/dl Albumin (3.4-5.0) g/dl Globulin gm/dL Albumin/Globulin Ratio (1-2) Lipase (73-393) U/L Urine Color Yellow (Yellow) Urine Appearance Clear (Clear) Urine pH 6.5 (5.0-8.0) Ur Specific [place] 1.015 (1.005-1.030) Urine Protein 1+ H (Negative) Urine Glucose (UA) Negative (Negative) Urine Ketones Negative (Negative) Urine Occult Blood Negative (Negative) Urine Nitrite Negative (Negative) Urine Bilirubin Negative (Negative) Urine Urobilinogen 0.2 (0.2-1.0) Ur Leukocyte Esterase Negative (Negative) Urine RBC Not seen (0-5) /hpf Urine WBC Not seen (0-5) /hpf Ur Epithelial Cells 0-5 (0-5) /hpf Urine Bacteria Not seen (FEW) /hpf Urine Mucus Not seen (FEW) /hpf Urine Opiates Screen Negative (NEGATIVE) Ur Buprenorphine Scrn Negative (NEGATIVE) Ur Oxycodone Screen Negative (NEGATIVE) Urine Methadone Screen Negative (NEGATIVE) Ur Propoxyphene Screen Negative (NEGATIVE) Ur Barbiturates Screen Negative (NEGATIVE) Ur Tricyclics Screen Negative (NEGATIVE) Ur Phencyclidine Scrn Negative (NEGATIVE) Ur Amphetamine Screen Negative (NEGATIVE) U Methamphetamines Scrn Negative (NEGATIVE) U Benzodiazepines Scrn Negative (NEGATIVE) U Cocaine Metab Screen Negative (NEGATIVE) U Marijuana (THC) Screen Negative (NEGATIVE) Ethyl Alcohol (0.00) gm% Ketones (0.0-0.3) mM Hepatitis C Antibody (NEGATIVE) HIV-1 Ab Rapid Screen (NEGATIVE) 12/31/17 12/31/17 12/31/17 Range/Units 14:48 14:48 14:48 WBC 8.41 (3.98-10.04) K/mm3 RBC 4.80 (3.98-5.22) M/mm3 Hgb 14.9 (11.2-15.7) gm/L Hct 44.3 (34.1-44.9) % MCV 92.3 (79.4-94.8) fl MCH 31.0 (25.6-32.2) pg MCHC 33.6 (32.2-35.5) g/dl RDW Std Deviation 43.0 (36.4-46.3) fL Plt Count 276 (182-369) K/mm3 MPV 9.6 (9.4-12.3) fl Neutrophils % (Manual) 61 H (40-60) % Band Neutrophils % 0 (0-10) % Lymphocytes % (Manual) 38 (20-40) % Atypical Lymphs % 0 % Monocytes % (Manual) 1 L (2-10) % Eosinophils % (Manual) 0 L (0.7-5.8) % Basophils % (Manual) 0 L (0.1-1.2) Platelet Estimate Adequate Plt Morphology Comment Normal RBC Morph Comment Normal PT 12.0 (9.5-12.1) SECONDS INR 1.10 D-Dimer, Quantitative (0.19-0.50) mg/L Sodium 140 (136-145) mEq/L Potassium 3.4 L (3.5-5.1) mEq/L Chloride 104 (98-107) mEq/L Carbon Dioxide 24 (21-32) mEq/L Anion Gap 15.4 H (5-15) BUN 17 (7-18) mg/dL Creatinine 0.9 (0.55-1.02) mg/dL Est Cr Clr Drug Dosing 62.23 mL/min Estimated GFR (MDRD) > 60 (>60) mL/min BUN/Creatinine Ratio 18.9 H (14-18) Glucose 178 H (74-106) mg/dL POC Glucose (70-105) mg/dL Serum Osmolality 342 H (280-300) mosm/kg Calcium 8.5 (8.5-10.1) mg/dL Magnesium 1.3 L (1.8-2.4) mg/dl Total Bilirubin 0.2 (0.2-1.0) mg/dL AST 41 H (15-37) U/L ALT 49 (14-59) U/L Alkaline Phosphatase 139 H (46-116) U/L C-Reactive Protein < 0.2 (<1.0) mg/dL Total Protein 7.9 (6.4-8.2) g/dl Albumin 4.0 (3.4-5.0) g/dl Globulin 3.9 gm/dL Albumin/Globulin Ratio 1.0 (1-2) Lipase 159 (73-393) U/L Urine Color (Yellow) Urine Appearance (Clear) Urine pH (5.0-8.0) Ur Specific [place] (1.005-1.030) Urine Protein (Negative) Urine Glucose (UA) (Negative) Urine Ketones (Negative) Urine Occult Blood (Negative) Urine Nitrite (Negative) Urine Bilirubin (Negative) Urine Urobilinogen (0.2-1.0) Ur Leukocyte Esterase (Negative) Urine RBC (0-5) /hpf Urine WBC (0-5) /hpf Ur Epithelial Cells (0-5) /hpf Urine Bacteria (FEW) /hpf Urine Mucus (FEW) /hpf Urine Opiates Screen (NEGATIVE) Ur Buprenorphine Scrn (NEGATIVE) Ur Oxycodone Screen (NEGATIVE) Urine Methadone Screen (NEGATIVE) Ur Propoxyphene Screen (NEGATIVE) Ur Barbiturates Screen (NEGATIVE) Ur Tricyclics Screen (NEGATIVE) Ur Phencyclidine Scrn (NEGATIVE) Ur Amphetamine Screen (NEGATIVE) U Methamphetamines Scrn (NEGATIVE) U Benzodiazepines Scrn (NEGATIVE) U Cocaine Metab Screen (NEGATIVE) U Marijuana (THC) Screen (NEGATIVE) Ethyl Alcohol 0.14 (0.00) gm% Ketones (0.0-0.3) mM Hepatitis C Antibody (NEGATIVE) HIV-1 Ab Rapid Screen (NEGATIVE) 12/31/17 12/31/17 12/31/17 Range/Units 14:48 14:48 14:48 WBC (3.98-10.04) K/mm3 RBC (3.98-5.22) M/mm3 Hgb (11.2-15.7) gm/L Hct (34.1-44.9) % MCV (79.4-94.8) fl MCH (25.6-32.2) pg MCHC (32.2-35.5) g/dl RDW Std Deviation (36.4-46.3) fL Plt Count (182-369) K/mm3 MPV (9.4-12.3) fl Neutrophils % (Manual) (40-60) % Band Neutrophils % (0-10) % Lymphocytes % (Manual) (20-40) % Atypical Lymphs % % Monocytes % (Manual) (2-10) % Eosinophils % (Manual) (0.7-5.8) % Basophils % (Manual) (0.1-1.2) Platelet Estimate Plt Morphology Comment RBC Morph Comment PT (9.5-12.1) SECONDS INR D-Dimer, Quantitative 0.55 H (0.19-0.50) mg/L Sodium (136-145) mEq/L Potassium (3.5-5.1) mEq/L Chloride (98-107) mEq/L Carbon Dioxide (21-32) mEq/L Anion Gap (5-15) BUN (7-18) mg/dL Creatinine (0.55-1.02) mg/dL Est Cr Clr Drug Dosing mL/min Estimated GFR (MDRD) (>60) mL/min BUN/Creatinine Ratio (14-18) Glucose (74-106) mg/dL POC Glucose (70-105) mg/dL Serum Osmolality (280-300) mosm/kg Calcium (8.5-10.1) mg/dL Magnesium (1.8-2.4) mg/dl Total Bilirubin (0.2-1.0) mg/dL AST (15-37) U/L ALT (14-59) U/L Alkaline Phosphatase (46-116) U/L C-Reactive Protein (<1.0) mg/dL Total Protein (6.4-8.2) g/dl Albumin (3.4-5.0) g/dl Globulin gm/dL Albumin/Globulin Ratio (1-2) Lipase (73-393) U/L Urine Color (Yellow) Urine Appearance (Clear) Urine pH (5.0-8.0) Ur Specific [place] (1.005-1.030) Urine Protein (Negative) Urine Glucose (UA) (Negative) Urine Ketones (Negative) Urine Occult Blood (Negative) Urine Nitrite (Negative) Urine Bilirubin (Negative) Urine Urobilinogen (0.2-1.0) Ur Leukocyte Esterase (Negative) Urine RBC (0-5) /hpf Urine WBC (0-5) /hpf Ur Epithelial Cells (0-5) /hpf Urine Bacteria (FEW) /hpf Urine Mucus (FEW) /hpf Urine Opiates Screen (NEGATIVE) Ur Buprenorphine Scrn (NEGATIVE) Ur Oxycodone Screen (NEGATIVE) Urine Methadone Screen (NEGATIVE) Ur Propoxyphene Screen (NEGATIVE) Ur Barbiturates Screen (NEGATIVE) Ur Tricyclics Screen (NEGATIVE) Ur Phencyclidine Scrn (NEGATIVE) Ur Amphetamine Screen (NEGATIVE) U Methamphetamines Scrn (NEGATIVE) U Benzodiazepines Scrn (NEGATIVE) U Cocaine Metab Screen (NEGATIVE) U Marijuana (THC) Screen (NEGATIVE) Ethyl Alcohol (0.00) gm% Ketones 0.16 (0.0-0.3) mM Hepatitis C Antibody Positive H (NEGATIVE) HIV-1 Ab Rapid Screen (NEGATIVE) 12/31/17 12/31/17 Range/Units 14:48 22:09 WBC (3.98-10.04) K/mm3 RBC (3.98-5.22) M/mm3 Hgb (11.2-15.7) gm/L Hct (34.1-44.9) % MCV (79.4-94.8) fl MCH (25.6-32.2) pg MCHC (32.2-35.5) g/dl RDW Std Deviation (36.4-46.3) fL Plt Count (182-369) K/mm3 MPV (9.4-12.3) fl Neutrophils % (Manual) (40-60) % Band Neutrophils % (0-10) % Lymphocytes % (Manual) (20-40) % Atypical Lymphs % % Monocytes % (Manual) (2-10) % Eosinophils % (Manual) (0.7-5.8) % Basophils % (Manual) (0.1-1.2) Platelet Estimate Plt Morphology Comment RBC Morph Comment PT (9.5-12.1) SECONDS INR D-Dimer, Quantitative (0.19-0.50) mg/L Sodium (136-145) mEq/L Potassium (3.5-5.1) mEq/L Chloride (98-107) mEq/L Carbon Dioxide (21-32) mEq/L Anion Gap (5-15) BUN (7-18) mg/dL Creatinine (0.55-1.02) mg/dL Est Cr Clr Drug Dosing mL/min Estimated GFR (MDRD) (>60) mL/min BUN/Creatinine Ratio (14-18) Glucose (74-106) mg/dL POC Glucose 144 H (70-105) mg/dL Serum Osmolality (280-300) mosm/kg Calcium (8.5-10.1) mg/dL Magnesium (1.8-2.4) mg/dl Total Bilirubin (0.2-1.0) mg/dL AST (15-37) U/L ALT (14-59) U/L Alkaline Phosphatase (46-116) U/L C-Reactive Protein (<1.0) mg/dL Total Protein (6.4-8.2) g/dl Albumin (3.4-5.0) g/dl Globulin gm/dL Albumin/Globulin Ratio (1-2) Lipase (73-393) U/L Urine Color (Yellow) Urine Appearance (Clear) Urine pH (5.0-8.0) Ur Specific [place] (1.005-1.030) Urine Protein (Negative) Urine Glucose (UA) (Negative) Urine Ketones (Negative) Urine Occult Blood (Negative) Urine Nitrite (Negative) Urine Bilirubin (Negative) Urine Urobilinogen (0.2-1.0) Ur Leukocyte Esterase (Negative) Urine RBC (0-5) /hpf Urine WBC (0-5) /hpf Ur Epithelial Cells (0-5) /hpf Urine Bacteria (FEW) /hpf Urine Mucus (FEW) /hpf Urine Opiates Screen (NEGATIVE) Ur Buprenorphine Scrn (NEGATIVE) Ur Oxycodone Screen (NEGATIVE) Urine Methadone Screen (NEGATIVE) Ur Propoxyphene Screen (NEGATIVE) Ur Barbiturates Screen (NEGATIVE) Ur Tricyclics Screen (NEGATIVE) Ur Phencyclidine Scrn (NEGATIVE) Ur Amphetamine Screen (NEGATIVE) U Methamphetamines Scrn (NEGATIVE) U Benzodiazepines Scrn (NEGATIVE) U Cocaine Metab Screen (NEGATIVE) U Marijuana (THC) Screen (NEGATIVE) Ethyl Alcohol (0.00) gm% Ketones (0.0-0.3) mM Hepatitis C Antibody (NEGATIVE) HIV-1 Ab Rapid Screen Negative (NEGATIVE) Result Diagrams: 12/31/17 14:48 01/01/18 05:11 Problem List Initiated/Reviewed/Updated: Yes Orders Last 24hrs: Active Orders 24 hr Category Date Time Status Patient Status [ADT] Routine ADT 01/01/18 00:25 Active Blood Glucose Check, Bedside [RC] ASDIRECTED Care 01/01/18 00:54 Ordered Blood Glucose Check, Bedside [RC] ONETIME Care 12/31/17 21:37 Active CIWAA Assessment [RC] Q15M Care 01/01/18 01:03 Ordered CIWAA Assessment [RC] Q1H Care 01/01/18 01:03 Ordered CIWAA Assessment [RC] Q30M Care 01/01/18 01:03 Ordered CIWAA Assessment [RC] Q4H Care 01/01/18 01:03 Ordered Cardiac Monitoring [RC] CONTINUOUS Care 01/01/18 00:55 Ordered EKG Documentation Completion [RC] STAT Care 12/31/17 14:29 Active Height and Weight [RC] DAILY Care 01/01/18 00:54 Ordered Intake and Output [RC] QSHIFT Care 01/01/18 00:55 Ordered Notify Provider Consults [RC] ASDIRECTED Care 01/01/18 01:00 Ordered Notify Provider [RC] PRN Care 01/01/18 01:03 Ordered Oxygen Therapy [RC] ASDIRECTED Care 12/31/17 16:35 Active Oxygen Therapy [RC] PRN Care 01/01/18 00:54 Ordered RT Aerosol Therapy [RC] ASDIRECTED Care 01/01/18 00:58 Ordered Up With Assistance [RC] ASDIRECTED Care 01/01/18 00:54 Ordered Up ad Alejandrina [RC] ASDIRECTED Care 01/01/18 00:54 Ordered VTE/DVT Education [RC] PER UNIT ROUTINE Care 01/01/18 00:54 Ordered Vital Signs [RC] Q4H Care 01/01/18 00:54 Ordered Consult to Physician [CONS] Routine Cons 01/01/18 00:59 Ordered Consult to A P Manager [CONS] Routine Cons 01/01/18 00:59 Ordered Consult to Spiritual Care [CONS] Routine Cons 01/01/18 00:59 Ordered OT Evaluation and Treatment [CONS] Routine Cons 01/01/18 00:59 Ordered PT Evaluation and Treatment [CONS] Routine Cons 01/01/18 00:59 Ordered Consistent Carbohydrate Diet [DIET] Diet 01/01/18 Lunch Ordered Nothing per Oral Now Diet [DIET] Diet 01/01/18 Breakfast Ordered Regular Diet [DIET] Diet 01/01/18 Lunch Ordered Chest 1V Frontal [CR] Stat Exams 12/31/17 17:29 Taken COMPREHENSIVE METABOLIC PN,CMP [CHEM] AM Lab 01/01/18 05:11 Ordered COMPREHENSIVE METABOLIC PN,CMP [CHEM] AM Lab 01/02/18 05:11 Ordered COMPREHENSIVE METABOLIC PN,CMP [CHEM] AM Lab 01/03/18 05:11 Ordered COMPREHENSIVE METABOLIC PN,CMP [CHEM] AM Lab 01/04/18 05:11 Ordered DRUG SCREEN, URINE [URCHEM] Stat Lab 12/31/17 14:30 Ordered HEPATITIS B SURFACE AG [CHEM] Stat Lab 12/31/17 14:48 Received MAGNESIUM [CHEM] AM Lab 01/01/18 05:11 Ordered MAGNESIUM [CHEM] AM Lab 01/02/18 05:11 Ordered MAGNESIUM [CHEM] AM Lab 01/03/18 05:11 Ordered MAGNESIUM [CHEM] AM Lab 01/04/18 05:11 Ordered Albuterol/Ipratropium [DuoNeb 3.0-0.5 MG/3 ML] Med 01/01/18 00:54 Ordered 3 ml NEB Q4H PRN Bisacodyl [Dulcolax] Med 01/01/18 00:54 Ordered 5 mg PO DAILY PRN Docusate Sodium [Colace] Med 01/01/18 00:54 Ordered 100 mg PO BID PRN Docusate Sodium/Sennosides [Senna Plus] Med 01/01/18 00:54 Ordered 1 tab PO BID PRN FLUoxetine [PROzac] Med 01/01/18 09:00 Ordered 20 mg PO DAILY Folic Acid Med 01/01/18 09:00 Ordered 1 mg PO DAILY HYDROmorphone [Dilaudid] Med 01/01/18 00:54 Ordered 0.25 mg IVPUSH Q2H PRN Haloperidol Lactate [Haldol] Med 01/01/18 01:03 Ordered 2 mg IM Q4H PRN Ibuprofen [Motrin] Med 01/01/18 00:54 Ordered 600 mg PO Q6H PRN LORazepam [Ativan] Med 01/01/18 00:53 Ordered 2 mg IVPUSH Q4H PRN LORazepam [Ativan] Med 01/01/18 00:53 Ordered See Protocol IVPUSH Q4H PRN Lactated Ringers [Ringers, Lactated] 1,000 ml Med 12/31/17 16:45 Active IV ASDIRECTED Lactated Ringers [Ringers, Lactated] 1,000 ml Med 12/31/17 22:15 Active IV ASDIRECTED Levothyroxine [Levothyroxine] Med 01/01/18 06:00 Ordered 75 mcg PO ACBREAKFAST Magnesium Oxide [Magnesium Oxide] Med 01/01/18 09:00 Ordered 400 mg PO BID Magnesium Rep Pharmacy to Dose [Pharmacy to Dose - Med 01/01/18 01:00 Ordered Magnesium Replacement] 1 dose .XX ASDIRECTED Magnesium Sulfate/Water [Magnesium Sulfate 2 GM in Med 01/01/18 01:30 Active Water 50 ML] 50 ml IV Q2H Metoprolol Tartrate [Lopressor] Med 01/01/18 00:53 Ordered 5 mg IVPUSH Q4H PRN Multivitamins,Therapeutic [Thera] Med 01/01/18 01:03 Once 1 each PO ONETIME ONE Nicotine [Habitrol] Med 01/01/18 09:00 Ordered 21 mg TRDERM DAILY Nicotine [Habitrol] Med 01/01/18 01:03 Ordered 21 mg TRDERM DAILY PRN Ondansetron [Zofran] Med 01/01/18 00:54 Ordered 4 mg IV Q6H PRN Pantoprazole [ProTONIX IV] Med 01/01/18 09:00 Ordered 40 mg IV Q12HR Polyethylene Glycol 3350 [MiraLAX] Med 01/01/18 00:54 Ordered 17 gm PO DAILY PRN Potassium Chloride [Klor-Con M20] Med 01/01/18 02:00 Active 40 meq PO Q4H Potassium Rep Pharmacy to Dose [Pharmacy to Dose - Med 01/01/18 01:00 Ordered Potassium Replacement] 1 dose .XX ASDIRECTED Promethazine [Phenergan] 12.5 mg Med 01/01/18 00:54 Ordered Sodium Chloride 0.9% [Normal Saline] 50 ml IV Q6H QUEtiapine [SEROquel] Med 01/01/18 21:00 Ordered 50 mg PO BEDTIME Sodium Chloride 0.9% [Normal Saline] 1,000 ml Med 12/31/17 14:45 Active IV ASDIRECTED Thiamine [Vitamin B-1] Med 01/02/18 09:00 Ordered 100 mg PO DAILY Thiamine [Vitamin B-1] 200 mg Med 01/01/18 01:03 Ordered Sodium Chloride 0.9% [Normal Saline] 50 ml IV ONETIME Topiramate [Topamax] Med 01/01/18 09:00 Ordered 25 mg PO BID cloNIDine [Catapres] Med 01/01/18 01:03 Ordered 0.1 mg PO Q4H PRN hydrALAZINE [Apresoline] Med 01/01/18 00:53 Ordered 20 mg IVPUSH Q4H PRN metFORMIN [Glucophage] Med 01/01/18 07:00 Ordered 500 mg PO BIDMEALS oxyCODONE Med 01/01/18 00:54 Ordered 5 mg PO Q4H PRN Seizure Precautions [OM.PC] Routine Oth 01/01/18 01:03 Ordered Sequential Compression Device [OM.PC] Per Unit Routine Oth 01/01/18 00:55 Ordered Resuscitation Status Routine Resus Stat 01/01/18 00:54 Ordered Medication Orders Albuterol/Ipratropium (Duoneb 3.0-0.5 Mg/3 Ml) 3 ml NEB Q4H PRN PRN Reason: Shortness Of Breath/wheezing Bisacodyl (Dulcolax) 5 mg PO DAILY PRN PRN Reason: Constipation Docusate Sodium (Colace) 100 mg PO BID PRN PRN Reason: Constipation Fluoxetine HCl (Prozac) 20 mg PO DAILY RAAD Hydralazine HCl (Apresoline) 20 mg IVPUSH Q4H PRN PRN Reason: Hypertension Hydromorphone HCl (Dilaudid) 0.25 mg IVPUSH Q2H PRN PRN Reason: Pain (severe 7-10) Sodium Chloride (Normal Saline) 1,000 mls @ 500 mls/hr IV ASDIRECTED [facility] Last Admin: 12/31/17 14:35 Dose: 500 mls/hr Lactated Ringer's (Ringers, Lactated) 1,000 mls @ 200 mls/hr IV ASDIRECTED [facility] Last Admin: 12/31/17 16:43 Dose: 200 mls/hr Lactated Ringer's (Ringers, Lactated) 1,000 mls @ 150 mls/hr IV ASDIRECTED [facility] Last Admin: 12/31/17 22:20 Dose: 150 mls/hr Magnesium Sulfate (Magnesium Sulfate 2 Gm In Water 50 Ml) 50 mls @ 25 mls/hr IV Q2H [facility] Stop: 01/01/18 05:29 Promethazine HCl 12.5 mg/ (Sodium Chloride) 50.5 mls @ 100 mls/hr IV Q6H PRN PRN Reason: Nausea/Vomiting Ibuprofen (Motrin) 600 mg PO Q6H PRN PRN Reason: Pain (moderate 4-6) Lorazepam (Ativan) 2 mg IVPUSH Q4H PRN PRN Reason: Seizures Lorazepam (Ativan) 0 mg IVPUSH Q4H PRN; Protocol PRN Reason: Withdrawal Symptoms Magnesium Sulfate (Pharmacy To Dose - Magnesium Replacement) 1 dose .XX ASDIRECTED [facility] Metoprolol Tartrate (Lopressor) 5 mg IVPUSH Q4H PRN PRN Reason: Tachycardia Non-Formulary Medication (Levothyroxine [Levothyroxine]) 75 mcg PO ACBREAKFAST [facility] Non-Formulary Medication (Magnesium Oxide [Magnesium Oxide]) 400 mg PO BID [facility] Non-Formulary Medication (Metformin [Glucophage]) 500 mg PO BIDMEALS [facility] Non-Formulary Medication (Nicotine [Habitrol]) 21 mg TRDERM DAILY [facility] Ondansetron HCl (Zofran) 4 mg IV Q6H PRN PRN Reason: Nausea/Vomiting Oxycodone HCl (Oxycodone) 5 mg PO Q4H PRN PRN Reason: Pain (moderate 4-6) Pantoprazole Sodium (Protonix Iv) 40 mg IV Q12HR [facility] Polyethylene Glycol (Miralax) 17 gm PO DAILY PRN PRN Reason: Constipation Potassium Chloride (Pharmacy To Dose - Potassium Replacement) 1 dose .XX ASDIRECTED [facility] Potassium Chloride (Klor-Con M20) 40 meq PO Q4H [facility] Stop: 01/01/18 06:01 Senna/Docusate Sodium (Senna Plus) 1 tab PO BID PRN PRN Reason: Constipation Assessment/Plan Comment:: Assessment/Plan: Acute: ETOH Intoxication/ETOH Abuse - Carries a hx/o ETOH Abuse and Acute Psychosis - Has been treatment multiple times - PATRICIA level 0.14 - Ativan/Seroquel/Clonidine/Topamax - Hydralazine and IVP BB for HR/BP control - Ativan for Abortive Seizure and Withdrawal Symptoms - SA/Psych consult ETOH Related Seizure - PRN Ativan for abortive seizure - Seizure Precaution Mild Hypokalemia - K 3.4 - 2/2 inadequate intake - Replete and monitor Hypomagnesemia - Mg 1.3 - 2/2 inadequate intake - Replete and monitor Hep C Infection - Hep C screening positive - Defer GI outpatient for treatment Chronic: Impaired Vision Asthma Back/Neck Pain Hx/o Drug Abuse Depression Plan: Admit to ICU Routine AM Labs Resume Home Meds IV Hydration, MVI, Folic Acid and Thiamine PT/OT consult [facility] Protocol UDS negative Aspiration/Seizure Precautions DVT PPx: SCDs SA/Psych Consult SW/CM for d/c planning Code status: 1
[2018-01-01] MEDS ORDERED: Scopolamine 1.5 MG Transdermal Patch TRDERM ONE (01:24)
[2018-01-01] MEDS: Potassium Chloride 20 MEQ Tab.ER PO SCH ×2 (01:44→06:32)
[2018-01-01] MEDS: Ibuprofen 600 MG Tab PO PRN (01:44)
[2018-01-01] MEDS: oxyCODONE 5 MG Tab PO PRN ×3 (01:44→20:14)
[2018-01-01] MEDS: Magnesium Sulfate/Water 50 ML IV SCH ×2 (01:45→03:56)
[2018-01-01] MEDS: Levothyroxine 75 MCG Tab PO SCH (06:31)
[2018-01-01] MEDS: metFORMIN 500 MG Tab PO SCH ×2 (06:32→16:35)
--- NOTE | 2018-01-01 07:38 | PCM.PN ---
- General Info Date of Service: 01/01/18 Admission Dx/Problem (Free Text): Admission Diagnosis/Problem Admission Diagnosis/Problem Altered mental status Subjective Update: In to see Jemima. She is sitting be the bed and clearly confused. She does answer some questions however not with any degree of reliability. She has no complaints. Nursing has no concerns. Will advance diet today. She has been drinking water without any difficulty. No nursing concerns. CIWAs have been 3- 4. Dr. Hobbs ordered steroid and duonebs due to patient wheezing. Functional Status: Reports: Pain Controlled, Tolerating Diet, Urinating. Denies : New Symptoms - Review of Systems Pulmonary: Denies: Shortness of Breath, Cough Cardiovascular: Denies: Chest Pain Gastrointestinal: Denies: Abdominal Pain Neurological: Reports: Confusion, Trouble Speaking, Difficulty Walking, Gait Disturbance Systems Review Comment:: ROS unable to be obtained with any degree of certainty due to patients AMS - Patient Data Vitals - Most Recent: Last Vital Signs Temp 99.4 F 01/01/18 00:54 Pulse 106 H 01/01/18 04:00 Resp 14 01/01/18 04:00 BP 131/81 01/01/18 04:00 Pulse Ox 94 L 01/01/18 04:00 Weight - Most Recent: 153 lb 11.2 oz I&O - Last 24 Hours: Intake & Output 12/31/17 01/01/18 01/01/18 22:59 06:59 14:59 Intake Total 680 Output Total 400 Balance 280 Lab Results Last 24 Hours: Laboratory Results - last 24 hr 12/31/17 12/31/17 12/31/17 Range/Units 14:28 14:30 14:30 WBC (3.98-10.04) K/mm3 RBC (3.98-5.22) M/mm3 Hgb (11.2-15.7) gm/L Hct (34.1-44.9) % MCV (79.4-94.8) fl MCH (25.6-32.2) pg MCHC (32.2-35.5) g/dl RDW Std Deviation (36.4-46.3) fL Plt Count (182-369) K/mm3 MPV (9.4-12.3) fl Neutrophils % (Manual) (40-60) % Band Neutrophils % (0-10) % Lymphocytes % (Manual) (20-40) % Atypical Lymphs % % Monocytes % (Manual) (2-10) % Eosinophils % (Manual) (0.7-5.8) % Basophils % (Manual) (0.1-1.2) Platelet Estimate Plt Morphology Comment RBC Morph Comment PT (9.5-12.1) SECONDS INR D-Dimer, Quantitative (0.19-0.50) mg/L Sodium (136-145) mEq/L Potassium (3.5-5.1) mEq/L Chloride (98-107) mEq/L Carbon Dioxide (21-32) mEq/L Anion Gap (5-15) BUN (7-18) mg/dL Creatinine (0.55-1.02) mg/dL Est Cr Clr Drug Dosing mL/min Estimated GFR (MDRD) (>60) mL/min BUN/Creatinine Ratio (14-18) Glucose (74-106) mg/dL POC Glucose 195 H (70-105) mg/dL Serum Osmolality (280-300) mosm/kg Calcium (8.5-10.1) mg/dL Magnesium (1.8-2.4) mg/dl Total Bilirubin (0.2-1.0) mg/dL AST (15-37) U/L ALT (14-59) U/L Alkaline Phosphatase (46-116) U/L C-Reactive Protein (<1.0) mg/dL Total Protein (6.4-8.2) g/dl Albumin (3.4-5.0) g/dl Globulin gm/dL Albumin/Globulin Ratio (1-2) Lipase (73-393) U/L Urine Color Yellow (Yellow) Urine Appearance Clear (Clear) Urine pH 6.5 (5.0-8.0) Ur Specific B[place]so[place] 1.015 (1.005-1.030) Urine Protein 1+ H (Negative) Urine Glucose (UA) Negative (Negative) Urine Ketones Negative (Negative) Urine Occult Blood Negative (Negative) Urine Nitrite Negative (Negative) Urine Bilirubin Negative (Negative) Urine Urobilinogen 0.2 (0.2-1.0) Ur Leukocyte Esterase Negative (Negative) Urine RBC Not seen (0-5) /hpf Urine WBC Not seen (0-5) /hpf Ur Epithelial Cells 0-5 (0-5) /hpf Urine Bacteria Not seen (FEW) /hpf Urine Mucus Not seen (FEW) /hpf Urine Opiates Screen Negative (NEGATIVE) Ur Buprenorphine Scrn Negative (NEGATIVE) Ur Oxycodone Screen Negative (NEGATIVE) Urine Methadone Screen Negative (NEGATIVE) Ur Propoxyphene Screen Negative (NEGATIVE) Ur Barbiturates Screen Negative (NEGATIVE) Ur Tricyclics Screen Negative (NEGATIVE) Ur Phencyclidine Scrn Negative (NEGATIVE) Ur Amphetamine Screen Negative (NEGATIVE) U Methamphetamines Scrn Negative (NEGATIVE) U Benzodiazepines Scrn Negative (NEGATIVE) U Cocaine Metab Screen Negative (NEGATIVE) U Marijuana (THC) Screen Negative (NEGATIVE) Ethyl Alcohol (0.00) gm% Ketones (0.0-0.3) mM Hepatitis C Antibody (NEGATIVE) HIV-1 Ab Rapid Screen (NEGATIVE) 12/31/17 12/31/17 12/31/17 Range/Units 14:48 14:48 14:48 WBC 8.41 (3.98-10.04) K/mm3 RBC 4.80 (3.98-5.22) M/mm3 Hgb 14.9 (11.2-15.7) gm/L Hct 44.3 (34.1-44.9) % MCV 92.3 (79.4-94.8) fl MCH 31.0 (25.6-32.2) pg MCHC 33.6 (32.2-35.5) g/dl RDW Std Deviation 43.0 (36.4-46.3) fL Plt Count 276 (182-369) K/mm3 MPV 9.6 (9.4-12.3) fl Neutrophils % (Manual) 61 H (40-60) % Band Neutrophils % 0 (0-10) % Lymphocytes % (Manual) 38 (20-40) % Atypical Lymphs % 0 % Monocytes % (Manual) 1 L (2-10) % Eosinophils % (Manual) 0 L (0.7-5.8) % Basophils % (Manual) 0 L (0.1-1.2) Platelet Estimate Adequate Plt Morphology Comment Normal RBC Morph Comment Normal PT 12.0 (9.5-12.1) SECONDS INR 1.10 D-Dimer, Quantitative (0.19-0.50) mg/L Sodium 140 (136-145) mEq/L Potassium 3.4 L (3.5-5.1) mEq/L Chloride 104 (98-107) mEq/L Carbon Dioxide 24 (21-32) mEq/L Anion Gap 15.4 H (5-15) BUN 17 (7-18) mg/dL Creatinine 0.9 (0.55-1.02) mg/dL Est Cr Clr Drug Dosing 62.23 mL/min Estimated GFR (MDRD) > 60 (>60) mL/min BUN/Creatinine Ratio 18.9 H (14-18) Glucose 178 H (74-106) mg/dL POC Glucose (70-105) mg/dL Serum Osmolality 342 H (280-300) mosm/kg Calcium 8.5 (8.5-10.1) mg/dL Magnesium 1.3 L (1.8-2.4) mg/dl Total Bilirubin 0.2 (0.2-1.0) mg/dL AST 41 H (15-37) U/L ALT 49 (14-59) U/L Alkaline Phosphatase 139 H (46-116) U/L C-Reactive Protein < 0.2 (<1.0) mg/dL Total Protein 7.9 (6.4-8.2) g/dl Albumin 4.0 (3.4-5.0) g/dl Globulin 3.9 gm/dL Albumin/Globulin Ratio 1.0 (1-2) Lipase 159 (73-393) U/L Urine Color (Yellow) Urine Appearance (Clear) Urine pH (5.0-8.0) Ur Specific Bledsoe (1.005-1.030) Urine Protein (Negative) Urine Glucose (UA) (Negative) Urine Ketones (Negative) Urine Occult Blood (Negative) Urine Nitrite (Negative) Urine Bilirubin (Negative) Urine Urobilinogen (0.2-1.0) Ur Leukocyte Esterase (Negative) Urine RBC (0-5) /hpf Urine WBC (0-5) /hpf Ur Epithelial Cells (0-5) /hpf Urine Bacteria (FEW) /hpf Urine Mucus (FEW) /hpf Urine Opiates Screen (NEGATIVE) Ur Buprenorphine Scrn (NEGATIVE) Ur Oxycodone Screen (NEGATIVE) Urine Methadone Screen (NEGATIVE) Ur Propoxyphene Screen (NEGATIVE) Ur Barbiturates Screen (NEGATIVE) Ur Tricyclics Screen (NEGATIVE) Ur Phencyclidine Scrn (NEGATIVE) Ur Amphetamine Screen (NEGATIVE) U Methamphetamines Scrn (NEGATIVE) U Benzodiazepines Scrn (NEGATIVE) U Cocaine Metab Screen (NEGATIVE) U Marijuana (THC) Screen (NEGATIVE) Ethyl Alcohol 0.14 (0.00) gm% Ketones (0.0-0.3) mM Hepatitis C Antibody (NEGATIVE) HIV-1 Ab Rapid Screen (NEGATIVE) 12/31/17 12/31/17 12/31/17 Range/Units 14:48 14:48 14:48 WBC (3.98-10.04) K/mm3 RBC (3.98-5.22) M/mm3 Hgb (11.2-15.7) gm/L Hct (34.1-44.9) % MCV (79.4-94.8) fl MCH (25.6-32.2) pg MCHC (32.2-35.5) g/dl RDW Std Deviation (36.4-46.3) fL Plt Count (182-369) K/mm3 MPV (9.4-12.3) fl Neutrophils % (Manual) (40-60) % Band Neutrophils % (0-10) % Lymphocytes % (Manual) (20-40) % Atypical Lymphs % % Monocytes % (Manual) (2-10) % Eosinophils % (Manual) (0.7-5.8) % Basophils % (Manual) (0.1-1.2) Platelet Estimate Plt Morphology Comment RBC Morph Comment PT (9.5-12.1) SECONDS INR D-Dimer, Quantitative 0.55 H (0.19-0.50) mg/L Sodium (136-145) mEq/L Potassium (3.5-5.1) mEq/L Chloride (98-107) mEq/L Carbon Dioxide (21-32) mEq/L Anion Gap (5-15) BUN (7-18) mg/dL Creatinine (0.55-1.02) mg/dL Est Cr Clr Drug Dosing mL/min Estimated GFR (MDRD) (>60) mL/min BUN/Creatinine Ratio (14-18) Glucose (74-106) mg/dL POC Glucose (70-105) mg/dL Serum Osmolality (280-300) mosm/kg Calcium (8.5-10.1) mg/dL Magnesium (1.8-2.4) mg/dl Total Bilirubin (0.2-1.0) mg/dL AST (15-37) U/L ALT (14-59) U/L Alkaline Phosphatase (46-116) U/L C-Reactive Protein (<1.0) mg/dL Total Protein (6.4-8.2) g/dl Albumin (3.4-5.0) g/dl Globulin gm/dL Albumin/Globulin Ratio (1-2) Lipase (73-393) U/L Urine Color (Yellow) Urine Appearance (Clear) Urine pH (5.0-8.0) Ur Specific Bledsoe (1.005-1.030) Urine Protein (Negative) Urine Glucose (UA) (Negative) Urine Ketones (Negative) Urine Occult Blood (Negative) Urine Nitrite (Negative) Urine Bilirubin (Negative) Urine Urobilinogen (0.2-1.0) Ur Leukocyte Esterase (Negative) Urine RBC (0-5) /hpf Urine WBC (0-5) /hpf Ur Epithelial Cells (0-5) /hpf Urine Bacteria (FEW) /hpf Urine Mucus (FEW) /hpf Urine Opiates Screen (NEGATIVE) Ur Buprenorphine Scrn (NEGATIVE) Ur Oxycodone Screen (NEGATIVE) Urine Methadone Screen (NEGATIVE) Ur Propoxyphene Screen (NEGATIVE) Ur Barbiturates Screen (NEGATIVE) Ur Tricyclics Screen (NEGATIVE) Ur Phencyclidine Scrn (NEGATIVE) Ur Amphetamine Screen (NEGATIVE) U Methamphetamines Scrn (NEGATIVE) U Benzodiazepines Scrn (NEGATIVE) U Cocaine Metab Screen (NEGATIVE) U Marijuana (THC) Screen (NEGATIVE) Ethyl Alcohol (0.00) gm% Ketones 0.16 (0.0-0.3) mM Hepatitis C Antibody Positive H (NEGATIVE) HIV-1 Ab Rapid Screen (NEGATIVE) 12/31/17 12/31/17 01/01/18 Range/Units 14:48 22:09 06:26 WBC (3.98-10.04) K/mm3 RBC (3.98-5.22) M/mm3 Hgb (11.2-15.7) gm/L Hct (34.1-44.9) % MCV (79.4-94.8) fl MCH (25.6-32.2) pg MCHC (32.2-35.5) g/dl RDW Std Deviation (36.4-46.3) fL Plt Count (182-369) K/mm3 MPV (9.4-12.3) fl Neutrophils % (Manual) (40-60) % Band Neutrophils % (0-10) % Lymphocytes % (Manual) (20-40) % Atypical Lymphs % % Monocytes % (Manual) (2-10) % Eosinophils % (Manual) (0.7-5.8) % Basophils % (Manual) (0.1-1.2) Platelet Estimate Plt Morphology Comment RBC Morph Comment PT (9.5-12.1) SECONDS INR D-Dimer, Quantitative (0.19-0.50) mg/L Sodium (136-145) mEq/L Potassium (3.5-5.1) mEq/L Chloride (98-107) mEq/L Carbon Dioxide (21-32) mEq/L Anion Gap (5-15) BUN (7-18) mg/dL Creatinine (0.55-1.02) mg/dL Est Cr Clr Drug Dosing mL/min Estimated GFR (MDRD) (>60) mL/min BUN/Creatinine Ratio (14-18) Glucose (74-106) mg/dL POC Glucose 144 H 137 H (70-105) mg/dL Serum Osmolality (280-300) mosm/kg Calcium (8.5-10.1) mg/dL Magnesium (1.8-2.4) mg/dl Total Bilirubin (0.2-1.0) mg/dL AST (15-37) U/L ALT (14-59) U/L Alkaline Phosphatase (46-116) U/L C-Reactive Protein (<1.0) mg/dL Total Protein (6.4-8.2) g/dl Albumin (3.4-5.0) g/dl Globulin gm/dL Albumin/Globulin Ratio (1-2) Lipase (73-393) U/L Urine Color (Yellow) Urine Appearance (Clear) Urine pH (5.0-8.0) Ur Specific Bledsoe (1.005-1.030) Urine Protein (Negative) Urine Glucose (UA) (Negative) Urine Ketones (Negative) Urine Occult Blood (Negative) Urine Nitrite (Negative) Urine Bilirubin (Negative) Urine Urobilinogen (0.2-1.0) Ur Leukocyte Esterase (Negative) Urine RBC (0-5) /hpf Urine WBC (0-5) /hpf Ur Epithelial Cells (0-5) /hpf Urine Bacteria (FEW) /hpf Urine Mucus (FEW) /hpf Urine Opiates Screen (NEGATIVE) Ur Buprenorphine Scrn (NEGATIVE) Ur Oxycodone Screen (NEGATIVE) Urine Methadone Screen (NEGATIVE) Ur Propoxyphene Screen (NEGATIVE) Ur Barbiturates Screen (NEGATIVE) Ur Tricyclics Screen (NEGATIVE) Ur Phencyclidine Scrn (NEGATIVE) Ur Amphetamine Screen (NEGATIVE) U Methamphetamines Scrn (NEGATIVE) U Benzodiazepines Scrn (NEGATIVE) U Cocaine Metab Screen (NEGATIVE) U Marijuana (THC) Screen (NEGATIVE) Ethyl Alcohol (0.00) gm% Ketones (0.0-0.3) mM Hepatitis C Antibody (NEGATIVE) HIV-1 Ab Rapid Screen Negative (NEGATIVE) Med Orders - Current: Current Medications Albuterol/Ipratropium (Duoneb 3.0-0.5 Mg/3 Ml) 3 ml NEB Q4H PRN PRN Reason: Shortness Of Breath/wheezing Bisacodyl (Dulcolax) 5 mg PO DAILY PRN PRN Reason: Constipation Clonidine HCl (Catapres) 0.1 mg PO Q4H PRN PRN Reason: Agitation Docusate Sodium (Colace) 100 mg PO BID PRN PRN Reason: Constipation Fluoxetine HCl (Prozac) 20 mg PO DAILY [facility] Folic Acid (Folic Acid) 1 mg PO DAILY [facility] Stop: 01/03/18 09:01 Haloperidol Lactate (Haldol) 4 mg IM Q4H PRN PRN Reason: Agitation/Psychosis Hydralazine HCl (Apresoline) 20 mg IVPUSH Q4H PRN PRN Reason: Hypertension Hydromorphone HCl (Dilaudid) 0.25 mg IVPUSH Q2H PRN PRN Reason: Pain (severe 7-10) Sodium Chloride (Normal Saline) 1,000 mls @ 500 mls/hr IV ASDIRECTED [facility] Last Admin: 12/31/17 14:35 Dose: 500 mls/hr Lactated Ringer's (Ringers, Lactated) 1,000 mls @ 200 mls/hr IV ASDIRECTED [facility] Last Admin: 12/31/17 16:43 Dose: 200 mls/hr Lactated Ringer's (Ringers, Lactated) 1,000 mls @ 150 mls/hr IV ASDIRECTED [facility] Last Admin: 12/31/17 22:20 Dose: 150 mls/hr Promethazine HCl 12.5 mg/ (Sodium Chloride) 50.5 mls @ 100 mls/hr IV Q6H PRN PRN Reason: Nausea/Vomiting Ibuprofen (Motrin) 600 mg PO Q6H PRN PRN Reason: Pain (moderate 4-6) Last Admin: 01/01/18 01:44 Dose: 600 mg Levothyroxine Sodium (Levothyroxine) 75 mcg PO ACBREAKFAST [facility] Last Admin: 01/01/18 06:31 Dose: 75 mcg Lorazepam (Ativan) 2 mg IVPUSH Q4H PRN PRN Reason: Seizures Lorazepam (Ativan) 0 mg IVPUSH Q4H PRN; Protocol PRN Reason: Withdrawal Symptoms Last Admin: 01/01/18 04:53 Dose: 2 mg Magnesium Oxide (Magnesium Oxide) 400 mg PO BID [facility] Magnesium Sulfate (Pharmacy To Dose - Magnesium Replacement) 0 dose .XX ASDIRECTED PRN PRN Reason: RX TO WATCH MAG LEVELS Metformin HCl (Glucophage) 500 mg PO BIDMEALS [facility] Last Admin: 01/01/18 06:32 Dose: 500 mg Metoprolol Tartrate (Lopressor) 5 mg IVPUSH Q4H PRN PRN Reason: Tachycardia Miscellaneous Information (Remove Patch) 1 ea TRDERM Q24H [facility] Miscellaneous Information (Remove Patch) 1 ea TRDERM Q72H [facility] Nicotine (Habitrol) 21 mg TRDERM DAILY PRN PRN Reason: Nicotine Ondansetron HCl (Zofran) 4 mg IV Q6H PRN PRN Reason: Nausea/Vomiting Oxycodone HCl (Oxycodone) 5 mg PO Q4H PRN PRN Reason: Pain (moderate 4-6) Last Admin: 01/01/18 01:44 Dose: 5 mg Pantoprazole Sodium (Protonix Iv) 40 mg IV Q12HR [facility] Polyethylene Glycol (Miralax) 17 gm PO DAILY PRN PRN Reason: Constipation Potassium Chloride (Pharmacy To Dose - Potassium Replacement) 0 dose .XX ASDIRECTED PRN PRN Reason: RX TO WATCH K LEVELS Quetiapine Fumarate (Seroquel) 50 mg PO BEDTIME [facility] Senna/Docusate Sodium (Senna Plus) 1 tab PO BID PRN PRN Reason: Constipation Thiamine HCl (Vitamin B-1) 100 mg PO DAILY [facility] Topiramate (Topamax) 25 mg PO BID [facility] Discontinued Medications Haloperidol Lactate (Haldol) 2 mg IM Q4H PRN PRN Reason: Agitation/Psychosis Levetiracetam 500 mg/ Sodium (Chloride) 105 mls @ 400 mls/hr IV ONETIME ONE Stop: 12/31/17 14:48 Last Admin: 12/31/17 15:11 Dose: 400 mls/hr Dextrose/Sodium Chloride (Dextrose 5%-Normal Saline) Confirm Administered Dose 1 ,000 mls @ as directed .ROUTE .STK-MED ONE Stop: 12/31/17 14:32 Last Admin: 12/31/17 14:36 Dose: Not Given Magnesium Sulfate 2 gm/ Premix 50 mls @ 25 mls/hr IV ONETIME ONE Stop: 12/31/17 18:33 Last Admin: 12/31/17 16:44 Dose: 25 mls/hr Magnesium Sulfate (Magnesium Sulfate 2 Gm In Water 50 Ml) 50 mls @ 25 mls/hr IV Q2H [facility] Stop: 01/01/18 05:29 Last Admin: 01/01/18 03:56 Dose: 25 mls/hr Thiamine HCl 200 mg/ Sodium (Chloride) 52 mls @ 100 mls/hr IV ONETIME ONE Stop: 01/01/18 01:33 Last Admin: 01/01/18 01:55 Dose: 100 mls/hr Multivitamins (Thera) 1 each PO ONETIME ONE Stop: 01/01/18 01:04 Last Admin: 01/01/18 01:44 Dose: 1 each Non-Formulary Medication (Nicotine [Habitrol]) 21 mg TRDERM DAILY [facility] Ondansetron HCl (Zofran) 4 mg IVPUSH ONETIME ONE Stop: 12/31/17 18:52 Last Admin: 12/31/17 19:14 Dose: 4 mg Ondansetron HCl (Zofran) 4 mg IVPUSH ONETIME ONE Stop: 12/31/17 22:28 Last Admin: 12/31/17 23:15 Dose: 4 mg Potassium Chloride (Klor-Con M20) 40 meq PO Q4H [facility] Stop: 01/01/18 06:01 Last Admin: 01/01/18 06:32 Dose: 40 meq Scopolamine (Transderm-Scop) 1.5 mg TRDERM Q72H ONE Stop: 01/01/18 01:25 Last Admin: 01/01/18 01:56 Dose: 1.5 mg - Exam Quality Assessment: Supplemental Oxygen, DVT Prophylaxis General: Alert, Cooperative, No Acute Distress. No: Oriented HEENT: Pupils Equal, Mucous Membr. Moist/[place] Neck: Supple, Trachea Midline, No JVD Lungs: Normal Respiratory Effort, Decreased Breath Sounds, Wheezing Cardiovascular: Regular Rate, Regular Rhythm GI/Abdominal Exam: Normal Bowel Sounds, Soft, Non-Tender, No Organomegaly, No Distention (Female) Exam: Deferred Back Exam: Normal Inspection, Full Range of Motion Extremities: Normal Inspection, Normal Range of Motion, Non-Tender, No Pedal Edema, Normal Capillary Refill Peripheral Pulses: 3+: Radial (L), Radial (R), Posterior Tibial (L), Posterior Tibial (R), Dorsalis Pedis (L), Dorsalis Pedis (R) Skin: Warm, Dry, Intact Neurological: No New Focal Deficit Psy/Mental Status: Alert, Anxious, Withdrawal Symptoms - Problem List & Annotations (1) Altered mental status SNOMED Code(s): 702860431 Code(s): R41.82 - ALTERED MENTAL STATUS, UNSPECIFIED Status: Acute Priority: High Current Visit: Yes Qualifiers: Altered mental status type: delirium Qualified Code(s): R41.0 - Disorientation, unspecified (2) Alcoholism /alcohol abuse SNOMED Code(s): 8452437 Code(s): F10.20 - ALCOHOL DEPENDENCE, UNCOMPLICATED Status: Acute Priority: High Current Visit: Yes (3) Difficulty walking SNOMED Code(s): 645216701 Code(s): R26.2 - DIFFICULTY IN WALKING, NOT ELSEWHERE CLASSIFIED Status: Acute Current Visit: No (4) Generalized weakness SNOMED Code(s): 44887019 Code(s): R53.1 - WEAKNESS Status: Acute Priority: High Current Visit: Yes (5) Seizure due to alcohol withdrawal SNOMED Code(s): 436013814 Code(s): F10.239 - ALCOHOL DEPENDENCE WITH WITHDRAWAL, UNSPECIFIED; R56.9 - UNSPECIFIED CONVULSIONS Status: Acute Priority: High Current Visit: Yes Qualifiers: Complication of substance-induced condition: with delirium Qualified Code(s ): F10.231 - Alcohol dependence with withdrawal delirium (6) Asthma SNOMED Code(s): 608445623 Code(s): J45.909 - UNSPECIFIED ASTHMA, UNCOMPLICATED Status: Chronic Priority: Medium Current Visit: No Qualifiers: Asthma severity: unspecified severity Asthma persistence: unspecified Asthma complication type: unspecified Qualified Code(s): J45.909 - Unspecified asthma, uncomplicated (7) Chronic back pain SNOMED Code(s): 459234446 Code(s): M54.9 - DORSALGIA, UNSPECIFIED; G89.29 - OTHER CHRONIC PAIN Status : Chronic Priority: Low Current Visit: No Qualifiers: Back pain location: back pain in unspecified location Back pain laterality : unspecified Qualified Code(s): M54.9 - Dorsalgia, unspecified; G89.29 - Other chronic pain (8) Chronic neck pain SNOMED Code(s): 5441934241477 Code(s): M54.2 - CERVICALGIA; G89.29 - OTHER CHRONIC PAIN Status: Chronic Priority: Low Current Visit: No (9) H/O drug abuse SNOMED Code(s): 702237952 Code(s): Z87.898 - PERSONAL HISTORY OF OTHER SPECIFIED CONDITIONS Status: Chronic Priority: Medium Current Visit: No (10) Other specified depressive episodes SNOMED Code(s): 96480509 Code(s): F32.89 - OTHER SPECIFIED DEPRESSIVE EPISODES Status: Chronic Priority: Medium Current Visit: No (11) History of diabetes mellitus SNOMED Code(s): 864074014 Code(s): Z86.39 - PERSONAL HISTORY OF ENDO, NUTRITIONAL AND METABOLIC DISEASE Status: Chronic Priority: Medium Current Visit: No (12) Hypokalemia SNOMED Code(s): 54562651 Code(s): E87.6 - HYPOKALEMIA Status: Resolved Priority: High Current Visit: Yes (13) Hypomagnesemia SNOMED Code(s): 133345592 Code(s): E83.42 - HYPOMAGNESEMIA Status: Acute Priority: High Current Visit: Yes (14) Nicotine dependence SNOMED Code(s): 84651633 Code(s): F17.200 - NICOTINE DEPENDENCE, UNSPECIFIED, UNCOMPLICATED Status: Chronic Priority: Medium Current Visit: No Qualifiers: Nicotine product type: cigarettes Substance use status: unspecified nicotine-induced disorder Qualified Code(s): F17.219 - Nicotine dependence, cigarettes, with unspecified nicotine-induced disorders - Problem List Review Problem List Initiated/Reviewed/Updated: Yes - Plan Plan:: Assessment/Plan: Acute: ETOH Intoxication/ETOH Abuse - Carries a hx/o ETOH Abuse and Acute Psychosis - Has been treatment multiple times - PATRICIA level 0.14 - Ativan/Seroquel/Clonidine/Topamax - Multivitamin/Thiamine/folic acid - IV fluids - Hydralazine and IVP BB for HR/BP control - Ativan for Abortive Seizure and Withdrawal Symptoms - [facility] protocol - SA/Psych consult ETOH Related Seizure - PRN Ativen for abortive seizure - Keppra given in ED, will stop as seizure is related to ETOH use and she needs to stop drinking Hypomagnesemia - Mg 1.3-->2.8 - 2/2 inadequate intake - Replete and monitor Hep C Infection - Hep C screening positive - Appears to be new - has not been mentioned in prior charts here - Defer GI outpatient for treatment Resolved: Mild Hypokalemia - K 3.4-->4.4 - 2/2 inadequate intake - Replete and monitor Chronic: Impaired Vision Asthma -Duoneb/RT and solumedrol for wheezing Back/Neck Pain Hx/o Drug Abuse Depression Tobacco use disorder - nicotine patch ordered, cessation counseling Plan: Admit to ICU Routine AM Labs Resume Home Meds PT/OT consult [facility] Protocol UDS negative Aspiration/Seizure Precautions DVT PPx: SCDs SA/Psych Consult SW/CM for d/c planning Code status: Full code; PCP: None
[2018-01-01] MEDS: Pantoprazole 40 MG Vial IV SCH ×2 (08:12→20:09)
[2018-01-01] MEDS: Folic Acid 1 MG Tab PO SCH (08:18)
[2018-01-01] MEDS: FLUoxetine 20 MG Cap PO SCH (08:18)
[2018-01-01] MEDS: Topiramate 25 MG Tab PO SCH ×2 (08:18→20:17)
[2018-01-01] MEDS ORDERED: NICOTINE 21 MG TRDERM SCH (09:00)
[2018-01-01] MEDS ORDERED: Magnesium Oxide 400 MG Tab PO SCH (09:00)
--- NOTE | 2018-01-01 09:24 | CR ---
Chest: Portable view of the chest was obtained. Comparison: Prior chest x-ray of 04/04/17. Heart size is normal. Tortuous thoracic aorta is seen. Lungs are clear with no acute parenchymal densities. Bony structures are osteopenic. Impression: 1. Nothing acute is seen on portable chest x-ray. Diagnostic code #2
[2018-01-01] MEDS: methylPREDNISolone Sodium Succinate 40 MG/1 ML SDV IVPUSH SCH ×2 (12:00→20:10)
[2018-01-01] MEDS: hydrALAZINE 20 MG/ML SDV IVPUSH PRN (12:10)
[2018-01-01] MEDS: lamoTRIgine 100 MG Tab PO SCH (20:15)
[2018-01-01] MEDS: Celecoxib 100 MG Cap PO SCH (20:17)
[2018-01-01] MEDS: Gabapentin 300 MG Cap PO SCH (20:17)
[2018-01-01] MEDS ORDERED: QUEtiapine 25 MG Tab PO SCH (21:00)
[2018-01-01] MEDS ORDERED: PARoxetine 20 MG Tab PO SCH (21:00)
[2018-01-01] MEDS: Albuterol/Ipratropium 3.0-0.5 MG/3 ML Neb Soln NEB SCH (21:13)
[2018-01-02] MEDS: methylPREDNISolone Sodium Succinate 40 MG/1 ML SDV IVPUSH SCH ×3 (04:01→20:10)
[2018-01-02] MEDS: Ibuprofen 600 MG Tab PO PRN ×3 (04:02→20:13)
[2018-01-02] MEDS: hydrALAZINE 20 MG/ML SDV IVPUSH PRN (04:41)
[2018-01-02] MEDS: Levothyroxine 75 MCG Tab PO SCH (05:47)
[2018-01-02] MEDS: Albuterol/Ipratropium 3.0-0.5 MG/3 ML Neb Soln NEB SCH ×2 (05:51→20:27)
[2018-01-02] MEDS: metFORMIN 500 MG Tab PO SCH ×2 (06:15→16:57)
[2018-01-02] MEDS: oxyCODONE 5 MG Tab PO PRN ×2 (07:45→13:47)
[2018-01-02] MEDS: lamoTRIgine 100 MG Tab PO SCH ×2 (08:17→20:13)
[2018-01-02] MEDS: Folic Acid 1 MG Tab PO SCH (08:17)
[2018-01-02] MEDS: FLUoxetine 20 MG Cap PO SCH (08:17)
[2018-01-02] MEDS: Celecoxib 100 MG Cap PO SCH ×2 (08:17→20:13)
[2018-01-02] MEDS: Thiamine 100 MG Tab PO SCH (08:17)
[2018-01-02] MEDS: Gabapentin 300 MG Cap PO SCH ×3 (08:18→20:14)
[2018-01-02] MEDS: Pantoprazole 40 MG Vial IV SCH ×2 (08:18→20:13)
[2018-01-02] MEDS: Topiramate 25 MG Tab PO SCH (08:18)
[2018-01-02] MEDS: Metoprolol Tartrate 5 MG/5 ML SDV IVPUSH PRN (08:18)
--- NOTE | 2018-01-02 10:12 | PCM.PN ---
- General Info Date of Service: 01/02/18 Functional Status: Reports: Tolerating Diet, Ambulating, Urinating - Review of Systems General: Reports: No Symptoms HEENT: Reports: No Symptoms Pulmonary: Reports: No Symptoms Cardiovascular: Reports: No Symptoms Gastrointestinal: Reports: No Symptoms Genitourinary: Reports: No Symptoms Musculoskeletal: Reports: No Symptoms Skin: Reports: No Symptoms Neurological: Reports: No Symptoms Psychiatric: Reports: No Symptoms - Patient Data Vitals - Most Recent: Last Vital Signs Temp 37.9 C 01/02/18 08:00 Pulse 124 H 01/02/18 08:18 Resp 16 01/02/18 08:00 BP 123/94 H 01/02/18 08:18 Pulse Ox 94 L 01/02/18 08:00 Weight - Most Recent: 69.853 kg I&O - Last 24 Hours: Intake & Output 01/01/18 01/02/18 01/02/18 22:59 06:59 14:59 Intake Total 60 540 Output Total 300 600 Balance -240 -60 Lab Results Last 24 Hours: Laboratory Results - last 24 hr 12/31/17 01/01/18 01/02/18 Range/Units 14:48 16:37 00:06 Sodium (136-145) mEq/L Potassium (3.5-5.1) mEq/L Chloride (98-107) mEq/L Carbon Dioxide (21-32) mEq/L Anion Gap (5-15) BUN (7-18) mg/dL Creatinine (0.55-1.02) mg/dL Est Cr Clr Drug Dosing mL/min Estimated GFR (MDRD) (>60) mL/min BUN/Creatinine Ratio (14-18) Glucose (74-106) mg/dL POC Glucose 165 H 177 H (70-105) mg/dL Calcium (8.5-10.1) mg/dL Magnesium (1.8-2.4) mg/dl Total Bilirubin (0.2-1.0) mg/dL AST (15-37) U/L ALT (14-59) U/L Alkaline Phosphatase (46-116) U/L Total Protein (6.4-8.2) g/dl Albumin (3.4-5.0) g/dl Globulin gm/dL Albumin/Globulin Ratio (1-2) Hep Bs Antigen Nonreactive (NONREACTIVE) 01/02/18 01/02/18 Range/Units 05:55 05:55 Sodium 137 (136-145) mEq/L Potassium 4.5 (3.5-5.1) mEq/L Chloride 101 (98-107) mEq/L Carbon Dioxide 25 (21-32) mEq/L Anion Gap 15.5 H (5-15) BUN 17 (7-18) mg/dL Creatinine 1.0 (0.55-1.02) mg/dL Est Cr Clr Drug Dosing 51.66 mL/min Estimated GFR (MDRD) 57 (>60) mL/min BUN/Creatinine Ratio 17.0 (14-18) Glucose 155 H (74-106) mg/dL POC Glucose 161 H (70-105) mg/dL Calcium 10.3 H (8.5-10.1) mg/dL Magnesium 1.8 (1.8-2.4) mg/dl Total Bilirubin 0.6 (0.2-1.0) mg/dL AST 37 (15-37) U/L ALT 41 (14-59) U/L Alkaline Phosphatase 133 H (46-116) U/L Total Protein 8.1 (6.4-8.2) g/dl Albumin 4.3 (3.4-5.0) g/dl Globulin 3.8 gm/dL Albumin/Globulin Ratio 1.1 (1-2) Hep Bs Antigen (NONREACTIVE) Med Orders - Current: Current Medications Albuterol/Ipratropium (Duoneb 3.0-0.5 Mg/3 Ml) 3 ml NEB Q4H PRN PRN Reason: Shortness Of Breath/wheezing Last Admin: 01/01/18 08:24 Dose: 3 ml Albuterol/Ipratropium (Duoneb 3.0-0.5 Mg/3 Ml) 3 ml NEB BIDRT [facility] Last Admin: 01/02/18 05:51 Dose: 3 ml Bisacodyl (Dulcolax) 5 mg PO DAILY PRN PRN Reason: Constipation Celecoxib (Celebrex) 100 mg PO BID [facility] Last Admin: 01/02/18 08:17 Dose: 100 mg Clonidine HCl (Catapres) 0.1 mg PO Q4H PRN PRN Reason: Agitation Docusate Sodium (Colace) 100 mg PO BID PRN PRN Reason: Constipation Folic Acid (Folic Acid) 1 mg PO DAILY [facility] Stop: 01/03/18 09:01 Last Admin: 01/02/18 08:17 Dose: 1 mg Gabapentin (Neurontin) 300 mg PO TID [facility] Last Admin: 01/02/18 08:18 Dose: 300 mg Haloperidol Lactate (Haldol) 4 mg IM Q4H PRN PRN Reason: Agitation/Psychosis Hydralazine HCl (Apresoline) 20 mg IVPUSH Q4H PRN PRN Reason: Hypertension Last Admin: 01/02/18 04:41 Dose: 20 mg Hydromorphone HCl (Dilaudid) 0.25 mg IVPUSH Q2H PRN PRN Reason: Pain (severe 7-10) Promethazine HCl 12.5 mg/ (Sodium Chloride) 50.5 mls @ 100 mls/hr IV Q6H PRN PRN Reason: Nausea/Vomiting Ibuprofen (Motrin) 600 mg PO Q6H PRN PRN Reason: Pain (moderate 4-6) Last Admin: 01/02/18 04:02 Dose: 600 mg Lamotrigine (Lamotrigine) 150 mg PO BID [facility] Last Admin: 01/02/18 08:17 Dose: 150 mg Levothyroxine Sodium (Levothyroxine) 75 mcg PO ACBREAKFAST [facility] Last Admin: 01/02/18 05:47 Dose: 75 mcg Lorazepam (Ativan) 2 mg IVPUSH Q4H PRN PRN Reason: Seizures Lorazepam (Ativan) 0 mg IVPUSH Q4H PRN; Protocol PRN Reason: Withdrawal Symptoms Last Admin: 01/01/18 04:53 Dose: 2 mg Metformin HCl (Glucophage) 500 mg PO BIDMEALS [facility] Last Admin: 01/02/18 06:15 Dose: 500 mg Methylprednisolone Sodium Succinate (Solu-Medrol) 60 mg IVPUSH Q8H [facility] Last Admin: 01/02/18 04:01 Dose: 60 mg Metoprolol Tartrate (Lopressor) 5 mg IVPUSH Q4H PRN PRN Reason: Tachycardia Last Admin: 01/02/18 08:18 Dose: 5 mg Miscellaneous Information (Remove Patch) 1 ea TRDERM Q24H [facility] Last Admin: 01/02/18 04:41 Dose: 1 ea Miscellaneous Information (Remove Patch) 1 ea TRDERM Q72H [facility] Nicotine (Habitrol) 21 mg TRDERM DAILY PRN PRN Reason: Nicotine Ondansetron HCl (Zofran) 4 mg IV Q6H PRN PRN Reason: Nausea/Vomiting Oxycodone HCl (Oxycodone) 5 mg PO Q4H PRN PRN Reason: Pain (moderate 4-6) Last Admin: 01/02/18 07:45 Dose: 5 mg Pantoprazole Sodium (Protonix Iv) 40 mg IV Q12HR [facility] Last Admin: 01/02/18 08:18 Dose: 40 mg Paroxetine HCl (Paxil) 20 mg PO BEDTIME [facility] Polyethylene Glycol (Miralax) 17 gm PO DAILY PRN PRN Reason: Constipation Quetiapine Fumarate (Seroquel) 50 mg PO BEDTIME [facility] Last Admin: 01/01/18 20:15 Dose: 50 mg Senna/Docusate Sodium (Senna Plus) 1 tab PO BID PRN PRN Reason: Constipation Thiamine HCl (Vitamin B-1) 100 mg PO DAILY [facility] Last Admin: 01/02/18 08:17 Dose: 100 mg Topiramate (Topamax) 25 mg PO BID [facility] Last Admin: 01/02/18 08:18 Dose: 25 mg Discontinued Medications Fluoxetine HCl (Prozac) 20 mg PO DAILY [facility] Last Admin: 01/02/18 08:17 Dose: 20 mg Haloperidol Lactate (Haldol) 2 mg IM Q4H PRN PRN Reason: Agitation/Psychosis Sodium Chloride (Normal Saline) 1,000 mls @ 500 mls/hr IV ASDIRECTED [facility] Last Admin: 12/31/17 14:35 Dose: 500 mls/hr Levetiracetam 500 mg/ Sodium (Chloride) 105 mls @ 400 mls/hr IV ONETIME ONE Stop: 12/31/17 14:48 Last Admin: 12/31/17 15:11 Dose: 400 mls/hr Dextrose/Sodium Chloride (Dextrose 5%-Normal Saline) Confirm Administered Dose 1 ,000 mls @ as directed .ROUTE .STK-MED ONE Stop: 12/31/17 14:32 Last Admin: 12/31/17 14:36 Dose: Not Given Lactated Ringer's (Ringers, Lactated) 1,000 mls @ 200 mls/hr IV ASDIRECTED [facility] Last Admin: 12/31/17 16:43 Dose: 200 mls/hr Magnesium Sulfate 2 gm/ Premix 50 mls @ 25 mls/hr IV ONETIME ONE Stop: 12/31/17 18:33 Last Admin: 12/31/17 16:44 Dose: 25 mls/hr Lactated Ringer's (Ringers, Lactated) 1,000 mls @ 150 mls/hr IV ASDIRECTED [facility] Last Admin: 12/31/17 22:20 Dose: 150 mls/hr Magnesium Sulfate (Magnesium Sulfate 2 Gm In Water 50 Ml) 50 mls @ 25 mls/hr IV Q2H [facility] Stop: 01/01/18 05:29 Last Admin: 01/01/18 03:56 Dose: 25 mls/hr Thiamine HCl 200 mg/ Sodium (Chloride) 52 mls @ 100 mls/hr IV ONETIME ONE Stop: 01/01/18 01:33 Last Admin: 01/01/18 01:55 Dose: 100 mls/hr Magnesium Oxide (Magnesium Oxide) 400 mg PO BID [facility] Last Admin: 01/01/18 08:18 Dose: 400 mg Magnesium Sulfate (Pharmacy To Dose - Magnesium Replacement) 0 dose .XX ASDIRECTED PRN PRN Reason: RX TO WATCH MAG LEVELS Multivitamins (Thera) 1 each PO ONETIME ONE Stop: 01/01/18 01:04 Last Admin: 01/01/18 01:44 Dose: 1 each Non-Formulary Medication (Nicotine [Habitrol]) 21 mg TRDERM DAILY [facility] Ondansetron HCl (Zofran) 4 mg IVPUSH ONETIME ONE Stop: 12/31/17 18:52 Last Admin: 12/31/17 19:14 Dose: 4 mg Ondansetron HCl (Zofran) 4 mg IVPUSH ONETIME ONE Stop: 12/31/17 22:28 Last Admin: 12/31/17 23:15 Dose: 4 mg Potassium Chloride (Pharmacy To Dose - Potassium Replacement) 0 dose .XX ASDIRECTED PRN PRN Reason: RX TO WATCH K LEVELS Potassium Chloride (Klor-Con M20) 40 meq PO Q4H [facility] Stop: 01/01/18 06:01 Last Admin: 01/01/18 06:32 Dose: 40 meq Scopolamine (Transderm-Scop) 1.5 mg TRDERM Q72H ONE Stop: 01/01/18 01:25 Last Admin: 01/01/18 01:56 Dose: 1.5 mg - Exam Quality Assessment: DVT Prophylaxis General: Alert, Oriented HEENT: Pupils Equal, Pupils Reactive, EOMI Neck: Trachea Midline, No JVD Lungs: Normal Respiratory Effort Cardiovascular: Regular Rate, Regular Rhythm GI/Abdominal Exam: Normal Bowel Sounds, Soft, Non-Tender, No Organomegaly, No Distention (Female) Exam: Deferred Back Exam: Normal Inspection Extremities: Normal Inspection Skin: Warm Neurological: No New Focal Deficit, Normal Speech Psy/Mental Status: Alert, Normal Affect, Normal Mood - Problem List Review Problem List Initiated/Reviewed/Updated: Yes - Plan Plan:: Assessment/Plan: Acute: ETOH Intoxication/ETOH Abuse - Carries a hx/o ETOH Abuse and Acute Psychosis - Has been treatment multiple times - PATRICIA level 0.14 - Ativan/Seroquel/Clonidine/Topamax - Multivitamin/Thiamine/folic acid - IV fluids - Hydralazine and IVP BB for HR/BP control - Ativan for Abortive Seizure and Withdrawal Symptoms - [facility] protocol - SA/Psych consult ETOH Related Seizure - PRN Ativen for abortive seizure - Keppra given in ED, will stop as seizure is related to ETOH use and she needs to stop drinking Hypomagnesemia - Mg 1.3-->2.8 - 2/2 inadequate intake - Replete and monitor Hep C Infection - Hep C screening positive - Appears to be new - has not been mentioned in prior charts here - Defer GI outpatient for treatment Resolved: Mild Hypokalemia - K 3.4-->4.4 - 2/2 inadequate intake - Replete and monitor Chronic: Impaired Vision Asthma -Duoneb/RT and solumedrol for wheezing Back/Neck Pain Hx/o Drug Abuse Depression Tobacco use disorder - nicotine patch ordered, cessation counseling Plan: ICU Routine AM Labs Resume Home Meds PT/OT consult [facility] Protocol UDS negative Aspiration/Seizure Precautions DVT PPx: SCDs SA/Psych Consult--completed w/ med changes; SA pending. SW/CM for d/c planning Code status: Full code; PCP: None
[2018-01-02] MEDS ORDERED: Magnesium Sulfate/Water 2 GM in Premix Bag 1 BAG IV ONE (18:12)
[2018-01-02] MEDS: Mirtazapine 15 MG Tab PO SCH (20:13)
[2018-01-03] MEDS: Ibuprofen 600 MG Tab PO PRN ×4 (02:36→20:03)
[2018-01-03] MEDS: methylPREDNISolone Sodium Succinate 40 MG/1 ML SDV IVPUSH SCH ×3 (04:36→19:05)
[2018-01-03] MEDS: Albuterol/Ipratropium 3.0-0.5 MG/3 ML Neb Soln NEB SCH ×2 (05:23→20:11)
[2018-01-03] MEDS: Levothyroxine 75 MCG Tab PO SCH (05:26)
[2018-01-03] MEDS: metFORMIN 500 MG Tab PO SCH ×2 (07:43→17:18)
[2018-01-03] MEDS: Gabapentin 300 MG Cap PO SCH ×3 (08:00→20:05)
[2018-01-03] MEDS: Thiamine 100 MG Tab PO SCH (08:00)
[2018-01-03] MEDS: Celecoxib 100 MG Cap PO SCH ×2 (08:00→20:05)
[2018-01-03] MEDS: Venlafaxine 37.5 MG Cap.ER PO SCH (08:01)
[2018-01-03] MEDS: lamoTRIgine 100 MG Tab PO SCH ×2 (08:02→20:04)
[2018-01-03] MEDS: Folic Acid 1 MG Tab PO SCH (08:02)
[2018-01-03] MEDS: Pantoprazole 40 MG Vial IV SCH ×2 (08:03→20:05)
--- NOTE | 2018-01-03 12:25 | PCM.PN ---
- General Info Date of Service: 01/03/18 Functional Status: Reports: Tolerating Diet, Ambulating, Urinating - Review of Systems General: Reports: No Symptoms HEENT: Reports: No Symptoms Pulmonary: Reports: No Symptoms Cardiovascular: Reports: No Symptoms Gastrointestinal: Reports: No Symptoms Genitourinary: Reports: No Symptoms Musculoskeletal: Reports: No Symptoms Skin: Reports: No Symptoms Neurological: Reports: No Symptoms Psychiatric: Reports: No Symptoms - Patient Data Vitals - Most Recent: Last Vital Signs Temp 36.8 C 01/03/18 08:00 Pulse 84 01/03/18 04:00 Resp 18 01/03/18 08:00 BP 117/98 H 01/03/18 08:00 Pulse Ox 95 01/03/18 04:00 Weight - Most Recent: 69.717 kg I&O - Last 24 Hours: Intake & Output 01/02/18 01/03/18 01/03/18 22:59 06:59 14:59 Intake Total 730 450 Output Total 850 700 Balance -120 -250 Lab Results Last 24 Hours: Laboratory Results - last 24 hr 01/02/18 01/02/18 01/03/18 Range/Units 17:09 20:11 05:34 Sodium (136-145) mEq/L Potassium (3.5-5.1) mEq/L Chloride (98-107) mEq/L Carbon Dioxide (21-32) mEq/L Anion Gap (5-15) BUN (7-18) mg/dL Creatinine (0.55-1.02) mg/dL Est Cr Clr Drug Dosing mL/min Estimated GFR (MDRD) (>60) mL/min BUN/Creatinine Ratio (14-18) Glucose (74-106) mg/dL POC Glucose 228 H 165 H 145 H (70-105) mg/dL Calcium (8.5-10.1) mg/dL Magnesium (1.8-2.4) mg/dl Total Bilirubin (0.2-1.0) mg/dL AST (15-37) U/L ALT (14-59) U/L Alkaline Phosphatase (46-116) U/L Total Protein (6.4-8.2) g/dl Albumin (3.4-5.0) g/dl Globulin gm/dL Albumin/Globulin Ratio (1-2) 01/03/18 Range/Units 05:35 Sodium 137 (136-145) mEq/L Potassium 4.0 (3.5-5.1) mEq/L Chloride 103 (98-107) mEq/L Carbon Dioxide 23 (21-32) mEq/L Anion Gap 15.0 (5-15) BUN 28 H (7-18) mg/dL Creatinine 1.1 H (0.55-1.02) mg/dL Est Cr Clr Drug Dosing 46.96 mL/min Estimated GFR (MDRD) 51 (>60) mL/min BUN/Creatinine Ratio 25.5 H (14-18) Glucose 145 H (74-106) mg/dL POC Glucose (70-105) mg/dL Calcium 10.1 (8.5-10.1) mg/dL Magnesium 2.0 (1.8-2.4) mg/dl Total Bilirubin 0.5 (0.2-1.0) mg/dL AST 24 (15-37) U/L ALT 36 (14-59) U/L Alkaline Phosphatase 121 H (46-116) U/L Total Protein 7.7 (6.4-8.2) g/dl Albumin 4.1 (3.4-5.0) g/dl Globulin 3.6 gm/dL Albumin/Globulin Ratio 1.1 (1-2) Med Orders - Current: Current Medications Albuterol/Ipratropium (Duoneb 3.0-0.5 Mg/3 Ml) 3 ml NEB Q4H PRN PRN Reason: Shortness Of Breath/wheezing Last Admin: 01/01/18 08:24 Dose: 3 ml Albuterol/Ipratropium (Duoneb 3.0-0.5 Mg/3 Ml) 3 ml NEB BIDRT [facility] Last Admin: 01/03/18 05:23 Dose: 3 ml Bisacodyl (Dulcolax) 5 mg PO DAILY PRN PRN Reason: Constipation Last Admin: 01/03/18 08:25 Dose: 5 mg Celecoxib (Celebrex) 100 mg PO BID [facility] Last Admin: 01/03/18 08:00 Dose: 100 mg Clonidine HCl (Catapres) 0.1 mg PO Q4H PRN PRN Reason: Agitation Docusate Sodium (Colace) 100 mg PO BID PRN PRN Reason: Constipation Gabapentin (Neurontin) 300 mg PO TID [facility] Last Admin: 01/03/18 08:00 Dose: 300 mg Haloperidol Lactate (Haldol) 4 mg IM Q4H PRN PRN Reason: Agitation/Psychosis Hydralazine HCl (Apresoline) 20 mg IVPUSH Q4H PRN PRN Reason: Hypertension Last Admin: 01/02/18 04:41 Dose: 20 mg Promethazine HCl 12.5 mg/ (Sodium Chloride) 50.5 mls @ 100 mls/hr IV Q6H PRN PRN Reason: Nausea/Vomiting Ibuprofen (Motrin) 600 mg PO Q6H PRN PRN Reason: Pain (moderate 4-6) Last Admin: 01/03/18 08:40 Dose: 600 mg Lamotrigine (Lamotrigine) 175 mg PO BID [facility] Last Admin: 01/03/18 08:02 Dose: 175 mg Levothyroxine Sodium (Levothyroxine) 75 mcg PO ACBREAKFAST [facility] Last Admin: 01/03/18 05:26 Dose: 75 mcg Lorazepam (Ativan) 2 mg IVPUSH Q4H PRN PRN Reason: Seizures Lorazepam (Ativan) 0 mg IVPUSH Q4H PRN; Protocol PRN Reason: Withdrawal Symptoms Last Admin: 01/01/18 04:53 Dose: 2 mg Metformin HCl (Glucophage) 500 mg PO BIDMEALS [facility] Last Admin: 01/03/18 07:43 Dose: 500 mg Methylprednisolone Sodium Succinate (Solu-Medrol) 60 mg IVPUSH Q8H [facility] Last Admin: 01/03/18 11:53 Dose: 60 mg Metoprolol Tartrate (Lopressor) 5 mg IVPUSH Q4H PRN PRN Reason: Tachycardia Last Admin: 01/02/18 08:18 Dose: 5 mg Mirtazapine (Remeron) 15 mg PO BEDTIME [facility] Last Admin: 01/02/18 20:13 Dose: 15 mg Miscellaneous Information (Remove Patch) 1 ea TRDERM Q24H [facility] Last Admin: 01/02/18 21:20 Dose: 1 ea Miscellaneous Information (Remove Patch) 1 ea TRDERM Q72H [facility] Nicotine (Habitrol) 21 mg TRDERM DAILY PRN PRN Reason: Nicotine Ondansetron HCl (Zofran) 4 mg IV Q6H PRN PRN Reason: Nausea/Vomiting Pantoprazole Sodium (Protonix Iv) 40 mg IV Q12HR [facility] Last Admin: 01/03/18 08:03 Dose: 40 mg Polyethylene Glycol (Miralax) 17 gm PO DAILY PRN PRN Reason: Constipation Senna/Docusate Sodium (Senna Plus) 1 tab PO BID PRN PRN Reason: Constipation Thiamine HCl (Vitamin B-1) 100 mg PO DAILY [facility] Last Admin: 01/03/18 08:00 Dose: 100 mg Venlafaxine HCl (Effexor Xr) 37.5 mg PO DAILY [facility] Last Admin: 01/03/18 08:01 Dose: 37.5 mg Discontinued Medications Fluoxetine HCl (Prozac) 20 mg PO DAILY [facility] Last Admin: 01/02/18 08:17 Dose: 20 mg Folic Acid (Folic Acid) 1 mg PO DAILY [facility] Stop: 01/03/18 09:01 Last Admin: 01/03/18 08:02 Dose: 1 mg Haloperidol Lactate (Haldol) 2 mg IM Q4H PRN PRN Reason: Agitation/Psychosis Hydromorphone HCl (Dilaudid) 0.25 mg IVPUSH Q2H PRN PRN Reason: Pain (severe 7-10) Sodium Chloride (Normal Saline) 1,000 mls @ 500 mls/hr IV ASDIRECTED [facility] Last Admin: 12/31/17 14:35 Dose: 500 mls/hr Levetiracetam 500 mg/ Sodium (Chloride) 105 mls @ 400 mls/hr IV ONETIME ONE Stop: 12/31/17 14:48 Last Admin: 12/31/17 15:11 Dose: 400 mls/hr Dextrose/Sodium Chloride (Dextrose 5%-Normal Saline) Confirm Administered Dose 1 ,000 mls @ as directed .ROUTE .STK-MED ONE Stop: 12/31/17 14:32 Last Admin: 12/31/17 14:36 Dose: Not Given Lactated Ringer's (Ringers, Lactated) 1,000 mls @ [facility] Admin: 12/31/17 16:43 Dose: 200 mls/hr Magnesium Sulfate 2 gm/ Premix 50 mls @ 25 mls/hr IV ONETIME ONE Stop: 12/31/17 18:33 Last Admin: 12/31/17 16:44 Dose: 25 mls/hr Lactated Ringer's (Ringers, Lactated) 1,000 mls @ 150 mls/hr IV ASDIRECTED [facility] Last Admin: 12/31/17 22:20 Dose: 150 mls/hr Magnesium Sulfate (Magnesium Sulfate 2 Gm In Water 50 Ml) 50 mls @ 25 mls/hr IV Q2H [facility] Stop: 01/01/18 05:29 Last Admin: 01/01/18 03:56 Dose: 25 mls/hr Thiamine HCl 200 mg/ Sodium (Chloride) 52 mls @ 100 mls/hr IV ONETIME ONE Stop: 01/01/18 01:33 Last Admin: 01/01/18 01:55 Dose: 100 mls/hr Magnesium Sulfate 2 gm/ Premix 50 mls @ 25 mls/hr IV ONETIME ONE Stop: 01/02/18 20:11 Last Admin: 01/02/18 19:37 Dose: 25 mls/hr Lamotrigine (Lamotrigine) 150 mg PO BID [facility] Last Admin: 01/02/18 08:17 Dose: 150 mg Magnesium Oxide (Magnesium Oxide) 400 mg PO BID [facility] Last Admin: 01/01/18 08:18 Dose: 400 mg Magnesium Sulfate (Pharmacy To Dose - Magnesium Replacement) 0 dose .XX ASDIRECTED PRN PRN Reason: RX TO WATCH MAG LEVELS Multivitamins (Thera) 1 each PO ONETIME ONE Stop: 01/01/18 01:04 Last Admin: 01/01/18 01:44 Dose: 1 each Non-Formulary Medication (Nicotine [Habitrol]) 21 mg TRDERM DAILY [facility] Ondansetron HCl (Zofran) 4 mg IVPUSH ONETIME ONE Stop: 12/31/17 18:52 Last Admin: 12/31/17 19:14 Dose: 4 mg Ondansetron HCl (Zofran) 4 mg IVPUSH ONETIME ONE Stop: 12/31/17 22:28 Last Admin: 12/31/17 23:15 Dose: 4 mg Oxycodone HCl (Oxycodone) 5 mg PO Q4H PRN PRN Reason: Pain (moderate 4-6) Last Admin: 01/02/18 13:47 Dose: 5 mg Paroxetine HCl (Paxil) 20 mg PO BEDTIME [facility] Last Admin: 01/02/18 13:59 Dose: Not Given Potassium Chloride (Pharmacy To Dose - Potassium Replacement) 0 dose .XX ASDIRECTED PRN PRN Reason: RX TO WATCH K LEVELS Potassium Chloride (Klor-Con M20) 40 meq PO Q4H [facility] Stop: 01/01/18 06:01 Last Admin: 01/01/18 06:32 Dose: 40 meq Quetiapine Fumarate (Seroquel) 50 mg PO BEDTIME [facility] Last Admin: 01/01/18 20:15 Dose: 50 mg Scopolamine (Transderm-Scop) 1.5 mg TRDERM Q72H ONE Stop: 01/01/18 01:25 Last Admin: 01/01/18 01:56 Dose: 1.5 mg Topiramate (Topamax) 25 mg PO BID [facility] Last Admin: 01/02/18 08:18 Dose: 25 mg - Exam Quality Assessment: DVT Prophylaxis General: Alert, Oriented, Cooperative HEENT: Pupils Equal, Pupils Reactive, EOMI Neck: Trachea Midline, No JVD Lungs: Normal Respiratory Effort Cardiovascular: Regular Rate, Regular Rhythm GI/Abdominal Exam: Normal Bowel Sounds, Soft, Non-Tender, No Organomegaly, No Distention (Female) Exam: Deferred Back Exam: Normal Inspection Extremities: Normal Inspection, Non-Tender, No Pedal Edema Skin: Warm Wound/Incisions: Healing Well Neurological: No New Focal Deficit Psy/Mental Status: Alert, Normal Affect, Normal Mood - Problem List Review Problem List Initiated/Reviewed/Updated: Yes - My Orders Last 24 Hours: My Active Orders 01/03/18 10:09 Patient Status [ADT] Routine - Plan Plan:: Assessment/Plan: Acute: ETOH Intoxication/ETOH Abuse; await SA, disposition TBD - Carries a hx/o ETOH Abuse and Acute Psychosis - Has been treatment multiple times - PATRICIA level 0.14 - Ativan/Seroquel/Clonidine/Topamax - Multivitamin/Thiamine/folic acid - IV fluids - Hydralazine and IVP BB for HR/BP control - Ativan for Abortive Seizure and Withdrawal Symptoms - [facility] protocol - SA/Psych consult ETOH Related Seizure - PRN Ativen for abortive seizure - Keppra given in ED, will stop as seizure is related to ETOH use and she needs to stop drinking Hypomagnesemia - Mg 1.3-->2.8 - 2/2 inadequate intake - Replete and monitor Hep C Infection - Hep C screening positive - Appears to be new - has not been mentioned in prior charts here - Defer GI outpatient for treatment Resolved: Mild Hypokalemia - K 3.4-->4.4 - 2/2 inadequate intake - Replete and monitor Chronic: Impaired Vision Asthma -Duoneb/RT and solumedrol for wheezing Back/Neck Pain Hx/o Drug Abuse Depression Tobacco use disorder - nicotine patch ordered, cessation counseling Plan: ICU Routine AM Labs Resume Home Meds PT/OT consult [facility] Protocol UDS negative Aspiration/Seizure Precautions DVT PPx: SCDs SA/Psych Consult--completed w/ med changes; SA pending. SW/CM for d/c planning Code status: Full code; PCP: None
[2018-01-03] MEDS: Mirtazapine 15 MG Tab PO SCH (20:05)
[2018-01-04] MEDS: methylPREDNISolone Sodium Succinate 40 MG/1 ML SDV IVPUSH SCH ×2 (03:51→12:48)
[2018-01-04] MEDS: Albuterol/Ipratropium 3.0-0.5 MG/3 ML Neb Soln NEB SCH (05:19)
[2018-01-04] MEDS: Levothyroxine 75 MCG Tab PO SCH (05:27)
[2018-01-04] MEDS: metFORMIN 500 MG Tab PO SCH (08:01)
[2018-01-04] MEDS: Thiamine 100 MG Tab PO SCH (08:01)
[2018-01-04] MEDS: Pantoprazole 40 MG Vial IV SCH (08:01)
[2018-01-04] MEDS: Venlafaxine 37.5 MG Cap.ER PO SCH (08:02)
[2018-01-04] MEDS: Ibuprofen 600 MG Tab PO PRN (08:02)
[2018-01-04] MEDS: lamoTRIgine 100 MG Tab PO SCH (08:02)
[2018-01-04] MEDS: Gabapentin 300 MG Cap PO SCH ×2 (08:02→15:14)
[2018-01-04] MEDS: Celecoxib 100 MG Cap PO SCH (08:03)
[2018-01-04 10:27] VITALS: BP 141/96
[2018-01-04] MEDS ORDERED: Magnesium Sulfate/Water 4 GM in Premix Bag 1 BAG IV ONE (12:33)
[2018-01-04] MEDS: Metoprolol Tartrate 5 MG/5 ML SDV IVPUSH PRN (12:49)
--- NOTE | 2018-01-04 15:43 | PCM.DCSUM1 ---
Discharge Summary - Hospital Course Free Text/Narrative:: This is a 62 yo white female with past medical hx/o Impaired Vision, Asthma, Chronic Neck and Back Pain, Substance Abuse, Depression and Chronic ETOH Use Disorder who comes in for evaluation of seizure like activity ("grand mal convulsion") at home. She was found lying on the garage floor by EMS, alert but confused. However on presentation to ED, she was completely out (obtunded) although she received 2 mg IV of Ativan due to combative behavior. Her last known ETOH drink was last evening. Patient is known to ED and the hospitalist team. She has been here numerous times in past for similar complaints (ETOH related). Her initial work up in ED shows a CBC remarkable for Neutrophils of 61%. Her coagulation study is slightly abnormal for D-dimer level of 0.55. Her chemistry is significant for K of 3.4, AG of 15.4 Glucose of 178, Serum Osmolality of 342, Mg of 1.3, AST of 41 and Alkaline Phosphatase of 139. Her UA is negative for UTI. Her UDS is negative. PATRICIA level is 0.14. She is pos for Hep C on screening. Patient is being admitted for ETOH related Seizure and Detoxification. She is full code. The patient remained in the ICU per ETOH/SZ protocol; the psychiatric consult was performed with adjustments of medication per Dr Aly. The substance abuse consult was ordered, however the provider was not available. The patient signed out AMA, stating that she will not drink. She was encouraged to stay for the substance consultation, but refused. HPI Initial Comments: The overall assessment was per the ED physician as documented; see brief history. Brief History: History of Present Illness. Onset: Today. Onset Date: 12/31/17 (Unknown what time seizure may have occurred as information is being re-'s's received from third and fourth parties.). Duration: Other (Unknown.). Context : 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 (This story is suggestive that the patient suffered a grand mal convulsion home here in [place]. Paramedics were summoned and the patient was found lying on a garage floor.). Associated Symptoms: 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 ( Patient is totally obtunded at the time of assessment. She was requiring oxygen for support. She did receive 2 mg of Ativan by paramedics due to combative behavior presumed to be postictal.). Generalized. Pain Score (Numeric/FACES ): 6. Back. Pain Score (Numeric/FACES): 1. <Clinton Chambers - Last Filed : 01/03/18 07:28>. - General. Chief Complaint: Neuro Symptoms/Deficits. Stated Complaint: [facility]. Time Seen by Provider: 12/31/17 14:20. - History of Present Illness. INITIAL COMMENTS - FREE TEXT/NARRATIVE: 62-year- old female brought to the ED per ambulance. The history provided by EMS is that she was found unresponsive after having a seizure . She was found in a garage -- on a concrete floor. The EMS personelle are highly suspicious she was dragged out of the house and placed on the garage floor as they have picked her up from the garage floor in the past. It is his as if there are things going on in the home that the merchandise processor does not want anybody to see. Jemima is a known alcoholic and has had alcohol withdrawal seizures in the past. Is unclear whether she is on many medication for this. She arrives totally unresponsive. Apparently she was alert at the time of the paramedics found her but confused disoriented and somewhat combat of compatible with postictal state. They started an IV and gave her 2 mg of Ativan which quieted her down. She presents totally obtunded at the time of assessment. Unable to answer any questions. There are no outward signs of head trauma. Apparently her last drink was last evening according to significant other at the home. It is unclear whether any other street drugs or being utilized. She has been seen through the ED in the past with low serum potassiums and alcohol withdrawal seizures. (Clinton Chambers) - Discharge Data Discharge Date: 01/04/18 Discharge Disposition: Against Medical Advice 07 Condition: Good - Patient Summary/Data Consults: Consultations 01/01/18 00:59 Consult to Physician [CONS] Routine Consult to Demurrage Agent [CONS] Routine OT Evaluation and Treatment [CONS] Routine PT Evaluation and Treatment [CONS] Routine 01/01/18 01:23 Consult for Substance Abuse [CONS] Routine 01/02/18 15:24 Consult to Spiritual Care [CONS] Routine - Discharge Plan Home Medications: Home Meds Levothyroxine 75 mcg PO ACBREAKFAST #30 tablet 03/06/17 [Rx] Magnesium Oxide 400 mg PO BID #60 tablet 03/06/17 [Rx] Ibuprofen [Motrin] 600 mg PO Q6H #30 tablet 04/07/17 [Rx] metFORMIN [Glucophage] 500 mg PO BIDMEALS #60 tablet 04/07/17 [Rx] Celecoxib 100 mg PO BID 01/01/18 [History] Gabapentin [Neurontin] 300 mg PO TID 01/01/18 [History] PARoxetine [Paxil] 20 mg PO BEDTIME 01/01/18 [History] lamoTRIgine [Lamotrigine] 150 mg PO BID 01/01/18 [History] Forms: ED Department Discharge Referrals: PCP,None [Primary Care Provider] - - Discharge Summary/Plan Comment DC Time >30 min.: No Discharge Summary/Plan Comment: Assessment/Plan: PATIENT SIGNED OUT AMA Acute: ETOH Intoxication/ETOH Abuse; await SA, disposition TBD - Carries a hx/o ETOH Abuse and Acute Psychosis - Has been treatment multiple times - PATRICIA level 0.14 - Ativan/Seroquel/Clonidine/Topamax - Multivitamin/Thiamine/folic acid - IV fluids - Hydralazine and IVP BB for HR/BP control - Ativan for Abortive Seizure and Withdrawal Symptoms - [facility] protocol - SA/Psych consult ETOH Related Seizure - PRN Ativen for abortive seizure - Keppra given in ED, will stop as seizure is related to ETOH use and she needs to stop drinking Hypomagnesemia - Mg 1.3-->2.8 - 2/2 inadequate intake - Replete and monitor Hep C Infection - Hep C screening positive - Appears to be new - has not been mentioned in prior charts here - Defer GI outpatient for treatment Resolved: Mild Hypokalemia - K 3.4-->4.4 - 2/2 inadequate intake - Replete and monitor Chronic: Impaired Vision Asthma -Duoneb/RT and solumedrol for wheezing Back/Neck Pain Hx/o Drug Abuse Depression Tobacco use disorder - nicotine patch ordered, cessation counseling Plan: ICU Routine AM Labs Resume Home Meds PT/OT consult [facility] Protocol UDS negative Aspiration/Seizure Precautions DVT PPx: SCDs SA/Psych Consult--completed w/ med changes; SA pending. SW/CM for d/c planning Code status: Full code; PCP: None - General Info Date of Service: 05/25/18 Functional Status: Reports: Tolerating Diet - Review of Systems General: Reports: No Symptoms HEENT: Reports: No Symptoms Pulmonary: Reports: No Symptoms Cardiovascular: Reports: No Symptoms Gastrointestinal: Reports: No Symptoms Genitourinary: Reports: No Symptoms Musculoskeletal: Reports: No Symptoms Skin: Reports: No Symptoms Neurological: Reports: No Symptoms Psychiatric: Reports: No Symptoms - Patient Data Vitals - Most Recent: Last Vital Signs Temp 36.5 C 01/04/18 09:00 Pulse 105 H 01/04/18 12:49 Resp 16 01/04/18 09:00 BP 141/96 H 01/04/18 12:49 Pulse Ox 97 01/04/18 09:00 Weight - Most Recent: 69.853 kg I&O - Last 24 hours: Intake & Output 01/04/18 01/04/18 01/04/18 06:59 14:59 22:59 Intake Total 500 720 Output Total 900 Balance -400 720 Lab Results - Last 24 hrs: Laboratory Results - last 24 hr 01/03/18 01/03/18 01/03/18 Range/Units 11:15 17:22 20:24 Sodium (136-145) mEq/L Potassium (3.5-5.1) mEq/L Chloride (98-107) mEq/L Carbon Dioxide (21-32) mEq/L Anion Gap (5-15) BUN (7-18) mg/dL Creatinine (0.55-1.02) mg/dL Est Cr Clr Drug Dosing mL/min Estimated GFR (MDRD) (>60) mL/min BUN/Creatinine Ratio (14-18) Glucose (74-106) mg/dL POC Glucose 238 H 178 H 228 H (70-105) mg/dL Calcium (8.5-10.1) mg/dL Magnesium (1.8-2.4) mg/dl Total Bilirubin (0.2-1.0) mg/dL AST (15-37) U/L ALT (14-59) U/L Alkaline Phosphatase (46-116) U/L Total Protein (6.4-8.2) g/dl Albumin (3.4-5.0) g/dl Globulin gm/dL Albumin/Globulin Ratio (1-2) 01/04/18 01/04/18 01/04/18 Range/Units 05:51 05:52 11:22 Sodium 139 (136-145) mEq/L Potassium 3.9 (3.5-5.1) mEq/L Chloride 106 (98-107) mEq/L Carbon Dioxide 22 (21-32) mEq/L Anion Gap 14.9 (5-15) BUN 31 H (7-18) mg/dL Creatinine 1.1 H (0.55-1.02) mg/dL Est Cr Clr Drug Dosing 46.96 mL/min Estimated GFR (MDRD) 51 (>60) mL/min BUN/Creatinine Ratio 28.2 H (14-18) Glucose 154 H (74-106) mg/dL POC Glucose 158 H 219 H (70-105) mg/dL Calcium 9.8 (8.5-10.1) mg/dL Magnesium 1.6 L (1.8-2.4) mg/dl Total Bilirubin 0.4 (0.2-1.0) mg/dL AST 16 (15-37) U/L ALT 32 (14-59) U/L Alkaline Phosphatase 106 (46-116) U/L Total Protein 7.3 (6.4-8.2) g/dl Albumin 3.7 (3.4-5.0) g/dl Globulin 3.6 gm/dL Albumin/Globulin Ratio 1.0 (1-2) Med Orders - Current: Current Medications Discontinued Medications Albuterol/Ipratropium (Duoneb 3.0-0.5 Mg/3 Ml) 3 ml NEB Q4H PRN PRN Reason: Shortness Of Breath/wheezing Last Admin: 01/01/18 08:24 Dose: 3 ml Albuterol/Ipratropium (Duoneb 3.0-0.5 Mg/3 Ml) 3 ml NEB BIDRT [facility] Last Admin: 01/04/18 05:19 Dose: 3 ml Bisacodyl (Dulcolax) 5 mg PO DAILY PRN PRN Reason: Constipation Last Admin: 01/03/18 08:25 Dose: 5 mg Celecoxib (Celebrex) 100 mg PO BID [facility] Last Admin: 01/04/18 08:03 Dose: 100 mg Clonidine HCl (Catapres) 0.1 mg PO Q4H PRN PRN Reason: Agitation Docusate Sodium (Colace) 100 mg PO BID PRN PRN Reason: Constipation Fluoxetine HCl (Prozac) 20 mg PO DAILY [facility] Last Admin: 01/02/18 08:17 Dose: 20 mg Folic Acid (Folic Acid) 1 mg PO DAILY [facility] Stop: 01/03/18 09:01 Last Admin: 01/03/18 08:02 Dose: 1 mg Gabapentin (Neurontin) 300 mg PO TID [facility] Last Admin: 01/04/18 15:14 Dose: Not Given Haloperidol Lactate (Haldol) 2 mg IM Q4H PRN PRN Reason: Agitation/Psychosis Haloperidol Lactate (Haldol) 4 mg IM Q4H PRN PRN Reason: Agitation/Psychosis Hydralazine HCl (Apresoline) 20 mg IVPUSH Q4H PRN PRN Reason: Hypertension Last Admin: 01/02/18 04:41 Dose: 20 mg Hydromorphone HCl (Dilaudid) 0.25 mg IVPUSH Q2H PRN PRN Reason: Pain (severe 7-10) Sodium Chloride (Normal Saline) 1,000 mls @ 500 mls/hr [facility] Last Admin: 12/31/17 14:35 Dose: 500 mls/hr Levetiracetam 500 mg/ Sodium (Chloride) 105 mls @ 400 mls/hr IV ONETIME ONE Stop: 12/31/17 14:48 Last Admin: 12/31/17 15:11 Dose: 400 mls/hr Dextrose/Sodium Chloride (Dextrose 5%-Normal Saline) Confirm Administered Dose 1 ,000 mls @ as directed .ROUTE .STK-MED ONE Stop: 12/31/17 14:32 Last Admin: 12/31/17 14:36 Dose: Not Given Lactated Ringer's (Ringers, Lactated) 1,000 mls @ 200 [facility] Last Admin: 12/31/17 16:43 Dose: 200 mls/hr Magnesium Sulfate 2 gm/ Premix 50 mls @ 25 mls/hr IV ONETIME ONE Stop: 12/31/17 18:33 Last Admin: 12/31/17 16:44 Dose: 25 mls/hr Lactated Ringer's (Ringers, Lactated) 1,000 mls @ 150 mls/hr [facility] Last Admin: 12/31/17 22:20 Dose: 150 mls/hr Magnesium Sulfate (Magnesium Sulfate 2 Gm In Water 50 Ml) 50 mls @ 25 mls/hr IV Q2H [facility] Stop: 01/01/18 05:29 Last Admin: 01/01/18 03:56 Dose: 25 mls/hr Promethazine HCl 12.5 mg/ (Sodium Chloride) 50.5 mls @ 100 mls/hr IV Q6H PRN PRN Reason: Nausea/Vomiting Thiamine HCl 200 mg/ Sodium (Chloride) 52 mls @ 100 mls/hr IV ONETIME ONE Stop: 01/01/18 01:33 Last Admin: 01/01/18 01:55 Dose: 100 mls/hr Magnesium Sulfate 2 gm/ Premix 50 mls @ 25 mls/hr IV ONETIME ONE Stop: 01/02/18 20:11 Last Admin: 01/02/18 19:37 Dose: 25 mls/hr Magnesium Sulfate 4 gm/ Premix 100 mls @ 300 mls/hr IV ONETIME ONE Stop: 01/04/18 12:34 Last Admin: 01/04/18 12:48 Dose: 300 mls/hr Ibuprofen (Motrin) 600 mg PO Q6H PRN PRN Reason: Pain (moderate 4-6) Last Admin: 01/04/18 08:02 Dose: 600 mg Lamotrigine (Lamotrigine) 150 mg PO BID [facility] Last Admin: 01/02/18 08:17 Dose: 150 mg Lamotrigine (Lamotrigine) 175 mg PO BID [facility] Last Admin: 01/04/18 08:02 Dose: 175 mg Levothyroxine Sodium (Levothyroxine) 75 mcg PO ACBREAKFAST [facility] Last Admin: 01/04/18 05:27 Dose: 75 mcg Lorazepam (Ativan) 2 mg IVPUSH Q4H PRN PRN Reason: Seizures Lorazepam (Ativan) 0 mg IVPUSH Q4H PRN; Protocol PRN Reason: Withdrawal Symptoms Last Admin: 01/01/18 04:53 Dose: 2 mg Magnesium Oxide (Magnesium Oxide) 400 mg PO BID [facility] Last Admin: 01/01/18 08:18 Dose: 400 mg Magnesium Sulfate (Pharmacy To Dose - Magnesium Replacement) 0 dose .XX ASDIRECTED PRN PRN Reason: RX TO WATCH MAG LEVELS [facility] Last Admin: 01/04/18 08:01 Dose: 500 mg Methylprednisolone Sodium Succinate (Solu-Medrol) 60 mg IVPUSH Q8H [facility] Last Admin: 01/04/18 12:48 Dose: 60 mg Metoprolol Tartrate (Lopressor) 5 mg IVPUSH Q4H PRN PRN Reason: Tachycardia Last Admin: 01/04/18 12:49 Dose: 5 mg Mirtazapine (Remeron) 15 mg PO BEDTIME [facility] Last Admin: 01/03/18 20:05 Dose: 15 mg Miscellaneous Information (Remove Patch) 1 ea TRDERM Q24H [facility] Last Admin: 01/03/18 20:21 Dose: 1 ea Miscellaneous Information (Remove Patch) 1 ea TRDERM Q72H [facility] Last Admin: 01/03/18 20:09 Dose: 1 ea Multivitamins (Thera) 1 each PO ONETIME ONE Stop: 01/01/18 01:04 Last Admin: 01/01/18 01:44 Dose: 1 each Nicotine (Habitrol) 21 mg TRDERM DAILY PRN PRN Reason: Nicotine Non-Formulary Medication (Nicotine [Habitrol]) 21 mg TRDERM DAILY [facility] Ondansetron HCl (Zofran) 4 mg IVPUSH ONETIME ONE Stop: 12/31/17 18:52 Last Admin: 12/31/17 19:14 Dose: 4 mg Ondansetron HCl (Zofran) 4 mg IVPUSH ONETIME ONE Stop: 12/31/17 22:28 Last Admin: 12/31/17 23:15 Dose: 4 mg Ondansetron HCl (Zofran) 4 mg IV Q6H PRN PRN Reason: Nausea/Vomiting Oxycodone HCl (Oxycodone) 5 mg PO Q4H PRN PRN Reason: Pain (moderate 4-6) Last Admin: 01/02/18 13:47 Dose: 5 mg Pantoprazole Sodium (Protonix Iv) 40 mg IV Q12HR [facility] Last Admin: 01/04/18 08:01 Dose: 40 mg Paroxetine HCl (Paxil) 20 mg PO BEDTIME [facility] Last Admin: 01/02/18 13:59 Dose: Not Given Polyethylene Glycol (Miralax) 17 gm PO DAILY PRN PRN Reason: Constipation Potassium Chloride (Pharmacy To Dose - Potassium Replacement) 0 dose .XX ASDIRECTED PRN PRN Reason: RX TO WATCH K LEVELS Potassium Chloride (Klor-Con M20) 40 meq PO Q4H [facility] Stop: 01/01/18 06:01 Last Admin: 01/01/18 06:32 Dose: 40 meq Quetiapine Fumarate (Seroquel) 50 mg PO BEDTIME [facility] Last Admin: 01/01/18 20:15 Dose: 50 mg Scopolamine (Transderm-Scop) 1.5 mg TRDERM Q72H ONE Stop: 01/01/18 01:25 Last Admin: 01/01/18 01:56 Dose: 1.5 mg Senna/Docusate Sodium (Senna Plus) 1 tab PO BID PRN PRN Reason: Constipation Thiamine HCl (Vitamin B-1) 100 mg PO DAILY [facility] Last Admin: 01/04/18 08:01 Dose: 100 mg Topiramate (Topamax) 25 mg PO BID [facility] Last Admin: 01/02/18 08:18 Dose: 25 mg Venlafaxine HCl (Effexor Xr) 37.5 mg PO DAILY [facility] Last Admin: 01/04/18 08:02 Dose: 37.5 mg - Exam General: Reports: Alert, Oriented, No Acute Distress HEENT: Reports: Pupils Equal, Pupils Reactive, EOMI Neck: Reports: Trachea Midline, No JVD Lungs: Reports: Normal Respiratory Effort Cardiovascular: Reports: Regular Rate, Tachycardia GI/Abdominal Exam: Normal Bowel Sounds, Soft, Non-Tender, No Organomegaly, No Distention (Female) Exam: Deferred Rectal (Female) Exam: Deferred Back Exam: Reports: Normal Inspection Extremities: Normal Inspection Skin: Reports: Warm, Dry, Intact Neurological: Reports: No New Focal Deficit Psy/Mental Status: Reports: Alert
--- NOTE | 2018-01-05 08:44 | CONS ---
CONSULTING PHYSICIAN: Ck Aly MD DATE OF CONSULTATION: 01/02/2018 PSYCHIATRIC EVALUATION This is a 60-minute inpatient clinical event. IDENTIFICATION: The patient is a 62-year-old female who was admitted to the inpatient MICU at [facility] in [place], [place]. She is seen for psychiatric consultation. CHIEF COMPLAINT: "My and I just got into it and I was really depressed." HISTORY OF PRESENT ILLNESS: The patient is a 62-year-old female who is admitted to the inpatient MICU on 01/01/2018 secondary to a fall and altered mental status in the phase of possible alcohol intoxication. The patient states that she had been sober for 8 months, but then she got into a fight with her "because he is a drinker and it is hard when I am trying to stay sober." Evidently, the patient got very frustrated with the state of affairs. She actually relapsed. According to staff, she "drank a Fireball whisky." The patient is noting "I didn't really drink too much" prior to admission, and again, she emphasized that she had 8 months of sobriety. She states that she had been sober until she relapsed on the night of admission. She states she has been struggling with "a lot of anxiety" and states "I just have depression issues" as well. She states because of the fall "my memory is a problem right now." She is on a combination of Lamictal, Paxil, trazodone, but she does not feel that the Paxil and trazodone are helping her with her depression and anxiety at this point in time. She does like the Lamictal medication, however. She is noting that she is still on aftercare for her alcohol dependence from when she went to treatment after previous admission in the fall of 2016. She also has a sponsor and she states "I am going to call my sponsor at " to help her with sobriety going forward. MEDICATIONS: At the time of presentation: 1. Levothyroxine. 2. Lamictal 150 mg daily. 3. Paxil 20 mg daily. 4. Trazodone 150 mg at bedtime. 5. Seroquel 50 mg at bedtime, started on unit. 6. Topamax 25 mg b.i.d., started on unit. ALLERGIES: The patient is allergic to Risperdal. PAST MEDICAL HISTORY: 1. Hypothyroidism. 2. Diabetes. 3. History of asthma. 4. Status post rhinoplasty. REVIEW OF SYSTEMS: Aside from endocrine, pulmonary, musculoskeletal, all other major organ systems are negative at this point in time for acute difficulties or complications. FAMILY PSYCHIATRIC AND CD HISTORY: Patient reports she was adopted at , so unknown. PAST PSYCHIATRIC AND CD HISTORY: Patient does report a previous psychiatric hospitalization. She reports chemical dependency treatments for alcohol. She has been sober for 8 months and has been going to AA regularly. She states her longest sobriety in the past was for 12 years. SOCIAL HISTORY: The patient was born and raised in [place], [place]. She has been x1 for 43 years. 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 MENTAL STATUS EXAM: The patient is a 62-year-old white female in no apparent distress. Speech is of regular rate and rhythm. The patient is cognitively oriented x2 to person and place, but while she knows the day of the week, she does not know the month nor the year. Psychomotor activities within normal limits. There is no abnormal motor movements or tics observed. Gait and station are not observed as this patient is lying in bed during the inpatient consult. Mood is depressed and anxious. Affect is consistent with stated mood and tired appearing. There is no behavioral or stated evidence of acute suicidal or homicidal ideation or acute psychotic, delusional, or paranoid symptoms. Thought processes are significant for some thought blocking and some cognitive deficits. Judgment and insight appear somewhat impaired due to her poor cognition, although she does report that she feels her memory is improving and she is in the hospital being treated. Motivation for help appears fair to good. VITAL SIGNS: Are stable at time of presentation. IMPRESSION: [place] I. 1. Bipolar affective disease, mixed type F31.60. 2. Anxiety disorder, not otherwise specified, F41.9. 3. Alcohol dependence, F10.20. 4. Rule out major depressive disorder, recurrent. [place] II: None. [place] III: 1. Hypothyroidism. 2. Diabetes. 3. History of asthma. 4. Status post rhinoplasty. [place] IV: Severe. [place] V: 60. PLAN: 1. Sobriety. 2. AA rep to visit the patient while on unit. 3. Pastoral guidance. 4. Aftercare scheduled when the patient is medically stabilized and discharged back to the community. 5. Discontinue Paxil. 6. Discontinue trazodone. 7. Discontinue Topamax. 8. Discontinue Seroquel. 9. Begin trial of Remeron 15 mg at bedtime to help with mood, sleep initiation and maintenance and anxiety reduction. 10.Begin trial of Effexor XR 37.5 mg q.a.m. to help with mood. 11.Increase the patient's Lamictal from 150 mg q.a.m. to 175 mg q.a.m. x7 days increasing to 200 mg q.a.m. thereafter to help with mood stability. 12.Thiamine supplementation. 13.Folate acid supplementation. 14.Ativan per [facility] protocol. 15.We will continue to follow up with the patient on an as-needed basis while she remains on the inpatient MICU. 16.We will follow up with the patient sooner if any complications in the interim. 17.Crisis plan is in place. DUANE /[id number]
== END 2018-01-04 15:30 | disposition left against medical advice (07) | DRG 770 ==
LOC: JD.ED 14:19 → JD.ICU 01-01 00:25
PROVIDERS: ADMIT Internal Medicine; ATTEND Internal Medicine
DX: F10.288 Alcohol dependence with other alcohol-induced disorder (principal); F10.221 Alcohol dependence with intoxication delirium; F10.239 Alcohol dependence with withdrawal, unspecified; Y90.0 Blood alcohol level of less than 20 mg/100 ml; G40.89 Other seizures; E87.6 Hypokalemia; E83.42 Hypomagnesemia; B19.20 Unspecified viral hepatitis C without hepatic coma; H54.7 Unspecified visual loss; J45.909 Unspecified asthma, uncomplicated; E03.9 Hypothyroidism, unspecified; E11.9 Type 2 diabetes mellitus without complications; G89.29 Other chronic pain; R26.2 Difficulty in walking, not elsewhere classified; R53.1 Weakness; M54.2 Cervicalgia; M54.9 Dorsalgia, unspecified; F31.60 Bipolar disorder, current episode mixed, unspecified; F10.229 Alcohol dependence with intoxication, unspecified; F17.210 Nicotine dependence, cigarettes, uncomplicated; Z79.899 Other long term (current) drug therapy; Z79.84 Long term (current) use of oral hypoglycemic drugs; Z88.8 Allergy status to other drugs, medicaments and biological substances
CPT/HCPCS: 36415; 70450; 70450-26; 71045; 71045-26; 80053; 80306; 81001; 82009; 82962; 83690; 83735; 83930; 85007; 85027; 85379; 85610; 86140; 86803; 87340; 93005; 94640; 96361; 96365; 96366; 96367; 96375; 96376; 97167-GO; 99284; 99285-25; A9270-GY; C9113; G0433; G0480; J0360; J1953; J2060; J2405; J2920; J3411; J3475; J3490; J7030; J7040; J7120

== ENCOUNTER 2019-08-05 15:13 | Emergency (ER) | payer BC ==
[2019-08-05 15:21] VITALS: BP 120/86; PULSE 103
[2019-08-05] MEDS ORDERED: HYDROmorphone 0.5 MG/0.5 ML Syringe IVPUSH ONE ×2 (15:48→17:33)
[2019-08-05] MEDS ORDERED: Ondansetron 4 MG/2 ML SDV IVPUSH ONE (15:48)
--- NOTE | 2019-08-05 15:56 | EDM.PDOC ---
<Shira Savage - Last Filed: 08/05/19 18:32> ED HPI GENERAL MEDICAL PROBLEM - General Chief Complaint: Drug or Alcohol Abuse Stated Complaint: [facility] Time Seen by Provider: 08/05/19 15:30 Source of Information: Reports: Patient History Limitations: Reports: No Limitations - History of Present Illness INITIAL COMMENTS - FREE TEXT/NARRATIVE: Patient is a 63-year-old female who presents via [facility] with complaints of upper back pain. 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 She is also a former alcoholic. Patient states that she relapsed and started drinking yesterday because she couldn't handle the pain any longer. She is currently on a 100 mcg fentanyl patch as well as Percocet 10/325. She states her fentanyl patch was recently increased from 75 g because it was not working for her pain any longer. Today she has had 3 small shooters of fireball whiskey with her last drink being at 1000 this morning. She took one of her Percocets around 9:00 this morning, but states that didn't help her pain so then she drank the alcohol. Patient states that her pain is managed by Dr. English a palliative care doctor in [place]. Patient is tearful and states she does not want to go home tonight because she can't handle the pain at home. Generalized Pain Score (Numeric/FACES): 10 - Related Data Allergies Allergy/AdvReac Type Severity Reaction Status Date / Time carisoprodol [From [facility]] Allergy Cannot Verified 08/05/19 15:21 Remember Home Meds: Home Meds Levothyroxine 75 mcg PO ACBREAKFAST #30 tablet 03/06/17 [Rx] Ibuprofen [Motrin] 600 mg PO Q6H #30 tablet 04/07/17 [Rx] metFORMIN [Glucophage] 500 mg PO BIDMEALS #60 tablet 04/07/17 [Rx] lamoTRIgine [Lamotrigine] 150 mg PO BID 01/01/18 [History] Morphine [MS Contin] 60 mg PO Q12H 02/24/19 [History] Morphine [MS Contin] 60 mg PO Q12H #10 tab.er 02/24/19 [Rx] oxyCODONE ER [OxyCONTIN] 10 mg PO Q4H 02/24/19 [History] oxyCODONE ER [OxyCONTIN] 10 mg PO Q4H #30 tab.er 02/24/19 [Rx] Past Medical History HEENT History: Reports: Impaired Vision Respiratory History: Reports: Asthma ACCOUNTS PAYABLE REPRESENTATIVE History: 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 (See Below) Other ACCOUNTS PAYABLE REPRESENTATIVE History: tumor on uterus Musculoskeletal History: Reports: Back Pain, Chronic, Neck Pain, Chronic Psychiatric History: Reports: Addiction, Depression Endocrine/Metabolic History: Reports: Diabetes, Type II, Hypothyroidism Oncologic (Cancer) History: Reports: Breast, Metastatic, Other (See Below) Other Oncologic History: precancerous uterine tumour removed with hysterectomy - Infectious Disease History Infectious Disease History: Reports: Chicken Pox - Past Surgical History HEENT Surgical History: 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 (See Below) Other HEENT Surgeries/Procedures: rhinoplasty Respiratory Surgical History: Reports: None Female Surgical History: Reports: Hysterectomy Other Female Surgeries/Procedures: partial hysterectomy Musculoskeletal Surgical History: Reports: None Oncologic Surgical History: 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 (See Below) Other Oncologic Surgeries/Procedures: hysterectomy Social & Family History - Family History Family Medical History: Noncontributory Other HEENT Family History: pt. adopted and unsure of family medical history. states her children do not have medical concerns. - Tobacco Use Smoking Status *Q: Current Every Day Smoker Years of Tobacco use: 40 Packs/Tins Daily: 1 Second Hand Smoke Exposure: No - Caffeine Use Caffeine Use: Reports: Coffee Other Caffeine Use: - unknown patient poor historian Caffeine Use Comment: unable to obtain - Alcohol Use Days Per Week of Alcohol Use: 1 Number of Drinks Per Day: 7 Total Drinks Per Week: 7 Date of Last Drink: 08/05/19 Time of Last Drink: 12:00 - Recreational Drug Use Recreational Drug Use: No - Living Situation & Occupation Occupation: Unemployed ED ROS GENERAL - Review of Systems Review Of Systems: See Below Constitutional: Reports: No Symptoms HEENT: Reports: No Symptoms Respiratory: Reports: No Symptoms Cardiovascular: Reports: No Symptoms Endocrine: Reports: No Symptoms GI/Abdominal: Reports: No Symptoms : Reports: No Symptoms Musculoskeletal: Reports: Back Pain (mid back) Skin: Reports: No Symptoms Neurological: Reports: No Symptoms Psychiatric: Reports: No Symptoms Hematologic/Lymphatic: Reports: No Symptoms Immunologic: Reports: No Symptoms ED EXAM, GENERAL - Physical Exam Exam: See Below Exam Limited By: Intoxication General Appearance: Alert, WD/WN, No Apparent Distress Respiratory/Chest: No Respiratory Distress, Lungs Clear, Normal Breath Sounds, No Accessory Muscle Use, Chest Non-Tender Cardiovascular: Normal Peripheral Pulses, Regular Rate, Rhythm, No Edema, No Murmur Back Exam: Normal Inspection, Vertebral Tenderness (upper back) Neurological: Alert, Oriented Psychiatric: Depressed Mood, Tearful Skin Exam: Warm, Dry, Intact, Normal Color, No Rash Lymphatic: No Adenopathy Course - Vital Signs Last Recorded V/S: Last Vital Signs Temp 98.4 F 08/05/19 15:19 Pulse 103 H 08/05/19 15:19 Resp 20 08/05/19 15:19 BP 120/86 08/05/19 15:19 Pulse Ox 95 08/05/19 15:19 - Orders/Labs/Meds Orders: Active Orders 24 hr Category Date Time Status Oxygen Therapy, ED [RC] ASDIRECTED Care 08/05/19 17:31 Active Sodium Chloride 0.9% [Normal Saline] 1,000 ml Med 08/05/19 16:00 Active IV ASDIRECTED Sodium Chloride 0.9% [Normal Saline] 1,000 ml Med 08/05/19 17:45 Active IV ASDIRECTED Medication Orders Sodium Chloride (Normal Saline) 1,000 mls @ 999 mls/hr IV ASDIRECTED RAAD Last Admin: 08/05/19 16:05 Dose: 999 mls/hr Sodium Chloride (Normal Saline) 1,000 mls @ 150 mls/hr IV ASDIRECTED RAAD Last Admin: 08/05/19 17:39 Dose: 150 mls/hr Labs: Laboratory Tests 08/05/19 08/05/19 Range/Units 16:45 16:45 WBC 2.88 L (3.98-10.04) K/mm3 RBC 3.81 L (3.98-5.22) M/mm3 Hgb 14.8 D (11.2-15.7) gm/dl Hct 41.0 (34.1-44.9) % MCV 107.6 H D (79.4-94.8) fl MCH 38.9 H (25.6-32.2) pg MCHC 36.0 H (32.2-35.5) g/dl RDW Std Deviation 64.2 H (36.4-46.3) fL Plt Count 118 L D (182-369) K/mm3 MPV 9.7 (9.4-12.3) fl Neut % (Auto) 47.3 (34.0-71.1) % Lymph % (Auto) 37.8 (19.3-51.7) % Ellis % (Auto) 11.8 (4.7-12.5) % Eos % (Auto) 2.1 (0.7-5.8) Baso % (Auto) 1.0 (0.1-1.2) % Neut # (Auto) 1.36 L (1.56-6.13) K/mm3 Lymph # (Auto) 1.09 L (1.18-3.74) K/mm3 Ellis # (Auto) 0.34 (0.24-0.36) K/mm3 Eos # (Auto) 0.06 (0.04-0.36) K/mm3 Baso # (Auto) 0.03 (0.01-0.08) K/mm3 Manual Slide Review Abnormal smear Sodium 140 (136-145) mEq/L Potassium 4.1 (3.5-5.1) mEq/L Chloride 102 (98-107) mEq/L Carbon Dioxide 27 (21-32) mEq/L Anion Gap 15.1 H (5-15) BUN 9 (7-18) mg/dL Creatinine 0.9 (0.55-1.02) mg/dL Est Cr Clr Drug Dosing 56.68 mL/min Estimated GFR (MDRD) > 60 (>60) mL/min BUN/Creatinine Ratio 10.0 L (14-18) Glucose 84 (80-115) mg/dL Calcium 8.1 L (8.5-10.1) mg/dL Total Bilirubin 0.4 (0.2-1.0) mg/dL AST 23 (15-37) U/L ALT 15 (14-59) U/L Alkaline Phosphatase 89 (46-116) U/L Total Protein 7.0 (6.4-8.2) g/dl Albumin 3.8 (3.4-5.0) g/dl Globulin 3.2 gm/dL Albumin/Globulin Ratio 1.2 (1-2) Ethyl Alcohol 0.26 (0.00) gm% Meds: Medications Generic Name Dose Route Start Last Admin Trade Name Freq PRN Reason Stop Dose Admin Sodium Chloride 1,000 mls @ 999 mls/hr 08/05/19 16:00 08/05/19 16:05 Normal Saline IV 999 mls/hr ASDIRECTED RAAD Administration Sodium Chloride 1,000 mls @ 150 mls/hr 08/05/19 17:45 08/05/19 17:39 Normal Saline IV 150 mls/hr ASDIRECTED RAAD Administration Discontinued Medications Generic Name Dose Route Start Last Admin Trade Name Ana Maria PRN Reason Stop Dose Admin Hydromorphone HCl 0.5 mg 08/05/19 15:48 08/05/19 16:05 Dilaudid IVPUSH 08/05/19 15:49 0.5 mg ONETIME ONE Administration Hydromorphone HCl 0.5 mg 08/05/19 17:33 08/05/19 17:39 Dilaudid IVPUSH 08/05/19 17:34 0.5 mg ONETIME ONE Administration Ondansetron HCl 4 mg 08/05/19 15:48 08/05/19 16:05 Zofran IVPUSH 08/05/19 15:49 4 mg ONETIME ONE Administration - Re-Assessments/Exams Free Text/Narrative Re-Assessment/Exam: 08/05/19 17:35 Patient PATRICIA 0.26. She verbalized improvement from pain with initial dose of Dilaudid; however, pain did return and she is requesting another dose of medication. I did call and talk with the hospitalist regarding possible admission for pain control. He declined admission and recommended that pts pain medications be adjusted if needed. I feel that the patient would benefit from using her Percocet more routinely up to every 4 hours as needed for pain in addition to her fentanyl patch. She may need an additional dose increase on her fentanyl patch; however, I feel that should should try using the percocets more routinely first. The plan will be to allow the patient to rest until she is able to walk and talk appropriately and then discharge home with the recommendation to refrain from drinking ETOH, use her percocets more routinely and f/u with her palliative care doctor on Thursday. 08/05/19 18:32 Patient is sleeping at this time. Discussed patient case with DREW Mejia. She will assume care of the patient until she is ready for discharge. Departure - Departure Disposition: Home, Self-Care 01 Clinical Impression: Alcohol intoxication Qualifiers: Complication of substance-induced condition: uncomplicated Qualified Code(s): F10.920 - Alcohol use, unspecified with intoxication, uncomplicated - Discharge Information Instructions: Alcohol Intoxication, [id number] Referrals: PCP,Unknown [Primary Care Provider] - Additional Instructions: You were evaluated in the ER today regarding your alcohol use and chronic pain. You were found to be acutely intoxicated from alcohol, your other lab evaluation was within normal limits, there were no acute worrisome abnormalities that needed emergency attention at today's visit. You were given IV fluids in this ER, to help combat your alcohol use from today. You are on a fentanyl patch already, recommend that you take your Percocet as directed, please try 1 tab every 6 hours for further pain relief. If this is not providing you pain relief, strongly recommend that you follow-up with your primary care provider for a different option for pain relief. It is further recommended that you refrain from alcohol use while taking Percocet or on other narcotic pain medications like fentanyl. If you feel you are having issues with alcoholism, you may call [facility] at and they might be able to help you with quitting alcohol. Please return to the ER at any time if your symptoms change or worsen. Sepsis Event Note - Evaluation Sepsis Screening Result: No Definite Risk - Focused Exam Vital Signs: Vital Signs Temp Pulse Resp BP Pulse Ox 08/05/19 15:19 98.4 F 103 H 20 120/86 95 Date Exam was Performed: 08/05/19 Time Exam was Performed: 18:32 <Yara Flood - Last Filed: 08/05/19 19:24> Course - Re-Assessments/Exams Free Text/Narrative Re-Assessment/Exam: 08/05/19 19:19 Care assumed from Shira Savage for this patient, at this time RN informs me that the patient is asking about possible hospital admission versus discharge home. At this time I will let her finish up her bag of fluids, discharge her home with the recommendations that Shira talked with her about. Departure - Departure Time of Disposition: 19:21 Condition: Fair - Discharge Information *PRESCRIPTION DRUG MONITORING PROGRAM REVIEWED*: No *COPY OF PRESCRIPTION DRUG MONITORING REPORT IN PATIENT HARDIK: No Sepsis Event Note - Focused Exam Date Exam was Performed: 08/05/19 Time Exam was Performed: 19:19
[2019-08-05] MEDS ORDERED: Sodium Chloride 0.9% 1,000 ML IV SCH ×2 (16:00→17:45)
== END 2019-08-05 20:14 | disposition home or self-care (01) ==
LOC: JD.ED 15:13
DX: F10.120 Alcohol abuse with intoxication, uncomplicated (principal); Y90.8 Blood alcohol level of 240 mg/100 ml or more; E11.9 Type 2 diabetes mellitus without complications; J45.909 Unspecified asthma, uncomplicated; F32.9 Major depressive disorder, single episode, unspecified; F17.210 Nicotine dependence, cigarettes, uncomplicated; Z85.3 Personal history of malignant neoplasm of breast; Z79.84 Long term (current) use of oral hypoglycemic drugs; Z79.899 Other long term (current) drug therapy
CPT/HCPCS: 36415; 80053; 80320; 85025; 96361; 96374; 96375; 96376; 99284; J1170; J2405; J7030; G0480

== ENCOUNTER 2019-10-02 18:37 | Emergency (ER) | payer BC ==
[2019-10-02] MEDS ORDERED: Sodium Chloride 0.9% 10 ML Syringe FLUSH PRN (21:01)
[2019-10-02] MEDS ORDERED: Sodium Chloride 0.9% 1,000 ML IV ONE (21:01)
[2019-10-02] MEDS ORDERED: Metoclopramide 10 MG/2 ML SDV IVPUSH ONE (21:01)
[2019-10-02] MEDS ORDERED: LORazepam 2 MG/ML SDV IVPUSH ONE (21:03)
[2019-10-02] MEDS ORDERED: oxyCODONE 5 MG Tab PO ONE (21:19)
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
[2019-10-02 22:16] VITALS: BP 164/100; PULSE 93
== END 2019-10-02 22:00 | disposition home or self-care (01) ==
LOC: JD.ED 18:37
DX: G89.29 Other chronic pain (principal); M54.5 Low back pain; E11.9 Type 2 diabetes mellitus without complications; E03.9 Hypothyroidism, unspecified; F17.210 Nicotine dependence, cigarettes, uncomplicated; J45.909 Unspecified asthma, uncomplicated; Z79.899 Other long term (current) drug therapy; Z88.8 Allergy status to other drugs, medicaments and biological substances; Z85.3 Personal history of malignant neoplasm of breast
CPT/HCPCS: 99283; A9270; 99284

== ENCOUNTER 2019-10-05 11:19 | Emergency (ER) | payer BC ==
[2019-10-05 11:25] VITALS: BP 131/105; PULSE 120
[2019-10-05] MEDS ORDERED: HYDROmorphone 1 MG/ML Syringe IM ONE (11:54)
--- NOTE | 2019-10-05 12:22 | EDM.PDOC ---
ED HPI GENERAL MEDICAL PROBLEM - General Chief Complaint: Drug or Alcohol Abuse Stated Complaint: [facility] Time Seen by Provider: 10/05/19 11:24 Source of Information: Reports: Patient, RN Notes Reviewed History Limitations: Reports: No Limitations - History of Present Illness INITIAL COMMENTS - FREE TEXT/NARRATIVE: Patient is a 63-year-old female who presents to the ED via [facility] for pain control in her alcohol use. Patient states that she has metastatic breast cancer, and her bones, back. She states that she has a doctor 's appointment at her pain management doctor, she has an appointment with them later this afternoon in [place] at 3 PM central time, but she did not go fill her fentanyl patches today, because she had been drinking. However she states to me that she has not been drinking since Thursday, however she smells very highly of alcohol. Patient not complaining of pain anywhere, any nausea or vomiting or diarrhea. She states that she is in quite a bit of pain due to her chronic pain from cancer. Back Pain Score (Numeric/FACES): 10 - Related Data Allergies Allergy/AdvReac Type Severity Reaction Status Date / Time carisoprodol [From Soma] Allergy Cannot Verified 10/05/19 11:25 Remember Home Meds: Home Meds Levothyroxine 75 mcg PO ACBREAKFAST #30 tablet 03/06/17 [Rx] Ibuprofen [Motrin] 600 mg PO Q6H #30 tablet 04/07/17 [Rx] metFORMIN [Glucophage] 500 mg PO BIDMEALS #60 tablet 04/07/17 [Rx] lamoTRIgine [Lamotrigine] 150 mg PO BID 01/01/18 [History] Morphine [MS Contin] 60 mg PO Q12H 02/24/19 [History] Morphine [MS Contin] 60 mg PO Q12H #10 tab.er 02/24/19 [Rx] oxyCODONE ER [OxyCONTIN] 10 mg PO Q4H 02/24/19 [History] oxyCODONE ER [OxyCONTIN] 10 mg PO Q4H #30 tab.er 02/24/19 [Rx] oxyCODONE ER [OxyCONTIN] 10 mg PO Q12H PRN #10 tab.er 10/02/19 [Rx] fentaNYL [Duragesic] 100 mcg TOP ASDIRECTED 10/05/19 [History] Past Medical History HEENT History: Reports: Impaired Vision Respiratory History: Reports: Asthma COURT DEPUTY History: 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 (See Below) Other COURT DEPUTY History: tumor on uterus Musculoskeletal History: Reports: Back Pain, Chronic, Neck Pain, Chronic Psychiatric History: Reports: Addiction, Depression Endocrine/Metabolic History: Reports: Diabetes, Type II, Hypothyroidism Oncologic (Cancer) History: Reports: Breast, Metastatic, Other (See Below) Other Oncologic History: precancerous uterine tumour removed with hysterectomy - Infectious Disease History Infectious Disease History: Reports: Chicken Pox - Past Surgical History HEENT Surgical History: 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 (See Below) Other HEENT Surgeries/Procedures: rhinoplasty Respiratory Surgical History: Reports: None Female Surgical History: Reports: Hysterectomy Other Female Surgeries/Procedures: partial hysterectomy Musculoskeletal Surgical History: Reports: None Oncologic Surgical History: 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 (See Below) Other Oncologic Surgeries/Procedures: hysterectomy Social & Family History - Family History Family Medical History: Noncontributory Other HEENT Family History: pt. adopted and unsure of family medical history. states her children do not have medical concerns. - Caffeine Use Caffeine Use: Reports: Coffee Other Caffeine Use: - unknown patient poor historian Caffeine Use Comment: unable to obtain - Living Situation & Occupation Occupation: Unemployed ED ROS GENERAL - Review of Systems Review Of Systems: See Below Constitutional: Denies: Fever, Chills Respiratory: Denies: Shortness of Breath Cardiovascular: Denies: Chest Pain GI/Abdominal: Denies: Abdominal Pain, Constipation, Diarrhea, Nausea, Vomiting Musculoskeletal: Reports: Back Pain Neurological: Denies: Confusion ED EXAM, GENERAL - Physical Exam Exam: See Below Exam Limited By: No Limitations General Appearance: Alert, WD/WN, No Apparent Distress Eye Exam: Bilateral Eye: EOMI, Normal Inspection, PERRL Throat/Mouth: Normal Inspection, Normal Lips, Normal Teeth, Normal Gums, Normal Oropharynx, Normal Voice, No Airway Compromise Head: Atraumatic, Normocephalic Respiratory/Chest: No Respiratory Distress, Lungs Clear, Normal Breath Sounds, No Accessory Muscle Use, Chest Non-Tender Cardiovascular: Normal Peripheral Pulses, Regular Rate, Rhythm, No Murmur Peripheral Pulses: 3+: Radial (L), Radial (R) GI/Abdominal: Normal Bowel Sounds, Soft, Non-Tender, No Distention, No Mass Extremities: Normal Inspection, Normal Capillary Refill Neurological: Alert, Oriented, Normal Cognition, No Motor/Sensory Deficits Psychiatric: Normal Affect, Normal Mood Skin Exam: Warm, Dry, Intact, Normal Color, No Rash Course - Vital Signs Last Recorded V/S: Last Vital Signs Temp 97.5 F 10/05/19 11:23 Pulse 120 H 10/05/19 11:23 Resp 16 10/05/19 11:23 BP 131/105 H 10/05/19 11:23 Pulse Ox 94 L 10/05/19 11:23 - Orders/Labs/Meds Meds: Medications Discontinued Medications Generic Name Dose Route Start Last Admin Trade Name Ana Maria PRN Reason Stop Dose Admin Hydromorphone HCl 1 mg 10/05/19 11:54 10/05/19 12:08 Dilaudid IM 10/05/19 11:55 1 mg ONETIME ONE Administration - Re-Assessments/Exams Free Text/Narrative Re-Assessment/Exam: 10/05/19 12:20 Patient presents to the ED for evaluation of her ongoing chronic pain. I did order 1 mg of IM Dilaudid for pain management, and I did urge the patient, she is not complaining of any other symptoms, but just pain due to her chronic issues that she keep her appointment today, I will try to discharge her out of the ER, so she can get to her appointment in [place] today at 3 PM central time , she still has enough time to make it there. Iterations that need further evaluation at today's ER visit. Patient is vitally stable, and again not complaining of anything else besides her chronic pain. Departure - Departure Time of Disposition: 12:22 Disposition: Home, Self-Care 01 Condition: Fair Clinical Impression: Chronic pain due to malignant neoplastic disease - Discharge Information *PRESCRIPTION DRUG MONITORING PROGRAM REVIEWED*: No *COPY OF PRESCRIPTION DRUG MONITORING REPORT IN PATIENT HARDIK: No Instructions: Chronic Pain, Adult Referrals: PCP,Unknown [Primary Care Provider] - Additional Instructions: You were evaluated in the ER today regarding your chronic pain. You were given a 1 mg injection of Dilaudid for pain management, as you still have time to make it to your pain management appointment, you are being discharged from this ER, as there is no other emergent needs identified at today 's ER visit. Please return to the ER at any time if your symptoms change or worsen. Sepsis Event Note - Evaluation Sepsis Screening Result: No Definite Risk - Focused Exam Vital Signs: Vital Signs Temp Pulse Resp BP Pulse Ox 10/05/19 11:23 97.5 F 120 H 16 131/105 H 94 L Date Exam was Performed: 10/05/19 Time Exam was Performed: 12:17
== END 2019-10-05 12:34 | disposition home or self-care (01) ==
LOC: JD.ED 11:19
DX: G89.3 Neoplasm related pain (acute) (chronic) (principal); C79.51 Secondary malignant neoplasm of bone; C79.81 Secondary malignant neoplasm of breast; C79.89 Secondary malignant neoplasm of other specified sites; J45.909 Unspecified asthma, uncomplicated; F32.9 Major depressive disorder, single episode, unspecified; E11.9 Type 2 diabetes mellitus without complications; E03.9 Hypothyroidism, unspecified; Z88.8 Allergy status to other drugs, medicaments and biological substances; Z79.899 Other long term (current) drug therapy; Z79.84 Long term (current) use of oral hypoglycemic drugs
CPT/HCPCS: 96372; 99283; J1170

== ENCOUNTER 2019-10-14 15:35 | Emergency (ER) | payer BC ==
[2019-10-14 15:43] VITALS: BP 136/99; PULSE 101
[2019-10-14] MEDS ORDERED: HYDROmorphone 1 MG/ML Syringe IM ONE (16:45)
[2019-10-14] MEDS ORDERED: Ondansetron 4 MG Tab.DIS ONE (17:53)
[2019-10-14] MEDS ORDERED: Ondansetron 4 MG Tab.DIS PO ONE (17:55)
--- NOTE | 2019-10-14 18:57 | EDM.PDOC ---
ED HPI GENERAL MEDICAL PROBLEM - General Chief Complaint: Back Pain or Injury Stated Complaint: [facility] Time Seen by Provider: 10/14/19 15:47 Source of Information: Reports: Patient, EMS History Limitations: Reports: Intoxication - History of Present Illness INITIAL COMMENTS - FREE TEXT/NARRATIVE: The patient presents with back pain. This is a chronic problem. She says she has metastatic breast cancer and she has back pain. She has been drinking today because she is out of her pain meds. Her doctor cut her off because he caught her drinking. She has no numbness or weakness. Onset: Gradual Duration: Week(s): Location: Reports: Back Quality: Reports: Sharp Severity: Severe Improves with: Reports: None Worsens with: Reports: None Associated Symptoms: Reports: No Other Symptoms Back Pain Score (Numeric/FACES): 10 - Related Data Allergies Allergy/AdvReac Type Severity Reaction Status Date / Time carisoprodol [From Soma] Allergy Cannot Verified 10/05/19 11:25 Remember Home Meds: Home Meds Levothyroxine 75 mcg PO ACBREAKFAST #30 tablet 03/06/17 [Rx] Ibuprofen [Motrin] 600 mg PO Q6H #30 tablet 04/07/17 [Rx] metFORMIN [Glucophage] 500 mg PO BIDMEALS #60 tablet 04/07/17 [Rx] lamoTRIgine [Lamotrigine] 150 mg PO BID 01/01/18 [History] Morphine [MS Contin] 60 mg PO Q12H 02/24/19 [History] Morphine [MS Contin] 60 mg PO Q12H #10 tab.er 02/24/19 [Rx] oxyCODONE ER [OxyCONTIN] 10 mg PO Q4H 02/24/19 [History] oxyCODONE ER [OxyCONTIN] 10 mg PO Q4H #30 tab.er 02/24/19 [Rx] oxyCODONE ER [OxyCONTIN] 10 mg PO Q12H PRN #10 tab.er 10/02/19 [Rx] fentaNYL [Duragesic] 100 mcg TOP ASDIRECTED 10/05/19 [History] Hydrocodone/Acetaminophen [Hydrocodon-Acetaminophen 5-325] 1 - 2 each PO Q6HR PRN #15 tablet 10/14/19 [Rx] Potassium Chloride 20 meq PO DAILY #30 tablet.er 10/14/19 [Rx] Past Medical History HEENT History: Reports: Impaired Vision Respiratory History: Reports: Asthma 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 (See Below) 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: tumor on 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 Musculoskeletal History: Reports: Back Pain, Chronic, Neck Pain, Chronic Psychiatric History: Reports: Addiction, Depression Endocrine/Metabolic History: Reports: Diabetes, Type II, Hypothyroidism Oncologic (Cancer) History: Reports: Breast, Metastatic, Other (See Below) Other Oncologic History: precancerous uterine tumour removed with hysterectomy - Infectious Disease History Infectious Disease History: Reports: Chicken Pox - Past Surgical History HEENT Surgical History: 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 (See Below) Other HEENT Surgeries/Procedures: rhinoplasty Respiratory Surgical History: Reports: None Female Surgical History: Reports: Hysterectomy Other Female Surgeries/Procedures: partial hysterectomy Musculoskeletal Surgical History: Reports: None Oncologic Surgical History: 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 (See Below) Other Oncologic Surgeries/Procedures: hysterectomy Social & Family History - Family History Family Medical History: Noncontributory Other HEENT Family History: pt. adopted and unsure of family medical history. states her children do not have medical concerns. - Tobacco Use Smoking Status *Q: Current Every Day Smoker Years of Tobacco use: 40 Packs/Tins Daily: 1 - Caffeine Use Caffeine Use: Reports: Coffee Other Caffeine Use: - unknown patient poor historian Caffeine Use Comment: unable to obtain - Living Situation & Occupation Occupation: Unemployed ED ROS GENERAL - Review of Systems Review Of Systems: See Below Constitutional: Reports: No Symptoms HEENT: Reports: No Symptoms Respiratory: Reports: No Symptoms Cardiovascular: Reports: No Symptoms Endocrine: Reports: No Symptoms GI/Abdominal: Reports: No Symptoms : Reports: No Symptoms Musculoskeletal: Reports: Back Pain ED EXAM, UPPER BACK/NECK PAIN - Physical Exam Exam: See Below Exam Limited By: No Limitations General Appearance: Alert, No Apparent Distress Ears Exam: Normal External Exam Nose Exam: Normal Inspection Head Exam: Atraumatic, Normocephalic Cardiovascular/Respiratory: Regular Rate, Rhythm, No M/R/G, Normal Peripheral Pulses, Normal Breath Sounds, No Respiratory Distress GI/Abdominal: Soft, Non-Tender, No Organomegaly, No Mass Back Exam: Other (Pain upon palpation to the upper back) Course - Vital Signs Last Recorded V/S: Last Vital Signs Temp 98.2 F 10/14/19 15:39 Pulse 101 H 10/14/19 15:39 Resp 20 10/14/19 15:39 BP 136/99 H 10/14/19 15:39 Pulse Ox 98 10/14/19 15:39 - Orders/Labs/Meds Orders: Active Orders 24 hr Category Date Time Status Cardiac Monitoring [RC] . DIRECTED Care 10/14/19 15:55 Active Labs: Laboratory Tests 10/14/19 10/14/19 Range/Units 16:15 16:15 WBC 4.88 (3.98-10.04) K/mm3 RBC 4.50 (3.98-5.22) M/mm3 Hgb 16.2 H D (11.2-15.7) gm/dl Hct 45.6 H (34.1-44.9) % MCV 101.3 H D (79.4-94.8) fl MCH 36.0 H (25.6-32.2) pg MCHC 35.5 (32.2-35.5) g/dl RDW Std Deviation 49.3 H (36.4-46.3) fL Plt Count 158 L (182-369) K/mm3 MPV 8.8 L (9.4-12.3) fl Neut % (Auto) 76.4 H (34.0-71.1) % Lymph % (Auto) 16.0 L (19.3-51.7) % [place] % (Auto) 6.6 (4.7-12.5) % Eos % (Auto) 0.2 L (0.7-5.8) Baso % (Auto) 0.2 (0.1-1.2) % Neut # (Auto) 3.73 (1.56-6.13) K/mm3 Lymph # (Auto) 0.78 L (1.18-3.74) K/mm3 [place] # (Auto) 0.32 (0.24-0.36) K/mm3 Eos # (Auto) 0.01 L (0.04-0.36) K/mm3 Baso # (Auto) 0.01 (0.01-0.08) K/mm3 Manual Slide Review Abnormal smear Sodium 127 L D (136-145) mEq/L Potassium 2.3 L* D (3.5-5.1) mEq/L Chloride 91 L D (98-107) mEq/L Carbon Dioxide 18 L D (21-32) mEq/L Anion Gap 20.3 H (5-15) BUN 6 L (7-18) mg/dL Creatinine 0.7 (0.55-1.02) mg/dL Est Cr Clr Drug Dosing 72.52 mL/min Estimated GFR (MDRD) > 60 (>60) mL/min BUN/Creatinine Ratio 8.6 L (14-18) Glucose 125 H (80-115) mg/dL Calcium 7.7 L (8.5-10.1) mg/dL Total Bilirubin 0.6 (0.2-1.0) mg/dL AST 96 H (15-37) U/L ALT 60 H (14-59) U/L Alkaline Phosphatase 147 H (46-116) U/L Total Protein 7.7 (6.4-8.2) g/dl Albumin 3.6 (3.4-5.0) g/dl Globulin 4.1 gm/dL Albumin/Globulin Ratio 0.9 L (1-2) Ethyl Alcohol 0.20 (0.00) gm% Meds: Medications Discontinued Medications Generic Name Dose Route Start Last Admin Trade Name Freq PRN Reason Stop Dose Admin Hydromorphone HCl 1 mg 10/14/19 16:45 10/14/19 16:57 Dilaudid IM 10/14/19 16:46 1 mg ONETIME ONE Administration Ondansetron HCl 4 mg 10/14/19 17:55 10/14/19 17:55 Zofran Odt PO 10/14/19 17:56 4 mg ONETIME ONE Administration Ondansetron HCl Confirm 10/14/19 17:53 Zofran Odt Administered 10/14/19 17:54 Dose 4 mg .ROUTE .STK-MED ONE - Re-Assessments/Exams Free Text/Narrative Re-Assessment/Exam: 10/14/19 18:55 I have ordered dilaudid 1mg IM and labs. Her CBC looks good. Her K was low at 2.3. Her Na is low at 127. Her anion gap is elevated at 20.3. Her AST is 96. Her ALT was elevated at 60. Her Alk PHos was elevated at 147. Her ETOH is 0.2. I will give her a couple pain pills. Departure - Departure Time of Disposition: 19:00 Disposition: Home, Self-Care 01 Condition: Good Clinical Impression: Hypokalemia Back pain Qualifiers: Back pain location: thoracic back pain Chronicity: chronic Back pain laterality : midline Qualified Code(s): M54.6 - Pain in thoracic spine; G89.29 - Other chronic pain - Discharge Information *PRESCRIPTION DRUG MONITORING PROGRAM REVIEWED*: No *COPY OF PRESCRIPTION DRUG MONITORING REPORT IN PATIENT HARDIK: No Prescriptions: Hydrocodone/Acetaminophen [Hydrocodon-Acetaminophen 5-325] 1 - 2 each PO Q6HR PRN #15 tablet PRN Reason: Pain Referrals: Sarah Mabry MD [Primary Care Provider] - 1 Week Additional Instructions: Take your medication as prescribed. Follow up with your doctor. Sepsis Event Note - Evaluation Sepsis Screening Result: No Definite Risk - Focused Exam Vital Signs: Vital Signs Temp Pulse Resp BP Pulse Ox 10/14/19 15:39 98.2 F 101 H 20 136/99 H 98 Date Exam was Performed: 10/14/19 Time Exam was Performed: 18:52 - My Orders Last 24 Hours: My Active Orders 10/14/19 15:55 Cardiac Monitoring [RC] . DIRECTED - Assessment/Plan Last 24 Hours: My Active Orders 10/14/19 15:55 Cardiac Monitoring [RC] . DIRECTED
== END 2019-10-14 19:10 | disposition home or self-care (01) ==
LOC: JD.ED 15:35
DX: M54.6 Pain in thoracic spine (principal); G89.29 Other chronic pain; E87.6 Hypokalemia; F17.210 Nicotine dependence, cigarettes, uncomplicated; J45.909 Unspecified asthma, uncomplicated; E11.9 Type 2 diabetes mellitus without complications; Z79.84 Long term (current) use of oral hypoglycemic drugs; Z79.899 Other long term (current) drug therapy; Z88.8 Allergy status to other drugs, medicaments and biological substances
CPT/HCPCS: 36415; 80053; 80307; 85025; 96372; 99283; A9270; J1170

== ENCOUNTER 2019-10-24 14:00 | Emergency (ER) | payer BC ==
[2019-10-24 14:19] VITALS: BP 97/60; PULSE 108
[2019-10-24] MEDS ORDERED: HYDROmorphone 1 MG/ML Syringe IVPUSH ONE ×2 (14:25→16:01)
[2019-10-24] MEDS ORDERED: Sodium Chloride 0.9% 10 ML Syringe FLUSH PRN (14:26)
[2019-10-24] MEDS ORDERED: Metoclopramide 10 MG/2 ML SDV IVPUSH ONE (14:26)
[2019-10-24] MEDS ORDERED: Sodium Chloride 0.9% 1,000 ML IV ONE (14:26)
--- NOTE | 2019-10-24 14:32 | EDM.PDOC ---
ED HPI GENERAL MEDICAL PROBLEM - General Chief Complaint: Back Pain or Injury Stated Complaint: [facility] Time Seen by Provider: 10/24/19 14:13 Source of Information: Reports: Patient, RN Notes Reviewed History Limitations: Reports: No Limitations - History of Present Illness INITIAL COMMENTS - FREE TEXT/NARRATIVE: Patient is a 63-year-old female who is brought by [facility] to the ER for evaluation of her chronic middle to low back pain. The patient notes that she is feeling generally unwell, with nausea/vomiting/diarrhea, she states she cannot keep anything down, and states she is having multiple episodes of diarrhea as well. Patient states she has not felt well for a while , and states she has not really gotten much sleep in the last 6 nights. She states that she does have chronic pain in her back, but does not have any medications at home, as her regular care provider in [place], would not give her any more pain medications due to her drinking. Patient was seen in this ER , roughly 1 week ago, and was hypokalemic, and was given some pain medication at this time with a prescription for outpatient potassium. Patient states that she has been drinking a little bit this morning, states she is had a couple sips of beer. She states she is having some upper abdominal pains, that she attributes to be hunger pains she is not been able to eat or drink much. She is not complaining of any fevers, but does complain of some chills at this time. Lower Back Pain Score (Numeric/FACES): 10 - Related Data Allergies Allergy/AdvReac Type Severity Reaction Status Date / Time carisoprodol [From [facility]] Allergy Cannot Verified 10/05/19 11:25 Remember Home Meds: Home Meds Levothyroxine 75 mcg PO ACBREAKFAST #30 tablet 03/06/17 [Rx] Ibuprofen [Motrin] 600 mg PO Q6H #30 tablet 04/07/17 [Rx] metFORMIN [Glucophage] 500 mg PO BIDMEALS #60 tablet 04/07/17 [Rx] lamoTRIgine [Lamotrigine] 150 mg PO BID 01/01/18 [History] Morphine [MS Contin] 60 mg PO Q12H #10 tab.er 02/24/19 [Rx] Potassium Chloride 20 meq PO DAILY #30 tablet.er 10/14/19 [Rx] LORazepam [Ativan] 1 mg PO TID PRN #21 tab 10/24/19 [Rx] Ondansetron [Zofran ODT] 4 mg PO Q8H PRN #15 tab.dis 10/24/19 [Rx] oxyCODONE ER [OxyCONTIN] 10 mg PO Q12H PRN #14 tab.er 10/24/19 [Rx] Past Medical History HEENT History: Reports: Impaired Vision Respiratory History: Reports: Asthma CLINIC NURSE History: 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 (See Below) Other CLINIC NURSE History: tumor on uterus Musculoskeletal History: Reports: Back Pain, Chronic, Neck Pain, Chronic Psychiatric History: Reports: Addiction, Depression Endocrine/Metabolic History: Reports: Diabetes, Type II, Hypothyroidism Oncologic (Cancer) History: Reports: Breast, Metastatic, Other (See Below) Other Oncologic History: precancerous uterine tumour removed with hysterectomy - Infectious Disease History Infectious Disease History: Reports: Chicken Pox - Past Surgical History HEENT Surgical History: 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 (See Below) Other HEENT Surgeries/Procedures: rhinoplasty Female Surgical History: Reports: Hysterectomy Other Female Surgeries/Procedures: partial hysterectomy Oncologic Surgical History: 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 (See Below) Other Oncologic Surgeries/Procedures: hysterectomy Social & Family History - Family History Family Medical History: Noncontributory Other HEENT Family History: pt. adopted and unsure of family medical history. states her children do not have medical concerns. - Tobacco Use Smoking Status *Q: Current Every Day Smoker Tobacco Use Within Last Twelve Months: Cigarettes Years of Tobacco use: 45 Packs/Tins Daily: 0.5 - Caffeine Use Caffeine Use: Reports: Coffee Other Caffeine Use: - unknown patient poor historian Caffeine Use Comment: unable to obtain - Alcohol Use Alcohol Use History: Yes Alcohol Use in Last Twelve Months: Yes Alcohol Use Frequency: Daily - Recreational Drug Use Recreational Drug Use: No - Living Situation & Occupation Occupation: Unemployed ED ROS GENERAL - Review of Systems Review Of Systems: See Below Constitutional: Reports: Chills, Malaise (generalized), Decreased Appetite. Denies: Fever Respiratory: Denies: Shortness of Breath, Cough Cardiovascular: Denies: Chest Pain GI/Abdominal: Reports: Abdominal Pain (upper abd/stomach pain), Diarrhea, Nausea , Vomiting : Denies: Dysuria, Frequency, Urgency Musculoskeletal: Reports: Back Pain (chronic back pain) ED EXAM, UPPER BACK/NECK PAIN - Physical Exam Exam: See Below Exam Limited By: No Limitations General Appearance: Alert, WD/WN, No Apparent Distress, Anxious (pt is tearful, and appears slightly anxious) Eye Exam: Bilateral Eye: EOMI, Normal Inspection, PERRL Ears Exam: Normal External Exam Nose Exam: Normal Inspection Throat/Mouth Exam: Normal Inspection, Normal Lips, Normal Teeth, Normal Gums, Normal Oropharynx, Normal Voice, No Airway Compromise Head Exam: Atraumatic, Normocephalic Neck Exam: Non-Tender, Full Range of Motion, Normal Alignment, Normal Inspection Cardiovascular/Respiratory: Regular Rate, Rhythm, No M/R/G, Normal Peripheral Pulses, No JVD, No Respiratory Distress, Wheezing (mild end expiratory wheezing noted in lung bases) GI/Abdominal: Normal Bowel Sounds, Soft, No Distention, No Mass, Tender (LUQ mainly) Back Exam: Normal Inspection Extremities: Normal Inspection, Normal Capillary Refill 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 DIRECTED Care 10/24/19 14:26 Ordered Sodium Chloride 0.9% [Saline Flush] Med 10/24/19 14:26 Ordered 10 ml FLUSH ASDIRECTED PRN Peripheral IV Insertion Adult [OM.PC] Stat Oth 10/24/19 14:25 Ordered Medication Orders Sodium Chloride (Saline Flush) 10 ml FLUSH ASDIRECTED PRN PRN Reason: Keep Vein Open Last Admin: 10/24/19 15:29 Dose: 10 ml Labs: Laboratory Tests 10/24/19 10/24/19 Range/Units 15:00 15:00 WBC 4.42 (3.98-10.04) K/mm3 RBC 3.90 L (3.98-5.22) M/mm3 Hgb 14.9 (11.2-15.7) gm/dl Hct 42.0 (34.1-44.9) % MCV 107.7 H D (79.4-94.8) fl MCH 38.2 H (25.6-32.2) pg MCHC 35.5 (32.2-35.5) g/dl RDW Std Deviation 51.7 H (36.4-46.3) fL Plt Count 264 D (182-369) K/mm3 MPV 9.2 L (9.4-12.3) fl Neut % (Auto) 67.6 (34.0-71.1) % Lymph % (Auto) 22.2 (19.3-51.7) % [facility] % (Auto) 9.0 (4.7-12.5) % Eos % (Auto) 0.5 L (0.7-5.8) Baso % (Auto) 0.5 (0.1-1.2) % Neut # (Auto) 2.99 (1.56-6.13) K/mm3 Lymph # (Auto) 0.98 L (1.18-3.74) K/mm3 [facility] [place] [facility] # (Auto) 0.40 H (0.24-0.36) K/mm3 Eos # (Auto) 0.02 L (0.04-0.36) K/mm3 Baso # (Auto) 0.02 (0.01-0.08) K/mm3 Manual Slide Review Abnormal smear Sodium 134 L (136-145) mEq/L Potassium 3.4 L (3.5-5.1) mEq/L Chloride 97 L (98-107) mEq/L Carbon Dioxide 22 (21-32) mEq/L Anion Gap 18.4 H (5-15) BUN 10 (7-18) mg/dL Creatinine 0.9 (0.55-1.02) mg/dL Est Cr Clr Drug Dosing 51.70 mL/min Estimated GFR (MDRD) > 60 (>60) mL/min BUN/Creatinine Ratio 11.1 L (14-18) Glucose 103 (80-115) mg/dL Calcium 9.2 D (8.5-10.1) mg/dL Magnesium 1.6 L (1.8-2.4) mg/dl Total Bilirubin 0.4 (0.2-1.0) mg/dL AST 37 (15-37) U/L ALT 30 (14-59) U/L Alkaline Phosphatase 173 H (46-116) U/L Total Protein 7.7 (6.4-8.2) g/dl Albumin 2.9 L (3.4-5.0) g/dl Globulin 4.8 gm/dL Albumin/Globulin Ratio 0.6 L (1-2) Lipase 273 (73-393) U/L Ethyl Alcohol 0.08 (0.00) gm% Meds: Medications Generic Name Dose Route Start Last Admin Trade Name Freq PRN Reason Stop Dose Admin Sodium Chloride 10 ml 10/24/19 14:26 10/24/19 15:29 Saline Flush FLUSH 10 ml ASDIRECTED PRN Administration Keep Vein Open Discontinued Medications Generic Name Dose Route Start Last Admin Trade Name Freq PRN Reason Stop Dose Admin Hydromorphone HCl 1 mg 10/24/19 14:25 10/24/19 14:51 Dilaudid IVPUSH 10/24/19 14:26 1 mg ONETIME ONE Administration Hydromorphone HCl 1 mg 10/24/19 16:01 10/24/19 16:29 Dilaudid IVPUSH 10/24/19 16:02 1 mg ONETIME ONE Administration Sodium Chloride 1,000 mls @ 999 mls/hr 10/24/19 14:26 10/24/19 14:51 Normal Saline IV 10/24/19 15:26 999 mls/hr ONETIME ONE Administration Lorazepam 1 mg 10/24/19 15:32 10/24/19 15:53 Ativan IVPUSH 10/24/19 15:33 1 mg ONETIME ONE Administration Metoclopramide HCl 10 mg 10/24/19 14:26 10/24/19 14:51 Reglan IVPUSH 10/24/19 14:27 10 mg ONETIME ONE Administration - Re-Assessments/Exams Free Text/Narrative Re-Assessment/Exam: 10/24/19 14:36 Patient presents to the ED for ongoing back pain, with some other complaints. Will have an IV established, given some IV fluids, 10 mg Reglan, 1 mg Dilaudid for initial management, CBC, CMP, magnesium, lipase and a blood alcohol level will be obtained. Chest x-ray will also be obtained, as she does have some end expiratory wheezing noted, to further evaluate for illness versus wheezing from being a smoker. 10/24/19 16:33 The patient's blood work has resulted, CBC is essentially within normal limits, but does demonstrate a macrocytic anemia, common for alcoholics. Sodium is mildly low at 134, potassium 3.4, anion gap elevated at 18.4, magnesium mildly low at 1.6, ALP elevated 173, which might be due to her bone mets. Lipase within normal limits of 273, and her blood alcohol levels 0.08 at this time. At this time there is no other emergent consideration at today's visit. We will likely discharge the patient home and have her follow-up with her regular care provider as needed. Departure - Departure Time of Disposition: 16:37 Disposition: Home, Self-Care 01 Condition: Fair Clinical Impression: Chronic pain due to malignant neoplastic disease, Alcoholism /alcohol abuse - Discharge Information *PRESCRIPTION DRUG MONITORING PROGRAM REVIEWED*: No *COPY OF PRESCRIPTION DRUG MONITORING REPORT IN PATIENT HARDIK: No Prescriptions: LORazepam [Ativan] 1 mg PO TID PRN #21 tab PRN Reason: Anxiety Ondansetron [Zofran ODT] 4 mg PO Q8H PRN #15 tab.dis PRN Reason: Nausea oxyCODONE ER [OxyCONTIN] 10 mg PO Q12H PRN #14 tab.er PRN Reason: Pain Instructions: Pain Medicine Instructions, [id number] Referrals: Sarah Mabry MD [Primary Care Provider] - Forms: ED Department Discharge Additional Instructions: You were evaluated in the ER today regarding your chronic pain. Your laboratory evaluation demonstrated no focal abnormalities, that would be worrisome at today's visit. You were given IV fluids, and other IV medications to help relieve some of your symptoms, this did seem to help with that. You have been provided with a few tablets of pain medication, a few tablets of Ativan for anxiety, and some Zofran for antinausea, please take as directed. Do not drink alcohol while taking these medications as this can provide an added sedative side effect. These medications were electronically prescribed to the [facility] pharmacy located near [facility], you will need to go there before 8 PM so you can pick these up to use tonight. Recommend you stick to a clear liquid or bland diet, and advance as tolerated over the next 24 to 48 hours. You will need to call your provider, and schedule an ER follow-up visit, please do so tomorrow, to schedule an appointment with Dr. Mabry. Please return to the ER at any time if symptoms change or worsen. Sepsis Event Note - Evaluation Sepsis Screening Result: No Definite Risk - Focused Exam Vital Signs: Vital Signs Temp Pulse Resp BP Pulse Ox 10/24/19 14:17 97.9 F 108 H 20 97/60 99 Date Exam was Performed: 10/24/19 Time Exam was Performed: 17:37 - My Orders Last 24 Hours: My Active Orders 10/24/19 14:25 Peripheral IV Insertion Adult [OM.PC] Stat 10/24/19 14:26 Peripheral IV Care [RC] . DIRECTED Sodium Chloride 0.9% [Saline Flush] 10 ml FLUSH ASDIRECTED PRN - Assessment/Plan Last 24 Hours: My Active Orders 10/24/19 14:25 Peripheral IV Insertion Adult [OM.PC] Stat 10/24/19 14:26 Peripheral IV Care [RC] . DIRECTED Sodium Chloride 0.9% [Saline Flush] 10 ml FLUSH ASDIRECTED PRN
[2019-10-24] MEDS ORDERED: LORazepam 2 MG/ML SDV IVPUSH ONE (15:32)
--- NOTE | 2019-10-24 15:55 | CR ---
Chest: PA and lateral views of the chest were obtained. Comparison: Prior chest x-ray of 12/31/17. Heart size and mediastinum are normal. Lungs are clear with no acute parenchymal change. Bony structures shows mild scoliosis within the spine. Impression: 1. Nothing acute is seen on 2 view chest x-ray. Diagnostic code #2 Study was dictated in MDT
== END 2019-10-24 17:50 | disposition home or self-care (01) ==
LOC: JD.ED 14:00
DX: G89.3 Neoplasm related pain (acute) (chronic) (principal); C80.1 Malignant (primary) neoplasm, unspecified; F10.20 Alcohol dependence, uncomplicated; Y90.0 Blood alcohol level of less than 20 mg/100 ml; J45.909 Unspecified asthma, uncomplicated; F32.9 Major depressive disorder, single episode, unspecified; E11.9 Type 2 diabetes mellitus without complications; E03.9 Hypothyroidism, unspecified; F17.210 Nicotine dependence, cigarettes, uncomplicated; Z88.8 Allergy status to other drugs, medicaments and biological substances; Z79.84 Long term (current) use of oral hypoglycemic drugs; Z79.899 Other long term (current) drug therapy
CPT/HCPCS: 36415; 71046; 80053; 80307; 83690; 83735; 85025; 96361; 96374; 96375; 96376; 99285; J1170; J2060; J2765; J7030